=== PATIENT | female | born 1940 | race Caucasian/White ===

== ENCOUNTER 2016-04-02 10:26 | Inpatient (IN) | payer OTHER ==
[2016-04-02 10:39] VITALS: BMI 29.9
--- NOTE | 2016-04-02 10:46 | ED.PDOC ---
General ED Provider: Dr. BELIA JEFFERY JR Chief Complaint: Extremity Pain/Injury Stated Complaint: fell and scraped her left drainage and has reddness near the upper leg[End]several days 97.6 56 20 96% 122/59 left leg has a scab on the upper leg with some bruising to the toes and area is red and warm[End] hyperflexion. ADMISSION: 03/13/16 09:14 DISCHARGE: March 16, 2016. Diverticulitis, early sigmoid colon/ gastroenteritis-viral Time Seen by Physician: 10:44 Mode of Arrival: Wheelchair Information Source: Patient, Family Exam Limitations: No limitations Primary Care Provider: JAGJIT VELASCO Nursing and Triage Documentation Reviewed and Agree: No Review of Systems - Review Of Systems Constitutional: Reports: Malaise, Weakness Eyes: Reports: No symptoms Ears, Nose, Mouth, Throat: Reports: No symptoms Respiratory: Reports: No symptoms Cardiac: Reports: No symptoms GI: Reports: No symptoms : Reports: No symptoms Musculoskeletal: Reports: Other Skin: Reports: Change in color, Lesions, Rash Neurological: Reports: No symptoms Endocrine: Reports: No symptoms Hematologic/Lymphatic: Reports: No symptoms All Other Systems: Other Past Medical History - Past Medical History Previously Healthy: No Endocrine: Reports: Dyslipidemia Cardiovascular: Reports: CAD, Hypertension, Other (cardiac arrest) Respiratory: Reports: COPD, Bronchitis Hematological: Reports: Anemia Gastrointestinal: Reports: None, GERD (old record), Diverticulitis (old record- diverticulosis) Genitourinary: Reports: None Neuro/Psych: Reports: Anxiety, Depression, Other (neuropathy of feet and hands) Musculoskeletal: Reports: Arthritis Cancer: Reports: None Last Menstrual Period: na - Surgical History General Surgical History: Reports: Hysterectomy, Appendectomy (old record), Cholecystectomy, Orthopedic (RIGHT KNEE REPLACEMENT ), Other (CAROTID SURGERY - 2013 Carotid Endarterectomy, Right) - Family History Family History: Reports: Unknown - Social History Smoking Status: Former smoker Hx Substance Use: No Alcohol Screening: None - Immunizations Tetanus Shot up to Date: No Physical Exam - Physical Exam Appearance: Well-appearing Pain Distress: Mild Eyes: HUSSAIN, EOMI, Conjunctiva clear ENT: Ears normal, Nose normal, Oropharynx normal (tender left occiput) Neck: Supple (pain with ROM) Respiratory: Airway patent, Breath sounds clear, Breath sounds equal, Respirations nonlabored Cardiovascular: RRR, Pulses normal, No rub, No murmur GI/: Soft, Nontender, No masses, Bowel sounds normal, No Organomegaly Musculoskeletal: Normal strength, ROM intact (tender left leg mild hip to ant leg mod ant leg to foot ecchymoses to foot edema ant leg), No calf tenderness ( left anterior lower leg with abrasionabout 2x3cm tender swelling slightly less than photo from 04/01), Edema Skin: Warm, Dry (note as above) Neurological: Sensation intact, Motor intact, Reflexes intact, Cranial nerves intact, Alert, Oriented Psychiatric: Affect appropriate Interpretation - Radiology Interpretation Radiology Interpretation By: Radiologist Radiology Results: No acute changes Exam Interpreted: Other (foot,pelvis,tibfib(diffuse edema),femur(hip and kneeDJD )) Xray Comments: U/S NEGATIVE FOR LEG DVT Radiology Interpretation By: Radiologist Radiology Results: No acute changes Exam Interpreted: CT Scan (NO PE chest with emphysema old rib fx, neck severe djd no acute changes head- chronic no acute chnages) - EKG Interpretation Time of EKG #1: 12:01 Rate: Tong (51) Rhythm: Sinus Ectopy: None Porter: NL ST Segment: Normal Re-Evaluation - Re-Evaluation Time of Re-Evaluation: 13:42 Status: Unchanged (disc with dr sanchez disc with daughter esme [place] post knee surgery,chris sx then next dayafternoon deteriorated- needed cpr in hospital icu...rash after xray at [facility] per esme's sister- per xray reaction in 2011) Critical Care Note - Critical Care Note Total Time (mins): 5 Course - Course Hematology/Chemistry: 04/02/16 11:11 04/02/16 11:11 Orders, Labs, Meds: Lab Review 04/02/16 04/02/16 11:11 11:14 WBC 4.81 RBC 3.56 L Hgb 11.3 L Hct 34.5 L MCV 96.9 MCH 31.7 H MCHC 32.8 RDW Coeff of Pricila 13.1 Plt Count 193 Immature Gran % (Auto) 0.2 Neut % (Auto) 74.5 Lymph % (Auto) 16.2 [place] % (Auto) 5.0 Eos % (Auto) 3.5 Baso % (Auto) 0.6 Immature Gran # (Auto) 0.0 Neut # 3.6 Lymph # 0.8 [place] # 0.2 L Eos # 0.2 Baso # 0.0 D-Dimer 3901.01 H Puncture Site Rrad O2 Saturation 94.0 L ABG pH 7.366 ABG pCO2 46.3 H ABG pO2 75.0 L ABG HCO3 26.5 H ABG Total CO2 28 ABG Base Excess 1 [place] Test + FiO2 % 21.0 Sodium 141 Potassium 4.2 Chloride 103 Carbon Dioxide 29 Anion Gap 13.2 BUN 13 Creatinine 0.88 Estimated GFR (MDRD) 62.00 BUN/Creatinine Ratio 14.77 Glucose 170 H Calcium 8.7 Total Bilirubin 0.48 AST 13 L ALT 12 Alkaline Phosphatase 62 B-Natriuretic Peptide 159 H Total Protein 6.1 Albumin 3.1 L Globulin 3.0 Albumin/Globulin Ratio 1.03 Orders Category Date Time Status ABG DRAW REQUEST Stat CARDIO 04/02/16 11:14 Completed EKG-(ED ONLY) Stat CARDIO 04/02/16 11:11 Completed NPO REMINDER: IMAGING ONCE CARE 04/02/16 13:03 Completed ABG Stat LAB 04/02/16 11:14 Completed B-TYPE NATRIURETIC PEPTIDE Stat LAB 04/02/16 11:11 Completed BLOOD CULTURE Stat LAB 04/02/16 11:55 Received CBC W/ AUTO DIFF Stat LAB 04/02/16 11:11 Completed COMPREHENSIVE METABOLIC PANEL Stat LAB 04/02/16 11:11 Completed D-DIMER Stat LAB 04/02/16 11:11 Completed Ceftriaxone Sodium [Rocephin] MEDS 04/02/16 12:26 Discontinued 1 gm .ROUTE .STK-MED ONE Ceftriaxone Sodium [Rocephin] 1 gm MEDS 04/02/16 12:18 Discontinued 0.9 % Sodium Chloride [Sodium Chloride] 50 ml IV ONCE Diphenhydramine Inj [Benadryl] MEDS 04/02/16 14:09 Discontinued 50 mg .ROUTE .STK-MED ONE Diphenhydramine Inj [Benadryl] 25 mg MEDS 04/02/16 12:57 Discontinued 0.9 % Sodium Chloride [Sodium Chloride] 100 ml IV ONCE Diphenhydramine Inj [Benadryl] 25 mg MEDS 04/02/16 15:03 Discontinued 0.9 % Sodium Chloride [Sodium Chloride] 100 ml IV ONCE Methylprednisolone Sod Succ/Pf [Solu-Medrol 125 mg] MEDS 04/02/16 13:03 Discontinued 125 [address] IVP ONCE [address]A CT CERVICAL SPINE W/O CONTRAST Stat RADS 04/02/16 11:[address] CHEST PE PROTOCOL Stat RADS 04/02/16 12:[address] CHEST W/O CONTRAST Stat RADS 04/02/16 11:[address] HEAD W/O CONTRAST Stat RADS 04/02/16 11:03 Completed FEMUR, LEFT 2 VIEWS Stat RADS 04/02/16 11:09 Completed FOOT, LEFT 3 VIEWS Stat RADS 04/02/16 11:09 Completed PELVIS 1 OR 2 VIEWS Stat RADS 04/02/16 11:09 Completed TIBIA/FIBULA, LEFT 2 VIEWS Stat RADS 04/02/16 11:09 Completed ULTRASOUND VENOUS SCAN ANJUM LEGS [U/S VENOUS SCAN ANJUM RADS 04/02/16 14:02 Completed LEGS] Stat Medications Generic Name Dose Route Start Last Admin Trade Name Freq PRN Reason Stop Dose Admin Acetaminophen 650 mg 04/02/16 16:07 Tylenol PO Q4H PRN Mild Pain Acetaminophen/Hydrocodone Bitart 1 tab 04/02/16 16:27 [place] 5-325 PO Q6HR PRN PAIN Albuterol Sulfate 1 puff 04/02/16 16:27 Proair Hfa IH Q4HR PRN Wheezing Aspirin 81 mg 04/03/16 08:00 Aspirin Ec PO DAILYWM [facility] Atorvastatin Calcium 80 mg 04/03/16 09:00 Lipitor PO DAILY [facility] Calcium/Vitamin D 2 each 04/02/16 21:00 Calcium 500 + Vit D 200 Mg Tablet PO BID [facility] Clopidogrel Bisulfate 75 mg 04/03/16 09:00 Plavix PO DAILY [facility] Escitalopram Oxalate 10 mg 04/03/16 09:00 Lexapro PO DAILY [facility] Ferrous Sulfate 324 mg 04/03/16 09:00 Ferrous Sulfate PO DAILY [facility] Fish Oil 1,000 mg 04/02/16 21:00 [place]-3 Fish Oil PO BID [facility] Gabapentin 1,200 mg 04/02/16 21:00 Neurontin PO TID [facility] Ceftriaxone Sodium 1 gm/ 50 mls @ 75 mls/hr 04/03/16 09:00 Sodium Chloride IV DAILY [facility] Sodium Chloride 1,000 mls @ 75 mls/hr 04/02/16 16:30 Sodium Chloride IV .[id number] [facility] Vancomycin HCl 1 gm/ Sodium 250 mls @ 125 mls/hr 04/02/16 16:30 Chloride IV 04/02/16 23:59 DAILY KELY Vancomycin HCl 500 mg/ Sodium 100 mls @ 100 mls/hr 04/03/16 09:00 Chloride IV Q12HR KELY Isosorbide Mononitrate 30 mg 04/02/16 16:27 Imdur PO Q6HR PRN Angina Lisinopril 5 mg 04/03/16 09:00 Zestril PO DAILY [facility] Metoprolol Tartrate 25 mg 04/02/16 21:00 Lopressor PO BID [facility] Multivitamins 1 cap 04/03/16 09:00 Multivitamin PO DAILY [facility] Nitroglycerin 0.4 mg 04/02/16 16:27 Nitrostat SL Q5MIN PRN Angina Non-Formulary Medication 0.5 mg 04/02/16 21:00 Clonazepam [Klonopin] PO BEDTIME KELY Omeprazole 20 mg 04/03/16 06:30 Prilosec PO QDAC KELY Ranolazine 500 mg 04/02/16 21:00 Ranexa PO BID [facility] Discontinued Medications Generic Name Dose Route Start Last Admin Trade Name Freq PRN Reason Stop Dose Admin Ceftriaxone Sodium 1 gm/ 50 mls @ 75 mls/hr 04/02/16 12:18 04/02/16 15:20 Sodium Chloride IV 04/02/16 12:57 75 mls/hr ONCE STA Administration Diphenhydramine HCl 25 mg/ 100.5 mls @ 100 mls/hr 04/02/16 12:57 04/02/16 14: 12 Sodium Chloride IV 04/02/16 13:57 100 mls/hr ONCE STA Administration Diphenhydramine HCl 25 mg/ 100.5 mls @ 100 mls/hr 04/02/16 15:03 04/02/16 15: 35 Sodium Chloride IV 04/02/16 16:03 Not Given ONCE STA Methylprednisolone Sodium Succinate 125 mg 04/02/16 13:03 04/02/16 14:11 Solu-Medrol 125 Mg IVP 04/02/16 13:04 125 mg ONCE STA Administration Vital Signs: Temp Pulse Resp BP Pulse Ox 04/02/16 10:32 97.6 F 56 L 20 122/59 L 96 Departure - Departure Time of Disposition: 17:13 Disposition: ADMITTED INPATIENT Discharge Problem: Cellulitis Condition: Stable Pt referred to PMD for follow-up: Yes Allergies/Adverse Reactions: Allergies Iodinated Contrast Media - Oral and [Iodinated Contrast Media - IV Dye] Adverse Reaction (Verified 04/02/16 10:44) pregabalin [From Lyrica] Adverse Reaction (Verified 04/02/16 10:44) Home Medications: Ambulatory Orders Acetaminophen [Tylenol] 500 mg PO Q4HR PRN 09/02/12 Calcium Carbonate/Vitamin D3 [Calcium 600 + Vit D 400 Tablet] 2 tab PO BID 09/02 Clopidogrel Bisulfate [Plavix] 75 mg PO DAILY 09/02/12 Nitroglycerin [Nitrostat] 0.4 mg SL Q5MIN PRN 09/02/12 [place]-3 Fatty Acids/Fish Oil [Fish Oil 1,000 mg Capsule] 2,000 mg PO DAILY 09/02 Omeprazole [Prilosec] 20 mg PO QDAC 09/02/12 Multivitamin [Multi-Vitamin Daily] 1 each PO DAILY 01/01/13 Albuterol Sulfate [Proair Hfa] 1 puff INH Q4HR PRN 07/15/13 Ferrous Sulfate 325 mg PO DAILY 07/15/13 Clonazepam [Klonopin] 0.5 mg PO BEDTIME 03/26/14 Escitalopram Oxalate [Lexapro] 10 mg PO DAILY 03/26/14 Gabapentin 1,200 mg PO TID 03/26/14 Lisinopril [Zestril] 5 mg PO DAILY 03/26/14 Metoprolol Tartrate [Lopressor] 25 mg PO BID 03/26/14 Hydrocodone/Acetaminophen [[place] 5-325 Tablet] 1 tab PO Q6HR PRN 06/17/14 Isosorbide Mononitrate [Imdur] 30 mg PO Q6HR PRN 06/17/14 Ranolazine [Ranexa] 500 mg PO BID 06/17/14 Atorvastatin Calcium [Lipitor] 80 mg PO DAILY 10/16/14 Aspirin [Aspirin EC] 81 mg PO DAILYWM 05/07/15 [place]-3 Fatty Acids/Fish Oil [Fish Oil 1,000 mg Softgel] 1,000 mg PO BID Ranolazine [Ranexa] 500 mg PO BID 04/02/16
[2016-04-02 11:16] LABS: BASOPHILS % (AUTO) 0.6 % (0.0-3.0); EOSINOPHILS # (AUTO) 0.2 K/ul (0.0-0.7); EOSINOPHILS % (AUTO) 3.5 % (0.0-7.0); HEMATOCRIT 34.5 % (37.0-47.0); HEMOGLOBIN 11.3 g/dl (12.0-16.0); IMMATURE GRANULOCYTE % (AUTO) 0.2 % (0.0-5.0); LYMPHOCYTES # (AUTO) 0.8 K/uL (0.60-3.4); LYMPHOCYTES % (AUTO) 16.2 (10.0-50.0); MEAN CORPUSCULAR HEMOGLOBIN 31.7 pg (27.0-31.0); MEAN CORPUSCULAR HGB CONC 32.8 (31.8-35.4); MEAN CORPUSCULAR VOLUME 96.9 fl (81.0-99.0); MONOCYTES # (AUTO) 0.2 K/uL (0.4-2.0); NEUTROPHILS # (AUTO) 3.6 K/ul (2.0-6.9); NEUTROPHILS % (AUTO) 74.5; PLATELET COUNT 193 10^3/uL (140-440); RED BLOOD COUNT 3.56 10^6/ul (4.20-5.40); WHITE BLOOD COUNT 4.81 K/ul (4.6-10.2)
--- NOTE | 2016-04-02 11:53 | DI ---
EXAM: Single image of the pelvis. Comparison: CT examination performed on 03/13/2016. Reason for study: Fall, leg flexed and scraped with cellulitis left fitzpatrick. FINDINGS: Examination is somewhat limited by a single AP image of the pelvis. No obvious cortical irregularity or malalignment. The femoral heads articulate with the acetabular fossa bilaterally. The pubic symphysis is not widened. There are some sclerotic changes in both sacroiliac joints like ly age-related. IMPRESSION: Within the limitations of a single radiograph, no acute fracture or dislocation is seen within the pelvis.
--- NOTE | 2016-04-02 11:54 | DI ---
EXAM: Radiographs, left tibia and fibula HISTORY: Initial presentation for left leg injury. COMPARISON: Left knee radiographs 09/12/2015. TECHNIQUE: Frontal and lateral views. FINDINGS/IMPRESSION: Plate and screw fixation of the distal fibula appears intact. No acute fracture or dislocation iden tified. Osteoarthritic changes the knee are present. Diffuse subcutaneous edema seen in the lower leg, greater distally.
--- NOTE | 2016-04-02 11:56 | DI ---
EXAM: Two views of the left femur HISTORY: Fall with soft tissue injury concerning for cellulitis.. COMPARISON: Same day pelvis x-ray and lower leg x-ray FINDINGS: There is no lytic or blastic lesion of the left femur. There is no cortical irregularity or displaced fracture. The left hip demonstrates degenerative disease and is better evaluated on day pelvis x-ray. Soft tissues are unremarkable. There is degenerative disease of the left knee . IMPRESSION: No acute abnormality, displaced fracture, lytic or blastic lesion of the left femur. T here is degenerative disease of the left hip and knee.
--- NOTE | 2016-04-02 11:58 | DI ---
EXAM: Left foot three views HISTORY: Fall, pain FINDINGS: Compared to 04/26/2014. Redemonstration of stabilization hardware of the lower fibula. The bones appear demineralized. No acute fracture or dislocation is identified. Diffuse arthropath y is again seen without noticeable change. There is no joint effusion. IMPRESSION: No acute fracture or dislocation. Prior surgery. Diffuse arthropathy.
[2016-04-02 12:02] LABS: ALBUMIN 3.1 g/dL (3.4-5.0); ALBUMIN/GLOBULIN RATIO 1.03; ANION GAP 13.2; BILIRUBIN,TOTAL 0.48 mg/dL (0.00-1.20); BUN/CREATININE RATIO 14.77; CALCIUM 8.7 mg/dL (8.2-10.2); CREATININE 0.88 mg/dL (0.60-1.30); POTASSIUM 4.2 mmol/L (3.5-5.10); TOTAL PROTEIN 6.1 g/dL (5.8-8.1)
--- NOTE | 2016-04-02 12:02 | CT ---
EXAM: Noncontrasted CT examination of the brain. Comparison: 01/16/2016. Reason for study: Fall struck head and left chest wall. FINDINGS: No acute intracranial hemorrhage, mass effect, ventricular dilatation, or territorial inf arction. The prepontine and quadrigeminal cisterns are patent. There is no cerebellar ectopia. Th e calvarium is intact. The paranasal sinuses and mastoid air cells are unopacified. Parenchymal fin dings are consistent with chronic small vessel disease. Calcified atherosclerotic changes are seen w ithin the vertebral arteries. IMPRESSION: 1. No acute intracranial findings. 2. Chronic small vessel disease and senescent change.
--- NOTE | 2016-04-02 12:02 | CT ---
EXAM: CT cervical spine without contrast. HISTORY: Initial presentation for neck pain following a fall. COMPARISON: 01/16/2016. TECHNIQUE: Multiple axial images of the cervical spine were obtained without intravenous contrast. Images were reformatted in the sagittal and coronal planes. FINDINGS: There is approximately 0.2 cm anterolisthesis of C3 on C4 0.2 cm retrolisthesis of four o n C5 and less than 0.2 cm retrolisthesis of C5 on C6. Vertebral body heights are normal. There is severe loss of disc height at C4-5 through C6-7 with associated endplate sclerosis and osteophyte fo rmation causing mild central canal stenosis from C4-5 through C6-7. Disc osteophyte formation along with uncovertebral hypertrophy and facet arthropathy cause multilevel neural foraminal narrowing, m oderate at C6-7 and more mild elsewhere. No fracture identified. Paravertebral soft tissues are wit hout acute abnormality in the. Emphysematous changes seen in the lung apices. Atherosclerotic calc ifications are present. Clips seen adjacent to the right carotid artery. Since the prior study, the re has been no significant interval change. IMPRESSION: No acute abnormality of the cervical spine.
--- NOTE | 2016-04-02 12:06 | CT ---
EXAM: CT chest without contrast. HISTORY: Initial presentation for left-sided chest trauma due to a fall. Left eighth and ninth rib pain. COMPARISON: Chest radiograph 05/06/2015. Chest CT 04/06/2012. TECHNIQUE: Multiple axial images of the chest were obtained without intravenous contrast. Images w ere reformatted in the sagittal and coronal planes. FINDINGS: Noncalcified mediastinal lymph nodes are present which measure less than 1 cm short axis. Densely calcified subcarinal and left hilar lymph nodes noted. Heart size is normal. Atheroscler otic calcifications present. No pericardial effusion identified. Emphysematous changes present bilaterally, greater in the upper lobes. Calcified granulomatous grimes ges are present. Subsegmental atelectasis or scarring seen at the right lung base. No consolidatio n, pleural effusion or pneumothorax identified. No acute rib fracture identified. There are old right lateral sixth and seventh rib fractures. The re images of the upper abdomen demonstrate right renal cysts and colonic diverticulosis. Small hiat al hernia noted. Severe abdominal aortic atherosclerotic calcifications are present but incompletel y imaged. IMPRESSION: No acute post-traumatic abnormality of the chest.
[2016-04-02 12:13] LABS: ABG BASE EXCESS 1 (-2.0-2.0); ABG HCO3 26.5 (22.0-26.0); ABG PCO2 46.3 mmHg (35-45); ABG PH 7.366 (7.35-7.45); ABG TCO2 28 (22.0-28.0)
[2016-04-02] MEDS ORDERED: ROCEPHIN 1 GM in SODIUM CHLORIDE 50 ML IV STA (12:18)
[2016-04-02] MEDS ORDERED: ROCEPHIN ONE (12:26)
[2016-04-02] MEDS ORDERED: BENADRYL 25 MG in SODIUM CHLORIDE 100 ML IV STA ×2 (12:57→15:03)
[2016-04-02] MEDS ORDERED: SOLU-MEDROL 125 MG IVP STA (13:03)
[2016-04-02] MEDS ORDERED: BENADRYL ONE (14:09)
--- NOTE | 2016-04-02 15:33 | CT ---
EXAM: CT Angiogram Chest. HISTORY: Elevated D-dimer. Recent fall left-sided chest trauma. COMPARISON: Noncontrast CT earlier the same day. TECHNIQUE: Multiple axial images of the chest were obtained following intravenous administration of 125 mL of Omnipaque-300, low osmolar. Images were reformatted in the sagittal and coronal plane. 3-D and maximum intensity projection reformatted images were created on an independent workstation. FINDINGS: No pulmonary arterial filling defects are identified. Heart size is normal. No pericard ial effusion identified. Atherosclerotic calcifications are present. Calcified and noncalcified me diastinal and hilar lymph nodes noted. Lungs are grossly clear save for right basilar subsegmental atelectasis and calcified granulomatous changes. Emphysematous changes seen. No pleural effusion o r pneumothorax identified. Old left lateral fifth through seventh rib fractures noted. No acute osseous abnormality detected. Limited images of the upper abdomen demonstrate no acute abnormality. IMPRESSION: No evidence for pulmonary embolus or other acute abnormality of the chest.
--- NOTE | 2016-04-02 15:34 | US ---
EXAM: Left lower extremity venous doppler. HISTORY: Left leg swelling. Positive D-dimer. COMPARISON: None available. TECHNIQUE: Multiple grayscale and color doppler images were obtained. FINDINGS: There is normal flow, compressibility and augmentation of flow within the left common fem oral, greater saphenous, profunda, femoral, popliteal, posterior tibial, anterior tibial and peronea l veins. Subcutaneous edema is present. IMPRESSION: No evidence for left lower extremity deep vein thrombosis at the levels examined.
[2016-04-02] MEDS ORDERED: TYLENOL PO PRN (16:07)
[2016-04-02] MEDS ORDERED: NORCO 5-325 PO PRN (16:27)
[2016-04-02] MEDS ORDERED: NITROSTAT SL PRN (16:27)
[2016-04-02] MEDS ORDERED: PROAIR HFA IH PRN (16:27)
[2016-04-02] MEDS ORDERED: IMDUR PO PRN (16:27)
[2016-04-02] MEDS ORDERED: SODIUM CHLORIDE 1,000 ML IV SCH (16:30)
[2016-04-02] MEDS ORDERED: VANCOMYCIN 1 GM in SODIUM CHLORIDE 250 ML IV SCH (16:30)
[2016-04-02] MEDS: OMEGA-3 FISH OIL PO SCH (20:54)
[2016-04-02] MEDS: RANEXA PO SCH (20:54)
[2016-04-02] MEDS: NEURONTIN PO SCH (20:54)
[2016-04-02] MEDS: LOPRESSOR PO SCH (20:54)
[2016-04-02] MEDS: CALCIUM 500 + VIT D 200 MG TABLET PO SCH (20:55)
[2016-04-02] MEDS: KLONOPIN PO SCH (21:00)
[2016-04-02] MEDS ORDERED: NON-FORMULARY MEDICATION (Omega-3 Fatty Acids/Fish Oil [Fish Oil 1,000 Mg Softgel] 1,000 M PO SCH ×22 (21:00)
[2016-04-02] MEDS ORDERED: NON-FORMULARY MEDICATION (Gabapentin [Gabapentin] 1,200 MG) PO SCH (21:00)
[2016-04-02] MEDS ORDERED: NON-FORMULARY MEDICATION (Clonazepam [Klonopin] 0.5 MG) PO SCH ×22 (21:00)
[2016-04-03] MEDS: PRILOSEC PO SCH (05:48)
[2016-04-03 05:50] LABS: HEMATOCRIT 37.6 % (37.0-47.0); HEMOGLOBIN 11.9 g/dl (12.0-16.0); IMMATURE GRANULOCYTE % (AUTO) 0.3 % (0.0-5.0); LYMPHOCYTES # (AUTO) 0.5 K/uL (0.60-3.4); LYMPHOCYTES % (AUTO) 13.3 (10.0-50.0); MEAN CORPUSCULAR HEMOGLOBIN 30.3 pg (27.0-31.0); MEAN CORPUSCULAR HGB CONC 31.6 (31.8-35.4); MEAN CORPUSCULAR VOLUME 95.7 fl (81.0-99.0); MONOCYTES % (AUTO) 0.3 (0-10); NEUTROPHILS # (AUTO) 3.4 K/ul (2.0-6.9); NEUTROPHILS % (AUTO) 86.1; PLATELET COUNT 186 10^3/uL (140-440); RED BLOOD COUNT 3.93 10^6/ul (4.20-5.40); WHITE BLOOD COUNT 3.99 K/ul (4.6-10.2)
[2016-04-03 06:20] LABS: ALBUMIN 3.1 g/dL (3.4-5.0); ALBUMIN/GLOBULIN RATIO 0.94; ANION GAP 14.3; BILIRUBIN,TOTAL 0.37 mg/dL (0.00-1.20); BUN/CREATININE RATIO 13.75; CALCIUM 9.1 mg/dL (8.2-10.2); CREATININE 0.8 mg/dL (0.60-1.30); POTASSIUM 4.3 mmol/L (3.5-5.10); TOTAL PROTEIN 6.4 g/dL (5.8-8.1)
[2016-04-03] MEDS: ROCEPHIN 1 GM in SODIUM CHLORIDE 50 ML IV SCH (07:59)
[2016-04-03] MEDS: LIPITOR PO SCH (08:00)
[2016-04-03] MEDS: ZESTRIL PO SCH (08:00)
[2016-04-03] MEDS: NEURONTIN PO SCH ×3 (08:00→21:11)
[2016-04-03] MEDS: PLAVIX PO SCH (08:00)
[2016-04-03] MEDS: MULTIVITAMIN PO SCH (08:01)
[2016-04-03] MEDS: OMEGA-3 FISH OIL PO SCH ×2 (08:01→21:11)
[2016-04-03] MEDS: RANEXA PO SCH ×2 (08:01→21:12)
[2016-04-03] MEDS: CALCIUM 500 + VIT D 200 MG TABLET PO SCH ×2 (08:01→21:12)
[2016-04-03] MEDS: LOPRESSOR PO SCH ×2 (08:01→21:12)
[2016-04-03] MEDS: FERROUS SULFATE PO SCH (08:02)
[2016-04-03] MEDS: IMDUR PO SCH (08:02)
[2016-04-03] MEDS: ASPIRIN EC PO SCH (08:02)
[2016-04-03] MEDS: LEXAPRO PO SCH (08:02)
[2016-04-03] MEDS: SODIUM CHLORIDE 1,000 ML IV SCH ×2 (08:03)
[2016-04-03] MEDS ORDERED: NON-FORMULARY MEDICATION (Multivitamin [Multi-Vitamin Daily] 1 EACH) PO SCH ×22 (09:00)
[2016-04-03] MEDS ORDERED: NON-FORMULARY MEDICATION (Ferrous Sulfate [Ferrous Sulfate] 325 MG) PO SCH ×22 (09:00)
[2016-04-03] MEDS ORDERED: NON-FORMULARY MEDICATION (Atorvastatin Calcium [Lipitor] 80 MG) PO SCH ×22 (09:00)
[2016-04-03] MEDS: VANCOMYCIN 500 MG in SODIUM CHLORIDE 100 ML IV SCH ×2 (10:04→21:12)
[2016-04-03] MEDS: KLONOPIN PO SCH (21:12)
[2016-04-04] MEDS: PRILOSEC PO SCH (05:45)
[2016-04-04 07:36] LABS: BASOPHILS % (AUTO) 0.6 % (0.0-3.0); EOSINOPHILS # (AUTO) 0.1 K/ul (0.0-0.7); EOSINOPHILS % (AUTO) 1.7 % (0.0-7.0); HEMATOCRIT 33.8 % (37.0-47.0); HEMOGLOBIN 10.6 g/dl (12.0-16.0); IMMATURE GRANULOCYTE % (AUTO) 0.2 % (0.0-5.0); MEAN CORPUSCULAR HEMOGLOBIN 30.4 pg (27.0-31.0); MEAN CORPUSCULAR HGB CONC 31.4 (31.8-35.4); MEAN CORPUSCULAR VOLUME 96.8 fl (81.0-99.0); MONOCYTES # (AUTO) 0.3 K/uL (0.4-2.0); MONOCYTES % (AUTO) 4.8 (0-10); NEUTROPHILS # (AUTO) 4.9 K/ul (2.0-6.9); NEUTROPHILS % (AUTO) 76.7; PLATELET COUNT 183 10^3/uL (140-440); RED BLOOD COUNT 3.49 10^6/ul (4.20-5.40); WHITE BLOOD COUNT 6.44 K/ul (4.6-10.2)
[2016-04-04] MEDS: ASPIRIN EC PO SCH (07:58)
[2016-04-04 08:03] LABS: ALBUMIN 2.8 g/dL (3.4-5.0); ANION GAP 12.2; BILIRUBIN,TOTAL 0.37 mg/dL (0.00-1.20); BUN/CREATININE RATIO 18.18; CALCIUM 8.7 mg/dL (8.2-10.2); CREATININE 0.77 mg/dL (0.60-1.30); POTASSIUM 4.2 mmol/L (3.5-5.10); TOTAL PROTEIN 5.6 g/dL (5.8-8.1)
[2016-04-04] MEDS: OMEGA-3 FISH OIL PO SCH ×2 (09:18→20:31)
[2016-04-04] MEDS: MULTIVITAMIN PO SCH (09:18)
[2016-04-04] MEDS: RANEXA PO SCH ×2 (09:19→20:30)
[2016-04-04] MEDS: FERROUS SULFATE PO SCH (09:19)
[2016-04-04] MEDS: LOPRESSOR PO SCH ×2 (09:20→20:32)
[2016-04-04] MEDS: LIPITOR PO SCH (09:20)
[2016-04-04] MEDS: PLAVIX PO SCH (09:20)
[2016-04-04] MEDS: ZESTRIL PO SCH (09:22)
[2016-04-04] MEDS: IMDUR PO SCH (09:22)
[2016-04-04] MEDS: LEXAPRO PO SCH (09:22)
[2016-04-04] MEDS: CALCIUM 500 + VIT D 200 MG TABLET PO SCH ×2 (09:23→20:31)
[2016-04-04] MEDS: NEURONTIN PO SCH ×3 (09:24→20:30)
[2016-04-04] MEDS: ROCEPHIN 1 GM in SODIUM CHLORIDE 50 ML IV SCH (09:25)
[2016-04-04] MEDS: VANCOMYCIN 500 MG in SODIUM CHLORIDE 100 ML IV SCH ×2 (10:30→20:29)
[2016-04-04] MEDS: SODIUM CHLORIDE 1,000 ML IV SCH (15:10)
[2016-04-04] MEDS: KLONOPIN PO SCH (20:36)
[2016-04-05] MEDS: PRILOSEC PO SCH (05:30)
[2016-04-05 08:37] LABS: BASOPHILS % (AUTO) 0.5 % (0.0-3.0); EOSINOPHILS # (AUTO) 0.1 K/ul (0.0-0.7); EOSINOPHILS % (AUTO) 2.3 % (0.0-7.0); HEMATOCRIT 35.4 % (37.0-47.0); IMMATURE GRANULOCYTE % (AUTO) 0.3 % (0.0-5.0); LYMPHOCYTES # (AUTO) 0.8 K/uL (0.60-3.4); MEAN CORPUSCULAR HEMOGLOBIN 30.2 pg (27.0-31.0); MEAN CORPUSCULAR HGB CONC 31.1 (31.8-35.4); MEAN CORPUSCULAR VOLUME 97.3 fl (81.0-99.0); MONOCYTES # (AUTO) 0.3 K/uL (0.4-2.0); MONOCYTES % (AUTO) 4.9 (0-10); NEUTROPHILS # (AUTO) 4.8 K/ul (2.0-6.9); PLATELET COUNT 164 10^3/uL (140-440); RED BLOOD COUNT 3.64 10^6/ul (4.20-5.40); WHITE BLOOD COUNT 6.07 K/ul (4.6-10.2)
[2016-04-05] MEDS: ASPIRIN EC PO SCH (08:59)
[2016-04-05] MEDS: CALCIUM 500 + VIT D 200 MG TABLET PO SCH (09:00)
[2016-04-05] MEDS: IMDUR PO SCH (09:01)
[2016-04-05] MEDS: FERROUS SULFATE PO SCH (09:01)
[2016-04-05] MEDS: LOPRESSOR PO SCH (09:02)
[2016-04-05] MEDS: LEXAPRO PO SCH (09:02)
[2016-04-05 09:03] LABS: ALBUMIN 2.9 g/dL (3.4-5.0); ALBUMIN/GLOBULIN RATIO 1.12; ANION GAP 11.6; BILIRUBIN,TOTAL 0.34 mg/dL (0.00-1.20); BUN/CREATININE RATIO 14.66; CALCIUM 8.8 mg/dL (8.2-10.2); CREATININE 0.75 mg/dL (0.60-1.30); POTASSIUM 4.6 mmol/L (3.5-5.10); TOTAL PROTEIN 5.5 g/dL (5.8-8.1)
[2016-04-05] MEDS: MULTIVITAMIN PO SCH (09:03)
[2016-04-05] MEDS: NEURONTIN PO SCH (09:03)
[2016-04-05] MEDS: OMEGA-3 FISH OIL PO SCH (09:04)
[2016-04-05] MEDS: RANEXA PO SCH (09:05)
[2016-04-05] MEDS: PLAVIX PO SCH (09:05)
[2016-04-05] MEDS: ZESTRIL PO SCH (09:06)
--- NOTE | 2016-04-05 09:10 | PCM.PROG ---
Attending Provider: ATTENDING PROVIDER: Dr. MARCIA RODRIGUEZ DATE OF SERVICE: 04/05/16 SUBJECTIVE: This 75 year old WHITE/ F was hospitalized 04/02/16. The patient was admitted with left lower extremity cellulitis and recurrent fall. The patient is feeling much better today. Her color is better. Swelling is better. Left leg - above the ankle cellulitis and hematoma, which is getting better. REVIEW OF SYSTEMS: CONSTITUTIONAL: No fever, no chills. ENDOCRINE: No weight loss or weight gain. HEENT: No sinus drainage, no sore throat. CVS: No angina symptoms. No CHF symptoms. No palpitations. No atypical chest pain for CAD. No shortness of breath. RESPIRATORY: No cough, no hemoptysis. GI: No melena. No abdominal pain. No nausea, no vomiting. : No hematuria. No polyuria. SKIN: No rash. Wound - scabbed area left lower extremity, swelling and redness from hematoma - nontender, not warm to touch. MUSCULOSKELETAL: No pain. ROLLER PRINTER: No blackout, no dizziness. No headache. No double vision. PSYCHIATRIC: Not anxious; no depression. No suicidal thoughts. No homicidal thoughts. PHYSICAL EXAMINATION: GENERAL: Lying in bed in no distress. VITAL SIGNS: Temperature 98.7 F, Pulse 60, Respiratory Rate 18, BP 166/65, Pulse Ox 96% HEENT: Normocephalic, atraumatic. Mucosa is dry, pallor positive. NECK: No JVP, no carotid bruit. No lymphadenopathy. CARDIAC: S1, S2, no S3. No murmur, gallop or regurgitation. LUNGS: Clear to auscultation. ABDOMEN: Soft, non-tender. Bowel sounds active. No rigidity, guarding or CVA tenderness. EXTREMITIES: Left lower extremity above ankle scabbed area wound with swelling nd redness. Swelling and redness from hematoma. Nontender. Not warm to touch. NEUROLOGIC: Awake, alert and oriented x3. LYMPHATIC: No palpable lymph nodes SKIN: Not dry. Intact. MUSCULOSKELETAL: No joint swelling. LAB REVIEW: 04/04/16 06:50 04/04/16 06:50 ASSESSMENT: 1. Left lower extremity cellulitis, better. 2. Recurrent falls. 3. Angina, stable. 4. Hypertension. 5. Dyslipidemia. 6. Depression/anxiety. 7. Right carotid endarterectomy. PLAN: 1. Keflex 500 mg b.i.d. times 5 days. 2. Keep left lower extremity elevated. 3. Plan for discharge home today. 4. Saline Lock IV. Plan and coordination of the patient's care discussed in the presence of Rn Transitional and nurse. CONDITION: Stable SCRIBED BY: CHRISTOPHER EARLY Railroad Conductor scribed while in presence of service performed by Dr. MARCIA RODRIGUEZ on 04/05/16 ([id number])
[2016-04-05] MEDS: LIPITOR PO SCH (09:12)
[2016-04-05] MEDS: ROCEPHIN 1 GM in SODIUM CHLORIDE 50 ML IV SCH (09:12)
[2016-04-05] MEDS: VANCOMYCIN 500 MG in SODIUM CHLORIDE 100 ML IV SCH (10:01)
[2016-04-05 11:45] VITALS: BP 130/75; TEMP 98.3
--- NOTE | 2016-04-05 13:15 | CM.DICTOOL ---
ADMISSION: 04/02/16 15:52 DISCHARGE: 04/05/16 DATE OF SERVICE: 04/05/16 FINAL DIAGNOSIS CELLULITIS, LEFT LOWER EXTREMITY ULCER, LEFT LOWER EXTREMITY DIVERTICULITIS, SIGMOID COLON, 02/2016 GASTROENTERITIS-VIRAL, 02/2016 CAD HYPERTENSION DYSLIPIDEMIA GERD ANEMIA COPD ARTHRITIS DEPRESSION CHOLECYSTECTOMY APPENDECTOMY HYPERECTOMY RIGHT KNEE REPLACEMENT, 2013 CAROTID ENDARTERECTOMY, RIGHT LAST VITALS Temp Pulse Resp BP Pulse Ox 98.3 F 66 20 130/75 98 04/05/16 10:00 04/05/16 10:00 04/05/16 10:00 04/05/16 10:00 04/05/16 10:00 ACTIVE MEDICATIONS Acetaminophen (Tylenol) 650 mg PO Q4H PRN PRN Reason: Mild Pain Acetaminophen/Hydrocodone Bitart ([place] 5-325) 1 tab PO Q6HR PRN PRN Reason: PAIN Last Admin: 04/04/16 05:48 Dose: 1 tab Albuterol Sulfate (Proair Hfa) 1 puff IH Q4HR PRN PRN Reason: Wheezing Aspirin (Aspirin Ec) 81 mg PO DAILYWM [facility] Last Admin: 04/05/16 08:59 Dose: 81 mg Atorvastatin Calcium (Lipitor) 80 mg PO DAILY [facility] Last Admin: 04/05/16 09:12 Dose: 80 mg Calcium/Vitamin D (Calcium 500 + Vit D 200 Mg Tablet) 2 each PO BID [facility] Last Admin: 04/05/16 09:00 Dose: 2 each Clonazepam (Klonopin) 0.5 mg PO BEDTIME [facility] Last Admin: 04/04/16 20:36 Dose: 0.5 mg Clopidogrel Bisulfate (Plavix) 75 mg PO DAILY [facility] Last Admin: 04/05/16 09:05 Dose: 75 mg Escitalopram Oxalate (Lexapro) 10 mg PO DAILY [facility] Last Admin: 04/05/16 09:02 Dose: 10 mg Ferrous Sulfate (Ferrous Sulfate) 324 mg PO DAILY [facility] Last Admin: 04/05/16 09:01 Dose: 324 mg Fish Oil ([place]-3 Fish Oil) 3,000 mg PO BID [facility] Last Admin: 04/05/16 09:04 Dose: 1,000 mg Gabapentin (Neurontin) 1,200 mg PO TID [facility] Last Admin: 04/05/16 09:03 Dose: 1,200 mg Isosorbide Mononitrate (Imdur) 30 mg PO DAILY [facility] (was 30 mg po q6H PRN) Last Admin: 04/05/16 09:01 Dose: 30 mg Lisinopril (Zestril) 5 mg PO DAILY [facility] Last Admin: 04/05/16 09:06 Dose: 5 mg Metoprolol Tartrate (Lopressor) 25 mg PO BID [facility] Last Admin: 04/05/16 09:02 Dose: 25 mg Multivitamins (Multivitamin) 1 cap PO DAILY [facility] Last Admin: 04/05/16 09:03 Dose: 1 cap Nitroglycerin (Nitrostat) 0.4 mg SL Q5MIN PRN PRN Reason: Angina Omeprazole (Prilosec) 20 mg PO QDAC [facility] Last Admin: 04/05/16 05:30 Dose: 20 mg Ranolazine (Ranexa) 500 mg PO BID [facility] Last Admin: 04/05/16 09:05 Dose: 500 mg denotes changes made in home medications during this stay that will be carried over after discharge ALLERGIES Iodinated Contrast Media - Oral and [Iodinated Contrast Media - IV Dye] Adverse Reaction (Verified 04/02/16 10:44) pregabalin [From Lyrica] Adverse Reaction (Verified 04/02/16 10:44) NEW PRESCRIPTIONS: KEFLEX 500 MG, TAKE ONE TABLET BY MOUTH TWICE DAILY FOR 5 (FIVE) DAYS SMOKING: NONSMOKER DISEASE SPECIFIC EDUCATION: CELLULITIS HOME MEDICATIONS NEW PRESCRIPTIONS FOLLOW UP ACTIVITY LAB REVIEW: 04/05/16 08:30 04/05/16 08:30 04/05/16 08:30: WBC 6.07, RBC 3.64 L, Hgb 11.0 L, Hct 35.4 L, MCV 97.3, MCH 30.2 , MCHC 31.1 L, RDW Coeff of Pricila 13.2, Plt Count 164, Immature Gran % (Auto) 0.3 , Neut % (Auto) 79.0, Lymph % (Auto) 13.0, Divide % (Auto) 4.9, Eos % (Auto) 2.3, Baso % (Auto) 0.5, Immature Gran # (Auto) 0.0, Neut # 4.8, Lymph # 0.8, Divide # 0.3 L, Eos # 0.1, Baso # 0.0, Sodium 143, Potassium 4.6, Chloride 105, Carbon Dioxide 31, Anion Gap 11.6, BUN 11, Creatinine 0.75, Estimated GFR (MDRD) 75.00 , BUN/Creatinine Ratio 14.66, Glucose 86, Calcium 8.8, Total Bilirubin 0.34, AST 12 L, ALT 11 L, Alkaline Phosphatase 58, Total Protein 5.5 L, Albumin 2.9 L , Globulin 2.6, Albumin/Globulin Ratio 1.12, Vancomycin Trough 13.58 PLAN: DISCHARGE HOME TODAY. RETURN TO SEE DR. RODRIGUEZ IN 5-7 DAYS. PLEASE PHONE TO SCHEDULE YOUR APPOINTMENT ([phone]) RESUME YOUR HOME MEDICATIONS PER LIST PROVIDED BY THE NURSING STAFF NEW PRESCRIPTIONS: KEFLEX 500 MG, TAKE ONE TABLET BY MOUTH TWICE DAILY FOR 5 (FIVE) DAYS ACTIVITY: GET PLENTY OF REST AT HOME. GRADUALLY INCREASE YOUR ACTIVITY LEVEL ACCORDING TO YOUR TOLERATION. KEEP YOUR FEET/LEGS ELEVATED WHEN SITTING AND IN BED MUCH POSSIBLE DIET: CONSISTENT CARBS HEALTHY HEART SUMMARY: THE PATIENT IS ALERT AND ORIENTED X3. SHE CURRENTLY RESIDES AT HOME WITH HER SPOUSE. HE AND THE PATIENT'S TWO DAUGHTERS ARE VERY SUPPORTIVE OF HER NEEDS. AT HOME SHE HAS AVAILABLE THE FOLLOWING DME IF NEEDED: HOSPITAL BED, BSC, WALKER, ROLLATOR, CANE, NEBULIZER, SHOWER CHAIR. GRAB RAILS IN THE SHOWER. SHE DESIRES TO RETURN HOME AT DISCHARGE. SHE HAS THE WOUND TO HER LOWER FLOYD AREA ON THE LEFT THAT IS HEALING. IT HAS A BROWN SCAB COVERING THE WOUND BED. SURROUNDING TISSUE IS BRUISED WITH DEEP RED COLORING. THE BRUISED AREA IS RAISED WITH SMALL HEMATOMA JUST BELOW THE BRUISED AREA. THE SWELLING TO THIS AFFECTED AREA IS IMPROVED A GREAT DEAL SINCE ADMISSION. OTHERWISE, THE PATIENT'S SKIN IS INTACT AND WITHOUT DECUBITUS ULCERS. MARCIA RODRIGUEZ M.D.
--- NOTE | 2016-04-05 13:44 | PN ---
DATE OF SERVICE: 04/04/16 SUBJECTIVE: The patient was admitted with the left lower extremity cellulitis and the status post fall. X-ray's were negative. Sitting in the bed and not in any distress. She says that she feeling better, she is watching TV and playing a game on the computer. She is not crying and mood is better. REVIEW OF SYSTEMS: CONSTITUTIONAL: No fever, no chills. HEENT: Normal. ENDOCRINE: No weight gain, no weight loss. CVS: No angina symptoms. No CHF symptoms. No palpitations. No atypical chest pain for CAD. No shortness of breath. No PND, no orthopnea. RESPIRATORY: No cough, no hemoptysis. GI: No nausea, no vomiting. No abdominal pain. : No hematuria. No polyuria. MUSCULOSKELETAL:. No joint swelling. PSYCHIATRIC: Not anxious. No depression. No suicidal thoughts. No homicidal thoughts. SKIN: Intact. No rash. PHYSICAL EXAMINATION: V/S: Blood pressure 135/61, respiratory rate 18, heart rate 63 and temperature 97.5. HEENT: Normocephalic, atraumatic. Ears, eyes, nose and throat normal. Mucosa dry. Pallor positive. No icterus. NECK: Supple. No JVD, no carotid bruit. No lymphadenopathy. LUNGS: Decreased and clear to auscultation. No rales or rhonchi. HEART: S1, S2 normal. No S3. No murmur, gallop or regurgitation. ABDOMEN: Soft, nontender. Bowel sounds active. No rigidity. No rebound or guarding. No CVA tenderness. EXTREMITIES: No clubbing, cyanosis or pedal edema. Leg just above the left ankle the wound looks healthy, redness is still present. Some warmness is present in the lower part of the ankle otherwise the wound is looking very healthy. MUSCULOSKELETAL: No joint swelling. NEUROLOGIC: Awake, alert, oriented times three. No focal deficit. LYMPHATIC: No lymph nodes palpable. SKIN: Intact. LABS: WBC 6.44, hgb 10.6, hct 33.8, plt count 183, sodium 140, potassium 4.3, chloride 103, bicarb 27, BUN 11 and creatinine 0.80. ASSESSMENT: 1. Status post fall 2. Left lower extremity cellulitis 3. Angina 4. Hypertension 5. Dyslipidemia 6. Depression 7. Anxiety PLAN: 1. Continue to monitor the CBC and CMP 2. Keep the legs elevated 3. Continue Rocephin and Vancomycin TIME SPENT: More than 30 minutes MTDD
--- NOTE | 2016-04-05 13:52 | PN ---
DATE OF SERVICE: 04/03/16 SUBJECTIVE: The patient was admitted yesterday with status post fall and left lower extremity cellulitis. The patient is sitting in the bed and not in any distress. The patient is feeling better. REVIEW OF SYSTEMS: CONSTITUTIONAL: No fever, no chills. HEENT: Normal. ENDOCRINE: No weight gain, no weight loss. CVS: No angina symptoms. No CHF symptoms. No palpitations. No atypical chest pain for CAD. No shortness of breath. No PND, no orthopnea. RESPIRATORY: No cough, no hemoptysis. GI: No nausea, no vomiting. No abdominal pain. : No hematuria. No polyuria. MUSCULOSKELETAL:. No joint swelling. PSYCHIATRIC: Not anxious. No depression. No suicidal thoughts. No homicidal thoughts. SKIN: Intact. No rash. PHYSICAL EXAMINATION: V/S: Blood pressure 131/64, respiratory rate 20, heart rate 62 and temperature 97.6. HEENT: Normocephalic, atraumatic. Ears, eyes, nose and throat normal. Mucosa dry. Pallor positive. No icterus. NECK: Supple. No JVD, no carotid bruit. No lymphadenopathy. LUNGS: Clear to auscultation. No rales or rhonchi. HEART: S1, S2 normal. No S3. No murmur, gallop or regurgitation. ABDOMEN: Soft, nontender. Bowel sounds active. No rigidity. No rebound or guarding. No CVA tenderness. EXTREMITIES: No clubbing, cyanosis or pedal edema. Left leg above ankle scab formed on open wound with warmness and tenderness to touch. Swelling is present but it better than yesterday. MUSCULOSKELETAL: No joint swelling. NEUROLOGIC: Awake, alert, oriented times three. No focal deficit. LYMPHATIC: No lymph nodes palpable. SKIN: Intact. LABS: WBC 3.99, hgb 11.9, hct 37.9, plt count 186, sodium 140, potassium 4.3, chloride 103, bicarb 27, BUN 11 and creatinine 0.80. ASSESSMENT: 1. Left lower extremity cellulitis 2. Angina, stable 3. Hypertension 4. Coronary artery disease 5. Congestive heart failure 6. Dyslipidemia 7. Osteoarthritis 8. Depression PLAN: 1. Continue to keep the leg elevated 2. Continue Rocephin and Vancomycin 3. Daily I&O's Will follow the patient in daily rounds. TIME SPENT: More than 30 minutes MTDD
--- NOTE | 2016-04-05 14:02 | HP ---
DATE OF SERVICE: 04/02/16 CHIEF COMPLAINT: Fall and left extremity wound. HISTORY OF PRESENT ILLNESS: 75-year-old female has been having frequent falls. She fell last week at home and twisted her left leg; had a bump injury to the left leg, lower part that started swelling with redness, started forming a scab, became more warm and painful to touch. She came for evaluation and was seen by Dr. Mendez in the Emergency Room. When the family approached the PMD, the PMD suggested to bring the patient to the emergency room for possible IV antibiotics. Dr. Mendez saw the patient. White count was normal. hemoglobin was normal. X-rays and CT head were negative. In the evaluation process, D. Dimer was elevated 4.92 for which the patient had CT with IV contrast which was negative for pulmonary embolism. Venous Doppler was done which was negative for clots. At that time, the patient was admitted with IV antibiotics, Rocephin and Vancomycin. REVIEW OF SYSTEMS: CONSTITUTIONAL: Weakness, tiredness. No fever, no chills. HEENT: Normal. ENDOCRINE: No weight gain; no weight loss. CVS: No chest pain. No PND, no orthopnea. No shortness of breath. RESPIRATORY: No cough, no congestion. No hemoptysis. GI: No nausea, no vomiting. No abdominal pain. No melena. : No hematuria. No polyuria. MUSCULOSKELETAL: Aches and pains. PSYCHIATRIC: Depression. Not anxious. No suicidal thoughts. No homicidal thoughts. SKIN: Dry. PAST MEDICAL HISTORY: 1. Coronary artery disease. 2. History of PE in 2013 post knee replacement. 3. Hyperlipidemia. 4. Hypertension. 5. Dependent edema. 6. Seizure disorder. 7. Osteoarthritis. 8. DJD spine. 9. Depression/anxiety disorder. PAST SURGICAL HISTORY: 1. Right knee replacement, 2012. 2. Right ankle osteoarthritis. 3. Hysterectomy. 4. Cholecystectomy. 5. Appendectomy. 6. Carotid endarterectomy. 7. Angioplasty. 8. Bilateral cataract surgery. PERSONAL HISTORY: The patient does drink alcohol, smokes, independent of ADLs. She lives by herself with the . FAMILY HISTORY: Lung cancer. MEDICATIONS: (HOME) 1. Plavix 2. Fish Oil 3. Prilosec 4. Nitrostat 5. Calcium 6. Tylenol 7. Multivitamin 8. ProAir 9. Ferrous Sulfate 10. Lexapro 11. Zestril 12. Lopressor 13. Gabapentin 14. Klonopin 15. Ranexa 16. Imdur 17. [place] 18. Lipitor 19. Aspirin ALLERGIES: IODINATED CONTRAST MEDIA, PREGABALIN LABS: White count 481, hemoglobin 11.3, hematocrit 34.5, platelet count 193, D. dimer 4.92. ABG pH 7.36, pc02 46.3, p02 75. Sodium 141, potassium 4.2, chloride 103, bicarb 29, BUN 13, creatinine 0.88, glucose 170, BNP 159. PHYSICAL EXAMINATION: V/S: Temperature 97.6, pulse 56, respiratory rate 20, BP 122/50, pulse ox 96%. HEENT: Atraumatic, normocephalic. No scleral icterus. No pallor. NECK: Supple. No JVD, no bruit. No lymphadenopathy. No thyromegaly. HEART: S1, S2 normal. No murmur. No cyanosis or clubbing. No ascites. LUNGS: Clear to auscultation. No rales or rhonchi. ABDOMEN: Soft, nontender. Bowel sounds are active. No CVA tenderness. No rigidity or guarding. EXTREMITIES: Tender left leg mild, hip to anterior leg moderate, anterior leg to foot ecchymosis to foot, edema anterior leg. Left anterior lower leg with abrasion about 2 x 3 cm, tender, swelling. Edema. MUSCULOSKELETAL: Normal joints, no swelling. NEUROLOGIC: The patient is awake, alert, oriented times three. SKIN: Warm and dry (note as above) LYMPHATIC: No lymph nodes palpable. ASSESSMENT: 1. LEFT LEG CELLULITIS 2. ELEVATED D. DIMER, NEGATIVE FOR DVT AND PULMONARY EMBOLISM WITH HISTORY OF ANGINA, STABLE 3. HYPERTENSION 4. DYSLIPIDEMIA 5. DEPRESSION 6. ANXIETY PLAN: 1. Admit the patient to the regular floor. 2. CBC, CMP today and daily. 3. Cardiac enzymes and troponin. 4. Regular diet. 5. Continue home medications. 6. Vancomycin 1 gm daily. 7. Rocephin 1 gm daily. 8. Will follow the patient in daily rounds. TIME SPENT: More than 50 minutes today. ANDREW
--- NOTE | 2016-04-08 13:07 | DS ---
DATE OF SERVICE: 04/05/16 FINAL DIAGNOSIS: 1. CELLULITIS LEFT LOWER EXTREMITY ABOVE ANKLE 2. DIVERTICULOSIS 3. CORONARY ARTERY DISEASE 4. ANGINA 5. HYPERTENSION 6. DYSLIPIDEMIA 7. GASTROESOPHAGEAL REFLUX DISEASE 8. ANEMIA 9. CHRONIC OBSTRUCTIVE PULMONARY DISEASE 10. ARTHRITIS 11. DEPRESSION 12. HISTORY OF CHOLECYSTECTOMY, APPENDECTOMY, RIGHT KNEE REPLACEMENT IN 2013, CAROTID ENDARTERECTOMY OF THE RIGHT SIDE VITAL SIGNS: At the time of discharge, blood pressure 130/75, respiratory rate 20, heart rate 60, temperature 98.3, pulse oximetry 98. NEW MEDICATIONS: Keflex 500 mg one tablet twice a day for five more days DISCHARGE INSTRUCTIONS: 1. Keep the leg elevated please. HOME MEDICATIONS: please continue Tylenol, [place], ProAir, Aspirin, Lipitor, Calcium, Klonopin, Plavix, Lexapro, Ferrous sulfate, Fish oil, Neurontin, Imdur , Zestril, Lopressor, multivitamin, Nitro-stat, Prilosec and Ranexa. DISEASE SPECIFIC EDUCATION: About the cellulitis, home medications, medication side effects, antibiotics and the diarrhea were discussed. The patient verbalized understanding. HOSPITAL COURSE: Leia Chávez, who is a 75 year old female, came to the emergency room and brought by the family. The patient fell and injured her left lower extremity almost one week ago. It started healing up, but starting having warmness and tenderness more on the left lower extremity where she had the injury. She came for the evaluation and was seen by Dr. Mendez in the emergency room. The patient did have a left lower extremity above the ankle hematoma with cellulitis, superficial, circumferential, red, warm and tender. Venous Doppler was negative. At that time, the patient was admitted to the hospital for the IV antibiotics of Rocephin and Vancomycin. Her CT head, CT chest, femur x-ray, foot x-ray, pelvic x-ray tibia/fibula x-ray all are negative. The patient was found to have an elevated D-dimer for which the patient had a CT of the chest with IV contrast, which was negative for the pulmonary embolism. With the given IV antibiotics and IV fluids, she started feeling better. The swelling, redness and the warmness of the left lower extremity was decreasing. The circumferential redness has been localized to only the front area where the hematoma was present and there was no drainage or oozing. As the patient was doing good and did not have any complications, she is discharged to home today. Risk of falling and frequent falls was discussed and she verbalized understanding. Time spent on the patient is more than 40 minutes today. ANDREW
== END 2016-04-05 13:18 | disposition home or self-care (01) | DRG 603 ==
LOC: ED 10:26 → UNDOADMIN 15:52 → MEDSURG B 15:52
PROVIDERS: ADMIT Emergency Medicine; ATTEND Emergency Medicine
DX: L03.116 Cellulitis of left lower limb (principal); J44.1 Chronic obstructive pulmonary disease with (acute) exacerbation; M54.2 Cervicalgia; M79.89 Other specified soft tissue disorders; S70.312A Abrasion, left thigh, initial encounter; I10 Essential (primary) hypertension; R79.1 Abnormal coagulation profile; R29.6 Repeated falls; I25.118 Atherosclerotic heart disease of native coronary artery with other forms of angina pectoris; D64.9 Anemia, unspecified; E78.5 Hyperlipidemia, unspecified; K57.90 Diverticulosis of intestine, part unspecified, without perforation or abscess without bleeding; K21.9 Gastro-esophageal reflux disease without esophagitis; M19.90 Unspecified osteoarthritis, unspecified site; F41.8 Other specified anxiety disorders; Z86.711 Personal history of pulmonary embolism; W19.XXXA Unspecified fall, initial encounter; Z79.01 Long term (current) use of anticoagulants; Z79.899 Other long term (current) drug therapy
CPT/HCPCS: 36415; 80053; 80202; 82803; 83880; 85025; 85379; 87040; 87070; 87081; 93005; 93010; 96365; 96366; 96374; 96375; 99284

== ENCOUNTER 2016-06-14 12:44 | Outpatient (CLI) ==
[2012-09-02 10:55] VITALS: TEMP 98.5
== END 2016-06-14 12:45 | disposition home or self-care (01) ==
LOC: CAR 12:44
PROVIDERS: ATTEND Internal Medicine
DX: J44.9 Chronic obstructive pulmonary disease, unspecified (principal); R06.02 Shortness of breath
CPT/HCPCS: 94761

== ENCOUNTER 2017-02-04 12:10 | Outpatient (CLI) ==
[2012-09-02 10:55] VITALS: TEMP 98.5
--- NOTE | 2017-02-04 13:25 | US ---
EXAM: Ultrasound bilateral carotid duplex. HISTORY: Dizziness. COMPARISON: 10/27/2015. TECHNIQUE: Multiple rhodes scale and color Doppler images were obtained. FINDINGS: Please note that estimates of internal carotid artery stenoses are based upon NASCET crite sara. Right carotid: Calcified plaquing noted without 50% or greater stenosis. Peak systolic velocity temo surement in the right internal carotid artery is 1.1 meters per second. Right internal to common car otid artery peak systolic velocity ratio measures 1.8. End diastolic velocity measurement in the rig ht internal carotid artery is 0.3 meters per second. Flow in the right vertebral artery is antegrade . Left carotid: Calcified plaquing noted, greater on the contralateral side, although no 50% or greate r stenosis identified. Peak systolic velocity measurement in the left internal carotid artery is 1.0 meters per second. Left internal to common carotid artery peak systolic velocity ratio measures 1.4 . End diastolic velocity measurement in the left internal carotid artery measures 0.2 meters per sec ond. Flow in the left vertebral artery is antegrade. IMPRESSION: 1. Mild, less than 50%, stenosis in the right and left internal carotid arteries. Degree of plaquin g is greater on the left. 2. Antegrade flow in both vertebral arteries.
== END 2017-02-04 12:11 | disposition home or self-care (01) ==
LOC: RAD 12:10
PROVIDERS: ATTEND Internal Medicine
DX: R42 Dizziness and giddiness (principal)

== ENCOUNTER 2017-02-27 12:57 | Emergency (ER) ==
[2017-02-27 13:00] VITALS: TEMP 98.7; BMI 32.4
[2017-02-27] MEDS ORDERED: MORPHINE 2 MG/ML SYRINGE IM STA ×2 (13:16→14:41)
--- NOTE | 2017-02-27 13:43 | ED.PDOC ---
General ED Provider: Dr. GLO CALDWELL Chief Complaint: Fall Stated Complaint: Pateint states that she lost her balance and fell at home hitting the TV stand on the chest. Also injured her left shoulder, head and left hip. Kristal any loss of conciousness. Has severe pain on the left chest wall worse with breathing. Time Seen by Physician: 13:15 Mode of Arrival: Wheelchair Information Source: Patient Primary Care Provider: JAGJIT VELASCO Nursing and Triage Documentation Reviewed and Agree: Yes Trauma/Injury Complaint Exam - Truncal Trauma Complaint/Exam Location of Pain: Reports: Left, Chest Onset: just prior to arrival Symptoms Are: Still present Onset of Pain: Reports: Immediate Initial Severity: Severe Current Severity: Severe Mechanism: Reports: Blunt trauma Aggravating: Reports: Movement, Deep breathing Alleviating: Reports: None Associated Signs and Symptoms: Reports: Chest pain. Denies: Nausea, Vomiting Related History: Reports: Anticoagulants (anti plate). Denies: Similar episode , Occupational injury Related Surgical History: Reports: None Immobilization Removed Post Exam: No Vertebral Tenderness Present: No Vertebral Deformity Present: No Diminished Breath Sounds: No Reproducible Pain at: Left lateral chest wall. Muffled Heart Sounds Present: No Paradoxical Chest Wall Movement Present: No Abdominal Guarding Present: No Abdominal Rigidity Present: No Referred Shoulder Pain (Kehr's Sign) Present: No Chest and Back Picture: 1 - Tenderness to palpation. 2 - tendeness to palpation 3 - Tenderness to palpation. Differential Diagnoses: Rib Fracture Review of Systems - Review Of Systems Constitutional: Reports: No symptoms Eyes: Reports: No symptoms Ears, Nose, Mouth, Throat: Reports: No symptoms Respiratory: Reports: No symptoms Cardiac: Reports: Chest pain GI: Reports: No symptoms : Reports: No symptoms Skin: Reports: Bruising Neurological: Reports: Anxiety All Other Systems: Reviewed and Negative Past Medical History - Past Medical History Previously Healthy: No Endocrine: Reports: Dyslipidemia Cardiovascular: Reports: CAD, Hypertension, Other (cardiac arrest) Respiratory: Reports: COPD, Bronchitis Hematological: Reports: Anemia Gastrointestinal: Reports: None, GERD (old record), Diverticulitis (old record- diverticulosis) Genitourinary: Reports: None Neuro/Psych: Reports: Anxiety, Depression, Other (neuropathy of feet and hands) Musculoskeletal: Reports: Arthritis Cancer: Reports: None Last Menstrual Period: NONE Other Pertinent Past Medical History: RIGHT KNEE REPLACEMENT HYSTERECTOMY GALLBLADDER CAROTID SURGERY - Surgical History General Surgical History: Reports: Hysterectomy, Appendectomy (old record), Cholecystectomy, Orthopedic (RIGHT KNEE REPLACEMENT ), Other (CAROTID SURGERY - 2013 Carotid Endarterectomy, Right) - Family History Family History: Reports: Unknown - Social History Smoking Status: Former smoker Hx Substance Use: No Alcohol Screening: None Physical Exam - Physical Exam Appearance: Ill-appearing, Obese Ill-appearing: Mild Pain Distress: Severe Eyes: HUSSAIN, EOMI, Conjunctiva clear ENT: Ears normal Neck: Supple Respiratory: Airway patent, Breath sounds clear, Breath sounds equal, Respirations nonlabored Cardiovascular: RRR GI/: Soft Musculoskeletal: Limited ROM (Left shoudler and lef thip ) Skin: Warm, Dry Neurological: Alert, Oriented Psychiatric: Anxious Interpretation - Radiology Interpretation Radiology Interpretation By: Radiologist Radiology Results: Negative Exam Interpreted: CT Scan (head ) Radiology Interpretation By: Radiologist Radiology Results: Negative (except contusion) Exam Interpreted: CT Scan Re-Evaluation - Re-Evaluation Time of Re-Evaluation: 14:50 Status: Improved Pain Level: better Critical Care Note - Critical Care Note Total Time (mins): 0 Course - Course Orders, Labs, Meds: Orders Category Date Time Status Morphine Sulfate [Morphine 2 mg/ml Syringe] MEDS 02/27/17 13:16 Discontinued 2 mg IM ONCE STA Morphine Sulfate [Morphine 2 mg/ml Syringe] MEDS 02/27/17 14:41 Discontinued 2 mg IM ONCE STA CT CERVICAL SPINE W/O CONTRAST Stat RADS 02/27/17 13:[address] CHEST W/O CONTRAST Stat RADS 02/27/17 13:[address] HEAD W/O CONTRAST Stat RADS 02/27/17 13:[address] PELVIS W/O CONTRAST Stat RADS 02/27/17 13:21 Completed SHOULDER, LEFT MIN 2V Stat RADS 02/27/17 13:18 Completed Medications Discontinued Medications Generic Name Dose Route Start Last Admin Trade Name Freq PRN Reason Stop Dose Admin Morphine Sulfate 2 mg 02/27/17 13:16 02/27/17 13:24 Morphine 2 Mg/Ml Syringe IM 02/27/17 13:17 2 mg ONCE STA Administration Morphine Sulfate 2 mg 02/27/17 14:41 02/27/17 14:49 Morphine 2 Mg/Ml Syringe IM 02/27/17 14:42 2 mg ONCE STA Administration Vital Signs: Temp Pulse Resp BP Pulse Ox 02/27/17 14:33 56 L 130/71 02/27/17 12:57 98.7 F 47 L 18 148/66 H 95 Departure - Departure Time of Disposition: 15:01 Disposition: HOME SELF-CARE Discharge Problem: Contusion Qualifiers: Encounter type: initial encounter Contusion area: thoracic wall Contusion of thoracic wall detail: front wall of thorax Laterality: left Qualified Code(s): S20.212A - Contusion of left front wall of thorax, initial encounter Instructions: Contusion in Adults (ED) Condition: Fair Pt referred to PMD for follow-up: Yes Additional Instructions: Take medications as prescribed Follow up with PCP in 3 days Prescriptions: Hydrocodone/Acetaminophen [Cairo 5-325 Tablet] 1 tab PO Q6HR PRN #20 tablet PRN Reason: PAIN Allergies/Adverse Reactions: Allergies Iodinated Contrast- Oral and IV Dye [Iodinated Contrast Media - IV Dye] Adverse Reaction (Verified 02/27/17 13:01) pregabalin [From Lyrica] Adverse Reaction (Verified 02/27/17 13:01) Home Medications: Ambulatory Orders Acetaminophen [Tylenol] 500 mg PO Q4HR PRN 09/02/12 Calcium Carbonate/Vitamin D3 [Calcium 600 + Vit D 400 Tablet] 2 tab PO BID 09/02 Clopidogrel Bisulfate [Plavix] 75 mg PO DAILY 09/02/12 Nitroglycerin [Nitrostat] 0.4 mg SL Q5MIN PRN 09/02/12 Omeprazole [Prilosec] 20 mg PO QDAC 09/02/12 Multivitamin [Multi-Vitamin Daily] 1 each PO DAILY 01/01/13 Albuterol Sulfate [Proair Hfa] 1 puff INH Q4HR PRN 07/15/13 Ferrous Sulfate 325 mg PO DAILY 07/15/13 Clonazepam [Klonopin] 0.5 mg PO BEDTIME 03/26/14 Escitalopram Oxalate [Lexapro] 20 mg PO DAILY 03/26/14 Gabapentin 1,200 mg PO TID 03/26/14 Lisinopril [Zestril] 5 mg PO DAILY 03/26/14 Metoprolol Tartrate [Lopressor] 25 mg PO BID 03/26/14 Hydrocodone/Acetaminophen [Cairo 5-325 Tablet] 1 tab PO Q6HR PRN 06/17/14 Atorvastatin Calcium [Lipitor] 80 mg PO DAILY 10/16/14 Aspirin [Aspirin EC] 81 mg PO DAILYWM 05/07/15 Elba-3 Fatty Acids/Fish Oil [Fish Oil 1,000 mg Softgel] 1,000 mg PO BID Ranolazine [Ranexa] 500 mg PO BID 04/02/16 Isosorbide Mononitrate [Imdur] 30 mg PO DAILY #30 tab.er.24h 04/05/16 Hydrocodone/Acetaminophen [Cairo 5-325 Tablet] 1 tab PO Q6HR PRN #20 tablet 01/04 Disposition Discussed With: Patient, Family
--- NOTE | 2017-02-27 13:54 | CT ---
EXAM: CT of the head without contrast History: Head trauma. Comparison: Head CT 04/02/2016 Technique: Multiplanar CT images through the head were obtained without the administration of IV con trast Findings: The visualized paranasal sinuses and mastoid air cells are clear in general. No acute evelyn varial abnormalities. Intracranially the ventricular and cisternal spaces are normal in size, shape and configuration for a patient of this age. No dominant mass or midline shift. No hydrocephalous. No acute intracranial hemorrhage or abnormal extraaxial fluid collections. Stable mild periventricular and subcortical whi te matter hypodensities which probably age appropriate. Impression: No acute intracranial process.
--- NOTE | 2017-02-27 13:59 | CT ---
EXAM: CT cervical spine without contrast. HISTORY: Trauma COMPARISON: CT head same day and cervical spine x-ray 04/02/2016 TECHNIQUE: Serial axial images of the cervical spine were obtained from the skull base through the l viet apices without contrast. These were viewed in multiple planes. FINDINGS: Vertebral bodies demonstrate no acute compression fracture. There is trace anterolisthesi s of C3 on C4 and retrolisthesis of C4 on C5. There is disc space narrowing from C4-C7 with small os teophytes. There is scattered facet arthropathy. The posterior processes are normal. Odontoid proc ess is unremarkable. C1 ring is intact. There is no lytic or blastic lesion. C1 ring is intact. Th ere is multilevel scattered facet arthropathy. The soft tissues are unremarkable. There is mild emp hysematous disease. IMPRESSION: 1. No acute compression fracture with stable subluxation. 2. Multilevel degenerative disease of the cervical spine. 3. Mild emphysema.
--- NOTE | 2017-02-27 14:10 | CT ---
EXAM: CT pelvis without contrast HISTORY: Left hip pain post fall. COMPARISON: Pelvis x-ray 04/02/2016 FINDINGS: The osseous structures demonstrate no cortical irregularity or displaced fracture of the le ft hip. The right hip is normal. There is minimal degenerative change. The pelvis is unremarkable. There is moderate atherosclerotic disease. The colon demonstrates diverticulosis without diverticu litis. Urinary bladder is mildly distended. IMPRESSION: 1. No acute abnormality or fracture of the hip. 2. Diverticulosis without diverticulitis.
--- NOTE | 2017-02-27 14:23 | CT ---
EXAM: CT of the chest without contrast History: Left chest wall trauma. Comparison: Chest CT 04/02/2016 Technique: Multiplanar CT images through the thorax were obtained without the administration of IV c ontrast Findings: There is subcutaneous stranding within the superior left breast. Heart is enlarged. Coronary calcifications and valvular calcifications of the heart. Great vessels are grossly unremarkable on this noncontrast exam. No pathologically enlarged thoracic lymph nodes. Calcified granulomas again seen within the thorax. No pericardial effusion. Scattered areas of sub segmental atelectasis. No consolidated pneumonia. Emphysema. No pleural fluid and no pneumothorax. No suspicious lung nodules or lung masses. Within the visualized upper abdomen, status post cholecystectomy. Calcified granulomas within the sp hoang. Right renal cysts. Colonic diverticulosis. No acute osseous abnormalities. Degenerative jeaneth nges of the spine. Impression: 1. Subcutaneous contusion within the superior left breast. 2. Cardiomegaly and coronary artery disease. 3. Scattered areas of subsegmental atelectasis. 4. Emphysema. 5. Old granulomatous disease. 6. Colonic diverticulosis. 7. Right renal cysts.
--- NOTE | 2017-02-27 14:27 | DI ---
EXAM: Three views of the left shoulder HISTORY: Left shoulder pain and injury. COMPARISON: Left shoulder x-rays 08/10/2011 FINDINGS: There is no cortical irregularity or displaced fracture of the left shoulder. There is mil d degenerative disease of the glenohumeral joint and acromioclavicular joint. There is no lytic or b lastic lesion. Soft tissues are unremarkable. Left hilar calcified lymph nodes are present. IMPRESSION: Degenerative disease of the left shoulder with no displaced fracture or dislocation.
[2017-02-27 14:34] VITALS: BP 130/71
== END 2017-02-27 15:11 | disposition home or self-care (01) ==
LOC: ED 12:57
DX: S20.212A Contusion of left front wall of thorax, initial encounter (principal); S49.92XA Unspecified injury of left shoulder and upper arm, initial encounter; S09.90XA Unspecified injury of head, initial encounter; S79.912A Unspecified injury of left hip, initial encounter; W18.39XA Other fall on same level, initial encounter; Y92.009 Unspecified place in unspecified non-institutional (private) residence as the place of occurrence of the external cause
CPT/HCPCS: 96372; 99283

== ENCOUNTER 2017-03-04 10:54 | Inpatient (IN) ==
[2017-03-04] MEDS ORDERED: ATROPINE SULFATE PFS IVP PRN (11:12)
[2017-03-04] MEDS ORDERED: NITROSTAT SL PRN (11:12)
[2017-03-04] MEDS ORDERED: VISTARIL INJ IM PRN (11:12)
[2017-03-04] MEDS ORDERED: MORPHINE 4 MG/ML VIAL IVP PRN (11:12)
[2017-03-04 11:50] LABS: BASOPHILS # (AUTO) 0.1 K/uL (0-0.2); BASOPHILS % (AUTO) 0.9 % (0.0-3.0); EOSINOPHILS # (AUTO) 0.2 K/ul (0.0-0.7); EOSINOPHILS % (AUTO) 3.8 % (0.0-7.0); HEMATOCRIT 30.9 % (37.0-47.0); HEMOGLOBIN 10.5 g/dl (12.0-16.0); IMMATURE GRANULOCYTE % (AUTO) 0.4 % (0.0-5.0); LYMPHOCYTES # (AUTO) 0.8 K/uL (0.60-3.4); LYMPHOCYTES % (AUTO) 14.2 (10.0-50.0); MEAN CORPUSCULAR HEMOGLOBIN 31.2 pg (27.0-31.0); MEAN CORPUSCULAR VOLUME 91.7 fl (81.0-99.0); MONOCYTES # (AUTO) 0.4 K/uL (0.4-2.0); MONOCYTES % (AUTO) 7.7 (0-10); NEUTROPHILS # (AUTO) 3.9 K/ul (2.0-6.9); PLATELET COUNT 140 10^3/uL (140-440); RED BLOOD COUNT 3.37 10^6/ul (4.20-5.40)
[2017-03-04 12:10] LABS: ALBUMIN 2.8 g/dL (3.4-5.0); ALBUMIN/GLOBULIN RATIO 0.9; BILIRUBIN,TOTAL 0.72 mg/dL (0.00-1.20); BUN/CREATININE RATIO 17.5; CALCIUM 8.9 mg/dL (8.2-10.2); CREATININE 0.8 mg/dL (0.60-1.30); TOTAL PROTEIN 5.9 g/dL (5.8-8.1)
[2017-03-04] MEDS ORDERED: PROAIR HFA IH PRN (12:20)
[2017-03-04] MEDS: SILVADENE CREAM TP SCH ×2 (12:30→21:15)
[2017-03-04] MEDS: DECADRON 4 MG/ML SDV IM SCH (12:31)
[2017-03-04] MEDS: ROCEPHIN 1 GM in SODIUM CHLORIDE 50 ML IV SCH (12:31)
[2017-03-04] MEDS: TORADOL IVP SCH ×2 (12:32→21:14)
[2017-03-04 12:39] LABS: TROPONIN I 0.021 ng/ml (0.0000-0.4000)
[2017-03-04 12:57] LABS: CREATINE KINASE MB 1.5 ng/ml (0.0-3.6)
--- NOTE | 2017-03-04 14:31 | DI ---
EXAM: Chest two view, frontal and lateral views. HISTORY: Shortness of breath. COMPARISON: 02/27/2017. FINDINGS: The heart size is enlarged. There is no pulmonary vascular congestion. The lungs are padmaja ar save for mild right basilar scarring. There are calcified granulomatous changes. No pleural effu jazmyne or pneumothorax is seen. No acute osseous abnormality identified. Since the prior study, there has been no significant interval change. IMPRESSION: No acute cardiopulmonary process.
--- NOTE | 2017-03-04 14:50 | DI ---
EXAM: Radiographs, bilateral rib HISTORY: Initial presentation for rib pain following a fall. COMPARISON: CT 02/27/2017. TECHNIQUE: Six view. FINDINGS/IMPRESSION: No acute rib fracture identified. There are old left third, fifth and seventh rib fractures. Lungs are clear without pleural effusion or pneumothorax.
[2017-03-04] MEDS ORDERED: NON-FORMULARY MEDICATION (Gabapentin [Gabapentin] 1,200 MG) PO SCH (15:00)
[2017-03-04 15:35] LABS: BILIRUBIN,URINE Negative (NEGATIVE); KETONES,URINE Negative (NEGATIVE); LEUKOCYTE ESTERASE ,URINE 1+ (NEGATIVE); NITRITE,URINE Negative (NEGATIVE); PH,URINE 7.5 (5-9); PROTEIN,URINE Negative (NEGATIVE); URINE, BLOOD Trace-intact (NEGATIVE)
[2017-03-04 15:37] LABS: ADD URINE MICROSCOPIC YES
[2017-03-04] MEDS: NEURONTIN PO SCH ×2 (15:55→21:15)
[2017-03-04] MEDS: LOPRESSOR PO SCH (16:41)
[2017-03-04 19:49] LABS: CREATINE KINASE 184 U/L; MYOGLOBIN 170 ng/ml
[2017-03-04] MEDS ORDERED: NON-FORMULARY MEDICATION (Omega-3 Fatty Acids/Fish Oil [Fish Oil 1,000 Mg Softgel] 1,000 M PO SCH ×22 (21:00)
[2017-03-04] MEDS ORDERED: NON-FORMULARY MEDICATION (Clonazepam [Klonopin] 0.5 MG) PO SCH ×22 (21:00)
[2017-03-04] MEDS: CALCIUM 500 + VIT D 200 MG TABLET PO SCH (21:14)
[2017-03-04] MEDS: IMDUR PO SCH (21:14)
[2017-03-04] MEDS: OMEGA-3 FISH OIL PO SCH (21:15)
[2017-03-04] MEDS: KLONOPIN PO SCH (21:15)
[2017-03-05 05:32] LABS: BASOPHILS % (AUTO) 0.2 % (0.0-3.0); HEMATOCRIT 31.8 % (37.0-47.0); HEMOGLOBIN 10.5 g/dl (12.0-16.0); IMMATURE GRANULOCYTE % (AUTO) 0.4 % (0.0-5.0); LYMPHOCYTES # (AUTO) 0.6 K/uL (0.60-3.4); LYMPHOCYTES % (AUTO) 12.8 (10.0-50.0); MEAN CORPUSCULAR HEMOGLOBIN 30.3 pg (27.0-31.0); MEAN CORPUSCULAR VOLUME 91.9 fl (81.0-99.0); MONOCYTES # (AUTO) 0.2 K/uL (0.4-2.0); MONOCYTES % (AUTO) 3.7 (0-10); NEUTROPHILS % (AUTO) 82.9; PLATELET COUNT 151 10^3/uL (140-440); RED BLOOD COUNT 3.46 10^6/ul (4.20-5.40); WHITE BLOOD COUNT 4.83 K/ul (4.6-10.2)
[2017-03-05] MEDS: TORADOL IVP SCH ×3 (05:46→21:22)
[2017-03-05] MEDS: PRILOSEC PO SCH (05:46)
[2017-03-05 06:13] LABS: ALBUMIN 2.7 g/dL (3.4-5.0); ALBUMIN/GLOBULIN RATIO 0.77; ANION GAP 13.9; BILIRUBIN,TOTAL 0.39 mg/dL (0.00-1.20); BUN/CREATININE RATIO 24.21; CALCIUM 8.9 mg/dL (8.2-10.2); CREATININE 0.95 mg/dL (0.60-1.30); POTASSIUM 4.9 mmol/L (3.5-5.10); TOTAL PROTEIN 6.2 g/dL (5.8-8.1)
[2017-03-05] MEDS ORDERED: NON-FORMULARY MEDICATION (Atorvastatin Calcium [Lipitor] 80 MG) PO SCH ×22 (09:00)
[2017-03-05] MEDS ORDERED: NON-FORMULARY MEDICATION (Ferrous Sulfate [Ferrous Sulfate] 325 MG) PO SCH ×22 (09:00)
[2017-03-05] MEDS ORDERED: IMDUR PO SCH (09:00)
[2017-03-05] MEDS: LEXAPRO PO SCH (09:14)
[2017-03-05] MEDS: LIPITOR PO SCH (09:14)
[2017-03-05] MEDS: OMEGA-3 FISH OIL PO SCH ×2 (09:15→21:20)
[2017-03-05] MEDS: NEURONTIN PO SCH ×3 (09:15→21:20)
[2017-03-05] MEDS: LOPRESSOR PO SCH ×2 (09:15→17:31)
[2017-03-05] MEDS: ASPIRIN EC PO SCH (09:15)
[2017-03-05] MEDS: CALCIUM 500 + VIT D 200 MG TABLET PO SCH ×2 (09:15→21:20)
[2017-03-05] MEDS: MULTIVITAMIN TABLET PO SCH (09:15)
[2017-03-05] MEDS: ZESTRIL PO SCH (09:15)
[2017-03-05] MEDS: PLAVIX PO SCH (09:15)
[2017-03-05] MEDS: FERROUS SULFATE PO SCH (09:15)
[2017-03-05] MEDS: ROCEPHIN 1 GM in SODIUM CHLORIDE 50 ML IV SCH (09:16)
[2017-03-05] MEDS: IMDUR PO SCH ×2 (09:16→22:28)
[2017-03-05] MEDS: DECADRON 4 MG/ML SDV IM SCH (09:16)
[2017-03-05] MEDS: SILVADENE CREAM TP SCH ×2 (09:21→21:23)
[2017-03-05] MEDS: NORCO 5-325 PO PRN ×2 (11:59→17:31)
[2017-03-05] MEDS ORDERED: MORPHINE 4 MG/ML SYRINGE ONE (13:29)
[2017-03-05] MEDS ORDERED: MORPHINE 4 MG/ML VIAL ONE (13:33)
[2017-03-05 14:41] LABS: CREATINE KINASE 119 U/L; MYOGLOBIN 174 ng/ml
[2017-03-05 14:44] LABS: CREATINE KINASE MB 2.2 ng/ml (0.0-3.6)
[2017-03-05] MEDS: KLONOPIN PO SCH (21:22)
[2017-03-06 05:31] LABS: BASOPHILS % (AUTO) 0.3 % (0.0-3.0); EOSINOPHILS # (AUTO) 0.1 K/ul (0.0-0.7); EOSINOPHILS % (AUTO) 0.8 % (0.0-7.0); HEMATOCRIT 32.5 % (37.0-47.0); HEMOGLOBIN 10.8 g/dl (12.0-16.0); IMMATURE GRANULOCYTE % (AUTO) 0.5 % (0.0-5.0); LYMPHOCYTES # (AUTO) 0.8 K/uL (0.60-3.4); LYMPHOCYTES % (AUTO) 12.2 (10.0-50.0); MEAN CORPUSCULAR HEMOGLOBIN 30.9 pg (27.0-31.0); MEAN CORPUSCULAR HGB CONC 33.2 (31.8-35.4); MEAN CORPUSCULAR VOLUME 92.9 fl (81.0-99.0); MONOCYTES # (AUTO) 0.4 K/uL (0.4-2.0); NEUTROPHILS # (AUTO) 5.2 K/ul (2.0-6.9); NEUTROPHILS % (AUTO) 80.2; PLATELET COUNT 141 10^3/uL (140-440); WHITE BLOOD COUNT 6.49 K/ul (4.6-10.2)
[2017-03-06] MEDS: TORADOL IVP SCH ×3 (05:48→21:26)
[2017-03-06] MEDS: PRILOSEC PO SCH (05:48)
[2017-03-06 06:36] LABS: ALBUMIN 2.7 g/dL (3.4-5.0); ALBUMIN/GLOBULIN RATIO 0.82; ANION GAP 12.4; BILIRUBIN,TOTAL 0.26 mg/dL (0.00-1.20); BUN/CREATININE RATIO 26.04; CALCIUM 9.2 mg/dL (8.2-10.2); CREATININE 0.96 mg/dL (0.60-1.30); POTASSIUM 4.4 mmol/L (3.5-5.10)
[2017-03-06] MEDS: NEURONTIN PO SCH ×3 (08:49→21:29)
[2017-03-06] MEDS: LIPITOR PO SCH (08:50)
[2017-03-06] MEDS: OMEGA-3 FISH OIL PO SCH ×2 (08:50→21:29)
[2017-03-06] MEDS: IMDUR PO SCH ×2 (08:50→21:29)
[2017-03-06] MEDS: ZESTRIL PO SCH (08:50)
[2017-03-06] MEDS: FERROUS SULFATE PO SCH (08:50)
[2017-03-06] MEDS: LOPRESSOR PO SCH ×2 (08:51→17:08)
[2017-03-06] MEDS: LEXAPRO PO SCH (08:51)
[2017-03-06] MEDS: MULTIVITAMIN TABLET PO SCH (08:51)
[2017-03-06] MEDS: CALCIUM 500 + VIT D 200 MG TABLET PO SCH ×2 (08:52→21:30)
[2017-03-06] MEDS: DECADRON 4 MG/ML SDV IM SCH (08:52)
[2017-03-06] MEDS: ASPIRIN EC PO SCH (08:52)
[2017-03-06] MEDS: PLAVIX PO SCH (08:52)
[2017-03-06] MEDS: SILVADENE CREAM TP SCH ×2 (08:53→21:16)
[2017-03-06] MEDS: ROCEPHIN 1 GM in SODIUM CHLORIDE 50 ML IV SCH (10:29)
[2017-03-06] MEDS: NORCO 5-325 PO PRN (14:43)
[2017-03-06] MEDS: KLONOPIN PO SCH (21:29)
[2017-03-07] MEDS: TORADOL IVP SCH ×3 (05:38→20:34)
[2017-03-07] MEDS: PRILOSEC PO SCH (05:38)
[2017-03-07] MEDS: ASPIRIN EC PO SCH (08:24)
[2017-03-07] MEDS: ZESTRIL PO SCH (08:24)
[2017-03-07] MEDS: OMEGA-3 FISH OIL PO SCH ×2 (08:24→20:26)
[2017-03-07] MEDS: MULTIVITAMIN TABLET PO SCH (08:24)
[2017-03-07] MEDS: FERROUS SULFATE PO SCH (08:24)
[2017-03-07] MEDS: LOPRESSOR PO SCH ×2 (08:24→16:45)
[2017-03-07] MEDS: NEURONTIN PO SCH ×3 (08:24→20:26)
[2017-03-07] MEDS: LEXAPRO PO SCH (08:24)
[2017-03-07] MEDS: CALCIUM 500 + VIT D 200 MG TABLET PO SCH ×2 (08:24→20:27)
[2017-03-07] MEDS: PLAVIX PO SCH (08:25)
[2017-03-07] MEDS: IMDUR PO SCH ×2 (08:25→20:25)
[2017-03-07] MEDS: LIPITOR PO SCH (08:25)
[2017-03-07] MEDS: DECADRON 4 MG/ML SDV IM SCH (08:25)
[2017-03-07] MEDS: ROCEPHIN 1 GM in SODIUM CHLORIDE 50 ML IV SCH (08:25)
[2017-03-07] MEDS: SILVADENE CREAM TP SCH ×2 (08:33→20:28)
[2017-03-07] MEDS: CLEOCIN 300 MG in SODIUM CHLORIDE 50 ML IV SCH ×3 (10:11→20:27)
[2017-03-07] MEDS ORDERED: ROCEPHIN ONE (10:14)
--- NOTE | 2017-03-07 10:36 | PCM.PROG ---
Attending Provider: ATTENDING PROVIDER: Dr. JAGJIT VELASCO This patient is seen with Patricia Serrano, Nurse Practitioner. DATE OF SERVICE: 03/07/17 SUBJECTIVE: This 76 year old WHITE/ F was hospitalized 03/04/17. The patient is lying in bed, alert. Right lower extremity wound is worsened from admission. She still having some confusion at night related to [place] vs early dementia. REVIEW OF SYSTEMS: CONSTITUTIONAL: No night sweats. No fatigue, malaise, lethargy. No fever or chills. HEENT: Eyes: No visual changes. No eye pain. No eye discharge. ENT: No runny nose. No epistaxis. No sinus pain. No odynophagia. No congestion. RESPIRATORY: No cough, no congestion. No hemoptysis. No shortness of breath. CARDIOVASCULAR: No angina symptoms. No CHF symptoms. No atypical chest pain for CAD. No palpitations. No orthopnea.. GASTROINTESTINAL: No abdominal pain. No nausea or vomiting. No diarrhea or constipation. No hematemesis. No hematochezia. GENITOURINARY: No urgency. No frequency. No dysuria. No hematuria. No obstructive symptoms. No discharge. No pain. No significant abnormal bleeding. MUSCULOSKELETAL: No musculoskeletal pain; no joint swelling. NEUROLOGICAL: Awake, alert, oriented to time, place and person. No headache. No neck pain. No syncope. No seizures. No dizziness. PSYCHIATRIC: Not anxious. No depression. No suicidal thoughts. No homicidal thoughts. SKIN: No rash. No lesions. Right lower extremity leg wound present on admission. ENDOCRINE: No unexplained weight loss. No weight gain. HEMATOLOGIC/LYMPHATIC: No anemia. No purpura. No petechiae. No prolonged or excessive bleeding. No palpable lymph nodes. PHYSICAL EXAMINATION: GENERAL: The patient is awake, alert and oriented, lying in bed in no distress. VITAL SIGNS: Temperature 97.1 F, Pulse 68, Respiratory Rate 16, BP 135/67, Pulse Ox 97% HEENT: Head normocephalic, atraumatic. Eyes: Extraocular muscles are intact. Pupils are equal, round and reactive to light and accommodation. Ears: No lesions. Nose appeared normal. Throat: No exudate or erythema. NECK: Supple. No JVD, no carotid bruit. No lymphadenopathy or thyromegaly. LUNGS: Clear to auscultation. Percussion note normal. Chest symmetrical. HEART: S1, S2, no S3. No murmurs. No cyanosis or clubbing. No ascites. Pulses: Dorsalis pedis and posterior tibial pulses +1 to +2 both sides. ABDOMEN: Soft. Non-tender. Bowel sounds active. No CVA tenderness. No mass felt. EXTREMITIES: No edema. Full range of motion of all extremities, equal. Calf is nontender, soft. NEUROLOGIC: No focal deficit. Cranial nerves II through XII are grossly intact. No headache, no double vision or headache. SKIN: Warm, dry. Second degree burn right lower extremity scabbing which is falling off, mild surrounding erythema. No visible drainage. LYMPHATIC: No palpable lymph nodes/no lymphedema. MUSCULOSKELETAL: Normal joints with no swelling. Muscle tone is normal. LAB REVIEW: 03/06/17 04:55 03/06/17 04:55 ASSESSMENT: 1. SECOND DEGREE BURN RIGHT LOWER EXTREMITY WITH CELLULITIS 2. PERSISTENT BRADYCARDIA 3. RECURRENT FALLS PLAN: 1. Wound culture of right ankle 2. Clindamycin 300 mg IV q.8hr 3. Tylenol 650 mg p.r.n. Plan and coordination of the patient's care discussed in the presence of Rn Procedure and nurse. CONDITION: STABLE SCRIBED BY: Mario PARISH scribed while in presence of service performed by Dr. Velasco/Patricia Serrano APRN on 03/07/17 ([id number])
[2017-03-07] MEDS: TYLENOL PO PRN (13:51)
--- NOTE | 2017-03-07 14:26 | RS.PTINEVL ---
Subjective - Patient information Date of Evaluation: 03/07/17 Date of Arrival on Unit: 03/04/17 Admitted From:: Home Diagnosis: 2nd degree burn on R ankle, cellulitis, rib cage injury s/p fall Usual Living Arrangement: With Spouse Home Environment: House, Stairs (few) Medical History Comments:: neuropathy Surgical History: Knee Replacement, Cholecystectomy, Hysterectomy Surgical History Comments:: R ankle sx, CEA, angioplasty Subjective Information/ Patient Comments:: pt states she wants to get OOB - Level of function Prior to this admission, the patient could do the following:: Independent ADL's , Independent Ambulation Current Level of Function: Partially Dependent Current Equipment Used at Home: b/p monitor, shower chair, rolling walker, BSC, hospital bed Pain Assessement - Location Right Ankle Description: Burning Duration: 4 Pain Alleviating Factors: Medication Interventions - Objective Patient Orientation: Person, Place, Time, Situation Current Interventions: IV's, Oxygen Range of Motion - ROM Right Upper Extremity AROM: WFL's Left Upper Extremity AROM: WFL's Right Lower Extremity AROM: WFL's Left Lower Extremity AROM: WFL's Muscle Strength - Muscle Strength Right Upper Extremity Strength: Mild Weakness (shld flex 3+/5, elbow flex/ext 4- /5) Left Upper Extremity Strength: Mild Weakness (shld flex 3+/5, elbow flex/ext 4-/ 5) Right Lower Extremity Strength: Mild Weakness (hip flex 3/5, knee flex/ext 4-/5 , ankle Df/PF 4-/5) Left Lower Extremity Strength: Mild Weakness (hip flex 3+/5, knee flex/ext 4-/5 , ankle DF/PF 4-/5) Sensation - Sensation Right Upper Extremity Sensation: Impaired Left Upper Extremity Sensation: Impaired Right Lower Extremity Sensation: Impaired Left Lower Extremity Sensation: Impaired Comments: n/t B hands and feet due to neuropathy Palpation Palpation Findings: None/Normal Balance - Sitting Balance and Reactions Static Sitting Balance: Good Dynamic Sitting Balance: Good - Standing Balance and Reactions Static Standing Balance: Fair Dynamic Standing Balance: Poor Standing Equilibrium Reactions: Delayed Left, Delayed Right Standing Protective Reactions: Delayed Left, Delayed Right - Comments Balance Assessment Comments: pt with flexed posture, decreased proprioception due to decreased sensation. Functional Mobility - Bed Mobility Rolling R/L: Supervision Scooting: Supervision Supine to Sit: CGA - Transfers Sit to Stand: CGA Stand to Sit: CGA - Safety Awareness Safety Awareness: Fair Ambulation - Ambulation Assistive Device Used: Rolling Walker Orthotic/Prosthetic Device: No Distance: 100ft Assistance needed with Ambulation: CGA Gait Deviations: Forward posture, Short stride, Deviates from path Ambulation Comments: pt amb with decreased step length, flexed posture requires assist with guiding rwx and verbal cues for posture. Factors Affecting Ambulation: Decreased Balance, Decreased Safety, Cognitive Status, Limited Endurance Treatment time - Time with patient Total treatment time: 32 Patient Education - Education Patient Education: Activity Modification, Education of Plan of Care Teaching Recipient: Patient Teaching Methods: Discussion (Discussion with patient regarding POC as well as safety) Assessment - Assessment Problem List:: Decreased level of function, Requires training/education, Decreased safety/Risk of falls, Weakness, Pain limits previous level of function Rehab Potential: Good Further Therapy Indicated?: Yes Short Term Goals GOAL #1: pt transfer sup to/from sit independently, sit to/from stand SBA Goal to be met by: 03/09/17 GOAL #2: pt amb with rwx 150ft with CGA to SBA with no LOB Goal to be met by: 03/09/17 GOAL #3: pt demonstrate independence with rolling and scooting up in bed Goal to be met by: 03/09/17 Envelope Press Operator Goals GOAL #1: pt transfer sit to/from stand independently Goal to be met by: 03/12/17 GOAL #2: pt amb with rwx functional household distances with no LOB Goal to be met by: 03/12/17 GOAL #3: pt with increased strength BLE 4 to 4+/5 and independent with HEP Goal to be met by: 03/12/17 Plan Plan of Care: Therapeutic EX, Neuromuscular Re-Educ, Therapeutic Activity, Self- Care/Home Management Other:: gait training Frequency of Treatment: 1-2 X day, as tolerated Duration of Treatment: 5 days Anticipated Discharge Destination: Home Has the Physician been added for Co-signature?: Yes
[2017-03-07] MEDS: KLONOPIN PO SCH (20:25)
[2017-03-08] MEDS: TORADOL IVP SCH ×3 (05:44→20:44)
[2017-03-08] MEDS: PRILOSEC PO SCH (05:44)
[2017-03-08] MEDS: CLEOCIN 300 MG in SODIUM CHLORIDE 50 ML IV SCH ×3 (05:44→20:44)
[2017-03-08] MEDS: ROCEPHIN 1 GM in SODIUM CHLORIDE 50 ML IV SCH (08:11)
[2017-03-08] MEDS: OMEGA-3 FISH OIL PO SCH ×2 (08:11→20:44)
[2017-03-08] MEDS: MULTIVITAMIN TABLET PO SCH (08:11)
[2017-03-08] MEDS: LIPITOR PO SCH (08:12)
[2017-03-08] MEDS: FERROUS SULFATE PO SCH (08:12)
[2017-03-08] MEDS: LOPRESSOR PO SCH ×2 (08:12→16:39)
[2017-03-08] MEDS: LEXAPRO PO SCH (08:12)
[2017-03-08] MEDS: PLAVIX PO SCH (08:12)
[2017-03-08] MEDS: NEURONTIN PO SCH ×3 (08:12→20:44)
[2017-03-08] MEDS: ZESTRIL PO SCH (08:12)
[2017-03-08] MEDS: CALCIUM 500 + VIT D 200 MG TABLET PO SCH ×2 (08:12→20:44)
[2017-03-08] MEDS: ASPIRIN EC PO SCH (08:12)
[2017-03-08] MEDS: IMDUR PO SCH ×2 (08:13→20:45)
[2017-03-08] MEDS: DECADRON 4 MG/ML SDV IM SCH (08:13)
--- NOTE | 2017-03-08 09:16 | PCM.PROG ---
Attending Provider: ATTENDING PROVIDER: Dr. JAGJIT VELASCO This patient is seen with Patricia Serrano, Nurse Practitioner. DATE OF SERVICE: 03/08/17 SUBJECTIVE: This 76 year old WHITE/ F was hospitalized 03/04/17. The patient is lying in bed, alert. Redness slightly improved right lower extremity. The patient started Clindamycin IV yesterday. Will add Bactroban topically today. REVIEW OF SYSTEMS: CONSTITUTIONAL: No night sweats. No fatigue, malaise, lethargy. No fever or chills. HEENT: Eyes: No visual changes. No eye pain. No eye discharge. ENT: No runny nose. No epistaxis. No sinus pain. No odynophagia. No congestion. RESPIRATORY: No cough, no congestion. No hemoptysis. No shortness of breath. CARDIOVASCULAR: No angina symptoms. No CHF symptoms. No atypical chest pain for CAD. No palpitations. No orthopnea.. GASTROINTESTINAL: No abdominal pain. No nausea or vomiting. No diarrhea or constipation. No hematemesis. No hematochezia. GENITOURINARY: No urgency. No frequency. No dysuria. No hematuria. No obstructive symptoms. No discharge. No pain. No significant abnormal bleeding. MUSCULOSKELETAL: No musculoskeletal pain; no joint swelling. NEUROLOGICAL: Awake, alert, oriented to time, place and person. No headache. No neck pain. No syncope. No seizures. No dizziness. PSYCHIATRIC: Not anxious. No depression. No suicidal thoughts. No homicidal thoughts. SKIN: No rash. No lesions. Burn right lower extremity. ENDOCRINE: No unexplained weight loss. No weight gain. HEMATOLOGIC/LYMPHATIC: No anemia. No purpura. No petechiae. No prolonged or excessive bleeding. No palpable lymph nodes. PHYSICAL EXAMINATION: GENERAL: The patient is awake, alert and oriented, lying in bed in no distress. VITAL SIGNS: Temperature 97.3 F, Pulse 62, Respiratory Rate 16, BP 149/68, Pulse Ox 100% HEENT: Head normocephalic, atraumatic. Eyes: Extraocular muscles are intact. Pupils are equal, round and reactive to light and accommodation. Ears: No lesions. Nose appeared normal. Throat: No exudate or erythema. NECK: Supple. No JVD, no carotid bruit. No lymphadenopathy or thyromegaly. LUNGS: Clear to auscultation. Percussion note normal. Chest symmetrical. HEART: S1, S2, no S3. No murmurs. No cyanosis or clubbing. No ascites. Pulses: Dorsalis pedis and posterior tibial pulses +1 to +2 both sides. ABDOMEN: Soft. Non-tender. Bowel sounds active. No CVA tenderness. No mass felt. EXTREMITIES: No edema. Full range of motion of all extremities, equal. NEUROLOGIC: No focal deficit. Cranial nerves II through XII are grossly intact. No headache, no double vision or headache. SKIN: Warm, dry. Turgor-normal. Second degree burn with mild surrounding erythema improving. LYMPHATIC: No palpable lymph nodes/no lymphedema. MUSCULOSKELETAL: Normal joints with no swelling. Muscle tone is normal. LAB REVIEW: 03/06/17 04:55 03/06/17 04:55 ASSESSMENT: 1. SECOND DEGREE BURN RIGHT LOWER EXTREMITY WITH CELLULITIS 2. PERSISTENT BRADYCARDIA 3. RECURRENT FALLS PLAN: 1. Continue IV meds 2. Bactroban to wound 3. CBC, CMP tomorrow Plan and coordination of the patient's care discussed in the presence of Watch Supervisor and nurse. CONDITION: Stable SCRIBED BY: CHRISTOPHER EARLY Steam Flattener scribed while in presence of service performed by Dr. Velasco/Patricia Serrano APRN on 03/08/17 ([id number])
[2017-03-08] MEDS: BACTROBAN TP SCH ×2 (10:00→21:07)
[2017-03-08] MEDS: SILVADENE CREAM TP SCH ×2 (10:00→21:07)
--- NOTE | 2017-03-08 11:46 | RS.OTINEVL ---
Subjective - Patient information Date of Evaluation: 03/08/17 Date of Arrival on Unit: 03/04/17 Admitted From:: Home Diagnosis: Muscle weakness Usual Living Arrangement: With Spouse Living Arrangement Comments: Pt lives at home with her . Pt lives in a house with a ramp. Pt has a walk in shower and has family that helps them. Home Environment: House, Stairs (few) Medical History Comments:: neuropathy, cardiac surgery, seizures, Respiratory disease, COPD, Cough, hysterectomy, OA, R TKA, Depression, O2 at 2 liters, Surgical History: Knee Replacement, Cholecystectomy, Hysterectomy Surgical History Comments:: R ankle sx, CEA, angioplasty - Level of function Prior to this admission, the patient could do the following:: Independent ADL's , Independent Ambulation Current Equipment Used at Home: b/p monitor, shower chair, rolling walker, BSC, hospital bed Pain Assessment - Pain Pain Score: 0 Side: right Pain Location Body Site: Ankle Pain Aggravating Factors: ADL's Pain Alleviating Factors: Medication Interventions - Objective Patient Orientation: Person, Place, Time, Situation Current Interventions: IV's, Oxygen, Telemetry Observation: Pt wearing a heart monitor. Pt has oxygen at 2 liters. Pt is weak and has impaired balance during transfers. Interventions - ROM Right Upper Extremity AROM: WFL's Left Upper Extremity AROM: WFL's - Strength Right Upper Extremity Strength: Mild Weakness Left Upper Extremity Strength: Mild Weakness - Sensation Right Upper Extremity Sensation: Intact/Normal Left Upper Extremity Sensation: Intact/Normal Comments:: Pt had an elevated first rib on the Left side. Indirect manipulation. Balance - Sitting Balance Static Sitting Balance: Good Dynamic Sitting Balance: Good - Standing Balance Static Standing Balance: Fair Dynamic Standing Balance: Fair ADL Skills - Self Feeding Self Feeding: Independent (Pt uses a shower chair during showering.) - Grooming Grooming: Independent - Bathing Bathing UE: Independent Bathing LE: Min Assist - Dressing Dressing UE: Independent Dressing LE: Min Assist - Toilet Management Toileting Management: Min Assist Functional Mobility - Bed Mobility Rolling R/L: Independent Scooting: Independent Supine to Sit: Supervision Sit to Supine: Supervision - Transfers Sit to Stand: CGA Stand to Sit: CGA Stand Pivot Transfers: CGA - Ambulation Weight Bearing Status: FWB Assistive Device Used: Rolling Walker Assistance needed with Ambulation: Min Assist - Safety Awareness Safety Awareness: Good Additional Treatment Performed - Time with patient Total treatment time: 31 Activities Patient Interests:: Reading Books/Magazines, Watching Television Patient Education Patient Education: Education of diagnosis Teaching Recipient: Patient, Family Teaching Methods: Teach Back Method Used, Demonstration Assessment Problem List:: Decreased level of function, Requires training/education, Decreased safety/Risk of falls, Weakness Rehab Potential: Good Further Therapy Indicated?: Yes Short Term Goals - Goals GOAL 1: Pt to tolerate standing activity for 10 minutes. Goal to be met by: 03/15/17 GOAL 2: Pt to increase BUE strength to 4/5. Goal to be met by: 03/15/17 GOAL 3: Pt to complete sink level ADLS at CGA. Goal to be met by: 03/15/17 Detention Goals GOAL 1: Pt to tolerate standing activity for 15 minutes. Goal to be met by: 03/22/17 GOAL 2: Pt to increase BUE strength to 4+/5. Goal to be met by: 03/22/17 GOAL 3: Pt to complete sink level ADLS at Mod-Independent. Goal to be met by: 03/22/17 Plan Plan of Care: Therapeutic EX, Neuromuscular Re-Educ, Therapeutic Activity, Self- Care/Home Management Frequency of Treatment: 1-2 X day, as tolerated Duration of Treatment: 2 Weeks Anticipated Discharge Destination: Home Has the Physician been added for Co-signature?: Yes
--- NOTE | 2017-03-08 13:08 | HP ---
DATE OF SERVICE: 03/04/17 REASON FOR HOSPITALIZATION/HISTORY OF PRESENT ILLNESS: Went to [facility] ER 02/27 after falling. Has been confused off and on since. Spilled coffee on ankle equals burn. Burn on right ankle-red, legs swollen. Short of breath. CT of head/abdomen and shoulder no fractures. PAST MEDICAL HISTORY: Hypertension Dyslipidemia Cardiac Carotid stenosis Cardiac arrest Nov 2011 day after knee surgery Colonoscopy Dr. Self follows PAST SURGICAL HISTORY: Knee replacement, November 2011, Dr. Greer Right leg, Dr. Tejeda 2010 Carotid- Dr. Almeida Heart cath 2009 Dr. Chávez Hysterectomy Eyes Gallbladder Appendix REVIEW OF SYSTEMS: CONSTITUTIONAL: No fever, Fatigue. HEENT: No sinus drainage, no sore throat. RESPIRATORY: No cough, no congestion. CARDIOVASCULAR: No atypical chest pain for coronary artery disease. No angina , CHF symptoms, palpitations. Shortness of breath. GASTROINTESTINAL: No melena or abdominal pain. No GERD. GENITOURINARY: No hematuria, no prostatism, no polyuria. GRADER GREEN MEAT: No blackout, no dizziness, no headache, no double vision. GAIT: Walker. MUSCULOSKELETAL: Osteoarthritis pain, weak, no joint swelling. ENDOCRINE: No weight loss, no weight gain. SKIN: Not dry, Rash- Burn right ankle. PSYCHIATRIC: Not anxious, no depression, no suicidal thoughts, no homicidal thoughts. SOCIAL HISTORY: Marital Status: . Alcohol Usage:No. Tobacco Usage:No. FAMILY HISTORY: Father: Mother: Brother:1 Sister: 1 MEDICATIONS: Albuterol inhaler Gabapentin 600mg two three times a day Ranexa 500mg one daily Klonopin 1mg 1/2 HS Tylenol PRN Halsey 5-325mg Q 6 hours. Calcium with Vitamin D and Multivitamins Omeprazole 20mg one daily Metoprolol 25mg twice a day Imdur 30mg one twice a day Zyfrel 10mg 1/2 daily FE 325mg one daily Fish oil 1000mg three times a day ASA 81mg PO daily Plavix 75mg one daily NTG PRN Lexapro 10mg one daily Atorvastatin 80mg ALLERGIES: Iodine X-ray dye Relafen Lyrica Trilisate PHYSICAL EXAMINATION: V/S: Pulse 62, blood pressure 114/60, oxygen saturation 90%, weight 194.2 and height 5'5. GENERAL APPEARANCE: Oriented times three. HEENT: Normal. NECK: No JVP, Bruits. RESPIRATORY: Decreased breath sounds. Expiratory wheeze. CARDIOVASCULAR: S1, S2, no S3, I/ murmurs. Distant. No cyanosis, clubbing. No ascites. GI/ABDOMEN: No tenderness. Bowel sounds are active. Contusion left ribs. EXTREMITIES: +1 edema bilateral, pulses +1, equal. Burn right ankle white scabbing surround erythema. GRADER GREEN MEAT: Deep tendon reflexes, sensory, motor and gait all normal. RECTAL: Dr. Self/PELVIC: hysterectomy. Mammogram 08/25/12 [facility]. LABS: U/A was normal. Hgb 10.5, hct 30.9, WBC 5,300 normal differential, creatinine 0.8, BUN 14, potassium 5, CK-MB and all that negative. Chest x-ray showed old left 3rd, 5th and 7th rib fractures on the left side otherwise lungs clear and no effusion. ASSESSMENT: 1. Shortness of breath 2. Burn Right lower extremity (2nd degree) with cellulitis 3. Confusion 4. Dementia 5. Rib cage injury with fall 02/27/17. 6. Stable angina 7. Coronary artery disease 8. Depression 9. ROMAINE 10.Hypertension 11.Hyperglycemia 12.Restless leg syndrome 13.COPD 14.Dizziness 15.History of right CEA 16.History of rectal bleed PLAN: 1. Admit 2. Diet regular 3. Routine Telemetry orders 4. Daily CBC and CMP 5. Chest x-ray and ribs 6. Urinalysis for culture and sensitivity 7. Rocephin 1 gram IV daily 8. Silvadene to burn right lower extremity 9. Elevate legs 10.Continue home medications 11.O2 PRN 12.Toradol 30mg Iv now and 8 hourly 13.1cc Decadron IM today and daily AM TIME SPENT: More than 70 minutes. MTDD
[2017-03-08] MEDS: NORCO 5-325 PO PRN (15:17)
[2017-03-08] MEDS: KLONOPIN PO SCH (20:45)
[2017-03-09] MEDS: TORADOL IVP SCH ×2 (04:12→14:00)
[2017-03-09] MEDS: CLEOCIN 300 MG in SODIUM CHLORIDE 50 ML IV SCH (04:13)
[2017-03-09 05:08] LABS: BASOPHILS % (AUTO) 0.3 % (0.0-3.0); EOSINOPHILS # (AUTO) 0.1 K/ul (0.0-0.7); EOSINOPHILS % (AUTO) 1.8 % (0.0-7.0); HEMATOCRIT 28.6 % (37.0-47.0); HEMOGLOBIN 9.2 g/dl (12.0-16.0); IMMATURE GRANULOCYTE % (AUTO) 0.5 % (0.0-5.0); LYMPHOCYTES % (AUTO) 16.6 (10.0-50.0); MEAN CORPUSCULAR HEMOGLOBIN 30.9 pg (27.0-31.0); MEAN CORPUSCULAR HGB CONC 32.2 (31.8-35.4); MONOCYTES # (AUTO) 0.4 K/uL (0.4-2.0); MONOCYTES % (AUTO) 6.9 (0-10); NEUTROPHILS # (AUTO) 4.4 K/ul (2.0-6.9); NEUTROPHILS % (AUTO) 73.9; PLATELET COUNT 144 10^3/uL (140-440); RED BLOOD COUNT 2.98 10^6/ul (4.20-5.40); WHITE BLOOD COUNT 5.98 K/ul (4.6-10.2)
[2017-03-09 05:27] VITALS: BP 110/64; TEMP 97.8
[2017-03-09 05:28] LABS: ALANINE AMINOTRANSFERASE 10 U/L (12-78); ALBUMIN 2.4 g/dL (3.4-5.0); ALBUMIN/GLOBULIN RATIO 0.86; ALKALINE PHOSPHATASE 54 U/L (53-141); ANION GAP 10.8; ASPARTATE AMINO TRANSFERASE 13 U/L (15-37); BLOOD UREA NITROGEN 24 mg/dL (7-18); BUN/CREATININE RATIO 29.26; CALCIUM 8.4 mg/dL (8.2-10.2); CARBON DIOXIDE 30 mmol/L (23-31); CHLORIDE 105 mmol/L (98-107); CREATININE 0.82 mg/dL (0.60-1.30); GLUCOSE 85 mg/dL (82-115); POTASSIUM 4.8 mmol/L (3.5-5.10); SODIUM 141 mmol/L (136-145); TOTAL PROTEIN 5.2 g/dL (5.8-8.1)
[2017-03-09 05:30] LABS: BILIRUBIN,TOTAL < 0.3 mg/dL (0.00-1.20)
[2017-03-09] MEDS: PRILOSEC PO SCH (05:30)
[2017-03-09] MEDS: ROCEPHIN 1 GM in SODIUM CHLORIDE 50 ML IV SCH (09:52)
[2017-03-09] MEDS: NEURONTIN PO SCH (09:52)
[2017-03-09] MEDS: LOPRESSOR PO SCH (09:53)
[2017-03-09] MEDS: LIPITOR PO SCH (09:53)
[2017-03-09] MEDS: OMEGA-3 FISH OIL PO SCH (09:53)
[2017-03-09] MEDS: ZESTRIL PO SCH (09:53)
[2017-03-09] MEDS: ASPIRIN EC PO SCH (09:54)
[2017-03-09] MEDS: IMDUR PO SCH (09:54)
[2017-03-09] MEDS: PLAVIX PO SCH (09:55)
[2017-03-09] MEDS: CALCIUM 500 + VIT D 200 MG TABLET PO SCH (09:55)
[2017-03-09] MEDS: MULTIVITAMIN TABLET PO SCH (09:55)
[2017-03-09] MEDS: LEXAPRO PO SCH (09:55)
[2017-03-09] MEDS: FERROUS SULFATE PO SCH (09:55)
[2017-03-09] MEDS: SILVADENE CREAM TP SCH (09:56)
[2017-03-09] MEDS: BACTROBAN TP SCH (09:56)
[2017-03-09] MEDS: DECADRON 4 MG/ML SDV IM SCH (09:57)
[2017-03-09] MEDS: TYLENOL PO PRN (10:08)
--- NOTE | 2017-03-09 10:47 | PN ---
DATE OF SERVICE: 03/07/17 SUBJECTIVE: 76 year old white female seen and examined with the Nurse Practitioner. The patient's cellulitis of the right ankle is improving. Her chest pain is rib cage pain as cardiovascular status is stable. She has arrhythmias which would be documented with Holter monitor otherwise condition is stable. TIME SPENT: More than 30 minutes. Plan and coordination of the patient's care discussed in the presence of nurse. ANDREW
--- NOTE | 2017-03-09 11:02 | PN ---
DATE OF SERVICE: 03/05/17 SUBJECTIVE: 76-year-old white female hospitalized with shortness of breath, rib cage injury with fractures of the ribs, three of them and cellulitis of the right lower extremity. All the medical conditions including shortness of breath, pain in the rib cage area and cellulitis of the right lower extremity are all better. She is feeling better. She has practically no complaints. REVIEW OF SYSTEMS: CONSTITUTIONAL: No night sweats. No fatigue, malaise, lethargy. No fever or chills. HEENT: Eyes: No visual changes. No eye pain. No eye discharge. ENT: No runny nose. No epistaxis. No sinus pain. No sore throat. No odynophagia. No congestion. RESPIRATORY: No cough, no congestion. No hemoptysis. No shortness of breath. CARDIOVASCULAR: No angina symptoms. No CHF symptoms. No atypical chest pain for CAD. No palpitations. No orthopnea. GASTROINTESTINAL: No abdominal pain. No nausea or vomiting. No diarrhea or constipation. No hematemesis. No hematochezia. GENITOURINARY: No urgency. No frequency. No dysuria. No hematuria. No obstructive symptoms. No discharge. No pain. No significant abnormal bleeding. MUSCULOSKELETAL: No musculoskeletal pain; no joint swelling. NEUROLOGICAL: No headache. No neck pain. No syncope. No seizures. No dizziness. PSYCHIATRIC: Not anxious. No depression. No suicidal thoughts. No homicidal thoughts. SKIN: No rash. ENDOCRINE: No unexplained weight loss. No weight gain. HEMATOLOGIC/LYMPHATIC: No anemia. No purpura. No petechiae. No prolonged or excessive bleeding. No palpable lymph nodes. PHYSICAL EXAMINATION: VITAL SIGNS: Temperature 97.8, pulse 50, respiratory rate 16, BP 148/65, pulse ox 97%. HEENT: Head normocephalic, atraumatic. Eyes: Extraocular muscles are intact. Pupils are equal, round and reactive to light and accommodation. Ears: No lesions. Nose appeared normal. Throat: No exudate or erythema. NECK: Supple. No JVD, no carotid bruit. No lymphadenopathy or thyromegaly. LUNGS: Decreased breath sounds but clear to auscultation. Percussion note normal. Chest symmetrical. HEART: S1, S2, no S3. No murmurs. No cyanosis or clubbing. No ascites. Pulses: Dorsalis pedis and posterior tibial pulses +1 to +2 both sides. ABDOMEN: Soft. Nontender. Bowel sounds active. No CVA tenderness. No mass felt. EXTREMITIES: No edema. Full range of motion of all extremities, equal. NEUROLOGIC: No focal deficit. Cranial nerves II through XII are grossly intact. No headache, no double vision or headache. SKIN: Warm and dry. Intact. Turgor - normal. LYMPHATIC: No palpable lymph nodes/no lymphedema. MUSCULOSKELETAL: Normal joints with no swelling. Muscle tone is normal. LABS: Hemoglobin 10.5, hematocrit 31, WBC 4,800, normal differential. Creatinine 0.9, BUN 23, potassium 4.9. ASSESSMENT: 1. Shortness of breath seems to have subsided. 2. Rib cage injury seems to be from rib fractures. 3. Cardiovascular status with coronary artery disease stable with no evidence of acute [place]. 4. Right lower extremity cellulitis with reis from coffee seems to be resolving. PLAN: 1. Continue local antibiotics, IV antibiotics. 2. Elevate the legs. 3. Toradol IV for pain. CONDITION: Stable. TIME SPENT: More than 30 minutes. Plan and coordination of the patient's care discussed in the presence of nurse. ANDREW
--- NOTE | 2017-03-09 11:06 | PN ---
DATE OF SERVICE: 03/06/17 SUBJECTIVE: 76-year-old white female hospitalized with multiple complaints with rib cage pain, chest pain, cellulitis of the right leg. Condition has improved. The right leg cellulitis seems to be resolving. Will give Dr. Mims consultation for it. REVIEW OF SYSTEMS: CONSTITUTIONAL: No night sweats. No fatigue, malaise, lethargy. No fever or chills. HEENT: Eyes: No visual changes. No eye pain. No eye discharge. ENT: No runny nose. No epistaxis. No sinus pain. No sore throat. No odynophagia. No congestion. RESPIRATORY: No cough, no congestion. No hemoptysis. No shortness of breath. CARDIOVASCULAR: No angina symptoms. No CHF symptoms. No atypical chest pain for CAD. No palpitations. No orthopnea. GASTROINTESTINAL: No abdominal pain. No nausea or vomiting. No diarrhea or constipation. No hematemesis. No hematochezia. GENITOURINARY: No urgency. No frequency. No dysuria. No hematuria. No obstructive symptoms. No discharge. No pain. No significant abnormal bleeding. MUSCULOSKELETAL: No musculoskeletal pain; no joint swelling. NEUROLOGICAL: No headache. No neck pain. No syncope. No seizures. No dizziness. PSYCHIATRIC: Not anxious. No depression. No suicidal thoughts. No homicidal thoughts. SKIN: No rash. ENDOCRINE: No unexplained weight loss. No weight gain. HEMATOLOGIC/LYMPHATIC: No anemia. No purpura. No petechiae. No prolonged or excessive bleeding. No palpable lymph nodes. PHYSICAL EXAMINATION: HEENT: Head normocephalic, atraumatic. Eyes: Extraocular muscles are intact. Pupils are equal, round and reactive to light and accommodation. Ears: No lesions. Nose appeared normal. Throat: No exudate or erythema. NECK: Supple. No JVD, no carotid bruit. No lymphadenopathy or thyromegaly. LUNGS: Clear to auscultation. Percussion note normal. Chest symmetrical. HEART: S1, S2, no S3. No murmurs. No cyanosis or clubbing. No ascites. Pulses: Dorsalis pedis and posterior tibial pulses +1 to +2 both sides. ABDOMEN: Soft. Nontender. Bowel sounds active. No CVA tenderness. No mass felt. EXTREMITIES: No edema. Full range of motion of all extremities, equal. NEUROLOGIC: No focal deficit. Cranial nerves II through XII are grossly intact. No headache, no double vision or headache. SKIN: Warm and dry. Intact. Turgor - normal. LYMPHATIC: No palpable lymph nodes/no lymphedema. MUSCULOSKELETAL: Normal joints with no swelling. Muscle tone is normal. ASSESSMENT: 1. Chest pain seems to be from rib fractures in the past. Cardiovascular status is stable. PLAN: 1. The patient will be continued on IV antibiotics for cellulitis. The patient will undergo a UA if it is not done. 2. Dr. Mims consult for cellulitis. TIME SPENT: More than 30 minutes. Plan and coordination of the patient's care discussed in the presence of nurse. ANDREW
--- NOTE | 2017-03-09 13:24 | HOLTER ---
PATIENT INFORMATION AND COMMENTS Attending Physician: JAGJIT VELASCO Indications: BRADYCARDIA, FREQUENT FALLS __ Patient Medications: IMDUR, LIPITOR, KLONOPIN, PLAVIX, LEXAPRO, IRON, NEURONTIN , VISTARIL, TORADOL, ZESTRIL, LOPRESSOR, NITROSTAT, PRILOSEC, SILVADENE CREAM __ Pre-procedure Summary: Protocol: Standard Heart Rate Started: 03/08/17928 Minimum: 36 BPM Weight: 195 LBS Ended: 03/09/17928 Maximum: 128 BPM Height: 65" Duration: 24 HOURS Average: 48 BPM _ INTERPRETATIONS/OBSERVATIONS: 1. BASIC RHYTHM: SINUS, RATE 36 BPM TO 120 BPM, AVERAGE 48 BPM 2. PREMATURE ATRIAL CONTRACTIONS --3% OF BEATS SCANNED 3. BLOCKED PREMATURE ATRIAL CONTRACTION CREATING A PAUSE CLOSE TO 2 SECOND 4. RARE PVC'S 5. NO ST-T WAVE CHANGES FROM BASELINE 6. NO CORRELATION WITH ACTIVITY LOG MTDD
--- NOTE | 2017-03-09 14:01 | PCM.PROG ---
Attending Provider: ATTENDING PROVIDER: Dr. JAGJIT VELASCO DATE OF SERVICE: 03/09/17 SUBJECTIVE: This 76 year old WHITE/ F was hospitalized 03/04/17. The patient was hospitalized with cellulitis right ankle. Condition is improving. The patient is afebrile. She has asymptomatic bradycardia. Hemoglobin 9.2, will follow. REVIEW OF SYSTEMS: CONSTITUTIONAL: No night sweats. No fatigue, malaise, lethargy. No fever or chills. HEENT: Eyes: No visual changes. No eye pain. No eye discharge. ENT: No runny nose. No epistaxis. No sinus pain. No odynophagia. No congestion. RESPIRATORY: No cough, no congestion. No hemoptysis. No shortness of breath. CARDIOVASCULAR: No angina symptoms. No CHF symptoms. No atypical chest pain for CAD. No palpitations. No orthopnea.. GASTROINTESTINAL: No abdominal pain. No nausea or vomiting. No diarrhea or constipation. No hematemesis. No hematochezia. GENITOURINARY: No urgency. No frequency. No dysuria. No hematuria. No obstructive symptoms. No discharge. No pain. No significant abnormal bleeding. MUSCULOSKELETAL: No musculoskeletal pain; no joint swelling. NEUROLOGICAL: Awake, alert, oriented to time, place and person. No headache. No neck pain. No syncope. No seizures. No dizziness. PSYCHIATRIC: Not anxious. No depression. No suicidal thoughts. No homicidal thoughts. SKIN: No rash. ENDOCRINE: No unexplained weight loss. No weight gain. HEMATOLOGIC/LYMPHATIC: No anemia. No purpura. No petechiae. No prolonged or excessive bleeding. No palpable lymph nodes. PHYSICAL EXAMINATION: GENERAL: The patient is awake, alert and oriented, lying in bed in no distress. VITAL SIGNS: Temperature 97.8 F, Pulse 46, Respiratory Rate 16, BP 110/64, Pulse Ox 97% HEENT: Head normocephalic, atraumatic. Eyes: Extraocular muscles are intact. Pupils are equal, round and reactive to light and accommodation. Ears: No lesions. Nose appeared normal. Throat: No exudate or erythema. NECK: Supple. No JVD, no carotid bruit. No lymphadenopathy or thyromegaly. LUNGS: Clear to auscultation. Percussion note normal. Chest symmetrical. HEART: S1, S2, no S3. No murmurs. No cyanosis or clubbing. No ascites. Pulses: Dorsalis pedis and posterior tibial pulses +1 to +2 both sides. ABDOMEN: Soft. Non-tender. Bowel sounds active. No CVA tenderness. No mass felt. EXTREMITIES: No edema. Full range of motion of all extremities, equal. NEUROLOGIC: No focal deficit. Cranial nerves II through XII are grossly intact. No headache, no double vision or headache. SKIN: Warm, dry. Intact. Turgor-normal. LYMPHATIC: No palpable lymph nodes/no lymphedema. MUSCULOSKELETAL: Normal joints with no swelling. Muscle tone is normal. LAB REVIEW: 03/09/17 04:40 03/09/17 04:40 03/09/17 04:40: Sodium 141, Potassium 4.8, Chloride 105, Carbon Dioxide 30, Anion Gap 10.8, BUN 24 H, Creatinine 0.82, Estimated GFR (MDRD) 67.00, BUN/ Creatinine Ratio 29.26, Glucose 85, Calcium 8.4, Total Bilirubin < 0.3, AST 13 L , ALT 10 L, Alkaline Phosphatase 54, Total Protein 5.2 L, Albumin 2.4 L, Globulin 2.8, Albumin/Globulin Ratio 0.86 03/09/17 04:40: WBC 5.98, RBC 2.98 L, Hgb 9.2 L, Hct 28.6 L, MCV 96.0, MCH 30.9 , MCHC 32.2, RDW Coeff of Pricila 13.1, Plt Count 144, Immature Gran % (Auto) 0.5, Neut % (Auto) 73.9, Lymph % (Auto) 16.6, [place] % (Auto) 6.9, Eos % (Auto) 1.8, Baso % (Auto) 0.3, Immature Gran # (Auto) 0.0, Neut # 4.4, Lymph # 1.0, [place] # 0.4, Eos # 0.1, Baso # 0.0 ASSESSMENT: 1. SECOND DEGREE BURN RIGHT LOWER EXTREMITY WITH CELLULITIS, IMPROVING 2. PERSISTENT BRADYCARDIA 3. RECURRENT FALLS PLAN: 1. D/C home 2. Clindamycin 300 mg daily t.i.d. 3. Keflex 500 mg times 7 days Plan and coordination of the patient's care discussed in the presence of Community Affairs Manager and nurse. CONDITION: Stable SCRIBED BY: CHRISTOPHER EARLY Social Media Campaign Manager scribed while in presence of service performed by Dr. JAGJIT VELASCO on 03/09/17 ([id number])
--- NOTE | 2017-03-09 14:23 | RS.OTQKDC ---
OT Discharge Date of Discharge: 03/09/17 Number of Visits: 3 Reason for Discharge: Pt discharged to home with her . Pt will have home health to help with her wounds and therapy.
--- NOTE | 2017-03-15 14:49 | DS ---
DATE OF SERVICE: 03/09/17 FINAL DIAGNOSIS: 1. Shortness of air 2. Rib cage injury-No fractures (from falls at home, 02/27/17) 3. Burn, 2nd degree to right lower extremity/cellulitis (hot coffee spill at home) 4. Bradyarrhythmia 5. Coronary artery disease 6. Stable angina 7. Hypertension 8. Dyslipidemia 9. CVA with right sided weakness 10.Anemia 11.COPD 12.GERD 13.Lower GI bleed by history 14.Diverticulitis, sigmoid colon, 03/09/16 15.Diverticulosis, colon (x-ray 02/27/17) 16.DDD, c-spine and left shoulder (CT 02/27/17) 17.Restless leg syndrome 18.Arthritis 19.Depression/anxiety 20.Dementia/confusion 21.Cholecystectomy 22.Appendectomy 23.Hysterectomy 24.Right knee replacement, 2012.Carotid endarterectomy, right LAST VITALS: Temperature 97.8, pulse 46, respiratory rate 16, blood pressure 110/64 and pulse ox 97%. DISCHARGE INSTRUCTIONS: Discharge home today. Return to see Dr. Hernandez in his office on 03/17/[address] [facility] will contact to schedule nursing, physical therapy and occupational therapy services. Resume home medication as per list provided by the nursing staff. Leave area of burn open to air. MEDICATIONS AT DISCHARGE: Tylenol 650mg PO Q 4 hours PRN [place]io 5-325 one tablet PO Q 6 hours PRN ProAir HFA one puff IG Q 4 hours PRN Aspirin EC 81mg Po daily Lipitor 80mg Po daily Calcium 500+Vitamin D 200mg tablet one each PO twice a day KELY Klonopin 0.5mg PO bedtime Plavix 75mg Po daily Lexapro 20mg PO daily Ferrous Sulfate 324mg PO daily [place]-3 Fish oil 1,000mg PO twice a day Neurontin 1,200mg PO three times a day Imdur 15mg PO twice a day Zestril 5mg PO daily Lopressor 25mg PO twice a day Multivitamin 1 tablet PO daily Nitrostat 0.4mg SL Q 5 minutes times 3 doses PRN Prilosec 20mg PO QDAC ALLERGIES: Iodinated Contrast media-IV dye Pregabalin NEW PRESCRIPTIONS: Clindamycin 300mg, take one tablet by mouth three times a day for 7 days Keflex 500mg, take one capsule by mouth twice a day times 7 days Bactroban one application, apply to areas of burn twice daily, Pat on DO NOT RUB Silvadene cream one application, apply to areas of burn twice daily. PAT on DO NOT RUB. DIET INSTRUCTIONS: Healthy heart ACTIVITY: Get plenty of rest at home. Gradually increase your activity level according to your toleration SMOKING: Former Smoker DISEASE SPECIFIC EDUCATION: Second degree reis Fall at home Bradycardia Home medications New medications Followup Activity HOSPITAL COURSE: 76 year old white female was seen in the office with complaint of being short of breath also had chest pain more like a chest wall pain and has history of coronary artery disease. The patient also had coffee burn on right leg on ankle area which seemed to be infected at the time when she was chest with cellulitis. The patient was hospitalized. The patient did not have any acute marker event. Cardiac markers and EKG remained unchanged. She has bradycardia, 36, especially during the sleep. She doesn't have any pauses of more than 2 seconds. Holter showed Bradycardia up to 36 per minute. The patient has PAC which are blocked causing a pause which is usually less than 2 seconds. The patient's shortness of breath is multifactorial from inactivity and also with coronary artery disease which is more or less endstage and become short of breath on minimal exertion. The patient's cellulitis was resolving with stage 2 ulcers. The patient was seen by Dr. Mims on consult. The patient was discharge on Clindamycin and Keflex to be followed as an outpatient. CONDITION: STABLE. TIME SPENT: More than 60 minutes. [facility]
--- NOTE | 2017-03-15 14:52 | PN ---
03/04/17: Level 5 16: Intermediate 03/06/17: Intermediate 03/07/17: Intermediate 03/08/17: Brief 03/09/17: D as in discharge MTDD
--- NOTE | 2017-03-16 13:57 | PN ---
DATE OF SERVICE: 03/08/17 SUBJECTIVE: 76-year-old white female hospitalized with right leg cellulitis which is resolving. The other complaint she had was chest pain which comes from musculoskeletal structure and old rib fractures, doesn't seem to be cardiac. The cardiac workup, labs and EKG were negative. The patient has evidence of dementia. She is oriented to time, place and person today. REVIEW OF SYSTEMS: CONSTITUTIONAL: No night sweats. No fatigue, malaise, lethargy. No fever or chills. HEENT: Eyes: No visual changes. No eye pain. No eye discharge. ENT: No runny nose. No epistaxis. No sinus pain. No sore throat. No odynophagia. No congestion. RESPIRATORY: No cough, no congestion. No hemoptysis. No shortness of breath. CARDIOVASCULAR: No angina symptoms. No CHF symptoms. No atypical chest pain for CAD. No palpitations. No orthopnea. GASTROINTESTINAL: No abdominal pain. No nausea or vomiting. No diarrhea or constipation. No hematemesis. No hematochezia. GENITOURINARY: No urgency. No frequency. No dysuria. No hematuria. No obstructive symptoms. No discharge. No pain. No significant abnormal bleeding. MUSCULOSKELETAL: No musculoskeletal pain; no joint swelling. NEUROLOGICAL: No headache. No neck pain. No syncope. No seizures. No dizziness. PSYCHIATRIC: Not anxious. No depression. No suicidal thoughts. No homicidal thoughts. SKIN: No rash. ENDOCRINE: No unexplained weight loss. No weight gain. HEMATOLOGIC/LYMPHATIC: No anemia. No purpura. No petechiae. No prolonged or excessive bleeding. No palpable lymph nodes. PHYSICAL EXAMINATION: GENERAL: The patient is oriented to time, place and person today. HEENT: Head normocephalic, atraumatic. Eyes: Extraocular muscles are intact. Pupils are equal, round and reactive to light and accommodation. Ears: No lesions. Nose appeared normal. Throat: No exudate or erythema. NECK: Supple. No JVD, no carotid bruit. No lymphadenopathy or thyromegaly. LUNGS: Decreased breath sounds. Clear to auscultation. Percussion note normal. Chest symmetrical. HEART: S1, S2, no S3. No murmurs. No cyanosis or clubbing. No ascites. Pulses: Dorsalis pedis and posterior tibial pulses +1 to +2 both sides. ABDOMEN: Soft. Nontender. Bowel sounds active. No CVA tenderness. No mass felt. EXTREMITIES: No edema. Full range of motion of all extremities, equal. NEUROLOGIC: No focal deficit. Cranial nerves II through XII are grossly intact. No headache, no double vision or headache. SKIN: Not dry. Intact. Turgor - normal. LYMPHATIC: No palpable lymph nodes/no lymphedema. MUSCULOSKELETAL: Normal joints with no swelling. Muscle tone is normal. ASSESSMENT: The patient's medical conditions are stable. Cellulitis resolving. Dr. Mims is on consultation. The patient is seen and examined with the nurse practitioner. TIME SPENT: More than 30 minutes. Plan and coordination of the patient's care discussed in the presence of nurse. ANDREW
== END 2017-03-09 13:15 | disposition home or self-care (01) | DRG 204 ==
LOC: MEDSURG B 10:54
PROVIDERS: ADMIT Internal Medicine; ATTEND Internal Medicine
DX: R06.02 Shortness of breath (principal); L03.115 Cellulitis of right lower limb; I69.351 Hemiplegia and hemiparesis following cerebral infarction affecting right dominant side; S29.9XXA Unspecified injury of thorax, initial encounter; T25.211A Burn of second degree of right ankle, initial encounter; I49.1 Atrial premature depolarization; I49.8 Other specified cardiac arrhythmias; I10 Essential (primary) hypertension; I25.118 Atherosclerotic heart disease of native coronary artery with other forms of angina pectoris; D64.9 Anemia, unspecified; J44.9 Chronic obstructive pulmonary disease, unspecified; K21.9 Gastro-esophageal reflux disease without esophagitis; K57.30 Diverticulosis of large intestine without perforation or abscess without bleeding; M50.30 Other cervical disc degeneration, unspecified cervical region; G25.81 Restless legs syndrome; M19.90 Unspecified osteoarthritis, unspecified site; F41.8 Other specified anxiety disorders; F03.90 Unspecified dementia, unspecified severity, without behavioral disturbance, psychotic disturbance, mood disturbance, and anxiety; R41.0 Disorientation, unspecified; E78.5 Hyperlipidemia, unspecified; R29.6 Repeated falls; X10.0XXA Contact with hot drinks, initial encounter; W19.XXXA Unspecified fall, initial encounter; Z87.81 Personal history of (healed) traumatic fracture; Z87.19 Personal history of other diseases of the digestive system; Z79.02 Long term (current) use of antithrombotics/antiplatelets; Z79.899 Other long term (current) drug therapy
CPT/HCPCS: 36415; 80053; 81001; 82550; 82553; 83874; 84484; 85025; 87070; 93005; 93010; 93227; 94761; 97802

== ENCOUNTER 2017-03-16 13:03 | Inpatient (IN) ==
[2017-03-16] MEDS ORDERED: VISTARIL INJ IM PRN (13:50)
[2017-03-16] MEDS ORDERED: TORADOL IVP STA (13:50)
[2017-03-16] MEDS ORDERED: ATROPINE SULFATE PFS IVP PRN (13:50)
[2017-03-16] MEDS ORDERED: TYLENOL PO PRN ×2 (13:50→14:24)
[2017-03-16] MEDS ORDERED: DECADRON 4 MG/ML SDV IM STA (13:50)
[2017-03-16] MEDS ORDERED: MORPHINE 4 MG/ML VIAL IVP PRN (13:50)
[2017-03-16] MEDS ORDERED: NITROSTAT SL PRN ×2 (13:50→14:24)
[2017-03-16 13:55] VITALS: BMI 31.3
[2017-03-16] MEDS: DEXTROSE 5%-1/2NS IV SOLUTION 1,000 ML IV SCH (14:08)
[2017-03-16] MEDS ORDERED: PROAIR HFA IH PRN (14:24)
[2017-03-16] MEDS: CLEOCIN 300 MG in SODIUM CHLORIDE 50 ML IV SCH ×2 (14:48→21:25)
[2017-03-16] MEDS ORDERED: GABAPENTIN 1200 MG PO SCH (15:00)
[2017-03-16] MEDS ORDERED: NON-FORMULARY MEDICATION (Clindamycin Hcl [Clindamycin Hcl] 300 MG) PO SCH (15:00)
[2017-03-16] MEDS ORDERED: NON-FORMULARY MEDICATION (Gabapentin [Gabapentin] 1,200 MG) PO SCH (15:00)
[2017-03-16] MEDS ORDERED: BACTROBAN TP SCH (15:30)
--- NOTE | 2017-03-16 15:33 | DI ---
EXAM: CHEST FRONTAL AND LATERAL VIEWS HISTORY: Shortness of breath. COMPARISON: 03/04/2017 FINDINGS: Borderline enlarged heart size is stable. There are scattered calcifications suggesting old granuloma tous disease. No acute infiltrates are seen. No vascular congestion. There is no consolidation, vi sible pleural fluid or pneumothorax. Bones reveal no acute fracture. IMPRESSION: No acute cardiopulmonary process.
[2017-03-16] MEDS: VANCOMYCIN 500 MG in SODIUM CHLORIDE 100 ML IV SCH ×2 (15:46→22:19)
[2017-03-16] MEDS: NEURONTIN PO SCH ×2 (15:49→21:28)
[2017-03-16] MEDS ORDERED: NON-FORMULARY MEDICATION (Omega-3 Fatty Acids/Fish Oil [Fish Oil 1,000 Mg Softgel] 1,000 M PO SCH (21:00)
[2017-03-16] MEDS ORDERED: NON-FORMULARY MEDICATION (Clonazepam [Klonopin] 0.5 MG) PO SCH (21:00)
[2017-03-16] MEDS ORDERED: BACTROBAN OINTMENT 1 GRAM APPLICATOR TP SCH (21:00)
[2017-03-16] MEDS ORDERED: KEFLEX PO SCH (21:00)
[2017-03-16] MEDS: OMEGA-3 FISH OIL PO SCH (21:27)
[2017-03-16] MEDS: LOPRESSOR PO SCH (21:28)
[2017-03-16] MEDS: CALCIUM 500 + VIT D 200 MG TABLET PO SCH (21:28)
[2017-03-16] MEDS: IMDUR PO SCH (21:28)
[2017-03-16] MEDS: KLONOPIN PO SCH (21:29)
[2017-03-16] MEDS: SILVADENE CREAM TP SCH (21:29)
[2017-03-16] MEDS: BACTROBAN TP SCH (21:30)
[2017-03-17] MEDS: CLEOCIN 300 MG in SODIUM CHLORIDE 50 ML IV SCH ×3 (04:12→21:27)
[2017-03-17] MEDS: PRILOSEC PO SCH (05:52)
[2017-03-17] MEDS ORDERED: ASPIRIN EC PO SCH (08:00)
--- NOTE | 2017-03-17 08:58 | PCM.PROG ---
Attending Provider: ATTENDING PROVIDER: Dr. JAGJIT HERNANDEZ This patient is seen with Patricia Serrano, Nurse Practitioner. DATE OF SERVICE: 03/17/17 SUBJECTIVE: This 76 year old WHITE/ F was hospitalized 03/16/17. The patient is alert, lying in bed. Dr. Mims saw the patient last night, will continue IV antibiotics. REVIEW OF SYSTEMS: CONSTITUTIONAL: No night sweats. No fatigue, malaise, lethargy. No fever or chills. HEENT: Eyes: No visual changes. No eye pain. No eye discharge. ENT: No runny nose. No epistaxis. No sinus pain. No odynophagia. No congestion. RESPIRATORY: No cough, no congestion. No hemoptysis. No shortness of breath. CARDIOVASCULAR: No angina symptoms. No CHF symptoms. No atypical chest pain for CAD. No palpitations. No orthopnea.. GASTROINTESTINAL: No abdominal pain. No nausea or vomiting. No diarrhea or constipation. No hematemesis. No hematochezia. GENITOURINARY: No urgency. No frequency. No dysuria. No hematuria. No obstructive symptoms. No discharge. No pain. No significant abnormal bleeding. MUSCULOSKELETAL: No musculoskeletal pain; no joint swelling. NEUROLOGICAL: Awake, alert, oriented to time, place and person. No headache. No neck pain. No syncope. No seizures. No dizziness. PSYCHIATRIC: Not anxious. No depression. No suicidal thoughts. No homicidal thoughts. SKIN: Right leg erythema and burn. ENDOCRINE: No unexplained weight loss. No weight gain. HEMATOLOGIC/LYMPHATIC: No anemia. No purpura. No petechiae. No prolonged or excessive bleeding. No palpable lymph nodes. PHYSICAL EXAMINATION: GENERAL: The patient is awake, alert and oriented, lying in bed in no distress. VITAL SIGNS: Temperature 96.9 F, Pulse 49, Respiratory Rate 20, BP 137/67, Pulse Ox 94% HEENT: Head normocephalic, atraumatic. Eyes: Extraocular muscles are intact. Pupils are equal, round and reactive to light and accommodation. Ears: No lesions. Nose appeared normal. Throat: No exudate or erythema. NECK: Supple. No JVD, no carotid bruit. No lymphadenopathy or thyromegaly. LUNGS: Clear to auscultation. Percussion note normal. Chest symmetrical. HEART: S1, S2, no S3. No murmurs. No cyanosis or clubbing. No ascites. Pulses: Dorsalis pedis and posterior tibial pulses +1 to +2 both sides. ABDOMEN: Soft. Non-tender. Bowel sounds active. No CVA tenderness. No mass felt. EXTREMITIES: No edema. Full range of motion of all extremities, equal. NEUROLOGIC: No focal deficit. Cranial nerves II through XII are grossly intact. No headache, no double vision or headache. SKIN: Warm, dry. Second degree burn circumference of right lower extremity, blackish eschar with mild surrounding erythema and tenderness. LYMPHATIC: No palpable lymph nodes/no lymphedema. MUSCULOSKELETAL: Normal joints with no swelling. Muscle tone is normal. LAB REVIEW: 03/17/17 05:00 03/17/17 05:00 03/17/17 05:00: Sodium 139, Potassium 4.9, Chloride 105, Carbon Dioxide 30, Anion Gap 8.9, BUN 14, Creatinine 0.78, Estimated GFR (MDRD) 71.00, BUN/ Creatinine Ratio 17.94, Glucose 153 H, Calcium 8.1 L, Total Bilirubin 0.3, AST 12 L, ALT 11 L, Alkaline Phosphatase 61, Total Protein 5.6 L, Albumin 2.4 L, Globulin 3.2, Albumin/Globulin Ratio 0.75 03/17/17 05:00: WBC 5.53, RBC 3.18 L, Hgb 9.7 L, Hct 30.0 L, MCV 94.3, MCH 30.5 , MCHC 32.3, RDW Coeff of Pricila 13.1, Plt Count 193, Immature Gran % (Auto) 0.4, Neut % (Auto) 88.7, Lymph % (Auto) 9.2 L, [place] % (Auto) 1.3, Eos % (Auto) 0.0, Baso % (Auto) 0.4, Immature Gran # (Auto) 0.0, Neut # 4.9, Lymph # 0.5 L, [place] # 0.1 L, Eos # 0.0, Baso # 0.0 03/17/17 02:30: Urine Color Yellow, Urine Clarity Clear, Urine pH 5.0, Ur Specific [place] >=1.030, Urine Protein Trace, Urine Glucose (UA) Negative, Urine Ketones Trace, Urine Blood Negative, Urine Nitrite Negative, Urine Bilirubin Negative, Urine Urobilinogen 0.2, Ur Leukocyte Esterase Negative, Urine Microscopic RBC 2-5, Urine Microscopic WBC 0-2, Ur Squamous Epith Cells 5- 10, Urine Bacteria Trace, Hyaline Casts 0-2, Urine Mucus 1+ 03/16/17 14:15: Sodium 143, Potassium 4.0, Chloride 105, Carbon Dioxide 32 H, Anion Gap 10.0, BUN 11, Creatinine 0.84, Estimated GFR (MDRD) 66.00, BUN/ Creatinine Ratio 13.09, Glucose 116 H, Calcium 8.8, Total Bilirubin 0.3, AST 15 , ALT 12, Alkaline Phosphatase 68, Total Protein 6.1, Albumin 2.6 L, Globulin 3.5, Albumin/Globulin Ratio 0.74 03/16/17 14:15: WBC 8.92, RBC 3.47 L, Hgb 10.8 L, Hct 32.8 L, MCV 94.5, MCH 31.1 H, MCHC 32.9, RDW Coeff of Pricila 13.4, Plt Count 220, Immature Gran % (Auto) 0.3, Neut % (Auto) 77.6, Lymph % (Auto) 11.4, [place] % (Auto) 5.0, Eos % (Auto) 4.9, Baso % (Auto) 0.8, Immature Gran # (Auto) 0.0, Neut # 6.9, Lymph # 1.0, [place] # 0.5, Eos # 0.4, Baso # 0.1 ASSESSMENT: 1. Second-degree burn right lower extremityh with cellulitis PLAN: 1. Continue antibiotics 2. Continue Bactroban and Silvadene 3. Continue IV Clindamycin and Vancomycin 4. Clean and dry 5. Keep right lower extremity elevated. Plan and coordination of the patient's care discussed in the presence of Foil Stamp Operator and nurse. CONDITION: Stable SCRIBED BY: CHRISTOPHER EARLY Project Architect scribed while in presence of service performed by Dr. Hernandez/Patricia Serrano APRN on 03/17/17 ([id number])
[2017-03-17] MEDS ORDERED: FOSAMAX PO SCH (09:00)
[2017-03-17] MEDS ORDERED: RANEXA PO SCH (09:00)
[2017-03-17] MEDS ORDERED: NON-FORMULARY MEDICATION (Ferrous Sulfate [Ferrous Sulfate] 325 MG) PO SCH (09:00)
[2017-03-17] MEDS ORDERED: NON-FORMULARY MEDICATION (Atorvastatin Calcium [Lipitor] 80 MG) PO SCH (09:00)
[2017-03-17] MEDS ORDERED: NON-FORMULARY MEDICATION (Rosuvastatin Calcium [Crestor] 1 TAB) PO SCH (09:00)
[2017-03-17] MEDS ORDERED: CRESTOR PO SCH (09:00)
[2017-03-17] MEDS: IMDUR PO SCH ×2 (10:54→21:27)
[2017-03-17] MEDS: OMEGA-3 FISH OIL PO SCH ×2 (10:54→21:27)
[2017-03-17] MEDS: VANCOMYCIN 500 MG in SODIUM CHLORIDE 100 ML IV SCH ×2 (10:54→22:24)
[2017-03-17] MEDS: LIPITOR PO SCH (10:55)
[2017-03-17] MEDS: MULTIVITAMIN TABLET PO SCH (10:55)
[2017-03-17] MEDS: CYMBALTA PO SCH (10:55)
[2017-03-17] MEDS: ASPIRIN EC PO SCH (10:56)
[2017-03-17] MEDS: ZESTRIL PO SCH (10:56)
[2017-03-17] MEDS: LEXAPRO PO SCH (10:56)
[2017-03-17] MEDS: FERROUS SULFATE PO SCH (10:56)
[2017-03-17] MEDS: CALCIUM 500 + VIT D 200 MG TABLET PO SCH ×2 (10:56→21:28)
[2017-03-17] MEDS: PLAVIX PO SCH (10:56)
[2017-03-17] MEDS: BACTROBAN TP SCH ×2 (10:57→21:26)
[2017-03-17] MEDS: SILVADENE CREAM TP SCH ×2 (10:57→21:27)
[2017-03-17] MEDS: LOPRESSOR PO SCH ×2 (10:57→21:28)
[2017-03-17] MEDS: NEURONTIN PO SCH ×3 (11:47→21:27)
[2017-03-17] MEDS: NORCO 5-325 PO PRN (11:48)
[2017-03-17] MEDS: DEXTROSE 5%-1/2NS IV SOLUTION 1,000 ML IV SCH (11:48)
--- NOTE | 2017-03-17 16:15 | RS.PTINEVL ---
Subjective - Patient information Date of Evaluation: 03/17/17 Date of Arrival on Unit: 03/16/17 Admitted From:: Home Diagnosis: 2nd degree burn to R ankle, cellulitis Usual Living Arrangement: With Spouse Home Environment: House, Stairs (few), Rail Medical History: Arthritis Medical History Comments:: neuropathy, LATEX ALLERGY?: No Surgical History: Knee Replacement, Cholecystectomy, Hysterectomy Surgical History Comments:: angioplasty, CEA Subjective Information/ Patient Comments:: pt states she wants to do therapy to help her get stronger and be able to walk better at home. - Level of function Prior to this admission, the patient could do the following:: Partially Dependent Ambulation Current Level of Function: Partially Dependent Current Equipment Used at Home: walker, w/c, rollator, shower chair, raised toliet, hospital bed Pain Assessement - Location Right Ankle Description: Aching Intensity: 3 Pain Alleviating Factors: Medication Interventions - Objective Patient Orientation: Person, Place, Time, Situation Current Interventions: IV's, Oxygen, Telemetry Range of Motion - ROM Right Upper Extremity AROM: Slight limitation (shld flex limited due to arthritis) Left Upper Extremity AROM: Slight limitation (shld flex limited due to arthritis ) Right Lower Extremity AROM: Slight limitation (R ankle limited due to wound) Left Lower Extremity AROM: WFL's Muscle Strength - Muscle Strength Right Upper Extremity Strength: Mild Weakness (shld flex 3-/5, elbow flex/ext 4- /5) Left Upper Extremity Strength: Mild Weakness (shld flex 3-/5, elbow flex/ext 4-/ 5) Right Lower Extremity Strength: Mild Weakness (hip flex 4-/5, knee flex/ext 4/5 , ankle Df/PF 4/5) Left Lower Extremity Strength: Mild Weakness (hip flex 4-/5, knee flex/ext 4/5, ankle Df/PF 4/5) Sensation - Sensation Right Upper Extremity Sensation: Intact/Normal Left Upper Extremity Sensation: Intact/Normal Right Lower Extremity Sensation: Intact/Normal Left Lower Extremity Sensation: Intact/Normal Balance - Sitting Balance and Reactions Static Sitting Balance: Good Dynamic Sitting Balance: Fair Sitting Equilibrium Reactions: Delayed Left, Delayed Right Sitting Protective Reactions: Delayed Left, Delayed Right - Standing Balance and Reactions Static Standing Balance: Fair Dynamic Standing Balance: Poor Standing Equilibrium Reactions: Delayed Left, Delayed Right Standing Protective Reactions: Delayed Left, Delayed Right - Comments Balance Assessment Comments: Tinetti score: [id number] Functional Mobility - Bed Mobility Rolling R/L: Independent Supine to Sit: Supervision Sit to Supine: CGA - Transfers Sit to Stand: CGA Stand to Sit: CGA - Safety Awareness Safety Awareness: Good Ambulation - Ambulation Assistive Device Used: Rolling Walker Orthotic/Prosthetic Device: No Distance: 120ft Assistance needed with Ambulation: CGA Gait Deviations: Forward posture, Short stride Factors Affecting Ambulation: Decreased Balance, Pain, Weakness, Decreased Safety, Cognitive Status, Limited Endurance Treatment time - Time with patient Total treatment time: 32 Patient Education - Education Patient Education: Activity Modification, Education of Plan of Care Teaching Recipient: Patient Teaching Methods: Discussion, Demonstration (pt performed AP, LAQ, HS, QS, hip abd/add x 10 reps with verbal cues for technique and rest periods.) Assessment - Assessment Problem List:: Decreased level of function, Decreased safety/Risk of falls, Weakness Rehab Potential: Good Further Therapy Indicated?: Yes Short Term Goals GOAL #1: pt transfer sup to/from sit independently, sit to/from stand SBA Goal to be met by: 03/19/17 GOAL #2: pt amb with rwx 150ft with CGA to SBA with no LOB Goal to be met by: 03/19/17 Compliance Examiner Goals GOAL #1: Increase dyn stand balance as noted by tinetti score of Goal to be met by: 03/23/17 GOAL #2: pt amb with rwx functional household distances with no LOB with supervision Goal to be met by: 03/23/17 GOAL #3: pt with increased strength BLE 4 to 4+/5 and independent with HEP Goal to be met by: 03/23/17 Plan Plan of Care: Therapeutic EX, Therapeutic Activity, Self-Care/Home Management Other:: gait training Frequency of Treatment: 1-2 X day, as tolerated (6) Duration of Treatment: 6 days Anticipated Discharge Destination: Home Has the Physician been added for Co-signature?: Yes
[2017-03-17] MEDS: KLONOPIN PO SCH (21:27)
[2017-03-17] MEDS: TORADOL IVP PRN (21:37)
[2017-03-18] MEDS: CLEOCIN 300 MG in SODIUM CHLORIDE 50 ML IV SCH ×3 (04:41→20:02)
[2017-03-18] MEDS: PRILOSEC PO SCH (05:44)
[2017-03-18] MEDS: VANCOMYCIN 500 MG in SODIUM CHLORIDE 100 ML IV SCH ×2 (09:03→21:03)
[2017-03-18] MEDS: LIPITOR PO SCH (09:05)
[2017-03-18] MEDS: OMEGA-3 FISH OIL PO SCH ×2 (09:05→20:46)
[2017-03-18] MEDS: NEURONTIN PO SCH ×3 (09:06→20:46)
[2017-03-18] MEDS: CYMBALTA PO SCH (09:07)
[2017-03-18] MEDS: ASPIRIN EC PO SCH (09:07)
[2017-03-18] MEDS: LEXAPRO PO SCH (09:07)
[2017-03-18] MEDS: LOPRESSOR PO SCH ×2 (09:07→20:46)
[2017-03-18] MEDS: ZESTRIL PO SCH (09:07)
[2017-03-18] MEDS: MULTIVITAMIN TABLET PO SCH (09:08)
[2017-03-18] MEDS: PLAVIX PO SCH (09:08)
[2017-03-18] MEDS: FERROUS SULFATE PO SCH (09:08)
[2017-03-18] MEDS: IMDUR PO SCH ×2 (09:09→20:45)
[2017-03-18] MEDS: BACTROBAN TP SCH ×2 (09:10→20:44)
[2017-03-18] MEDS: SILVADENE CREAM TP SCH ×2 (09:10→20:44)
[2017-03-18] MEDS: CALCIUM 500 + VIT D 200 MG TABLET PO SCH ×2 (09:11→20:46)
--- NOTE | 2017-03-18 10:14 | HP ---
DATE OF SERVICE: 03/16/17 REASON FOR HOSPITALIZATION/HISTORY OF PRESENT ILLNESS: Burn right lower extremity infected with cellulitis. Today last day of PO Clindamycin/Keflex. Redness, eschar worse. Coffee burn two weeks ago. PAST MEDICAL HISTORY: Hypertension Dyslipidemia Cardiac Carotid stenosis Cardiac arrest November 2011 day after knee surgery Colonoscopy Dr. Self follows. PAST SURGICAL HISTORY: Knee replacement, November 2011, Dr. Greer Right leg, Dr. Lemus, 2010 Carotid-Dr. Almeida Heart cath 2009 Dr. Chávez Hysterectomy Eyes Gallbladder Appendix REVIEW OF SYSTEMS: CONSTITUTIONAL: No fever, Fatigue. HEENT: No sinus drainage, no sore throat. RESPIRATORY: No cough, no congestion. CARDIOVASCULAR: No atypical chest pain for coronary artery disease. No angina , CHF symptoms, palpitations or shortness of breath. GASTROINTESTINAL: No melena or abdominal pain. No GERD. GENITOURINARY: No hematuria, no prostatism, no polyuria. CELL MAKER: No blackout, no dizziness, no headache, no double vision. MUSCULOSKELETAL: Osteoarthritis pain, no joint swelling. ENDOCRINE: No weight loss, no weight gain. SKIN: Not dry, no rash. PSYCHIATRIC: Not anxious, no depression, no suicidal thoughts, no homicidal thoughts. SOCIAL HISTORY: Marital Status: Lives with . Alcohol Usage: No. Tobacco Usage: No. FAMILY HISTORY: Father: Mother: Brother: 1 MEDICATIONS: Alendronate 70mg Albuterol Inhaler Gabapentin 600mg two three times a dy Ranexa 500mg one daily Klonopin 1mg 1/2 HS Tylenol PRN [place] 5-325mg Q 6 hours Calcium with Vitamin D plus multivitamin Omeprazole 20mg one daily Metoprolol 25mg twice a day Crestor 20mg daily Imdur 30mg twice a day Cymbalta 30mg daily Zestril 10mg 1/2 daily FE 325mg daily Fish oil 1000mg three times a day Aspirin 81mg daily Plavix 75mg daily Nitroglycerin PRN Lexapro 10mg daily Imdur 15mg twice a day Atorvastatin 80mg Keflex Clindamycin 300mg three times a day for 7 days ALLERGIES: Iodinated contrast oral and IV dye Pregabalin PHYSICAL EXAMINATION: V/S: Pulse 60, blood pressure 104/74, pulse ox 96%, Weight 190, BMI 31.6 and height 5'5. GENERAL APPEARANCE: Oriented times three. HEENT: Normal. NECK: No JVP, no bruits. RESPIRATORY: Lungs have decreased breath sounds. CARDIOVASCULAR: S1, S2, no S3, no murmurs. No cyanosis, clubbing. No ascites. GI/ABDOMEN: No tenderness. Bowel sounds are active. EXTREMITIES: edema, pulses +1, equal. 2nd degree burn right lower extremity purulent exudate/eschar nearly circumference of right lower extremity. Surrounding erythema. CELL MAKER: Deep tendon reflexes, sensory, motor and gait all normal. RECTAL: Dr. Self/PELVIC: Hysterectomy, mammogram 11/03 . LABS: Chest x-ray shows no acute cardio pulmonary process. Sodium 143, potassium 4.0, BUN 11, creatinine 0.84, glucose 116, AST 15, ALT 12, WBC 8.9, hgb 10.8, hct 32.8, plt count 220. ASSESSMENT: 1. 2nd degree burn right lower extremity with cellulitis (1 1/2 inch x 4inches= [place]) 2. Stable Angina 3. Coronary artery disease 4. Depression 5. ROMAINE 6. Hypertension 7. Hyperglycemia 8. Restless leg syndrome 9. COPD 10.Dizziness 11.History of right CEA 12.History of rectal bleed. PLAN: 1. Admit 2. Vancomycin 500mg IV Q 12 hours 3. Clindamycin 300mg IV Q 8 hours 4. D5 1/2 normal saline A 50cc an hour 5. Routine telemetry orders=no cardiac markers 6. Chest x-ray 7. 1cc Decadron IM today 8. CBC and CMP daily 9. Consult Dr. Mims 10.Continue home medications 11.Toradol 30mg OV Q 8 hours PRN and one dose now. TIME SPENT: More than 70 minutes. MTDD
[2017-03-18] MEDS: NORCO 5-325 PO PRN ×2 (10:21→20:45)
[2017-03-18] MEDS: DEXTROSE 5%-1/2NS IV SOLUTION 1,000 ML IV SCH (12:33)
[2017-03-18] MEDS: KLONOPIN PO SCH (20:45)
[2017-03-18] MEDS: TORADOL IVP PRN (21:57)
[2017-03-19] MEDS: CLEOCIN 300 MG in SODIUM CHLORIDE 50 ML IV SCH ×3 (04:05→23:00)
[2017-03-19] MEDS: PRILOSEC PO SCH (05:33)
[2017-03-19] MEDS: BACTROBAN TP SCH ×2 (09:02→20:50)
[2017-03-19] MEDS: VANCOMYCIN 500 MG in SODIUM CHLORIDE 100 ML IV SCH ×2 (09:02→20:50)
[2017-03-19] MEDS: SILVADENE CREAM TP SCH ×2 (09:02→20:50)
[2017-03-19] MEDS: LIPITOR PO SCH (09:03)
[2017-03-19] MEDS: IMDUR PO SCH ×2 (09:03→20:53)
[2017-03-19] MEDS: LEXAPRO PO SCH (09:03)
[2017-03-19] MEDS: CALCIUM 500 + VIT D 200 MG TABLET PO SCH ×2 (09:04→20:51)
[2017-03-19] MEDS: NEURONTIN PO SCH ×3 (09:04→20:55)
[2017-03-19] MEDS: OMEGA-3 FISH OIL PO SCH ×2 (09:04→20:56)
[2017-03-19] MEDS: ZESTRIL PO SCH (09:04)
[2017-03-19] MEDS: LOPRESSOR PO SCH ×2 (09:04→20:54)
[2017-03-19] MEDS: MULTIVITAMIN TABLET PO SCH (09:04)
[2017-03-19] MEDS: FERROUS SULFATE PO SCH (09:04)
[2017-03-19] MEDS: CYMBALTA PO SCH (09:04)
[2017-03-19] MEDS: PLAVIX PO SCH (09:04)
[2017-03-19] MEDS: NORCO 5-325 PO PRN (09:05)
[2017-03-19] MEDS: ASPIRIN EC PO SCH (09:05)
[2017-03-19] MEDS: DEXTROSE 5%-1/2NS IV SOLUTION 1,000 ML IV SCH (09:24)
[2017-03-19] MEDS: TORADOL IVP PRN (12:10)
[2017-03-19] MEDS: KLONOPIN PO SCH (20:51)
[2017-03-20] MEDS: CLEOCIN 300 MG in SODIUM CHLORIDE 50 ML IV SCH ×3 (04:31→22:51)
[2017-03-20] MEDS: PRILOSEC PO SCH (06:00)
[2017-03-20] MEDS: VANCOMYCIN 500 MG in SODIUM CHLORIDE 100 ML IV SCH ×2 (10:49→21:19)
[2017-03-20] MEDS: NEURONTIN PO SCH ×3 (10:51→21:24)
[2017-03-20] MEDS: MULTIVITAMIN TABLET PO SCH (10:51)
[2017-03-20] MEDS: PLAVIX PO SCH (10:51)
[2017-03-20] MEDS: NORCO 5-325 PO PRN (10:51)
[2017-03-20] MEDS: OMEGA-3 FISH OIL PO SCH ×2 (10:51→21:25)
[2017-03-20] MEDS: LEXAPRO PO SCH (10:51)
[2017-03-20] MEDS: FERROUS SULFATE PO SCH (10:51)
[2017-03-20] MEDS: ZESTRIL PO SCH (10:51)
[2017-03-20] MEDS: IMDUR PO SCH ×2 (10:52→21:22)
[2017-03-20] MEDS: LIPITOR PO SCH (10:52)
[2017-03-20] MEDS: ASPIRIN EC PO SCH (10:52)
[2017-03-20] MEDS: LOPRESSOR PO SCH ×2 (10:52→21:24)
[2017-03-20] MEDS: CYMBALTA PO SCH (10:52)
[2017-03-20] MEDS: CALCIUM 500 + VIT D 200 MG TABLET PO SCH ×2 (10:52→21:21)
[2017-03-20] MEDS: BACTROBAN TP SCH ×2 (12:02→21:20)
[2017-03-20] MEDS: SILVADENE CREAM TP SCH ×2 (12:03→21:20)
[2017-03-20] MEDS: KLONOPIN PO SCH (21:23)
[2017-03-21] MEDS: CLEOCIN 300 MG in SODIUM CHLORIDE 50 ML IV SCH ×3 (06:21→22:01)
[2017-03-21] MEDS: PRILOSEC PO SCH (06:21)
[2017-03-21] MEDS: NORCO 5-325 PO PRN (08:43)
[2017-03-21] MEDS: OMEGA-3 FISH OIL PO SCH ×2 (09:00→22:05)
[2017-03-21] MEDS: ZESTRIL PO SCH (09:00)
[2017-03-21] MEDS: CYMBALTA PO SCH (09:00)
[2017-03-21] MEDS: LIPITOR PO SCH (09:00)
[2017-03-21] MEDS: PLAVIX PO SCH (09:00)
[2017-03-21] MEDS: FERROUS SULFATE PO SCH (09:00)
[2017-03-21] MEDS: LOPRESSOR PO SCH ×2 (09:00→22:05)
[2017-03-21] MEDS: IMDUR PO SCH ×2 (09:00→22:04)
[2017-03-21] MEDS: ASPIRIN EC PO SCH (09:00)
[2017-03-21] MEDS: NEURONTIN PO SCH ×3 (09:00→22:02)
[2017-03-21] MEDS: BACTROBAN TP SCH ×2 (09:00→22:02)
[2017-03-21] MEDS: CALCIUM 500 + VIT D 200 MG TABLET PO SCH ×2 (09:00→22:05)
[2017-03-21] MEDS: SILVADENE CREAM TP SCH ×2 (09:00→22:02)
[2017-03-21] MEDS: LEXAPRO PO SCH (09:00)
[2017-03-21] MEDS: VANCOMYCIN 500 MG in SODIUM CHLORIDE 100 ML IV SCH ×2 (09:00→23:34)
[2017-03-21] MEDS: MULTIVITAMIN TABLET PO SCH (09:00)
[2017-03-21] MEDS: TORADOL IVP PRN (12:40)
[2017-03-21] MEDS: KLONOPIN PO SCH (22:05)
[2017-03-22] MEDS: PRILOSEC PO SCH (05:59)
[2017-03-22] MEDS: CLEOCIN 300 MG in SODIUM CHLORIDE 50 ML IV SCH ×2 (06:00→13:38)
[2017-03-22] MEDS: VANCOMYCIN 500 MG in SODIUM CHLORIDE 100 ML IV SCH (09:08)
[2017-03-22] MEDS: BACTROBAN TP SCH (09:08)
[2017-03-22] MEDS: MULTIVITAMIN TABLET PO SCH (09:08)
[2017-03-22] MEDS: SILVADENE CREAM TP SCH (09:08)
[2017-03-22] MEDS: LEXAPRO PO SCH (09:08)
[2017-03-22] MEDS: FERROUS SULFATE PO SCH (09:09)
[2017-03-22] MEDS: NEURONTIN PO SCH (09:09)
[2017-03-22] MEDS: LOPRESSOR PO SCH (09:09)
[2017-03-22] MEDS: ASPIRIN EC PO SCH (09:09)
[2017-03-22] MEDS: CALCIUM 500 + VIT D 200 MG TABLET PO SCH (09:09)
[2017-03-22] MEDS: ZESTRIL PO SCH (09:09)
[2017-03-22] MEDS: IMDUR PO SCH (09:09)
[2017-03-22] MEDS: OMEGA-3 FISH OIL PO SCH (09:10)
[2017-03-22] MEDS: LIPITOR PO SCH (09:10)
[2017-03-22] MEDS: CYMBALTA PO SCH (09:10)
[2017-03-22] MEDS: PLAVIX PO SCH (09:10)
--- NOTE | 2017-03-22 09:55 | PCM.PROG ---
Attending Provider: ATTENDING PROVIDER: Dr. JAGJIT VELASCO This patient is seen with Patricia Serrano, Nurse Practitioner. DATE OF SERVICE: 03/22/17 SUBJECTIVE: This 76 year old WHITE/ F was hospitalized 03/16/17. The patient is alert, lying in bed comfortably. She has been up and about. Will discuss swing bed placement with patient and family. REVIEW OF SYSTEMS: CONSTITUTIONAL: No night sweats. No fatigue, malaise, lethargy. No fever or chills. HEENT: Eyes: No visual changes. No eye pain. No eye discharge. ENT: No runny nose. No epistaxis. No sinus pain. No odynophagia. No congestion. RESPIRATORY: No cough, no congestion. No hemoptysis. No shortness of breath. CARDIOVASCULAR: No angina symptoms. No CHF symptoms. No atypical chest pain for CAD. No palpitations. No orthopnea.. GASTROINTESTINAL: No abdominal pain. No nausea or vomiting. No diarrhea or constipation. No hematemesis. No hematochezia. GENITOURINARY: No urgency. No frequency. No dysuria. No hematuria. No obstructive symptoms. No discharge. No pain. No significant abnormal bleeding. MUSCULOSKELETAL: No musculoskeletal pain; no joint swelling. NEUROLOGICAL: Awake, alert, oriented to time, place and person. No headache. No neck pain. No syncope. No seizures. No dizziness. PSYCHIATRIC: Not anxious. No depression. No suicidal thoughts. No homicidal thoughts. SKIN: Right lower extremity wound is healing. ENDOCRINE: No unexplained weight loss. No weight gain. HEMATOLOGIC/LYMPHATIC: No anemia. No purpura. No petechiae. No prolonged or excessive bleeding. No palpable lymph nodes. PHYSICAL EXAMINATION: GENERAL: The patient is awake, alert and oriented, lying/sitting in bed in no distress. VITAL SIGNS: Temperature 97.4 F, Pulse 55, Respiratory Rate 16, BP 81/46, Pulse Ox 98% HEENT: Head normocephalic, atraumatic. Eyes: Extraocular muscles are intact. Pupils are equal, round and reactive to light and accommodation. Ears: No lesions. Nose appeared normal. Throat: No exudate or erythema. NECK: Supple. No JVD, no carotid bruit. No lymphadenopathy or thyromegaly. LUNGS: Clear to auscultation. Percussion note normal. Chest symmetrical. HEART: S1, S2, no S3. No murmurs. No cyanosis or clubbing. No ascites. Pulses: Dorsalis pedis and posterior tibial pulses +1 to +2 both sides. ABDOMEN: Soft. Non-tender. Bowel sounds active. No CVA tenderness. No mass felt. EXTREMITIES: No edema. Full range of motion of all extremities, equal. NEUROLOGIC: No focal deficit. Cranial nerves II through XII are grossly intact. No headache, no double vision or headache. SKIN: Warm and dry. Second-degree burn right lower extremity with improving erythema; scabbing is starting to fall off on its own. No drainage. Turgor- normal. LYMPHATIC: No palpable lymph nodes/no lymphedema. MUSCULOSKELETAL: Normal joints with no swelling. Muscle tone is normal. LAB REVIEW: 03/22/17 04:30 03/22/17 04:30 03/22/17 04:30: Sodium 139, Potassium 4.7, Chloride 103, Carbon Dioxide 33 H, Anion Gap 7.7, BUN 10, Creatinine 0.75, Estimated GFR (MDRD) 75.00, BUN/ Creatinine Ratio 13.33, Glucose 97, Calcium 8.4, Total Bilirubin 0.3, AST 13 L, ALT < 6 L, Alkaline Phosphatase 61, Total Protein 5.1 L, Albumin 2.3 L, Globulin 2.8, Albumin/Globulin Ratio 0.82 03/22/17 04:30: WBC 6.54, RBC 2.91 L, Hgb 9.1 L, Hct 27.7 L, MCV 95.2, MCH 31.3 H, MCHC 32.9, RDW Coeff of Pricila 13.2, Plt Count 141, Immature Gran % (Auto) 0.3, Neut % (Auto) 75.5, Lymph % (Auto) 13.0, [place] % (Auto) 6.3, Eos % (Auto) 4.3, Baso % (Auto) 0.6, Immature Gran # (Auto) 0.0, Neut # 4.9, Lymph # 0.9, [place] # 0.4, Eos # 0.3, Baso # 0.0 ASSESSMENT: 1. Second-degree burn with right lower extremity cellulitis PLAN: 1. Encourage the patient to walk. 2. Continue IV Clindamycin. 3. Will discuss swing bed placement with family Plan and coordination of the patient's care discussed in the presence of Signal Circuit Designer and nurse. CONDITION: Stable SCRIBED BY: CHRISTOPHER EARLY Entry Level Marketing Representative scribed while in presence of service performed by Dr. Velasco/Patricia Serrano APRN on 03/22/17 ([id number])
--- NOTE | 2017-03-22 10:29 | PN ---
DATE OF SERVICE: 03/21/17 SUBJECTIVE: The patient was hospitalized with right leg cellulitis which probably has more less resolved. The scabs are falling off. The patient has no evidence of active infection. Silvadene cream and Bactroban is being applied. Her cardiovascular status is stable and her cellulitis seems to be resolving. CONDITION: Stable TIME SPENT: More than 30 minutes. Plan and coordination of the patient's care discussed in the presence of nurse. ANDREW
[2017-03-22 10:32] VITALS: BP 133/62; TEMP 98.1
[2017-03-22] MEDS: DEXTROSE 5%-1/2NS IV SOLUTION 1,000 ML IV SCH (11:09)
--- NOTE | 2017-03-22 11:43 | PN ---
DATE OF SERVICE: 03/20/17 SUBJECTIVE: The patient is lying in bed. Pain in the right lower extremity improved. She states she is feeling well. She has been eating. Dr. Mims was in to see yesterday but did not debride. REVIEW OF SYSTEMS: CONSTITUTIONAL: No night sweats. No fatigue, malaise, lethargy. No fever or chills. HEENT: Eyes: No visual changes. No eye pain. No eye discharge. ENT: No runny nose. No epistaxis. No sinus pain. No sore throat. No odynophagia. No congestion. RESPIRATORY: No cough, no congestion. No hemoptysis. No shortness of breath. CARDIOVASCULAR: No angina symptoms. No CHF symptoms. No atypical chest pain for CAD. No palpitations. No orthopnea. GASTROINTESTINAL: No abdominal pain. No nausea or vomiting. No diarrhea or constipation. No hematemesis. No hematochezia. GENITOURINARY: No urgency. No frequency. No dysuria. No hematuria. No obstructive symptoms. No discharge. No pain. No significant abnormal bleeding. MUSCULOSKELETAL: No musculoskeletal pain; no joint swelling. NEUROLOGICAL: No headache. No neck pain. No syncope. No seizures. No dizziness. PSYCHIATRIC: Not anxious. No depression. No suicidal thoughts. No homicidal thoughts. SKIN: No rash. Wound right lower extremity. ENDOCRINE: No unexplained weight loss. No weight gain. HEMATOLOGIC/LYMPHATIC: No anemia. No purpura. No petechiae. No prolonged or excessive bleeding. No palpable lymph nodes. PHYSICAL EXAMINATION: VITAL SIGNS: Temperature 98.5, pulse 56, respirations 16, BP 131/59, pulse ox 94 %. HEENT: Head normocephalic, atraumatic. Eyes: Extraocular muscles are intact. Pupils are equal, round and reactive to light and accommodation. Ears: No lesions. Nose appeared normal. Throat: No exudate or erythema. NECK: Supple. No JVD, no carotid bruit. No lymphadenopathy or thyromegaly. LUNGS: Clear to auscultation. Percussion note normal. Chest symmetrical. HEART: S1, S2, no S3. No murmurs. No cyanosis or clubbing. No ascites. Pulses: Dorsalis pedis and posterior tibial pulses +1 to +2 both sides. ABDOMEN: Soft. Nontender. Bowel sounds active. No CVA tenderness. No mass felt. EXTREMITIES: No edema. Full range of motion of all extremities, equal. NEUROLOGIC: No focal deficit. Cranial nerves II through XII are grossly intact. No headache, no double vision or headache. SKIN: Right lower extremity second-degree burn improving, erythema and some tissue healing underneath the scabbing. LYMPHATIC: No palpable lymph nodes/no lymphedema. MUSCULOSKELETAL: Normal joints with no swelling. Muscle tone is normal. LABS: Hemoglobin 9.7, hematocrit 29.9, platelets 165, white count 8.27. Sodium 139, potassium 4.9, BUN 12, creatinine 0.73, glucose 77. ASSESSMENT: 1. SECOND-DEGREE BURN ON RIGHT LOWER EXTREMITY WITH SURROUNDING CELLULITIS 2. ANEMIA PLAN: 1. Continue IV antibiotics as this is needed in order for improvement. 2. Dr. Mims to decide if he will debride or not. 3. I have encouraged her to get up and about and walk around more as tolerated today. 4. She is slowly improving. 5. We will continue to follow her closely. TIME SPENT: More than 30 minutes. Plan and coordination of the patient's care discussed in the presence of nurse. ANDREW
--- NOTE | 2017-03-22 13:47 | PN ---
DATE OF SERVICE: 03/20/17 SUBJECTIVE: The patient's cellulitis seems to be resolving. Scabs that came out shows good healing and no discharge at all. The cellulitis part around the scab area has practically resolved with no tenderness. Cardiovascular status is stable. PLAN: 1. Continue same antibiotics Clindamycin and Vancomycin 2. The patient is also being followed by surgeon. The patient was seen and examined with the Nurse Practitioner. TIME SPENT: More than 30 minutes. Plan and coordination of the patient's care discussed in the presence of nurse. ANDREW
--- NOTE | 2017-03-22 13:48 | PN ---
DATE OF SERVICE: 03/19/17 SUBJECTIVE: The patient examined while lying in her bed. She has her right leg elevated. Dr. Mims saw her yesterday and mentioned possible debridement of her wound on the right lower extremity. She has been afebrile. Redness is slowly improving. REVIEW OF SYSTEMS: CONSTITUTIONAL: No night sweats. No fatigue, malaise, lethargy. No fever or chills. HEENT: Eyes: No visual changes. No eye pain. No eye discharge. ENT: No runny nose. No epistaxis. No sinus pain. No sore throat. No odynophagia. No congestion. RESPIRATORY: No cough, no congestion. No hemoptysis. No shortness of breath. CARDIOVASCULAR: No angina symptoms. No CHF symptoms. No atypical chest pain for CAD. No palpitations. No orthopnea. GASTROINTESTINAL: No abdominal pain. No nausea or vomiting. No diarrhea or constipation. No hematemesis. No hematochezia. GENITOURINARY: No urgency. No frequency. No dysuria. No hematuria. No obstructive symptoms. No discharge. No pain. No significant abnormal bleeding. MUSCULOSKELETAL: No musculoskeletal pain; no joint swelling. NEUROLOGICAL: No headache. No neck pain. No syncope. No seizures. No dizziness. PSYCHIATRIC: Not anxious. No depression. No suicidal thoughts. No homicidal thoughts. SKIN: Wound right lower extremity. ENDOCRINE: No unexplained weight loss. No weight gain. HEMATOLOGIC/LYMPHATIC: No anemia. No purpura. No petechiae. No prolonged or excessive bleeding. No palpable lymph nodes. PHYSICAL EXAMINATION: VITAL SIGNS: Temperature 97.2, pulse 46, BP 111/63, respiratory rate 16, 02 sat 98/2L/NC. HEENT: Head normocephalic, atraumatic. Eyes: Extraocular muscles are intact. Pupils are equal, round and reactive to light and accommodation. Ears: No lesions. Nose appeared normal. Throat: No exudate or erythema. NECK: Supple. No JVD, no carotid bruit. No lymphadenopathy or thyromegaly. LUNGS: Diminished breath sounds bilaterally. Clear to auscultation. Percussion note normal. Chest symmetrical. HEART: S1, S2, no S3. No murmurs. No cyanosis or clubbing. No ascites. Pulses: Dorsalis pedis and posterior tibial pulses +1 to +2 both sides. ABDOMEN: Soft. Nontender. Bowel sounds active. No CVA tenderness. No mass felt. EXTREMITIES: Second-degree burn, circumference of the right lower extremity above the ankle with black eschar and mild improving erythema surrounding the wound, tenderness has resolved. Full range of motion of all extremities, equal. NEUROLOGIC: No focal deficit. Cranial nerves II through XII are grossly intact. No headache, no double vision or headache. SKIN: Not dry. Intact. Turgor - normal. LYMPHATIC: No palpable lymph nodes/no lymphedema. MUSCULOSKELETAL: Normal joints with no swelling. Muscle tone is normal. LABS: Hemoglobin 9.5, hematocrit 29.5, white count 6.09. Sodium 137, potassium 4.7, BUN 14, creatinine 0.82. ASSESSMENT: 1. SECOND DEGREE BURN RIGHT LOWER EXTREMITY WITH CELLULITIS 2. HYPERTENSION CONTROLLED 3. CORONARY ARTERY DISEASE 4. DYSLIPIDEMIA 5. NEUROPATHY PLAN: 1. Will d/c IV fluids 2. Dr. Mims to debride today 3. Will give her pain medicine prior to 4. Keep leg elevated 5. Will continue IV Clindamycin and Vancomycin TIME SPENT: More than 30 minutes. Plan and coordination of the patient's care discussed in the presence of nurse. ANDREW
--- NOTE | 2017-03-22 14:44 | PN ---
DATE OF SERVICE: 03/19/17 SUBJECTIVE: 76 year old white female hospitalized with right leg cellulitis which has been resolving. The patient has scab formation with practically no cellulitis in surrounding area. The scabbed area has no discharge and it is falling off. Dr. Mims is on consultation. The patient was seen and examined with the Nurse Practitioner. LABS: WBC 7,600 with normal differential. PLAN: 1. Continue Vancomycin and Clindamycin The patient is afebrile. Condition is improving. TIME SPENT: More than 30 minutes. Plan and coordination of the patient's care discussed in the presence of nurse. ANDREW
--- NOTE | 2017-03-22 14:46 | PN ---
DATE OF SERVICE: 03/18/17 SUBJECTIVE: 76 year old white female hospitalized with cellulitis of the right leg which has improved. The redness around the scabbed area is much less. She is nontender and afebrile. PHYSICAL EXAMINATION: HEENT: Head normocephalic, atraumatic. Eyes: Extraocular muscles are intact. Pupils are equal, round and reactive to light and accommodation. Ears: No lesions. Nose appeared normal. Throat: No exudate or erythema. NECK: Supple. No JVD, no carotid bruit. No lymphadenopathy or thyromegaly. LUNGS: Clear to auscultation. Percussion note normal. Chest symmetrical. HEART: S1, S2, no S3. No murmurs. No cyanosis or clubbing. No ascites. Pulses: Dorsalis pedis and posterior tibial pulses +1 to +2 both sides. ABDOMEN: Soft. Nontender. Bowel sounds active. No CVA tenderness. No mass felt. EXTREMITIES: No edema. Full range of motion of all extremities, equal. NEUROLOGIC: No focal deficit. Cranial nerves II through XII are grossly intact. No headache, no double vision or headache. SKIN: Not dry. Intact. Turgor - normal. LYMPHATIC: No palpable lymph nodes/no lymphedema. MUSCULOSKELETAL: Normal joints with no swelling. Muscle tone is normal. The patient was seen and examined with Nurse Practitioner. PLAN: 1. Continue Clindamycin and Vancomycin CONDITION: Stable TIME SPENT: More than 30 minutes. Plan and coordination of the patient's care discussed in the presence of nurse. ANDREW
--- NOTE | 2017-03-23 09:45 | CONS ---
DATE OF CONSULTATION: 03/17/17 HISTORY OF PRESENT ILLNESS: The patient is alert and cheerful and doing well. The burn in the right leg is somewhat better. The redness is less. There is no drainage and the dried scabbed area. No attempt to remove the scabs at this time. I reviewed the medication. Again this patient is getting Vancomycin 500mg Q 12 hours. The patient's EGFR is normal or above 60. She is also getting Clindamycin 300mg Q 8 hours intervenously. A warm moist compress maybe used later on to soften the scabs and hopefully remove them. I will continue to follow the patient for now. JOHND
--- NOTE | 2017-03-23 09:52 | CONS ---
DATE OF CONSULTATION: 03/18/17 HISTORY OF PRESENT ILLNESS: The patient is alert and doing well. The redness in the right leg lower is less. There is no significant tenderness to palpation. The dark area coming off slowly. There appears to be no abscess underneath. VITAL SIGNS: Temperature 98, pulse 52, blood pressure 126/68, respiratory rate 20, oxygen saturation 95% on 2 liters of nasal oxygen. We believe that the areas will probably scab off. No attempt to debrided at this time. She is on two medications Clindamycin as well as Vancomycin. I had discussed the medication with the pharmacists. I was wondering about the 500mg of Vancomycin Q 12 hours. This patient's EGFR is normal. The pharmacists mentioned that she will be waiting for the trough and see if the trough is within normal that there will be no changes in the medication. MTDD
--- NOTE | 2017-03-23 09:56 | CONS ---
DATE OF CONSULTATION: 03/19/17 HISTORY OF PRESENT ILLNESS: The patient's CBC today showed about the same findings as the day before but has moderate anemia, hgb 9.5 and hct 29.5. Her total protein after hydration is below normal as well as the albumin. The lowest albumin reading was 2.4. Vancomycin trough was 14.98 the range of normal is 10-20. The Vancomycin then would probably stay at the same dose. The area in the right lower leg is essentially the same as yesterday. There is a very small area where the dark burned skin came off. It appears that this area would probably heal. MTDD
--- NOTE | 2017-03-23 10:00 | CONS ---
DATE OF CONSULTATION: 03/20/17 HISTORY OF PRESENT ILLNESS: The patient is alert and oriented times three not dyspneic or tachypneic. No heart or lung examination is done. 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 The area of the leg is inspected and there is no progression of the problem in fact it is better. This patient was advised to elevate the legs all the time above the heart unless she is eating or she is in the bathroom for toilet needs. The area is essentially the same as yesterday. Her WBC is normal at 8,270, hgb and hct about the same. Her blood sugar is 77. No changes in the medications. The patient does not seem to be jittery. She has Lexapro and Cymbalta. MTDD
--- NOTE | 2017-03-23 10:08 | CONS ---
DATE OF CONSULTATION: 03/21/17 HISTORY OF PRESENT ILLNESS: 76 year old female with reis 2nd degree probably moderately deep admitted because of cellulitis. The redness is less and there is no significant tenderness now to palpation. There is more scab that came off. It appears that there is deeper 2nd degree. Again advised the patient to elevate the legs as much as possible. VITALS SIGNS: Temperature 96.2, pulse 43, blood pressure 136/58, respiratory rate 16, oxygen saturation 100 at 23 liters. LABS: Essentially the same hgb and hct the last few days are about the same. Her albumin is low 2.4, total protein 5.2 again low. Her EGFR is climbing it is now 82. Maybe debrided the area tomorrow and see what happens. MTDD
--- NOTE | 2017-03-23 14:16 | DS ---
DATE OF SERVICE: 03/22/17 - DISCHARGED TO SWING BED FINAL DIAGNOSIS: 1. SECOND-DEGREE BURN ON RIGHT LOWER EXTREMITY WITH SURROUNDING CELLULITIS 2. ANEMIA 3. GAIT DISTURBANCE DISCHARGE INSTRUCTIONS: The patient is admitted to swing bed for continued IV antibiotics, PT/OT. MEDICATIONS AT DISCHARGE: Plavix 75 mg p.o. daily Prilosec 20 mg p.o. q.d a.c. Nitrostat 0.4 mg SL q.5 min p.r.n. Calcium Carbonate/Vitamin D3 one tab p.o. b.i.d. Tylenol 500 mg p.o.q .4hr p.r.n. Multivitamin one a day ProAir one puff INH q.4hr p.r.n. Ferrous Sulfate 325 mg p.o. daily Lexapro 20 mg p.o. daily Zestril 5 mg p.o. daily Lopressor 25 mg p.o. b.i.d. Gabapentin 1,200 mg p.o. t.i.d. Klonopin 0.5 mg p.o. bedtime Lipitor 80 mg p.o. daily Aspirin 81 mg p.o. daily with meal [place] 3 fatty acids/fish oil 1000 mg p.o. b.i.d. [place] 5-325 mg one p.o. q.6h p.r.n. Imdur 15 mg p.o. b.i.d. Clindamycin 300 mg p.o.t .i.d. Bactroban ointment 1 gm TP b.i.d. Keflex 500 mg p.o. b.i.d. Silvadene 20 gm TP b.i.d. Ranexa one tab p.o. daily Neurontin 1,200 mg p.o. t.i.d. Alendronate Sodium 70 mg p.o. daily Cymbalta 30 mg p.o. daily Crestor 20 mg one tab p.o. daily NEW PRESCRIPTIONS: None DIET INSTRUCTIONS: Heart Healthy ACTIVITY: Encouraged to ambulate. SMOKING: N/A DISEASE SPECIFIC EDUCATION: Swing bed admission Continued IV antibiotics Wound Care PT/OT Elevation of leg at rest HOSPITAL COURSE: This is a 76-year-old white female who presented to our office. She had previously been hospitalized after a fall and she had spilled hot coffee on the right lower extremity. She was admitted and placed on IV antibiotics for a few days and sent home on p.o. Clindamycin. When she presented to our office she had increased redness and swelling as well as increased eschar around the burn on the right lower extremity. She had been running a low grade fever. It was now too painful for her to ambulate with assistance of her walker. She was admitted, placed on IV Clindamycin 300 mg q.8hr along with Vancomycin [address] Mims was consulted as a surgical consult. He decided that the area would be allowed to debride itself. We had been applying Silvadene alone with Bactroban. The area has been cultured and has been no growth. Over the course of her stay, the redness, erythema, swelling has been slowly improving. The eschar sloughing off on its own with new tissue underneath. She does still however have some redness and tenderness although the tenderness has significantly improved. It is felt that she still needs IV antibiotics. Due to the gait disturbance and weakness, PT and OT evaluation was done and she is going to continue working with PT. We will put her in the swing bed as it is necessary that she receive a few more days of IV antibiotics. Her labs were stable. Will start doing labs every other day. LABS: Hemoglobin 9.1, hematocrit 27.7, creatinine 0.75, BUN 10, sodium 139, potassium 4.7, white count 7.54, platelets 141. V/S: Today, on day of discharge, temperature 97.4, heart rate 55, respirations 16, blood pressure 81/46 and pulse ox 98%. The patient is discharged to swing bed in stable condition. TIME SPENT: More than 60 minutes. ANDREW
--- NOTE | 2017-03-23 14:29 | PN ---
DATE OF SERVICE: 03/17/17 SUBJECTIVE: The patient was admitted right ankle cellulitis. Cellulitis looks a lot better. PHYSICAL EXAMINATION: HEENT: Head normocephalic, atraumatic. Eyes: Extraocular muscles are intact. Pupils are equal, round and reactive to light and accommodation. Ears: No lesions. Nose appeared normal. Throat: No exudate or erythema. NECK: Supple. No JVD, no carotid bruit. No lymphadenopathy or thyromegaly. LUNGS: Clear to auscultation. Percussion note normal. Chest symmetrical. HEART: S1, S2, no S3. No murmurs. No cyanosis or clubbing. No ascites. Pulses: Dorsalis pedis and posterior tibial pulses +1 to +2 both sides. ABDOMEN: Soft. Nontender. Bowel sounds active. No CVA tenderness. No mass felt. EXTREMITIES: No edema. Full range of motion of all extremities, equal. The redness is more or less confined to the surrounding part of the scab which occupies nearly 3-4 inches by 1.5inch oblong. Dr. Mims seen her on consultation. The patient has no drainage. No fever and no chills. NEUROLOGIC: No focal deficit. Cranial nerves II through XII are grossly intact. No headache, no double vision or headache. SKIN: Not dry. Intact. Turgor - normal. LYMPHATIC: No palpable lymph nodes/no lymphedema. MUSCULOSKELETAL: Normal joints with no swelling. Muscle tone is normal. LABS: Hgb 9.7, hct 30, WBC 5,500 normal differential, creatinine 0.7, BUN 14, potassium 4.9. CONDITION: Stable. Improving. PLAN: 1. Continue Clindamycin and Vancomycin The patient was seen and examined with Nurse Practitioner. TIME SPENT: More than 30 minutes. Plan and coordination of the patient's care discussed in the presence of nurse. ANDREW
--- NOTE | 2017-03-24 15:08 | CONS ---
DATE OF CONSULTATION: 03/16/2017 REASON FOR CONSULTATION: 76 year old female patient of Dr. Chaudhary was seen in my service as a request for me to examine the patient. Burn to leg with swelling and redness. HISTORY OF PRESENT ILLNESS: The patient claimed that she burned her leg with hot coffee more than a week ago. The patient was admitted today because of the swelling and redness. The patient is alert and oriented times four, not dyspneic, nor tachypneic. VITAL SIGNS: On examination about 6 p.m. this evening showed a temperature of 97.4, pulse 47, blood pressure 123/56, respiratory rate 18, oxygen saturation 100 at 2 liters. MEDICATIONS: Prior to this admission consisted of: Plavix, Omeprazole, Nitroglycerin sublingual prn, Calcium plus Vitamin D, Tylenol 500 mg every four hours prn, Multivitamin one daily, ProAir inhaler one inhalation every 4 hours prn, Ferrous Sulfate 325 mg daily, Lexapro 10 mg daily, Lisinopril 5 mg daily, Metoprolol 25 mg twice a day, Gabapentin 600 mg three times a day, Clonazepam 0.5 mg at bedtime, Lipitor 80 mg daily, Aspirin 81 mg daily, [place] III Fish Oil one gram twice a day, Hydrocodone/Tylenol 5/325 mg one every 6 hours prn-a short term prescription. Imdur 30 mg tablet 1/2 tablet twice a day, Clindamycin 300 mg capsule three times a day #21, a short term prescription, Bactroban ointment, Keflex 500 mg twice a day, Silvadene to be applied twice a day, Ranexa ER one daily, Fosamax 70 mg daily, Crestor 20 mg daily. This patient is already on Lipitor and also on Crestor. She is also taking Cymbalta 30 mg daily. The patient is alert, oriented times four, not dyspneic, nor tachypneic. The examination was focused on the right leg. The patient has a crusted area occupying the anterolateral portion of the lower leg above the ankle. There is some redness superior to inferior. There is more redness on the superior area to the crusted places. ASSESSMENT: 1. SECOND DEGREE BURN LEFT RIGHT POSTERIOR LEG ABOVE THE ANKLE, CRUSTED. NO OBVIOUS DRAINAGE NOTED. PLAN: 1. Continue to elevate the leg and elevate it higher than just supine. 2. Continue the present medications. 3. If the patient does not have any significant pain then maybe the Toradol can be discontinued and just use the Tylenol, plus the Morphine for severe pain. Thanks you for allowing me to participate in her care. ANDREW
== END 2017-03-22 13:57 | disposition swing bed (61) | DRG 603 ==
LOC: MEDSURG A 13:03
PROVIDERS: ADMIT Internal Medicine; ATTEND Internal Medicine
DX: L03.115 Cellulitis of right lower limb (principal); T24.201D Burn of second degree of unspecified site of right lower limb, except ankle and foot, subsequent encounter; D64.9 Anemia, unspecified; R26.2 Difficulty in walking, not elsewhere classified; M62.81 Muscle weakness (generalized); R50.9 Fever, unspecified; I10 Essential (primary) hypertension; I25.10 Atherosclerotic heart disease of native coronary artery without angina pectoris; E78.5 Hyperlipidemia, unspecified; G62.9 Polyneuropathy, unspecified; X10.0XXD Contact with hot drinks, subsequent encounter; Z79.02 Long term (current) use of antithrombotics/antiplatelets; Z79.899 Other long term (current) drug therapy
CPT/HCPCS: 36415; 80053; 80202; 81001; 85025; 87081; 93005; 93010

== ENCOUNTER 2017-03-22 14:01 | Inpatient (IN) ==
[2017-03-22] MEDS ORDERED: TYLENOL PO PRN (14:23)
[2017-03-22] MEDS ORDERED: ATROPINE SULFATE PFS IVP PRN (14:24)
[2017-03-22] MEDS ORDERED: VISTARIL INJ IM PRN (14:26)
[2017-03-22] MEDS ORDERED: NITROSTAT SL PRN (14:29)
[2017-03-22] MEDS ORDERED: PROAIR HFA IH PRN (14:43)
[2017-03-22] MEDS ORDERED: NON-FORMULARY MEDICATION (Gabapentin [Gabapentin] 1,200 MG) PO SCH (15:00)
[2017-03-22 15:03] VITALS: BMI 31.2
[2017-03-22] MEDS: NEURONTIN PO SCH ×2 (16:00→21:44)
[2017-03-22] MEDS ORDERED: NON-FORMULARY MEDICATION (Omega-3 Fatty Acids/Fish Oil [Fish Oil 1,000 Mg Softgel] 1,000 M PO SCH (21:00)
[2017-03-22] MEDS ORDERED: BACTROBAN OINTMENT 1 GRAM APPLICATOR TP SCH (21:00)
[2017-03-22] MEDS ORDERED: NON-FORMULARY MEDICATION (Clonazepam [Klonopin] 0.5 MG) PO SCH (21:00)
[2017-03-22] MEDS: CLEOCIN 300 MG in SODIUM CHLORIDE 50 ML IV SCH (21:41)
[2017-03-22] MEDS: BACTROBAN TP SCH (21:43)
[2017-03-22] MEDS: SILVADENE CREAM TP SCH (21:44)
[2017-03-22] MEDS: CALCIUM 500 + VIT D 200 MG TABLET PO SCH (21:44)
[2017-03-22] MEDS: KLONOPIN PO SCH (21:44)
[2017-03-22] MEDS: OMEGA-3 FISH OIL PO SCH (21:44)
[2017-03-22] MEDS: LOPRESSOR PO SCH (21:44)
[2017-03-22] MEDS: IMDUR PO SCH (21:45)
[2017-03-22] MEDS: VANCOMYCIN 500 MG in SODIUM CHLORIDE 100 ML IV SCH (22:32)
[2017-03-22] MEDS: NORCO 5-325 PO PRN (22:35)
[2017-03-23] MEDS: CLEOCIN 300 MG in SODIUM CHLORIDE 50 ML IV SCH ×3 (04:16→20:14)
[2017-03-23] MEDS: PRILOSEC PO SCH (05:48)
[2017-03-23] MEDS ORDERED: NON-FORMULARY MEDICATION (Ferrous Sulfate [Ferrous Sulfate] 325 MG) PO SCH (09:00)
[2017-03-23] MEDS ORDERED: NON-FORMULARY MEDICATION (Atorvastatin Calcium [Lipitor] 80 MG) PO SCH (09:00)
[2017-03-23] MEDS: NEURONTIN PO SCH ×3 (09:23→20:18)
[2017-03-23] MEDS: LEXAPRO PO SCH (09:23)
[2017-03-23] MEDS: MULTIVITAMIN TABLET PO SCH (09:24)
[2017-03-23] MEDS: ASPIRIN EC PO SCH (09:24)
[2017-03-23] MEDS: CYMBALTA PO SCH (09:24)
[2017-03-23] MEDS: ZESTRIL PO SCH (09:25)
[2017-03-23] MEDS: LOPRESSOR PO SCH ×2 (09:25→20:19)
[2017-03-23] MEDS: FERROUS SULFATE PO SCH (09:25)
[2017-03-23] MEDS: PLAVIX PO SCH (09:26)
[2017-03-23] MEDS: CALCIUM 500 + VIT D 200 MG TABLET PO SCH ×2 (09:26→20:16)
[2017-03-23] MEDS: LIPITOR PO SCH (09:27)
[2017-03-23] MEDS: IMDUR PO SCH ×2 (09:28→20:16)
--- NOTE | 2017-03-23 10:19 | PCM.PROG ---
Attending Provider: ATTENDING PROVIDER: Dr. JAGJIT VELASCO This patient is seen with Patricia Serrano, Nurse Practitioner. DATE OF SERVICE: 03/23/17 SUBJECTIVE: This 76 year old WHITE/ F was hospitalized 03/22/17. The patient is lying in bed, alert. She was up and about walking yesterday. REVIEW OF SYSTEMS: CONSTITUTIONAL: No night sweats. No fatigue, malaise, lethargy. No fever or chills. HEENT: Eyes: No visual changes. No eye pain. No eye discharge. ENT: No runny nose. No epistaxis. No sinus pain. No odynophagia. No congestion. RESPIRATORY: No cough, no congestion. No hemoptysis. No shortness of breath. CARDIOVASCULAR: No angina symptoms. No CHF symptoms. No atypical chest pain for CAD. No palpitations. No orthopnea.. GASTROINTESTINAL: No abdominal pain. No nausea or vomiting. No diarrhea or constipation. No hematemesis. No hematochezia. GENITOURINARY: No urgency. No frequency. No dysuria. No hematuria. No obstructive symptoms. No discharge. No pain. No significant abnormal bleeding. MUSCULOSKELETAL: No musculoskeletal pain; no joint swelling. NEUROLOGICAL: Awake, alert, oriented to time, place and person. No headache. No neck pain. No syncope. No seizures. No dizziness. PSYCHIATRIC: Not anxious. No depression. No suicidal thoughts. No homicidal thoughts. SKIN: No rash. Right lower extremity wound. ENDOCRINE: No unexplained weight loss. No weight gain. HEMATOLOGIC/LYMPHATIC: No anemia. No purpura. No petechiae. No prolonged or excessive bleeding. No palpable lymph nodes. PHYSICAL EXAMINATION: GENERAL: The patient is awake, alert and oriented, lying/sitting in bed in no distress. VITAL SIGNS: Temperature 97.5 F, Pulse 48, Respiratory Rate 20, BP 128/66, Pulse Ox 99% HEENT: Head normocephalic, atraumatic. Eyes: Extraocular muscles are intact. Pupils are equal, round and reactive to light and accommodation. Ears: No lesions. Nose appeared normal. Throat: No exudate or erythema. NECK: Supple. No JVD, no carotid bruit. No lymphadenopathy or thyromegaly. LUNGS: Clear to auscultation. Percussion note normal. Chest symmetrical. HEART: S1, S2, no S3. No murmurs. No cyanosis or clubbing. No ascites. Pulses: Dorsalis pedis and posterior tibial pulses +1 to +2 both sides. ABDOMEN: Soft. Non-tender. Bowel sounds active. No CVA tenderness. No mass felt. EXTREMITIES: No edema. Full range of motion of all extremities, equal. NEUROLOGIC: No focal deficit. Cranial nerves II through XII are grossly intact. No headache, no double vision or headache. SKIN: Warm and dry. Right lower extremity second degree burn with mild surrounding erythema. No drainage. Slightly improved. LYMPHATIC: No palpable lymph nodes/no lymphedema. MUSCULOSKELETAL: Normal joints with no swelling. Muscle tone is normal. LAB REVIEW: 03/23/17 04:36 03/23/17 04:36 03/23/17 04:36: Sodium 141, Potassium 4.2, Chloride 104, Carbon Dioxide 33 H, Anion Gap 8.2, BUN 8, Creatinine 0.74, Estimated GFR (MDRD) 76.00, BUN/ Creatinine Ratio 10.81, Glucose 95, Calcium 8.4, Total Bilirubin 0.3, AST 11 L, ALT 7 L, Alkaline Phosphatase 56, Total Protein 5.2 L, Albumin 2.4 L, Globulin 2.8, Albumin/Globulin Ratio 0.86 03/23/17 04:36: WBC 4.81, RBC 3.06 L, Hgb 9.6 L, Hct 29.2 L, MCV 95.4, MCH 31.4 H, MCHC 32.9, RDW Coeff of Pricila 13.2, Plt Count 131 L, Immature Gran % (Auto) 0.2 , Neut % (Auto) 65.5, Lymph % (Auto) 21.8, [place] % (Auto) 6.7, Eos % (Auto) 5.0, Baso % (Auto) 0.8, Immature Gran # (Auto) 0.0, Neut # 3.2, Lymph # 1.1, [place] # 0.3 L, Eos # 0.2, Baso # 0.0 ASSESSMENT: 1. Second-degree burn with right lower extremity cellulitis 2. Gait disturbance PLAN: 1. Continue iv Clindamycin 2. Keep leg elevated when at rest Plan and coordination of the patient's care discussed in the presence of Sports Medicine Trainer and nurse. CONDITION: Stable SCRIBED BY: CHRISTOPHER EARLY Soccer Referee scribed while in presence of service performed by Dr. Velasco/Patricia Serrano APRN on 03/23/17 ([id number])
[2017-03-23] MEDS: VANCOMYCIN 500 MG in SODIUM CHLORIDE 100 ML IV SCH ×2 (10:33→21:18)
[2017-03-23] MEDS: OMEGA-3 FISH OIL PO SCH ×2 (10:33→20:17)
[2017-03-23] MEDS: BACTROBAN TP SCH ×2 (10:34→20:15)
[2017-03-23] MEDS: SILVADENE CREAM TP SCH ×2 (10:35→20:20)
--- NOTE | 2017-03-23 10:42 | RS.OTINEVL ---
Subjective - Patient information Date of Evaluation: 03/23/17 Date of Arrival on Unit: 03/22/17 Admitted From:: In-House Transfer Usual Living Arrangement: With Spouse Living Arrangement Comments: Pt lives at home with her . and adult daughter. Pt lives in a house with a ramp. Pt has a walk in shower and has family that helps them. Home Environment: House Medical History: Hypertension, Arthritis Medical History Comments:: Pt has a burn to her Right ankle area and is receiving antibiotics. Surgical History Comments:: appendectomy, endarterectomy, cholecystectomy, TKA, Subjective Information/ Patient Comments:: "I would love a shower." - Level of function Prior to this admission, the patient could do the following:: Partially Dependent Ambulation Abilities prior to this admission: Pt was living at home and dressing herself. Pt was using a Rolling Walker to get around. Pt uses a shower chair at home for showering. Pt was able to dress herself at home. Current Equipment Used at Home: shower chair, RW, Rollator Walker. Pain Assessment - Pain Pain Score: 0 Interventions - Objective Patient Orientation: Person, Place, Time, Situation Current Interventions: IV's Observation: Pt has redness of the RLE. Pt appears weak and has impaired balance during ADLS. Interventions - ROM Right Upper Extremity AROM: Slight limitation Left Upper Extremity AROM: Slight limitation - Strength Right Upper Extremity Strength: Mild Weakness Left Upper Extremity Strength: Mild Weakness - Sensation Right Upper Extremity Sensation: Intact/Normal Left Upper Extremity Sensation: Intact/Normal Balance - Sitting Balance Static Sitting Balance: Good Dynamic Sitting Balance: Good - Standing Balance Static Standing Balance: Fair Dynamic Standing Balance: Poor - Comments Balance Assessment Comments: Requires RW to ambulate safely. ADL Skills - Self Feeding Self Feeding: Independent - Grooming Grooming: CGA - Bathing Bathing UE: Supervision Bathing LE: Min Assist - Dressing Dressing UE: Supervision Dressing LE: CGA - Toilet Management Toileting Management: [facility] Functional Mobility - Bed Mobility Rolling R/L: Independent Scooting: Independent Supine to Sit: Independent Sit to Supine: Independent - Transfers Sit to Stand: [facility] Stand to Sit: [facility] Stand Pivot Transfers: CGA - Ambulation Weight Bearing Status: FWB Assistive Device Used: Rolling Walker Assistance needed with Ambulation: CGA - Safety Awareness Safety Awareness: Good Additional Treatment Performed - Additional units charged ADL: 15 - Time with patient Total treatment time: 50 Activities Patient Interests:: Reading Books/Magazines, Watching Television, Visiting/ Socializing Assessment Problem List:: Decreased level of function, Requires training/education, Decreased safety/Risk of falls, Weakness Rehab Potential: Good Further Therapy Indicated?: Yes Short Term Goals - Goals GOAL 1: Pt to tolerate standing activity for 10 minutes. Goal to be met by: 03/30/17 Progress towards goal: Partially Met GOAL 2: Pt to increase BUE strength to 4/5. Goal to be met by: 03/30/17 Progress towards goal: Partially Met GOAL 3: Pt to complete sink level ADLS at SUPERVISION. Goal to be met by: 03/30/17 [facility] Goals GOAL 1: Pt to tolerate standing activity for 15 minutes. Goal to be met by: 04/06/17 Progress towards goal: Partially Met GOAL 2: Pt to increase BUE strength to 4+/5. Goal to be met by: 04/06/17 Progress towards goal: Not Met GOAL 3: Pt to complete sink level ADLS at Mod-Independent. Goal to be met by: 04/06/17 Progress towards goal: Progressing Plan Plan of Care: Therapeutic EX, Neuromuscular Re-Educ, Therapeutic Activity, Self- Care/Home Management Frequency of Treatment: 1-2 X day, as tolerated Duration of Treatment: 2 Weeks Anticipated Discharge Destination: Home Has the Physician been added for Co-signature?: Yes
--- NOTE | 2017-03-23 12:31 | HP ---
DATE OF SERVICE: 03/22/17 - SWING BED HISTORY OF PRESENT ILLNESS: 76-year-old female who has been hospitalized for the second time for cellulitis of the right lower extremity following second-degree burn. She failed on p.o. antibiotics after being discharged this last time. She was admitted and had slow improvement with IV Clindamycin and Vancomycin. It is improving but slow. PAST MEDICAL HISTORY: Hypertension Dyslipidemia Cardiac Carotid stenosis Cardiac arrest November 2011 day after knee surgery Colonoscopy Dr. Self follows. PAST SURGICAL HISTORY: Knee replacement, November 2011, Dr. Greer Right leg, Dr. Lemus, 2010 Carotid-Dr. Almeida Heart cath 2009 Dr. Chávez Hysterectomy Eyes Gallbladder Appendix REVIEW OF SYSTEMS: CONSTITUTIONAL: No night sweats. No fatigue, malaise, lethargy. No fever or chills. HEENT: Eyes: No visual changes. No eye pain. No eye discharge. ENT: No runny nose. No epistaxis. No sinus pain. No sore throat. No odynophagia. No ear pain. No congestion. RESPIRATORY: No cough, no congestion. No hemoptysis. No shortness of breath. CARDIOVASCULAR: No angina symptoms. No CHF symptoms. No atypical chest pain for CAD. No palpitations. No orthopnea. GASTROINTESTINAL: No abdominal pain. No nausea or vomiting. No diarrhea or constipation. No hematemesis. No hematochezia. GENITOURINARY: No urgency. No frequency. No dysuria. No hematuria. No obstructive symptoms. No discharge. No pain. No significant abnormal bleeding. MUSCULOSKELETAL: Difficulty walking due to the wound and pain. NEUROLOGICAL: No headache. No neck pain. No syncope. No seizures. No dizziness. PSYCHIATRIC: Not anxious. No depression. No suicidal thoughts. No homicidal thoughts. SKIN: Wound, right lower extremity. ENDOCRINE: No unexplained weight loss. No weight gain. HEMATOLOGIC/LYMPHATIC: No anemia. No purpura. No petechiae. No prolonged or excessive bleeding. No palpable lymph nodes. PERSONAL/FAMILY/SOCIAL HISTORY: MEDICATIONS: Plavix 75 mg daily Nitroglycerin p.r.n. Prilosec 20 mg daily ProAir inhaler p.r.n. Ferrous Sulfate 325 mg daily Klonopin 0.5 mg at bedtime Lexapro 20 mg daily Gabapentin 1200 mg t.i.d. Zestril 5 mg daily Lopressor 25 mg b.i.d. Lipitor 80 mg daily [place] 5/325 mg q.6hr p.r.n. Imdur 15 mg b.i.d. Bactroban ointment to the wound Silvadene ointment to the wound Cymbalta 60 mg p.o. daily Crestor 10 mg daily ALLERGIES: IODINE CONTRAST AND LYRICA PHYSICAL EXAMINATION: VITAL SIGNS: HEENT: Head normocephalic, atraumatic. Eyes: Extraocular muscles are intact. Pupils are equal, round and reactive to light and accommodation. Ears: No lesions. Nose appeared normal. Throat: No exudate or erythema. NECK: Supple. No JVD, no carotid bruit. No lymphadenopathy or thyromegaly. LUNGS: Diminished breath sounds bilaterally. Clear to auscultation. Percussion note normal. Chest symmetrical. HEART: S1, S2, no S3. No murmurs. No cyanosis or clubbing. No ascites. Pulses: Dorsalis pedis and posterior tibial pulses +1 to +2 both sides. ABDOMEN: Soft. Nontender. Bowel sounds active. No CVA tenderness. No mass felt. EXTREMITIES: No edema. Full range of motion of all extremities, equal. NEUROLOGIC: No focal deficit. Cranial nerves II through XII are grossly intact. No headache, no double vision or headache. SKIN: Second-degree burn right lower extremity with improving surrounding erythema and swelling. Black eschar which is falling off on its own. LYMPHATIC: No palpable lymph nodes/no lymphedema. MUSCULOSKELETAL: Normal joints with no swelling. Muscle tone is normal. ASSESSMENT: 1. SECOND DEGREE BURN RIGHT LOWER EXTREMITY WITH SURROUNDING CELLULITIS REQUIRING IV ANTIBIOTICS 2. GAIT DISTURBANCE 3. LEG WEAKNESS 4. ANEMIA PLAN: 1. Continue IV Clindamycin 300 mg q.8hr as well as IV Vancomycin 500 mg q.12hr 2. Continue PT/OT 3. Continue to elevate leg 4. Dr. Mims will stay on consult 5. Continue Silvadene and Bactroban ointments 6. Will do CBC and CMP every other day TIME SPENT: More than 70 minutes. MTDD
--- NOTE | 2017-03-23 14:27 | RS.PTINEVL ---
Subjective - Patient information Date of Evaluation: 03/23/17 Date of Arrival on Unit: 03/16/17 Admitted From:: In-House Transfer Diagnosis: second degree burn RLE, cellulitis Usual Living Arrangement: With Spouse Living Arrangement Comments: Pt lives at home with her . and adult daughter. Pt lives in a house with a ramp. Pt has a walk in shower and has family that helps them. Home Environment: House, Ramp Medical History: Arthritis Medical History Comments:: neuropathy LATEX ALLERGY?: No Surgical History: Knee Replacement, Cholecystectomy Surgical History Comments:: angioplasty, CEA Subjective Information/ Patient Comments:: pt states she is getting stronger and her wound is better. - Level of function Prior to this admission, the patient could do the following:: Partially Dependent Ambulation Current Level of Function: Partially Dependent Current Equipment Used at Home: ramp, walk in shower, rwx, W/C Pain Assessement - Location R ankle Description: Burning Pain Behavior: Facial Grimacing Pain Aggravating Factors: Exercise/Activity Pain Alleviating Factors: Medication Interventions - Objective Patient Orientation: Person, Place, Time, Situation Current Interventions: IV's, Oxygen Range of Motion - ROM Right Upper Extremity AROM: WFL's Left Upper Extremity AROM: WFL's Right Lower Extremity AROM: WFL's Left Lower Extremity AROM: WFL's Muscle Strength - Muscle Strength Right Upper Extremity Strength: Mild Weakness (shld flex 4-/5, elbow flex/ext 4/ 5) Left Upper Extremity Strength: Mild Weakness (shld flex 4-/5, elbow flex/ext 4/5 ) Right Lower Extremity Strength: Mild Weakness (hip flex 4-/5, knee flex/ext 4/5 , ankle DF/PF 4/5) Left Lower Extremity Strength: Mild Weakness (hip flex 4-/5, knee flex/ext 4/5, ankle DF/PF 4/5) Sensation - Sensation Right Upper Extremity Sensation: Intact/Normal Left Upper Extremity Sensation: Intact/Normal Right Lower Extremity Sensation: Impaired Left Lower Extremity Sensation: Impaired Comments: n/t B feet Balance - Sitting Balance and Reactions Static Sitting Balance: Good Dynamic Sitting Balance: Good - Standing Balance and Reactions Static Standing Balance: Fair Dynamic Standing Balance: Fair Standing Equilibrium Reactions: Delayed Left, Delayed Right Standing Protective Reactions: Delayed Left, Delayed Right - Comments Balance Assessment Comments: tinetti score: 18/28 Functional Mobility - Bed Mobility Rolling R/L: Independent Supine to Sit: Supervision Sit to Supine: Supervision - Transfers Sit to Stand: Supervision Stand to Sit: Supervision - Safety Awareness Safety Awareness: Good Ambulation - Ambulation Assistive Device Used: Rolling Walker Orthotic/Prosthetic Device: No Distance: 100ft Assistance needed with Ambulation: CGA Gait Deviations: Forward posture, Short stride Ambulation Comments: pt amb with decreased step length, flexed posture, occasional veers from path. Factors Affecting Ambulation: Decreased Balance, Breathing/O2 Saturation, Weakness, Decreased Safety, Limited Endurance, Limited Sensation Treatment time - Time with patient Total treatment time: 32 Patient Education - Education Patient Education: Activity Modification, Education of Plan of Care Teaching Recipient: Patient Teaching Methods: Discussion Comments: Discussed with pt POC and safety with gait. Assessment - Assessment Problem List:: Decreased level of function, Requires training/education, Decreased safety/Risk of falls, Weakness Rehab Potential: Good Further Therapy Indicated?: Yes Short Term Goals GOAL #1: pt transfer sup to/from sit independently, sit to/from stand SBA Goal to be met by: 03/28/17 GOAL #2: pt amb with rwx 150ft with CGA to SBA with no LOB Goal to be met by: 03/28/17 Progress towards Goal:: Met GOAL #3: pt demonstrate independence with bed mobility Goal to be met by: 03/28/17 Electrician'S Assistant Goals GOAL #1: Increase dyn stand balance as noted by tinetti score of 20/28 Goal to be met by: 04/02/17 GOAL #2: pt amb with rwx functional household distances with no LOB with supervision Goal to be met by: 04/02/17 GOAL #3: pt with increased strength BLE 4 to 4+/5 and independent with HEP Goal to be met by: 04/02/17 Plan Plan of Care: Therapeutic EX, Therapeutic Activity, Self-Care/Home Management Other:: gait training Frequency of Treatment: 1-2 X day, as tolerated Duration of Treatment: 10 days Anticipated Discharge Destination: Home Has the Physician been added for Co-signature?: Yes
[2017-03-23] MEDS: NORCO 5-325 PO PRN ×2 (16:27→23:05)
[2017-03-23] MEDS: KLONOPIN PO SCH (20:17)
[2017-03-23] MEDS: TORADOL IVP PRN (21:18)
[2017-03-24] MEDS: MORPHINE 4 MG/ML VIAL IVP PRN (02:53)
[2017-03-24] MEDS: CLEOCIN 300 MG in SODIUM CHLORIDE 50 ML IV SCH ×3 (04:01→21:15)
[2017-03-24] MEDS: PRILOSEC PO SCH (05:35)
[2017-03-24] MEDS: IMDUR PO SCH ×2 (09:49→21:17)
[2017-03-24] MEDS: VANCOMYCIN 500 MG in SODIUM CHLORIDE 100 ML IV SCH ×2 (09:49→22:48)
[2017-03-24] MEDS: NEURONTIN PO SCH ×3 (09:50→21:19)
[2017-03-24] MEDS: CALCIUM 500 + VIT D 200 MG TABLET PO SCH ×2 (09:50→21:15)
[2017-03-24] MEDS: ASPIRIN EC PO SCH (09:50)
[2017-03-24] MEDS: LEXAPRO PO SCH (09:50)
[2017-03-24] MEDS: OMEGA-3 FISH OIL PO SCH ×2 (09:50→21:17)
[2017-03-24] MEDS: ZESTRIL PO SCH (09:50)
[2017-03-24] MEDS: FERROUS SULFATE PO SCH (09:50)
[2017-03-24] MEDS: CYMBALTA PO SCH (09:50)
[2017-03-24] MEDS: MULTIVITAMIN TABLET PO SCH (09:50)
[2017-03-24] MEDS: LOPRESSOR PO SCH ×2 (09:51→21:18)
[2017-03-24] MEDS: LIPITOR PO SCH (09:51)
[2017-03-24] MEDS: PLAVIX PO SCH (09:51)
[2017-03-24] MEDS: BACTROBAN TP SCH ×2 (09:52→21:16)
[2017-03-24] MEDS: SILVADENE CREAM TP SCH ×2 (09:52→21:16)
[2017-03-24] MEDS: NORCO 5-325 PO PRN (21:28)
[2017-03-24] MEDS: KLONOPIN PO SCH (21:28)
[2017-03-25] MEDS: MORPHINE 4 MG/ML VIAL IVP PRN ×2 (01:54→20:17)
[2017-03-25] MEDS: CLEOCIN 300 MG in SODIUM CHLORIDE 50 ML IV SCH ×3 (06:09→20:12)
[2017-03-25] MEDS: PRILOSEC PO SCH (06:09)
[2017-03-25] MEDS: OMEGA-3 FISH OIL PO SCH ×2 (09:19→20:20)
[2017-03-25] MEDS: NEURONTIN PO SCH ×3 (09:20→20:21)
[2017-03-25] MEDS: PLAVIX PO SCH (09:20)
[2017-03-25] MEDS: ASPIRIN EC PO SCH (09:20)
[2017-03-25] MEDS: LEXAPRO PO SCH (09:20)
[2017-03-25] MEDS: CYMBALTA PO SCH (09:20)
[2017-03-25] MEDS: FERROUS SULFATE PO SCH (09:20)
[2017-03-25] MEDS: MULTIVITAMIN TABLET PO SCH (09:20)
[2017-03-25] MEDS: LIPITOR PO SCH (09:20)
[2017-03-25] MEDS: IMDUR PO SCH ×2 (09:21→20:21)
[2017-03-25] MEDS: LOPRESSOR PO SCH ×2 (09:21→20:20)
[2017-03-25] MEDS: CALCIUM 500 + VIT D 200 MG TABLET PO SCH ×2 (09:21→20:21)
[2017-03-25] MEDS: ZESTRIL PO SCH (09:21)
[2017-03-25] MEDS: SILVADENE CREAM TP SCH ×2 (09:21→20:16)
[2017-03-25] MEDS: BACTROBAN TP SCH ×2 (09:22→20:15)
[2017-03-25] MEDS: VANCOMYCIN 500 MG in SODIUM CHLORIDE 100 ML IV SCH (09:30)
[2017-03-25] MEDS: NORCO 5-325 PO PRN (16:09)
[2017-03-25] MEDS: KLONOPIN PO SCH (20:20)
[2017-03-25] MEDS: KEFLEX PO SCH (20:21)
[2017-03-26] MEDS: CLEOCIN 300 MG in SODIUM CHLORIDE 50 ML IV SCH ×3 (06:40→21:58)
[2017-03-26] MEDS: PRILOSEC PO SCH (06:40)
[2017-03-26] MEDS: KEFLEX PO SCH ×2 (08:54→21:59)
[2017-03-26] MEDS: ZESTRIL PO SCH (08:55)
[2017-03-26] MEDS: LEXAPRO PO SCH (08:55)
[2017-03-26] MEDS: NEURONTIN PO SCH ×2 (08:55→22:00)
[2017-03-26] MEDS: CYMBALTA PO SCH (08:56)
[2017-03-26] MEDS: CALCIUM 500 + VIT D 200 MG TABLET PO SCH ×2 (08:56→22:01)
[2017-03-26] MEDS: FERROUS SULFATE PO SCH (08:56)
[2017-03-26] MEDS: LOPRESSOR PO SCH ×2 (08:56→22:01)
[2017-03-26] MEDS: ASPIRIN EC PO SCH (08:57)
[2017-03-26] MEDS: PLAVIX PO SCH (08:57)
[2017-03-26] MEDS: LIPITOR PO SCH (08:57)
[2017-03-26] MEDS: BACTROBAN TP SCH ×2 (08:59→21:58)
[2017-03-26] MEDS: IMDUR PO SCH ×2 (08:59→22:01)
[2017-03-26] MEDS: OMEGA-3 FISH OIL PO SCH ×2 (09:00→22:00)
[2017-03-26] MEDS: MULTIVITAMIN TABLET PO SCH (09:00)
[2017-03-26] MEDS: SILVADENE CREAM TP SCH ×2 (09:01→22:04)
[2017-03-26] MEDS: KLONOPIN PO SCH (22:13)
[2017-03-26] MEDS: NORCO 5-325 PO PRN (22:54)
[2017-03-27] MEDS: CLEOCIN 300 MG in SODIUM CHLORIDE 50 ML IV SCH ×3 (04:37→20:44)
[2017-03-27] MEDS: PRILOSEC PO SCH (05:47)
[2017-03-27] MEDS: NEURONTIN PO SCH ×4 (07:08→20:45)
[2017-03-27] MEDS: MULTIVITAMIN TABLET PO SCH (09:10)
[2017-03-27] MEDS: LEXAPRO PO SCH (09:10)
[2017-03-27] MEDS: CYMBALTA PO SCH (09:11)
[2017-03-27] MEDS: LIPITOR PO SCH (09:11)
[2017-03-27] MEDS: OMEGA-3 FISH OIL PO SCH ×2 (09:11→20:47)
[2017-03-27] MEDS: CALCIUM 500 + VIT D 200 MG TABLET PO SCH ×2 (09:11→20:48)
[2017-03-27] MEDS: ASPIRIN EC PO SCH (09:11)
[2017-03-27] MEDS: PLAVIX PO SCH (09:11)
[2017-03-27] MEDS: LOPRESSOR PO SCH ×2 (09:11→20:48)
[2017-03-27] MEDS: KEFLEX PO SCH ×2 (09:12→20:48)
[2017-03-27] MEDS: ZESTRIL PO SCH (09:12)
[2017-03-27] MEDS: FERROUS SULFATE PO SCH (09:12)
[2017-03-27] MEDS: IMDUR PO SCH ×2 (09:12→20:46)
[2017-03-27] MEDS: SILVADENE CREAM TP SCH ×2 (09:15→20:45)
[2017-03-27] MEDS: BACTROBAN TP SCH ×2 (09:16→20:45)
[2017-03-27] MEDS: TORADOL IVP PRN (14:14)
[2017-03-27] MEDS: KLONOPIN PO SCH (20:47)
[2017-03-27] MEDS: NORCO 5-325 PO PRN (20:47)
[2017-03-28 05:45] VITALS: BP 106/67; TEMP 97.5
[2017-03-28] MEDS: PRILOSEC PO SCH (06:04)
[2017-03-28] MEDS: CLEOCIN 300 MG in SODIUM CHLORIDE 50 ML IV SCH ×2 (06:05→13:09)
[2017-03-28] MEDS: CALCIUM 500 + VIT D 200 MG TABLET PO SCH (08:20)
[2017-03-28] MEDS: KEFLEX PO SCH (08:20)
[2017-03-28] MEDS: NEURONTIN PO SCH (08:21)
[2017-03-28] MEDS: LEXAPRO PO SCH (08:21)
[2017-03-28] MEDS: OMEGA-3 FISH OIL PO SCH (08:21)
[2017-03-28] MEDS: ASPIRIN EC PO SCH (08:21)
[2017-03-28] MEDS: PLAVIX PO SCH (08:21)
[2017-03-28] MEDS: FERROUS SULFATE PO SCH (08:21)
[2017-03-28] MEDS: LOPRESSOR PO SCH (08:21)
[2017-03-28] MEDS: CYMBALTA PO SCH (08:22)
[2017-03-28] MEDS: LIPITOR PO SCH (08:22)
[2017-03-28] MEDS: ZESTRIL PO SCH (08:22)
[2017-03-28] MEDS: IMDUR PO SCH (08:22)
[2017-03-28] MEDS: MULTIVITAMIN TABLET PO SCH (08:22)
[2017-03-28] MEDS: BACTROBAN TP SCH (08:23)
[2017-03-28] MEDS: SILVADENE CREAM TP SCH (08:23)
--- NOTE | 2017-03-28 09:32 | PCM.PROG ---
Attending Provider: ATTENDING PROVIDER: Dr. JAGJIT VELASCO This patient is seen with Patricia Serrano, Nurse Practitioner. DATE OF SERVICE: 03/28/17 SUBJECTIVE: This 76 year old WHITE/ F was hospitalized 03/22/17. Lying in bed, alert. She is ready to go home. REVIEW OF SYSTEMS: CONSTITUTIONAL: No night sweats. No fatigue, malaise, lethargy. No fever or chills. HEENT: Eyes: No visual changes. No eye pain. No eye discharge. ENT: No runny nose. No epistaxis. No sinus pain. No odynophagia. No congestion. RESPIRATORY: No cough, no congestion. No hemoptysis. No shortness of breath. CARDIOVASCULAR: No angina symptoms. No CHF symptoms. No atypical chest pain for CAD. No palpitations. No orthopnea.. GASTROINTESTINAL: No abdominal pain. No nausea or vomiting. No diarrhea or constipation. No hematemesis. No hematochezia. GENITOURINARY: No urgency. No frequency. No dysuria. No hematuria. No obstructive symptoms. No discharge. No pain. No significant abnormal bleeding. MUSCULOSKELETAL: No musculoskeletal pain; no joint swelling. NEUROLOGICAL: Awake, alert, oriented to time, place and person. No headache. No neck pain. No syncope. No seizures. No dizziness. PSYCHIATRIC: Not anxious. No depression. No suicidal thoughts. No homicidal thoughts. SKIN: No rash. Right lower extremity wound. ENDOCRINE: No unexplained weight loss. No weight gain. HEMATOLOGIC/LYMPHATIC: No anemia. No purpura. No petechiae. No prolonged or excessive bleeding. No palpable lymph nodes. PHYSICAL EXAMINATION: GENERAL: The patient is awake, alert and oriented, lying in bed in no distress. VITAL SIGNS: Temperature 97.5 F, Pulse 51, Respiratory Rate 16, BP 106/67, Pulse Ox 95% HEENT: Head normocephalic, atraumatic. Eyes: Extraocular muscles are intact. Pupils are equal, round and reactive to light and accommodation. Ears: No lesions. Nose appeared normal. Throat: No exudate or erythema. NECK: Supple. No JVD, no carotid bruit. No lymphadenopathy or thyromegaly. LUNGS: Clear to auscultation. Percussion note normal. Chest symmetrical. HEART: S1, S2, no S3. No murmurs. No cyanosis or clubbing. No ascites. Pulses: Dorsalis pedis and posterior tibial pulses +1 to +2 both sides. ABDOMEN: Soft. Non-tender. Bowel sounds active. No CVA tenderness. No mass felt. EXTREMITIES: No edema. Full range of motion of all extremities, equal. NEUROLOGIC: No focal deficit. Cranial nerves II through XII are grossly intact. No headache, no double vision or headache. SKIN: Warm and dry. Right lower extremity second degree burn with mild surrounding erythema. No drainage. Improving. LYMPHATIC: No palpable lymph nodes/no lymphedema. MUSCULOSKELETAL: Normal joints with no swelling. Muscle tone is normal. LAB REVIEW: 03/27/17 04:05 03/27/17 04:05 ASSESSMENT: 1. Second-degree burn with right lower extremity cellulitis healing well new granulomatous tissue present no signs of infection minimal erythema 2. Gait disturbance PLAN: 1. D/C home 2. Home Health for wound care, PT and OT 3. Bactroban to wound 4. Clindamycin 300 t.i.d. times 7 days 5. Silvadene to wound 6. Hydrocodone 5 mg q.6 p.r.n. #30 7. See in office on Tuesday 8. Keep leg elevated at all times Plan and coordination of the patient's care discussed in the presence of Well Flow Operator and nurse. CONDITION: Stable SCRIBED BY: Mario PARISH scribed while in presence of service performed by Dr. Velasco/Patricia Serrano APRN on 03/28/17 ([id number])
[2017-03-28] MEDS: TORADOL IVP PRN (13:19)
--- NOTE | 2017-03-28 13:38 | CM.DICTOOL ---
ADMISSION: 03/22/17 14:01 DISCHARGE: 03/28/17 FINAL DIAGNOSIS SECOND DEGREE BURN TO RLE CELLULITIS TO RLE CONTINUATION OF IV ANTIBIOTICS ANEMIA HYPERTENSION CAD DYSLIPIDEMIA GERD OSTEOARTHRITIS DEPRESSION CHOLECYSTECTOMY APPENDECTOMY HYSTERECTOMY CAROTID ENDARTERECTOMY ANGIOPLASTY CATARACT EXTRACTION RIGHT SHOULDER SURGERY RIGHT KNEE REPLACEMENT, 2012 LAST VITALS Temp Pulse Resp BP Pulse Ox 97.5 F L 51 L 16 106/67 95 03/28/17 05:44 03/28/17 05:44 03/28/17 05:44 03/28/17 05:44 03/28/17 05:44 ACTIVE HOME MEDICATIONS Acetaminophen (Tylenol) 650 mg PO Q4H PRN PRN Reason: headache Acetaminophen/Hydrocodone Bitart ([place] 5-325) 1 tab PO Q6HR PRN PRN Reason: pain Last Admin: 03/27/17 20:47 Dose: 1 tab Albuterol Sulfate (Proair Hfa) 1 puff IH Q4HR PRN PRN Reason: shortness of air Aspirin (Aspirin Ec) 81 mg PO DAILYWM [facility] Last Admin: 03/28/17 08:21 Dose: 81 mg Atorvastatin Calcium (Lipitor) 80 mg PO DAILY [facility] Last Admin: 03/28/17 08:22 Dose: 80 mg Calcium/Vitamin D (Calcium 500 + Vit D 200 Mg Tablet) 1 each PO BID [facility] Last Admin: 03/28/17 08:20 Dose: 1 each Clonazepam (Klonopin) 0.5 mg PO BEDTIME [facility] Last Admin: 03/27/17 20:47 Dose: 0.5 mg Clopidogrel Bisulfate (Plavix) 75 mg PO DAILY [facility] Last Admin: 03/28/17 08:21 Dose: 75 mg Duloxetine HCl (Cymbalta) 30 mg PO DAILY [facility] Last Admin: 03/28/17 08:22 Dose: 30 mg Escitalopram Oxalate (Lexapro) 20 mg PO DAILY [facility] Last Admin: 03/28/17 08:21 Dose: 20 mg Ferrous Sulfate (Ferrous Sulfate) 324 mg PO DAILY [facility] Last Admin: 03/28/17 08:21 Dose: 324 mg Fish Oil ([place]-3 Fish Oil) 1,000 mg PO BID [facility] Last Admin: 03/28/17 08:21 Dose: 1,000 mg Gabapentin (Neurontin) 1,200 mg PO TID [facility] Last Admin: 03/28/17 08:21 Dose: 1,200 mg Isosorbide Mononitrate (Imdur) 15 mg PO BID [facility] Last Admin: 03/28/17 08:22 Dose: 15 mg Ketorolac Tromethamine (Toradol) 30 mg IVP Q8H PRN PRN Reason: pain Last Admin: 03/27/17 14:14 Dose: 30 mg Lisinopril (Zestril) 5 mg PO DAILY [facility] Last Admin: 03/28/17 08:22 Dose: 5 mg Metoprolol Tartrate (Lopressor) 25 mg PO BID [facility] Last Admin: 03/28/17 08:21 Dose: 25 mg Multivitamins (Multivitamin Tablet) 1 tab PO DAILY [facility] Last Admin: 03/28/17 08:22 Dose: 1 tab Mupirocin (Bactroban) 1 applic TP BID [facility] Last Admin: 03/28/17 08:23 Dose: 1 applic Nitroglycerin (Nitrostat) 0.4 mg SL Q5MIN X 3 DOSES PRN PRN Reason: Chest Pain Omeprazole (Prilosec) 20 mg PO QDAC [facility] Last Admin: 03/28/17 06:04 Dose: 20 mg Silver Sulfadiazine (Silvadene Cream) 1 applic TP BID [facility] Last Admin: 03/28/17 08:23 Dose: 1 applic Sodium Chloride (Saline Flush) 1 syr IVF Q8HR [facility] Last Admin: 03/28/17 06:05 Dose: 1 syr ALLERGIES Iodinated Contrast- Oral and IV Dye [Iodinated Contrast Media - IV Dye] Adverse Reaction (Verified 02/27/17 13:01) pregabalin [From Lyrica] Adverse Reaction (Verified 02/27/17 13:01) NEW PRESCRIPTIONS: NEW MEDICATIONS: 1. CLINDAMYCIN 300MG TAKE 1 CAPSULE 3 TIMES A DAY FOR 7 DAYS. TAKE WITH FOOD. SMOKING: N/A DISEASE SPECIFIC EDUCATION: WOUND CARE IMPORTANCE OF KEEPING LEG ELEVATED MEDICATIONS HOME HEALTH FOLLOW UP APPOINTMENT LAB REVIEW: 03/27/17 04:05 03/27/17 04:05 PLAN: DISCHARGE TO HOME. CONTINUE HOME MEDICATIONS PER NURSING SHEET NEW MEDICATIONS: 1. BACTROBAN APPLY TO WOUND 2 TIMES A DAY. 2. SILVADENE APPLY TO WOUND 2 TIMES A DAY 3. CLINDAMYCIN 300MG TAKE 1 CAPSULE 3 TIMES A DAY FOR 7 DAYS. TAKE WITH FOOD. 4. [place] 5-325MG TAKE 1 TABLET EVERY 6 HOURS NEEDED FOR PAIN. DIET TOLERATED. ACTIVITY: GRADUALLY RESUME ACTIVITY PER PT/OT EVALUATION AND TREATMENT. AVOID EXTREME COLD AND CROWDS. [facility] TO SEE YOU FOR PT/OT AND WOUND CARE FOLLOW UP WITH DR. VELASCO ON TuesdayMarch AT 1100AM. SITTING UP IN BED. ALERT AND ORIENTED X 4. Barb BEVERLY APRN INTO SEE PATIENT. PATIENT STATES FEELS BETTER. PATIENT STATES LEG LOOKS BETTER EVEN FROM YESTERDAY. PLAN OF CARE DISCUSSED PER Barb BEVERLY APRN INCLUDING DISCHARGE, MEDICATIONS, HOME HEALTH AND WOUND CARE. PATIENT VERBALIZED UNDERSTANDING AND AGREEMENT. APPETITE IS GOOD. VITAL SIGNS ARE STABLE. HAS BEEN AFEBRILE. POX 95 % ON ROOM AIR. HEART TONES ARE REGULAR. LUNGS ARE CLEAR WITH DIMINISHED BREATH SOUNDS. NO COUGH NOTED. HAS DYSPNEA WITH ACTIVITY. ABDOMEN IS SOFT, NON-TENDER WITH BOWEL SOUNDS POSITIVE IN ALL 4 QUADS. LAST BM 03/27/17. PEDAL PULSE POSITIVE WITHOUT EDEMA. BURN TO RIGHT LOWER EXTREMITY IS OPEN TO AIR. CLEAN AND DRY WITH REDNESS NOTED. SURROUNDING TISSUE IS PINK. IS A STANDBY ASSIST WITH ROLLING WALKER WITH STEADY SLOW GAIT. DR. JAGJIT VELASCO MD Barb BEVERLY APRN
--- NOTE | 2017-03-28 15:33 | PN ---
DATE OF SERVICE: 03/25/17 SUBJECTIVE: The patient was put on the swing with right leg cellulitis which has practically resolved. This morning it looked somewhat red, more than before because the legs were hanging. She is strongly advised to keep her legs up. The patient is ambulatory. Her scab on the left side of the leg has practically fallen off. She has no infection and no drainage. The patient is improving. PLAN: 1. Continue antibiotics 2. Continue Physical Therapy. The patient was seen and examined with Nurse Practitioner. TIME SPENT: More than 30 minutes. Plan and coordination of the patient's care discussed in the presence of nurse. ANDREW
--- NOTE | 2017-03-28 16:19 | PN ---
DATE OF SERVICE: 03/26/17 SUBJECTIVE: 76-year-old white female hospitalized with right lower leg cellulitis which seems to be resolving. PHYSICAL EXAMINATION: HEENT: Head normocephalic, atraumatic. Eyes: Extraocular muscles are intact. Pupils are equal, round and reactive to light and accommodation. Ears: No lesions. Nose appeared normal. Throat: No exudate or erythema. NECK: Supple. No JVD, no carotid bruit. No lymphadenopathy or thyromegaly. LUNGS: Clear to auscultation. Percussion note normal. Chest symmetrical. HEART: S1, S2, no S3. No murmurs. No cyanosis or clubbing. No ascites. Pulses: Dorsalis pedis and posterior tibial pulses +1 to +2 both sides. ABDOMEN: Soft. Nontender. Bowel sounds active. No CVA tenderness. No mass felt. EXTREMITIES: Leg edema is much better than yesterday. Full range of motion of all extremities, equal. NEUROLOGIC: No focal deficit. Cranial nerves II through XII are grossly intact. No headache, no double vision or headache. SKIN: Warm and dry. She has less redness around the ulcer. The ulcer is practically healed up with some healthy crust left. LYMPHATIC: No palpable lymph nodes/no lymphedema. MUSCULOSKELETAL: Normal joints with no swelling. Muscle tone is normal. ASSESSMENT: 1. CELLULITIS RESOLVING 2. LEG EDEMA RESOLVING 3. THE PATIENT'S CARDIOVASCULAR STATUS IS STABLE PLAN: 1. Again, explained how to take care of the ulcer. 2. Advised to keep the legs up higher than the hip during the daytime as much as she could during the night. The daughter is present in the room. CONDITION: Stable TIME SPENT: More than 30 minutes. Plan and coordination of the patient's care discussed in the presence of nurse. ANDREW
--- NOTE | 2017-03-31 12:14 | PN ---
DATE OF SERVICE: 03/28/17 SUBJECTIVE: The patient is in the swing bed. The patient was hospitalized with second degree burn, infected, right leg. The patient was hospitalized and then put on the swing bed. Her condition has improved remarkably. The ulcers are healed up with no scabs practically and no drainage. She still has mild redness to the area surrounding the ulcer, which has already healed up. Swelling mildly present because the patient is keeping the legs hanging. Since the condition is stable, she will be discharged home. She was seen and examined with the nurse practitioner. ANDREW
--- NOTE | 2017-04-01 09:20 | DS ---
DATE OF SERVICE: 03/28/17 (FROM [facility]) FINAL DIAGNOSIS: 1. SECOND DEGREE BURN TO RIGHT LOWER EXTREMITY 2. CELLULITIS IS RIGHT LOWER EXTREMITY 3. CONTINUATION OF IV ANTIBIOTICS 4. ANEMIA 5. HYPERTENSION 6. CORONARY ARTERY DISEASE 7. DYSLIPIDEMIA 8. GERD 9. OSTEOARTHRITIS 10. DEPRESSION 11. CHOLECYSTECTOMY 12. APPENDECTOMY 13. HYSTERECTOMY 14. CAROTID ENDARTERECTOMY 15. ANGIOPLASTY 16. CATARACT EXTRACTION 17. RIGHT SHOULDER SURGERY 18. RIGHT KNEE REPLACEMENT 2012 VITAL SIGNS AT DISCHARGE: Temperature 97.5, pulse 51, respiratory rate 16, blood pressure 106/97 and pulse ox 95%. PLAN: 1. Discharge to home. 2. Continue home medications per nursing sheet. 3. Avoid extreme cold and crowds. 4. [facility] to see for PT/OT and wound care. 5. Follow up with Dr. Hernandez April 01 at 11:00 a.m. MEDICATIONS AT DISCHARGE: Tylenol 650 mg every 4 hours prn [place] 5/325 mg every 6 hours prn ProAir one puff every 4 hours prn Aspirin 81 mg daily Lipitor 80 mg daily Calcium with Vitamin D twice daily Klonopin 0.5 mg at bedtime Plavix 75 mg daily Cymbalta 30 mg daily Lexapro 20 mg daily Ferrous Sulfate 324 mg daily [place] 3 Fish Oil 1,000 mg twice daily Neurontin 1200 mg twice daily Imdur 15 mg twice daily Zestril 5 mg daily Lopressor 25 mg daily Multivitamin one daily Bactroban one application twice daily Nitrostat 0.4 mg SL prn Prilosec 20 mg daily Silvadene cream one application twice daily ALLERGIES: Iodinated contrast and Lyrica. NEW PRESCRIPTIONS: Clindamycin 300 mg three times daily for 7 days Bactroban one application twice daily Silvadene cream one application twice daily [place] 5/325 mg every 6 hours prn for pain DIET INSTRUCTIONS: As tolerated. ACTIVITY: Gradually resume activity as per PT/OT evaluation and treatment. DISEASE SPECIFIC EDUCATION: Wound care, importance of leg elevation, medications, Home Health and follow up appointment. HOSPITAL COURSE: This is a 76-year-old female, who was a direct admit from our office. She had recently been hospitalized about two weeks ago after a fall from which she had spilled hot coffee on the right lower extremity and experienced a burn. She was treated for cellulitis of the burn while in the hospital managing her after the fall and went home on p.o. antibiotics. While at home, this area worsened. She presented to our office with redness, swelling, extensive scabbing of the right lower extremity. She was admitted, placed on IV Vancomycin and IV Clindamycin 300 mg IV a.8hr along with Vancomycin 500 mg IV q.12hr. She was instructed to keep her leg elevated. We consulted Dr. Mims who felt debridement wasn't necessary. She has remained on IV antibiotics. IV Vancomycin was discontinued last Tuesday. She has been on IV Clindamycin during her entire hospital stay. The wound has since debrided itself with sloughing of the scab. There is new granulomatous tissue. There is very slight erythema around the area of the burn which is the circumference of the right lower extremity. This is due to healing. She has been up and about, working with physical therapy for strength since her fall. Her strengthening has improved. She is going to go home with Home Health, physical and occupational therapy. We have been applying Silvadene and Bactroban twice daily to the wound and she will continue to do so at home. Wound care will also see her at home, through Home Health. She is instructed to keep her leg elevated at all times except when she is up going to the restroom or working around the house. She is to keep her leg elevated the majority of the time as increased swelling will cause increased redness. She will be sent home with [place] for the pain #30 with no refills. Over the course of her hospital stay, the redness and swelling of the leg has gradually improved. Right now there is very minimal redness. Her vital signs and labs have all been stable. Most recently hemoglobin 10, hematocrit 31.2. White count 5.27, platelets 153, sodium 142, potassium 4.2, BUN 9, creatinine 0.72. She has been afebrile during this hospital stay. Temperature 97.5 at discharge, heart rate 51, BP 106/67 and pulse ox 65%. She will be discharged today in stable condition with Clindamycin 300 mg t.i.d. p.o. for the next 7 days along with Bactroban and Silvadene. She will be followed with Home Health and we will see her later this week. TIME SPENT: More than 60 minutes. ANDREW
== END 2017-03-28 14:06 | disposition home health service (06) | DRG 603 ==
LOC: MEDSURG A 14:01
PROVIDERS: ADMIT Internal Medicine; ATTEND Internal Medicine
DX: L03.115 Cellulitis of right lower limb (principal); T24.201D Burn of second degree of unspecified site of right lower limb, except ankle and foot, subsequent encounter; R26.2 Difficulty in walking, not elsewhere classified; D64.9 Anemia, unspecified; I10 Essential (primary) hypertension; I25.10 Atherosclerotic heart disease of native coronary artery without angina pectoris; E78.5 Hyperlipidemia, unspecified; K21.9 Gastro-esophageal reflux disease without esophagitis; M19.90 Unspecified osteoarthritis, unspecified site; F32.9 Major depressive disorder, single episode, unspecified; X10.0XXD Contact with hot drinks, subsequent encounter; Z79.02 Long term (current) use of antithrombotics/antiplatelets; Z79.899 Other long term (current) drug therapy
CPT/HCPCS: 36415; 80053; 80202; 85025; 97802

== ENCOUNTER 2017-10-02 10:43 | Emergency (ER) | payer OTHER ==
[2017-10-02 10:55] VITALS: BP 126/62; TEMP 97.8; BMI 29.9
--- NOTE | 2017-10-02 11:07 | ED.PDOC ---
General ED Provider: Dr. LAURA LAYTON Chief Complaint: Head Injury Stated Complaint: Struck back of head when falling in Bedroom, striking edge of dresser. Believes she had LOC. Daughter who lives with her, heard a crashing noise but it was 10 minutes before she heard her crying for help. Found her lying on the floor and note swelling of scalp where she struck scalp Time Seen by Physician: 10:45 Mode of Arrival: Wheelchair Information Source: Patient Exam Limitations: No limitations Primary Care Provider: JAGJIT VELASCO Nursing and Triage Documentation Reviewed and Agree: Yes Does patient meet sepsis criteria?: No System Inflammatory Response Syndrome: Not Applicable Sepsis Protocol: For patient's 13 years and over: Temp is 96.8 and below OR 101 and greater Pulse >90 BPM Resp >20/minute Acutely Altered Mental Status Are patient's symptoms suggestive of a new infection, such as: -Pneumonia -Skin, Soft Tissue -Endocarditis -UTI -Bone, Joint Infection -Implantable Device -Acute Abdominal Infection -Wound Infection -Meningitis -Blood Stream Catheter Infection -Unknown Neurological Complaint Exam - Headache Complaint/Exam Onset: Sudden Symptoms Are: Still present Timing: Constant Episodes Lasting: Minutes Worst Headache Ever: No Initial Severity: Moderate Current Severity: Mild Location: Right, Parietal, Occipital Character: Reports: Sharp, Throbbing, Typical headache Aggravating: Reports: None Alleviating: Reports: None Associated Signs and Symptoms: Reports: Dizziness. Denies: Vomiting, Fever Related History: Denies: Similar episode Related Surgical History: Reports: None SAH Risk Factors: Reports: None Meningitis Risk Factors: Reports: None SDH Risk Factors: Reports: None Temporal Arteritis Risk Factors: Reports: None Normal Head CT Within Last 12 Months: No Fundoscopic Exam: Present: Normal Findings Papilledema Present: No Temporal Artery Tenderness: Present: None Sinus Tenderness: Present: None TMJ Tenderness: Present: None Glascow Coma Scale (see protocol): 15 Meningeal Signs Positive: No Pain on Passive Flexion-Positive Kernig's: No ROM Limited In: No Limitiations Focal Weakness: Present: None Focal Sensory Loss: Present: None Gait: Unsteady Nystagmus Present: No Gag Reflex Present: Yes [id number]: Normal Findings Differential Diagnoses: Subdural Hematoma, Other (CLosed head injury) Review of Systems - Review Of Systems Constitutional: Reports: No symptoms Eyes: Reports: No symptoms Ears, Nose, Mouth, Throat: Reports: No symptoms Respiratory: Reports: No symptoms Cardiac: Reports: No symptoms GI: Reports: No symptoms : Reports: No symptoms Musculoskeletal: Reports: No symptoms, Joint pain, Neck pain, Other (scalp pain) Skin: Reports: No symptoms Neurological: Reports: No symptoms, Other (weakness/falls frequently) Endocrine: Reports: No symptoms Hematologic/Lymphatic: Reports: No symptoms All Other Systems: Reviewed and Negative Past Medical History - Past Medical History Previously Healthy: No Endocrine: Reports: Dyslipidemia Cardiovascular: Reports: CAD, Hypertension, Other (cardiac arrest) Respiratory: Reports: COPD, Bronchitis Hematological: Reports: Anemia Gastrointestinal: Reports: None, GERD (old record), Diverticulitis (old record- diverticulosis) Genitourinary: Reports: None Neuro/Psych: Reports: Anxiety, Depression, Other (neuropathy of feet and hands) Musculoskeletal: Reports: Arthritis Cancer: Reports: None Last Menstrual Period: unknown Other Pertinent Past Medical History: RIGHT KNEE REPLACEMENT HYSTERECTOMY GALLBLADDER CAROTID SURGERY - Surgical History General Surgical History: Reports: Hysterectomy, Appendectomy (old record), Cholecystectomy, Orthopedic (RIGHT KNEE REPLACEMENT ), Other (CAROTID SURGERY - 2013 Carotid Endarterectomy, Right) - Family History Family History: Reports: Unknown - Social History Smoking Status: Former smoker Hx Substance Use: No Alcohol Screening: None - Immunizations Tetanus Shot up to Date: No (within 5 years) Physical Exam - Physical Exam Appearance: Well-appearing, No pain distress, Well-nourished, Obese Ill-appearing: None Pain Distress: Mild Eyes: HUSSAIN, EOMI, Conjunctiva clear ENT: Ears normal, Nose normal, Oropharynx normal Neck: Supple (Large area of scalp edema rt parietal with superfical puncture wound-dried blood) Respiratory: Airway patent, Breath sounds clear, Breath sounds equal, Respirations nonlabored Cardiovascular: RRR, Pulses normal, No rub, No murmur GI/: Soft, Nontender, No masses, Bowel sounds normal, No Organomegaly Musculoskeletal: Normal strength, ROM intact, No edema, No calf tenderness Skin: Warm, Dry, Normal color Neurological: Sensation intact, Motor intact, Reflexes intact, Cranial nerves intact, Alert, Oriented Psychiatric: Affect appropriate, Mood appropriate Critical Care Note - Critical Care Note Total Time (mins): 60 Course - Course Hematology/Chemistry: 10/02/17 11:45 10/02/17 11:45 Orders, Labs, Meds: Lab Review 10/02/17 10/02/17 10/02/17 11:45 11:45 12:32 WBC 5.90 RBC 4.15 L Hgb 12.3 Hct 38.2 MCV 92.0 MCH 29.6 MCHC 32.2 RDW Coeff of Pricila 13.1 Plt Count 136 L Immature Gran % (Auto) 0.2 Neut % (Auto) 75.9 Lymph % (Auto) 14.2 [place] % (Auto) 6.1 Eos % (Auto) 3.1 Baso % (Auto) 0.5 Immature Gran # (Auto) 0.0 Neut # (Auto) 4.5 Lymph # (Auto) 0.8 [place] # (Auto) 0.4 Eos # (Auto) 0.2 Baso # (Auto) 0.0 Sodium 139 Potassium 4.8 Chloride 104 Carbon Dioxide 30 Anion Gap 9.8 BUN 10 Creatinine 0.77 Estimated GFR (MDRD) 72.00 BUN/Creatinine Ratio 12.98 Glucose 95 Calcium 8.8 Total Bilirubin 0.7 AST 16 ALT 10 L Alkaline Phosphatase 61 Total Protein 6.0 Albumin 3.0 L Globulin 3.0 Albumin/Globulin Ratio 1.00 Urine Color Yellow Urine Clarity Slightly Urine pH 8.5 Ur Specific [place] 1.020 Urine Protein 1+ Urine Glucose (UA) Negative Urine Ketones Negative Urine Blood Negative Urine Nitrite Negative Urine Bilirubin Negative Urine Urobilinogen 1.0 Ur Leukocyte Esterase Trace Urine Microscopic WBC 2-5 Ur Squamous Epith Cells 20-30 Urine Bacteria Trace Orders Category Date Time Status EKG-(ED ONLY) Stat CARDIO 10/02/17 11:13 Completed CBC W/ AUTO DIFF Stat LAB 10/02/17 11:45 Completed CMP [COMPREHENSIVE METABOLIC PANEL] Stat LAB 10/02/17 11:45 Completed UA [URINALYSIS C & S IF INDICATED] Stat LAB 10/02/17 12:[address] CERVICAL SPINE W/O CONTRAST Stat RADS 10/02/17 11:[address] HEAD W/O CONTRAST Stat RADS 10/02/17 11:13 Completed Vital Signs: Temp Pulse Resp BP Pulse Ox 10/02/17 10:45 97.8 F 63 20 126/62 93 L Departure - Departure Time of Disposition: 13:30 Disposition: HOME SELF-CARE Discharge Problem: Closed head injury, Hematoma of scalp, Falling episodes Instructions: Concussion (ED), Core Strengthening Exercises (ED), Fall Prevention for Older Adults (ED) Condition: Good Pt referred to PMD for follow-up: Yes (pcp) IPMP verified?: No Additional Instructions: Utilize stable stool device for getting into bed Use cane or walker Seek PCP follow up care Allergies/Adverse Reactions: Allergies Iodinated Contrast- Oral and IV Dye [Iodinated Contrast Media - IV Dye] Adverse Reaction (Verified 10/02/17 10:54) pregabalin [From Lyrica] Adverse Reaction (Verified 10/02/17 10:54) Home Medications: Ambulatory Orders Acetaminophen [Tylenol] 500 mg PO Q4HR PRN 09/02/12 Calcium Carbonate/Vitamin D3 [Calcium 600 + Vit D 400 Tablet] 1 tab PO BID 09/02 Clopidogrel Bisulfate [Plavix] 75 mg PO DAILY 09/02/12 Nitroglycerin [Nitrostat] 0.4 mg SL Q5MIN PRN 09/02/12 Omeprazole [Prilosec] 20 mg PO QDAC 09/02/12 Multivitamin [Multi-Vitamin Daily] 1 each PO DAILY 01/01/13 Albuterol Sulfate [Proair Hfa] 1 puff INH Q4HR PRN 07/15/13 Ferrous Sulfate 325 mg PO DAILY 07/15/13 Clonazepam [Klonopin] 0.5 mg PO BEDTIME 03/26/14 Escitalopram Oxalate [Lexapro] 10 mg PO DAILY 03/26/14 Gabapentin 1,800 mg PO BID 03/26/14 Lisinopril [Zestril] 5 mg PO DAILY 03/26/14 Metoprolol Tartrate [Lopressor] 25 mg PO BID 03/26/14 Atorvastatin Calcium [Lipitor] 80 mg PO DAILY 10/16/14 Aspirin [Aspirin EC] 81 mg PO DAILYWM 05/07/15 [place]-3 Fatty Acids/Fish Oil [Fish Oil 1,000 mg Softgel] 2,000 mg PO BID Isosorbide Mononitrate [Imdur] 30 mg PO DAILY 03/04/17 Hydrocodone/Acetaminophen [[place] 5-325 Tablet] 1 tab PO Q6HR PRN #20 tablet 11/05 Disposition Discussed With: Patient, Family
--- NOTE | 2017-10-02 11:41 | CT ---
EXAM: CT head without contrast HISTORY: Fall and hit head COMPARISON: CT head 02/27/2017 TECHNIQUE: Serial axial images of the brain were obtained from the skull base to the vertex without IV contrast. FINDINGS: The ventricles, cisterns and sulci are unchanged with mild volume loss. The rhodes-white ma tter junction is maintained. No midline shift or mass is identified. There is no abnormal intra or extra-axial fluid collection. The paranasal sinuses and mastoid air cells are clear. The osseous ca lvarium is intact. There is a right posterior scalp hematoma. IMPRESSION: Right posterior scalp hematoma with no underlying acute intracranial abnormality or hemorrhage.
--- NOTE | 2017-10-02 11:46 | CT ---
EXAM: CT cervical spine without contrast. HISTORY: Fall with trauma to head COMPARISON: CT cervical spine 02/27/2017 and multiple priors TECHNIQUE: Serial axial images of the cervical spine were obtained from the skull base through the l viet apices without contrast. These were viewed in multiple planes. FINDINGS: Vertebral bodies demonstrate a normal C1 ring. The odontoid process is unremarkable and u nchanged. There is multilevel degenerative disease of the cervical spine with no acute compression f racture or subluxation. Facet arthropathy is present. There is trace anterolisthesis of C3 on C4 wh ich is unchanged. There is narrowing from C4-C7 with mild disc space narrowing. The soft tissues ar e unremarkable. Lung apices demonstrate stable emphysema. IMPRESSION: 1. No acute compression fracture or subluxation of the cervical spine. 2. Multilevel degenerative disease throughout the cervical spine is unchanged in comparison to prior examination with unchanged anterolisthesis of C3 on C4.
== END 2017-10-02 13:42 | disposition home or self-care (01) ==
LOC: ED 10:43
DX: S00.03XA Contusion of scalp, initial encounter (principal); R29.6 Repeated falls; R42 Dizziness and giddiness; R51 Headache; R53.1 Weakness; W18.30XA Fall on same level, unspecified, initial encounter; Y93.9 Activity, unspecified; Y92.003 Bedroom of unspecified non-institutional (private) residence as the place of occurrence of the external cause; I25.2 Old myocardial infarction; Z79.899 Other long term (current) drug therapy; Z96.651 Presence of right artificial knee joint
CPT/HCPCS: 36415; 80053; 81001; 85025; 93005; 93010; 99283

== ENCOUNTER 2018-01-11 12:39 | Outpatient (CLI) | payer OTHER ==
[2012-09-02 10:55] VITALS: TEMP 98.5
--- NOTE | 2018-01-11 13:45 | DI ---
EXAM: Three views of the right shoulder. History: Right shoulder pain. Findings: No acute fracture or dislocation. Heart is enlarged. Mild narrowing of the right glenohu meral joint and right AC joint. Sclerosis and cystic change involving superior lateral aspect of the humeral head. Impression: 1. No acute osseous abnormality. 2. Mild arthritis. 3. Probable rotator cuff disease. 4. Cardiomegaly
--- NOTE | 2018-01-11 14:16 | DI ---
Exam: Three views of the right elbow. Comparison: None available. Reason for exam: Right elbow pain. FINDINGS: No acute fracture or dislocation. The joint spaces appear well maintained. No unexplaine d calcific soft tissue density or radiopaque retained foreign body. Impression: No acute fracture or dislocation in the right elbow
== END 2018-01-11 12:40 | disposition home or self-care (01) ==
LOC: RAD 12:39
PROVIDERS: ATTEND Internal Medicine
DX: M25.511 Pain in right shoulder (principal); M25.521 Pain in right elbow; W19.XXXA Unspecified fall, initial encounter

== ENCOUNTER 2018-08-24 17:12 | Inpatient (IN) ==
--- NOTE | 2018-08-24 17:32 | ED.PDOC ---
General ED Provider: Dr. LAURA LAYTON Chief Complaint: Chest Pain Stated Complaint: Sudden onset of LT sided chest pain -sharp stabbing radiating from mid Lt posterior costal vertebral region. Can reproduce pain to palpation of Lt T5 region as well as lt mid to lower costal sternal joint region. In addition patient suffers from GERD and was belching alleviating the chest pressure. Also took 2 NTG( 1 AM and 1 PM) that seemed to reduce symptoms as well. Denies Nausea, Vomiting or diaphoresis. Time Seen by Physician: 17:20 Mode of Arrival: Wheelchair Information Source: Patient Primary Care Provider: JAGJIT VELASCO Nursing and Triage Documentation Reviewed and Agree: Yes Does patient meet sepsis criteria?: No Sepsis Protocol: For patient's 13 years and over: Temp is 96.8 and below OR 101 and greater Pulse >90 BPM Resp >20/minute Acutely Altered Mental Status Are patient's symptoms suggestive of a new infection, such as: -Pneumonia -Skin, Soft Tissue -Endocarditis -UTI -Bone, Joint Infection -Implantable Device -Acute Abdominal Infection -Wound Infection -Meningitis -Blood Stream Catheter Infection -Unknown Cardiovascular Complaint Exam - Chest Pain Complaint/Exam Onset: Sudden Duration: INtermittently for several hours Symptoms Are: Resolved Timing: Intermittent Initial Severity: Moderate Current Severity: None Location: Reports: Discrete, Midsternal, Left anterior (and posterior) Pain Radiates: Reports: Back, Left arm, Epigastrium. Denies: Left shoulder, Jaw , Neck Character: Reports: Pressure, Sharp, Stabbing Aggravating: Reports: Deep breaths Alleviating: Reports: Nitro, Upright position Associated Signs and Symptoms: Reports: Back pain. Denies: Diaphoresis, Nausea , Vomiting, Fever, Palpitations, Cough, Hemoptysis, Abdominal pain, Dizziness, Short of air, Calf pain, Calf swelling Related History: Reports: Similar episode Related Surgical History: Reports: None History of Healthcare-Acquired Pneumonia: Reports: No AMI/ACS Risk Factors: Reports: None, Nitroglycerine use (known hx CAD) Pulmonary Embolism Risk Factors: Reports: None Prior Care for this Complaint: Yes Recent Stress Test: No Recent Echo/LV Function: No JVD Present: No Subcutaneous Emphysema Present: No Diminshed Breath Sounds: No Reproducible Chest Wall Pain: Yes Bilateral Pulses Present: Yes If Risk Factors for AMI/ACS Consider: EKG, Cardiac Enzymes Review of Systems - Review Of Systems Constitutional: Reports: No symptoms Eyes: Reports: No symptoms Ears, Nose, Mouth, Throat: Reports: No symptoms Respiratory: Reports: No symptoms Cardiac: Reports: Chest pain GI: Reports: Other (dyspepsia and belching) : Reports: No symptoms Musculoskeletal: Reports: No symptoms, Back pain, Muscle pain Skin: Reports: No symptoms Neurological: Reports: No symptoms Endocrine: Reports: No symptoms Hematologic/Lymphatic: Reports: No symptoms All Other Systems: Reviewed and Negative Past Medical History - Past Medical History Previously Healthy: No Endocrine: Reports: Dyslipidemia Cardiovascular: Reports: CAD, Hypertension, Other (cardiac arrest) Respiratory: Reports: COPD, Bronchitis Hematological: Reports: Anemia Gastrointestinal: Reports: None, GERD (old record), Diverticulitis (old record- diverticulosis) Genitourinary: Reports: None Neuro/Psych: Reports: Anxiety, Depression, Other (neuropathy of feet and hands) Musculoskeletal: Reports: Arthritis Cancer: Reports: None Last Menstrual Period: unknown Other Pertinent Past Medical History: RIGHT KNEE REPLACEMENT HYSTERECTOMY GALLBLADDER CAROTID SURGERY - Surgical History General Surgical History: Reports: Hysterectomy, Appendectomy (old record), Cholecystectomy, Orthopedic (RIGHT KNEE REPLACEMENT ), Other (CAROTID SURGERY - 2013 Carotid Endarterectomy, Right) - Family History Family History: Reports: Unknown - Social History Smoking Status: Former smoker Hx Substance Use: No Alcohol Screening: None Physical Exam - Physical Exam Appearance: Ill-appearing, Obese Ill-appearing: Mild Pain Distress: None Eyes: HUSSAIN, EOMI, Conjunctiva clear ENT: Ears normal, Nose normal, Oropharynx normal Neck: Supple Respiratory: Airway patent, Breath sounds clear, Breath sounds equal, Respirations nonlabored Cardiovascular: RRR, Pulses normal, No rub, No murmur GI/: Soft, Tender (mid epig) Musculoskeletal: Normal strength (Tenderness to palpation Lt Post Thoracic region T5-6 Costal vertebral /PVM region with distinct trigger point ) Skin: Warm, Dry, Normal color Neurological: Sensation intact, Motor intact, Cranial nerves intact, Alert, Oriented Psychiatric: Affect appropriate, Mood appropriate Physician Notification - Case Discussed Physician Notified: Dr Velasco Time of Notification: 19:15 (Full Admit with Telemetry/Lasix IV/ IV Tordol and Decadron) Critical Care Note - Critical Care Note Total Time (mins): 60 Course - Course Hematology/Chemistry: 06/06/19 18:15 08/24/18 18:15 Orders, Labs, Meds: Lab Review 08/24/18 08/24/18 08/24/18 18:15 18:15 18:15 WBC 4.72 RBC 3.78 L Hgb 11.6 L Hct 35.6 L MCV 94.2 MCH 30.7 MCHC 32.6 RDW Coeff of Pricila 13.1 Plt Count 151 Immature Gran % (Auto) 0.2 Neut % (Auto) 68.3 Lymph % (Auto) 19.5 [place] % (Auto) 7.0 Eos % (Auto) 4.2 Baso % (Auto) 0.8 Immature Gran # (Auto) 0.0 Neut # (Auto) 3.2 Lymph # (Auto) 0.9 [place] # (Auto) 0.3 L Eos # (Auto) 0.2 Baso # (Auto) 0.0 PT 9.9 INR 0.99 APTT 24.4 Sodium 140.2 Potassium 4.45 Chloride 103.0 Carbon Dioxide 32.0 H Anion Gap 9.65 BUN 16.1 Creatinine 0.76 Estimated GFR (MDRD) 73.00 BUN/Creatinine Ratio 21.18 Glucose 99.8 Calcium 8.72 Total Bilirubin 0.28 AST 26.4 ALT 13.1 Alkaline Phosphatase 61.3 Troponin I < 0.012 NT-Pro-B Natriuret Pep Total Protein 5.91 L Albumin 3.39 L Globulin 2.52 Albumin/Globulin Ratio 1.34 Amylase 35.1 Lipase 66.4 08/24/18 18:15 WBC RBC Hgb Hct MCV MCH MCHC RDW Coeff of Pricila Plt Count Immature Gran % (Auto) Neut % (Auto) Lymph % (Auto) [place] % (Auto) Eos % (Auto) Baso % (Auto) Immature Gran # (Auto) Neut # (Auto) Lymph # (Auto) [place] # (Auto) Eos # (Auto) Baso # (Auto) PT INR APTT Sodium Potassium Chloride Carbon Dioxide Anion Gap BUN Creatinine Estimated GFR (MDRD) BUN/Creatinine Ratio Glucose Calcium Total Bilirubin AST ALT Alkaline Phosphatase Troponin I NT-Pro-B Natriuret Pep 3400.000 H Total Protein Albumin Globulin Albumin/Globulin Ratio Amylase Lipase Orders Category Date Time Status EKG-(ED ONLY) Stat CARDIO 08/24/18 18:02 Completed AMYLASE Stat LAB 08/24/18 18:15 Completed CBC W/ AUTO DIFF Stat LAB 08/24/18 18:15 Completed CMP [COMPREHENSIVE METABOLIC PANEL] Stat LAB 08/24/18 18:15 Completed LIPASE Stat LAB 08/24/18 18:15 Completed NT-PROBNP Stat LAB 08/24/18 18:15 Completed PARTIAL THROMBOPLASTIN TIME Stat LAB 08/24/18 18:15 Completed PT WITH INR Stat LAB 08/24/18 18:15 Completed TROPONIN I Stat LAB 08/24/18 18:15 Completed UA [URINALYSIS C & S IF INDICATED] Stat LAB 08/24/18 18:04 Uncollected CHEST, 2 VIEWS PA & LAT Stat RADS 08/24/18 18:07 Completed Vital Signs: Temp Pulse Resp BP Pulse Ox 08/24/18 17:13 99.4 F 62 20 130/79 93 L YEMI Risk Score YEMI Risk Score: Risk Score Odds of by 30D 0 0.1 (0.1-0.2) 1 0.3 (0.2-0.3) 2 0.4 (0.3-0.5) 3 0.7 (0.6-0.9) 4 1.2 (1.0-1.5) 5 2.2 (1.9-2.6) 6 3.0 (2.5-3.6) 7 4.8 (3.8-6.1) Departure - Departure Time of Disposition: 19:15 Disposition: ADMITTED INPATIENT Discharge Problem: Angina pectoris, CHF (congestive heart failure) Allergies/Adverse Reactions: Allergies Iodinated Contrast- Oral and IV Dye [Iodinated Contrast Media - IV Dye] Adverse Reaction (Verified 03/09/18 12:24) pregabalin [From Lyrica] Adverse Reaction (Verified 03/09/18 12:24) Home Medications: Ambulatory Orders Acetaminophen [Tylenol] 500 mg PO Q4HR PRN 09/02/12 Calcium Carbonate/Vitamin D3 [Calcium 600 + Vit D 400 Tablet] 1 tab PO BID 09/02 Clopidogrel Bisulfate [Plavix] 75 mg PO DAILY 09/02/12 Nitroglycerin [Nitrostat] 0.4 mg SL Q5MIN PRN 09/02/12 Omeprazole [Prilosec] 20 mg PO QDAC 09/02/12 Multivitamin [Multi-Vitamin Daily] 1 each PO DAILY 01/01/13 Albuterol Sulfate [Proair Hfa] 1 puff INH Q4HR PRN 07/15/13 Clonazepam [Klonopin] 0.5 mg PO BEDTIME 03/26/14 Escitalopram Oxalate [Lexapro] 15 mg PO DAILY 03/26/14 Gabapentin 1,800 mg PO TID 03/26/14 Lisinopril [Zestril] 5 mg PO DAILY 03/26/14 Metoprolol Tartrate [Lopressor] 25 mg PO BID 03/26/14 Atorvastatin Calcium [Lipitor] 80 mg PO DAILY 10/16/14 Aspirin [Aspirin EC] 81 mg PO DAILYWM 05/07/15 [place]-3 Fatty Acids/Fish Oil [Fish Oil 1,000 mg Softgel] 2,000 mg PO BID Isosorbide Mononitrate [Imdur] 30 mg PO BID 03/04/17 Oxycodone-Acetaminophen 5-325 [Percocet 5-325] 1 tab PO Q12H 08/24/18
--- NOTE | 2018-08-24 18:40 | DI ---
Exam: Two-view chest x-ray. Date: 08/24/2018. Comparison: 01/29/2018. HISTORY: Chest pain. FINDINGS: No acute osseous abnormality are seen. The lungs are clear with calcified granulomas. Th e cardiac silhouette is enlarged. Pulmonary vasculature is normal. Impression: No acute intrathoracic findings. Cardiomegaly with old granulomatous disease.
[2018-08-24] MEDS ORDERED: DECADRON 4 MG/ML SDV IVP STA (19:22)
[2018-08-24] MEDS ORDERED: LASIX IVP STA (19:22)
[2018-08-24] MEDS ORDERED: TORADOL IVP STA (19:23)
[2018-08-24] MEDS ORDERED: NITROSTAT SL PRN (19:26)
[2018-08-24] MEDS ORDERED: PROAIR HFA IH PRN (19:26)
[2018-08-24] MEDS ORDERED: GABAPENTIN 1800 MG PO SCH (21:00)
[2018-08-24] MEDS ORDERED: FISH OIL PO SCH (21:00)
[2018-08-24] MEDS ORDERED: OMEGA PO SCH (21:00)
[2018-08-24] MEDS ORDERED: NON-FORMULARY MEDICATION (Clonazepam [Klonopin] 0.5 MG) PO SCH (21:00)
[2018-08-24] MEDS ORDERED: [UNRECOGNIZED DRUG - OTHER] PO SCH (21:00)
[2018-08-24] MEDS ORDERED: FATTY ACIDS PO SCH (21:00)
[2018-08-24] MEDS ORDERED: OMEGA-3 FISH OIL ONE (21:11)
[2018-08-24] MEDS ORDERED: LOVENOX ONE (21:11)
[2018-08-24] MEDS ORDERED: ASPIRIN EC ONE (21:11)
[2018-08-24] MEDS ORDERED: NEURONTIN ONE (21:11)
[2018-08-24] MEDS ORDERED: IMDUR ONE (21:12)
[2018-08-24] MEDS ORDERED: TOPROL XL ONE (21:12)
[2018-08-24] MEDS ORDERED: PERCOCET 5-325 ONE (21:12)
[2018-08-24] MEDS ORDERED: KLONOPIN ONE (21:12)
[2018-08-24] MEDS: LOVENOX SUBCUT SCH (21:23)
[2018-08-24] MEDS: PERCOCET 5-325 PO SCH (21:24)
[2018-08-24] MEDS: ASPIRIN EC PO SCH (21:24)
[2018-08-24] MEDS: IMDUR PO SCH (21:25)
[2018-08-24] MEDS: LOPRESSOR PO SCH (21:26)
[2018-08-24 22:06] VITALS: BMI 31.1
[2018-08-25] MEDS ORDERED: TYLENOL ONE (02:27)
[2018-08-25] MEDS: TYLENOL PO PRN (02:31)
[2018-08-25] MEDS ORDERED: PRILOSEC ONE (05:37)
[2018-08-25] MEDS: PRILOSEC PO SCH (05:40)
[2018-08-25] MEDS ORDERED: DECADRON 4 MG/ML SDV IM STA (08:06)
--- NOTE | 2018-08-25 08:53 | PCM.PROG ---
Attending Provider: ATTENDING PROVIDER: Dr. JAGJIT VELASCO This patient is seen with Patricia Serrano, Nurse Practitioner. DATE OF SERVICE: 08/25/18 SUBJECTIVE: This 78 year old WHITE/ F was hospitalized 08/24/18. The patient is resting comfortably. She had an episode of atypical chest pain last night described as sharp. Cardiac markers are negative. She has had worsening back pain. REVIEW OF SYSTEMS: CONSTITUTIONAL: No night sweats. No fatigue, malaise, lethargy. No fever or chills. HEENT: Eyes: No visual changes. No eye pain. No eye discharge. ENT: No runny nose. No epistaxis. No sinus pain. No odynophagia. No congestion. RESPIRATORY: No cough, no congestion. No hemoptysis. No shortness of breath. CARDIOVASCULAR: No angina symptoms. No CHF symptoms. Chest pain. No palpitations. No orthopnea.. GASTROINTESTINAL: No abdominal pain. No nausea or vomiting. No diarrhea or constipation. No hematemesis. No hematochezia. GENITOURINARY: No urgency. No frequency. No dysuria. No hematuria. No obstructive symptoms. No discharge. No pain. No significant abnormal bleeding. MUSCULOSKELETAL: No musculoskeletal pain; no joint swelling. Back pain. NEUROLOGICAL: Awake, alert, oriented to time, place and person. No headache. No neck pain. No syncope. No seizures. No dizziness. PSYCHIATRIC: Anxious. No depression. No suicidal thoughts. No homicidal thoughts. SKIN: No rash. No lesions. No wounds. ENDOCRINE: No unexplained weight loss. No weight gain. HEMATOLOGIC/LYMPHATIC: No anemia. No purpura. No petechiae. No prolonged or excessive bleeding. No palpable lymph nodes. PHYSICAL EXAMINATION: GENERAL: The patient is awake, alert and oriented, lying in bed in no distress. VITAL SIGNS: Temperature 97.7 F, Pulse 70, Respiratory Rate 16, BP 104/66, Pulse Ox 97% HEENT: Head normocephalic, atraumatic. Eyes: Extraocular muscles are intact. Pupils are equal, round and reactive to light and accommodation. Ears: No lesions. Nose appeared normal. Throat: No exudate or erythema. NECK: Supple. No JVD, no carotid bruit. No lymphadenopathy or thyromegaly. LUNGS: Diminished breath sounds. Clear to auscultation. Percussion note normal. Chest symmetrical. HEART: S1, S2, no S3. No murmurs. No cyanosis or clubbing. No ascites. Pulses: Dorsalis pedis and posterior tibial pulses +1 to +2 both sides. ABDOMEN: Soft. Non-tender. Bowel sounds active. No CVA tenderness. No mass felt. EXTREMITIES: No edema. Full range of motion of all extremities, equal. NEUROLOGIC: No focal deficit. Cranial nerves II through XII are grossly intact. No headache, no double vision or headache. SKIN: Not dry. Intact. Turgor-normal. LYMPHATIC: No palpable lymph nodes/no lymphedema. MUSCULOSKELETAL: Normal joints with no swelling. Muscle tone is normal. LAB REVIEW: 08/25/18 04:40 08/25/18 04:40 08/25/18 05:00: Urine Color Yellow, Urine Clarity Slightly, Urine pH 5.0, Ur Specific Ro[place] 1.015, Urine Protein Negative, Urine Glucose (UA) Negative, Urine Ketones Negative, Urine Blood Negative, Urine Nitrite Negative, Urine Bilirubin Negative, Urine Urobilinogen 0.2, Ur Leukocyte Esterase 1+, Urine Microscopic RBC 2-5, Urine Microscopic WBC 10-20, Ur Squamous Epith Cells 10-20 , Urine Bacteria Trace, Hyaline Casts 2-5 08/25/18 04:40: Sodium 137.6, Potassium 5.01, Chloride 101.6, Carbon Dioxide 29.7, Anion Gap 11.31, BUN 17.5 H, Creatinine 0.78, Estimated GFR (MDRD) 71.00, BUN/Creatinine Ratio 22.43, Glucose 145.0 H, Calcium 8.66, Total Bilirubin 0.27 , AST 23.7, ALT 14.4, Alkaline Phosphatase 63.7, Total Protein 5.87 L, Albumin 3.23 L, Globulin 2.64, Albumin/Globulin Ratio 1.22 08/25/18 04:40: WBC 6.07, RBC 3.94 L, Hgb 11.9 L, Hct 37.0, MCV 93.9, MCH 30.2, MCHC 32.2, RDW Coeff of Pricila 13.0, Plt Count 166, Immature Gran % (Auto) 0.2, Neut % (Auto) 86.8, Lymph % (Auto) 11.0, [place] % (Auto) 1.2, Eos % (Auto) 0.5, Baso % (Auto) 0.3, Immature Gran # (Auto) 0.0, Neut # (Auto) 5.3, Lymph # (Auto ) 0.7, [place] # (Auto) 0.1 L, Eos # (Auto) 0.0, Baso # (Auto) 0.0 08/25/18 01:38: Total Creatine Kinase 24.2 L, Troponin I < 0.012 08/24/18 18:15: NT-Pro-B Natriuret Pep 3400.000 H 08/24/18 18:15: PT 9.9, INR 0.99, APTT 24.4 08/24/18 18:15: Sodium 140.2, Potassium 4.45, Chloride 103.0, Carbon Dioxide 32.0 H, Anion Gap 9.65, BUN 16.1, Creatinine 0.76, Estimated GFR (MDRD) 73.00, BUN/Creatinine Ratio 21.18, Glucose 99.8, Calcium 8.72, Total Bilirubin 0.28, AST 26.4, ALT 13.1, Alkaline Phosphatase 61.3, Troponin I < 0.012, Total Protein 5.91 L, Albumin 3.39 L, Globulin 2.52, Albumin/Globulin Ratio 1.34, Amylase 35.1, Lipase 66.4 08/24/18 18:15: WBC 4.72, RBC 3.78 L, Hgb 11.6 L, Hct 35.6 L, MCV 94.2, MCH 30.7 , MCHC 32.6, RDW Coeff of Pricila 13.1, Plt Count 151, Immature Gran % (Auto) 0.2, Neut % (Auto) 68.3, Lymph % (Auto) 19.5, [place] % (Auto) 7.0, Eos % (Auto) 4.2, Baso % (Auto) 0.8, Immature Gran # (Auto) 0.0, Neut # (Auto) 3.2, Lymph # (Auto ) 0.9, [place] # (Auto) 0.3 L, Eos # (Auto) 0.2, Baso # (Auto) 0.0 ASSESSMENT: Please see below. 1. Chest pain likely muscle spasms 2. Coronary artery disease 3. Hypertension 4. Degenerative joint disease. PLAN: 1. X-ray of T-spine and L-spine 2. 1cc Decadron this morning Plan and coordination of the patient's care discussed in the presence of [employer] Needs Salesperson and nurse. SCRIBED BY: ANDREA AC Trace Clerk scribed while in presence of service performed by Dr. Velasco/Patricia Serrano APRN on 08/25/18 ([id number])
[2018-08-25] MEDS ORDERED: NON-FORMULARY MEDICATION (Atorvastatin Calcium [Lipitor] 80 MG) PO SCH (09:00)
[2018-08-25] MEDS ORDERED: NON-FORMULARY MEDICATION (Gabapentin [Gabapentin] 1,200 MG) PO SCH (09:00)
[2018-08-25] MEDS: PERCOCET 5-325 PO SCH (09:22)
--- NOTE | 2018-08-25 09:57 | DI ---
EXAM: Three views of the thoracic spine. History: Thoracic back pain. Findings: Calcified granulomas seen within the thorax. Heart is enlarged. Osteopenia. Atheroscler otic vascular calcifications. No acute fracture or subluxation of the thoracic spine. Mild to moder ate multilevel disc space narrowing with a few small osteophytes. Impression: 1. No acute osseous abnormality of the thoracic spine. 2. 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 3. Cardiomegaly. 4. Old granulomatous disease
--- NOTE | 2018-08-25 09:58 | DI ---
EXAM: Lumbar spine three views HISTORY: Back pain FINDINGS / IMPRESSION: As described on multiple prior studies, there are diffuse, moderately sever e degenerative change of the spine with moderate scoliosis and generalized demineralization is presen t. There is no acute fracture or significant loss of vertebral body height.
[2018-08-25] MEDS: LIPITOR PO SCH (10:13)
[2018-08-25] MEDS: LEXAPRO PO SCH (10:13)
[2018-08-25] MEDS: LOPRESSOR PO SCH ×2 (10:14→21:10)
[2018-08-25] MEDS: ZESTRIL PO SCH (10:15)
[2018-08-25] MEDS: ASPIRIN EC PO SCH (10:15)
[2018-08-25] MEDS: NEURONTIN PO SCH ×2 (10:15→21:10)
[2018-08-25] MEDS: PLAVIX PO SCH (10:15)
[2018-08-25] MEDS: OMEGA-3 FISH OIL PO SCH ×2 (10:15→21:11)
[2018-08-25] MEDS: IMDUR PO SCH ×2 (10:16→21:10)
[2018-08-25] MEDS: LOVENOX SUBCUT SCH (10:17)
[2018-08-25] MEDS: PERCOCET 5-325 PO PRN (10:58)
--- NOTE | 2018-08-25 14:33 | ECHO2D ---
Date of Exam: 08/25/18 Ordering Physician: DR. JAGJIT VELASCO Room #: 112 Reason for Echo: CHEST PAIN, CHF, ANGINA M-Mode Normal Adult Results LV Dimensions Normal Adult Results AoV Opening excursions >1.6 1.3 LVEDD-base- 3.5-5.8 5.7 Ao root dimensions 2.0-3.7 3.2 LVESD-base- 3.1-4.6 L. Atrium dimensions 1.9-3.8 5.3 Post. Wall thickness 0.8-1.1 1.2 IV septum (thickness) 0.7-1.2 1.2 Post. Wall excursion 0.72-1.3 NORMAL Septal motion 0.5 Systolic motion R. Ventricular cavity 1.5-2.0 NORMAL LVEF 60% 42% Paradoxical septal wall motion NORMAL 2-D :. 2-D M Mode Echocardiogram was performed using apical four chamber and left parasternal long and short axis views. Mitral and tricuspid valves appear to be normal. Contractility of the left ventricle seems to be normal. Aortic root appears to be normal. There is no pericardial effusion. There is no thrombus noted in the left ventricular or left aortic cavity. No mitral valve prolapse noted. ENLARGED LEFT ATRIAL CAVITY, BORDERLINE LEFT VENTRICLE CAVITY and CALCIFIC AORTIC VALVES M-MODE: MV: NORMAL AV: CALCIFIC AORTIC VALVES--MAYBE MILD AORTIC STENOSIS TV: NORMAL PV: NORMAL CHAMBER SIZE: ENLARGED LEFT ATRIAL CAVITY WALL MOTION: HYPOKINETIC SEPTAL WALL PERICARDIUM: NORMAL INTERPRETATION: 1. LEFT VENTRICULAR HYPERTROPHY BORDERLINE 2. ENLARGED LEFT ATRIAL CAVITY--BORDERLINE LEFT VENTRICLE CAVITY 3. CALCIFIC AORTIC VALVE--MILD AORTIC STENOSIS 4. HYPOKINETIC SEPTUM LEFT VENTRICULAR EJECTION FRACTION 42% MTDD
[2018-08-25] MEDS: KLONOPIN PO SCH (21:10)
[2018-08-26] MEDS: PRILOSEC PO SCH (05:48)
[2018-08-26] MEDS: PERCOCET 5-325 PO PRN ×2 (07:07→18:31)
[2018-08-26] MEDS: ZESTRIL PO SCH (08:29)
[2018-08-26] MEDS: LEXAPRO PO SCH (08:29)
[2018-08-26] MEDS: LIPITOR PO SCH (08:32)
[2018-08-26] MEDS: IMDUR PO SCH ×2 (08:32→21:02)
[2018-08-26] MEDS: PLAVIX PO SCH (08:32)
[2018-08-26] MEDS: OMEGA-3 FISH OIL PO SCH ×2 (08:32→21:02)
[2018-08-26] MEDS: ASPIRIN EC PO SCH (08:32)
[2018-08-26] MEDS: LOPRESSOR PO SCH ×2 (08:33→21:02)
[2018-08-26] MEDS: NEURONTIN PO SCH ×2 (08:33→21:02)
[2018-08-26] MEDS: LOVENOX SUBCUT SCH (08:33)
[2018-08-26] MEDS: TYLENOL PO PRN (12:34)
[2018-08-26] MEDS: KLONOPIN PO SCH (21:02)
[2018-08-27] MEDS: PRILOSEC PO SCH (05:50)
[2018-08-27] MEDS: OMEGA-3 FISH OIL PO SCH ×2 (08:10→21:28)
[2018-08-27] MEDS: NEURONTIN PO SCH ×2 (08:10→21:28)
[2018-08-27] MEDS: LOPRESSOR PO SCH ×2 (08:11→21:28)
[2018-08-27] MEDS: ZESTRIL PO SCH (08:11)
[2018-08-27] MEDS: LIPITOR PO SCH (08:12)
[2018-08-27] MEDS: LEXAPRO PO SCH (08:12)
[2018-08-27] MEDS: IMDUR PO SCH ×2 (08:12→21:27)
[2018-08-27] MEDS: ASPIRIN EC PO SCH (08:13)
[2018-08-27] MEDS ORDERED: ELIQUIS PO SCH (09:00)
[2018-08-27] MEDS: PERCOCET 5-325 PO PRN (09:24)
[2018-08-27] MEDS: TYLENOL PO PRN (16:06)
[2018-08-27] MEDS: TORADOL IVP PRN (16:22)
[2018-08-27] MEDS: KLONOPIN PO SCH (21:28)
[2018-08-27] MEDS: ELIQUIS PO SCH (21:29)
[2018-08-28] MEDS: PRILOSEC PO SCH (06:13)
[2018-08-28] MEDS: ASPIRIN EC PO SCH (07:48)
[2018-08-28] MEDS: OMEGA-3 FISH OIL PO SCH ×2 (08:19→20:11)
[2018-08-28] MEDS: LIPITOR PO SCH (08:19)
[2018-08-28] MEDS: NEURONTIN PO SCH ×2 (08:19→20:11)
[2018-08-28] MEDS: ZESTRIL PO SCH (08:20)
[2018-08-28] MEDS: LEXAPRO PO SCH (08:20)
[2018-08-28] MEDS: IMDUR PO SCH ×2 (08:20→20:12)
[2018-08-28] MEDS: ELIQUIS PO SCH ×2 (08:21→20:12)
[2018-08-28] MEDS: LOPRESSOR PO SCH ×2 (08:21→20:11)
[2018-08-28] MEDS: TORADOL IVP PRN (08:29)
--- NOTE | 2018-08-28 08:41 | PCM.PROG ---
Attending Provider: ATTENDING PROVIDER: Dr. JAGJIT VELASCO DATE OF SERVICE: 08/28/18 SUBJECTIVE: This 78 year old WHITE/ F was hospitalized 08/24/18 with shortness of breath and question angina type of symptoms with muscular back pain and possible CHF. Shortness of breath has improved and she is feeling better. REVIEW OF SYSTEMS: CONSTITUTIONAL: No night sweats. No fatigue, malaise, lethargy. No fever or chills. HEENT: Eyes: No visual changes. No eye pain. No eye discharge. ENT: No runny nose. No epistaxis. No sinus pain. No odynophagia. No congestion. RESPIRATORY: No cough, no congestion. No hemoptysis. No shortness of breath. CARDIOVASCULAR: No angina symptoms. No CHF symptoms. No atypical chest pain for CAD. No palpitations. No orthopnea.. GASTROINTESTINAL: No abdominal pain. No nausea or vomiting. No diarrhea or constipation. No hematemesis. No hematochezia. GENITOURINARY: No urgency. No frequency. No dysuria. No hematuria. No obstructive symptoms. No discharge. No pain. No significant abnormal bleeding. MUSCULOSKELETAL: No musculoskeletal pain; no joint swelling. NEUROLOGICAL: Awake, alert, oriented to time, place and person. No headache. No neck pain. No syncope. No seizures. No dizziness. PSYCHIATRIC: Not anxious. No depression. No suicidal thoughts. No homicidal thoughts. SKIN: No rash. No lesions. No wounds. ENDOCRINE: No unexplained weight loss. No weight gain. HEMATOLOGIC/LYMPHATIC: No anemia. No purpura. No petechiae. No prolonged or excessive bleeding. No palpable lymph nodes. PHYSICAL EXAMINATION: GENERAL: The patient is awake, alert and oriented, lying in bed in no distress. VITAL SIGNS: Temperature 98.5 F, Pulse 57, Respiratory Rate 16, BP 97/58, Pulse Ox 96% HEENT: Head normocephalic, atraumatic. Eyes: Extraocular muscles are intact. Pupils are equal, round and reactive to light and accommodation. Ears: No lesions. Nose appeared normal. Throat: No exudate or erythema. NECK: Supple. No JVD, no carotid bruit. No lymphadenopathy or thyromegaly. LUNGS: Clear to auscultation. Percussion note normal. Chest symmetrical. HEART: S1, S2, no S3. No murmurs. No cyanosis or clubbing. No ascites. Pulses: Dorsalis pedis and posterior tibial pulses +1 to +2 both sides. ABDOMEN: Soft. Non-tender. Bowel sounds active. No CVA tenderness. No mass felt. EXTREMITIES: No edema. Full range of motion of all extremities, equal. NEUROLOGIC: No focal deficit. Cranial nerves II through XII are grossly intact. No headache, no double vision or headache. SKIN: Warm and dry. Intact. Turgor-normal. LYMPHATIC: No palpable lymph nodes/no lymphedema. MUSCULOSKELETAL: Normal joints with no swelling. Muscle tone is normal. LAB REVIEW: 08/28/18 04:50 08/28/18 04:50 08/28/18 04:50: Sodium 134.7, Potassium 4.68, Chloride 98.3, Carbon Dioxide 32.7 H, Anion Gap 8.38, BUN 19.1 H, Creatinine 0.87, Estimated GFR (MDRD) 63.00 , BUN/Creatinine Ratio 21.95, Glucose 85.8, Calcium 8.32 L, Total Bilirubin 0.25 , AST 32.1, ALT 18.3, Alkaline Phosphatase 61.7, Total Protein 5.48 L, Albumin 3.10 L, Globulin 2.38, Albumin/Globulin Ratio 1.30 08/28/18 04:50: WBC 6.14, RBC 3.77 L, Hgb 11.4 L, Hct 35.8 L, MCV 95.0, MCH 30.2 , MCHC 31.8, RDW Coeff of Pricila 13.2, Plt Count 155, Immature Gran % (Auto) 0.3, Neut % (Auto) 70.5, Lymph % (Auto) 16.9, [place] % (Auto) 7.7, Eos % (Auto) 3.9, Baso % (Auto) 0.7, Immature Gran # (Auto) 0.0, Neut # (Auto) 4.3, Lymph # (Auto ) 1.0, [place] # (Auto) 0.5, Eos # (Auto) 0.2, Baso # (Auto) 0.0 ASSESSMENT: Please see below. 1. Angina and CHF all under control 2. Coronary artery disease 3. Atrial fibrillation on Eliquis PLAN: 1. Discontinue Plavix 2. Education carried out about Eliquis done about intra-cranial bleed, GI bleed 3. No NSAIDS with Eliquis 4. Stop Aspirin Plan and coordination of the patient's care discussed in the presence of [place] Worker and nurse. CONDITION: Stable SCRIBED BY: Mario GARLAND scribed while in presence of service performed by Dr. JAGJIT VELASCO on 08/28/18 ([id number])
[2018-08-28] MEDS: PERCOCET 5-325 PO PRN (17:42)
[2018-08-28] MEDS: KLONOPIN PO SCH (20:11)
[2018-08-29] MEDS: PRILOSEC PO SCH (05:56)
[2018-08-29] MEDS: OMEGA-3 FISH OIL PO SCH (08:38)
[2018-08-29] MEDS: IMDUR PO SCH (08:39)
[2018-08-29] MEDS: LOPRESSOR PO SCH (08:39)
[2018-08-29] MEDS: PERCOCET 5-325 PO PRN (08:39)
--- NOTE | 2018-08-29 08:39 | PCM.PROG ---
Attending Provider: ATTENDING PROVIDER: Dr. JAGJIT VELASCO This patient is seen with Patricia Serrano, Nurse Practitioner. DATE OF SERVICE: 08/29/18 SUBJECTIVE: This 78 year old WHITE/ F was hospitalized 08/24/18. The patient is resting comfortably. HGB is stable after starting the Eliquis. She is feeling less short of breath. No signs or symptoms of CHF. She is feeling better and has been up and about. REVIEW OF SYSTEMS: CONSTITUTIONAL: No night sweats. No fatigue, malaise, lethargy. No fever or chills. HEENT: Eyes: No visual changes. No eye pain. No eye discharge. ENT: No runny nose. No epistaxis. No sinus pain. No odynophagia. No congestion. RESPIRATORY: No cough, no congestion. No hemoptysis. Shortness of breath. CARDIOVASCULAR: No angina symptoms. No CHF symptoms. No atypical chest pain for CAD. No palpitations. No orthopnea.. GASTROINTESTINAL: No abdominal pain. No nausea or vomiting. No diarrhea or constipation. No hematemesis. No hematochezia. GENITOURINARY: No urgency. No frequency. No dysuria. No hematuria. No obstructive symptoms. No discharge. No pain. No significant abnormal bleeding. MUSCULOSKELETAL: No musculoskeletal pain; no joint swelling. NEUROLOGICAL: Awake, alert, oriented to time, place and person. No headache. No neck pain. No syncope. No seizures. No dizziness. PSYCHIATRIC: Not anxious. No depression. No suicidal thoughts. No homicidal thoughts. SKIN: No rash. No lesions. No wounds. ENDOCRINE: No unexplained weight loss. No weight gain. HEMATOLOGIC/LYMPHATIC: No anemia. No purpura. No petechiae. No prolonged or excessive bleeding. No palpable lymph nodes. PHYSICAL EXAMINATION: GENERAL: The patient is awake, alert and oriented, sitting in bed in no distress. VITAL SIGNS: Temperature 97.8 F, Pulse 60, Respiratory Rate 16, BP 98/59, Pulse Ox 99% HEENT: Head normocephalic, atraumatic. Eyes: Extraocular muscles are intact. Pupils are equal, round and reactive to light and accommodation. Ears: No lesions. Nose appeared normal. Throat: No exudate or erythema. NECK: Supple. No JVD, no carotid bruit. No lymphadenopathy or thyromegaly. LUNGS: Diminished breath sounds. Clear to auscultation. Percussion note normal. Chest symmetrical. HEART: S1, S2, no S3. Irregular heart rate. No murmurs. No cyanosis or clubbing. No ascites. Pulses: Dorsalis pedis and posterior tibial pulses +1 to +2 both sides. ABDOMEN: Soft. Non-tender. Bowel sounds active. No CVA tenderness. No mass felt. EXTREMITIES: No edema. Full range of motion of all extremities, equal. NEUROLOGIC: No focal deficit. Cranial nerves II through XII are grossly intact. No headache, no double vision or headache. SKIN: Not dry. Intact. Turgor-normal. LYMPHATIC: No palpable lymph nodes/no lymphedema. MUSCULOSKELETAL: Normal joints with no swelling. Muscle tone is normal. LAB REVIEW: 08/29/18 05:00 08/29/18 05:00 08/29/18 05:00: Sodium 134.8, Potassium 4.88, Chloride 98.5, Carbon Dioxide 32.2 H, Anion Gap 8.98, BUN 17.2 H, Creatinine 0.77, Estimated GFR (MDRD) 72.00 , BUN/Creatinine Ratio 22.33, Glucose 91.4, Calcium 8.42, Total Bilirubin 0.34, AST 22.7, ALT 16.5, Alkaline Phosphatase 57.1, Total Protein 5.26 L, Albumin 2.94 L, Globulin 2.32, Albumin/Globulin Ratio 1.26 08/29/18 05:00: WBC 5.23, RBC 3.57 L, Hgb 10.6 L, Hct 33.5 L, MCV 93.8, MCH 29.7 , MCHC 31.6 L, RDW Coeff of Pricila 13.0, Plt Count 132 L, Immature Gran % (Auto) 0.2, Neut % (Auto) 67.5, Lymph % (Auto) 19.1, [place] % (Auto) 7.8, Eos % (Auto) 4.6, Baso % (Auto) 0.8, Immature Gran # (Auto) 0.0, Neut # (Auto) 3.5, Lymph # ( Auto) 1.0, [place] # (Auto) 0.4, Eos # (Auto) 0.2, Baso # (Auto) 0.0 08/28/18 04:50: NT-Pro-B Natriuret Pep 3690.000 H ASSESSMENT: Please see below. 1. New onset atrial fibrillation. 2. CHF, resolved 3. Coronary artery disease. PLAN: 1. Risk of bleeding with Eliquis discussed. 2. Three step oxygen test 3. Discharge home Plan and coordination of the patient's care discussed in the presence of Mobility Architect Manager and nurse. SCRIBED BY: Mario GARLAND scribed while in presence of service performed by Dr. Velasco/Patricia Serrano APRN on 08/29/18 ([id number])
[2018-08-29] MEDS: NEURONTIN PO SCH (08:40)
[2018-08-29] MEDS: ZESTRIL PO SCH (08:40)
[2018-08-29] MEDS: LIPITOR PO SCH (08:41)
[2018-08-29] MEDS: LEXAPRO PO SCH (08:42)
[2018-08-29] MEDS: ELIQUIS PO SCH (08:43)
--- NOTE | 2018-08-29 09:23 | PN ---
DATE OF SERVICE: 08/25/18 SUBJECTIVE: The patient was seen and examined with Nurse Practitioner. The patient's angina is under control. No evidence of CHF. IV Lasix was given. CHF discussed the patient is in atrial fibrillation. Eliquis discussed. The patient is going to consider that. The family was also explained about atrial fibrillation and it's complications. We will continue to monitor. PHYSICAL EXAMINATION: HEENT: Head normocephalic, atraumatic. Eyes: Extraocular muscles are intact. Pupils are equal, round and reactive to light and accommodation. Ears: No lesions. Nose appeared normal. Throat: No exudate or erythema. NECK: Supple. No JVP, no carotid bruit. No lymphadenopathy or thyromegaly. LUNGS: Clear to auscultation. Percussion note normal. Chest symmetrical. HEART: S1, S2, no S3. No murmurs. No cyanosis or clubbing. No ascites. Pulses: Dorsalis pedis and posterior tibial pulses +1 to +2 bilaterally. ABDOMEN: Soft. Nontender. Bowel sounds active. No CVA tenderness. No mass felt. EXTREMITIES: No edema. Full range of motion of all extremities, equal. NEUROLOGIC: No focal deficit. Cranial nerves II through XII are grossly intact. No headache, no double vision or headache. SKIN: Not dry. Intact. Turgor - normal. LYMPHATIC: No palpable lymph nodes/no lymphedema. MUSCULOSKELETAL: Normal joints with no swelling. Muscle tone is normal. LABS: The patient had an echocardiogram done which showed hypokinetic septal wall motion with ejection fraction 45-40%. LV cavity is borderline enlarged. LA cavity is markedly enlarged CONDITION: Stable. TIME SPENT: More than 30 minutes. Plan and coordination of the patient's care discussed in the presence of nurse. ANDREW
--- NOTE | 2018-08-29 09:37 | PN ---
DATE OF SERVICE: 08/26/18 SUBJECTIVE: 78 year old female hospitalized with angina noncardiac chest pain which has subsided. Possibility of CHF. The patient has no symptoms of CHF or coronary insufficiency. She is feeling better. The patient is found to be in atrial fibrillation for past couple of days. The patient was explained and all the family members about atrial fibrillation complications. The patient has been on Lovenox and Plavix which we are going discontinue and start her on Eliquis. Eliquis discussed in detail with intra-cranial bleed and GI bleed discussed with the Eliquis. Also advised not to take any Nonsteroidal antiinflammatory with it. The patient's atrial fibrillation has normal ventricular response. Her CHADS 2 VASC score is more than 4. REVIEW OF SYSTEMS: CONSTITUTIONAL: No night sweats. No fatigue, malaise, lethargy. No fever or chills. HEENT: Eyes: No visual changes. No eye pain. No eye discharge. ENT: No runny nose. No epistaxis. No sinus pain. No sore throat. No odynophagia. No congestion. RESPIRATORY: No cough, no congestion. No hemoptysis. No shortness of breath. CARDIOVASCULAR: No angina symptoms. No CHF symptoms. No atypical chest pain for CAD. No palpitations. No PND. No orthopnea. GASTROINTESTINAL: No abdominal pain. No nausea or vomiting. No diarrhea or constipation. No hematemesis. No hematochezia. GENITOURINARY: No urgency. No frequency. No dysuria. No hematuria. No obstructive symptoms. No discharge. No pain. No significant abnormal bleeding. MUSCULOSKELETAL: No musculoskeletal pain; no joint swelling. NEUROLOGICAL: No headache. No neck pain. No syncope. No seizures. No dizziness. PSYCHIATRIC: Not anxious. No depression. No suicidal thoughts. No homicidal thoughts. SKIN: No rash. No lesions. No wounds. ENDOCRINE: No unexplained weight loss. No weight gain. HEMATOLOGIC/LYMPHATIC: No anemia. No purpura. No petechiae. No prolonged or excessive bleeding. No palpable lymph nodes. PHYSICAL EXAMINATION: VITAL SIGNS: Temperature 97.8, pulse 61, respiratory rate 19, blood pressure 125/74 and pulse ox 91%. HEENT: Head normocephalic, atraumatic. Eyes: Extraocular muscles are intact. Pupils are equal, round and reactive to light and accommodation. Ears: No lesions. Nose appeared normal. Throat: No exudate or erythema. NECK: Supple. No JVD, no carotid bruit. No lymphadenopathy or thyromegaly. LUNGS: Decreased breath sounds but clear to auscultation. Percussion note normal. Chest symmetrical. HEART: S1, S2, no S3. No murmurs. No cyanosis or clubbing. No ascites. Pulses: Dorsalis pedis and posterior tibial pulses +1 to +2 bilaterally. ABDOMEN: Soft. Nontender. Bowel sounds active. No CVA tenderness. No mass felt. EXTREMITIES: No edema. Full range of motion of all extremities, equal. NEUROLOGIC: No focal deficit. Cranial nerves II through XII are grossly intact. No headache, no double vision or headache. SKIN: Not dry. Intact. Turgor - normal. LYMPHATIC: No palpable lymph nodes/no lymphedema. MUSCULOSKELETAL: Normal joints with no swelling. Muscle tone is normal. LABS: Hgb 10.9, hct 34, WBC 5,500 normal differential, creatinine 0.6, BUN 17. ASSESSMENT: 1. Atrial fibrillation with normal ventricular response PLAN: 1. Discontinue Lovenox and Plavix tomorrow 2. Will start Eliquis 5mg twice a day 3. Continue the rest of the medications as before CONDITION: Stable. TIME SPENT: More than 30 minutes. Plan and coordination of the patient's care discussed in the presence of nurse. ANDREW
[2018-08-29 10:08] VITALS: BP 97/65; TEMP 98.3
--- NOTE | 2018-08-29 11:19 | CM.DICTOOL ---
ADMISSION: 08/24/18 19:39 DISCHARGE: AUGUST 29, 2018 DATE OF SERVICE: 08/29/18 FINAL DIAGNOSIS CHF ANGINA ATRIAL FIBRILLATION, NEW ONSET ANEMIA HYPERTENSION CAD COPD DYSLIPIDEMIA GERD OSTEOARTHRITIS DEPRESSION CHOLECYSTECTOMY APPENDECTOMY HYSTERECTOMY CAROTID ENDARTERECTOMY ANGIOPLASTY CATARACT EXTRACTION RIGHT SHOULDER SURGERY RIGHT KNEE REPLACEMENT, 2013 ECHOCARDIOGRAM AUGUST 25, 2018: BORDERLINE LVH ENLARGED LEFT ATRIAL CAVITY HYPOKINETIC SEPTUM LVEF 42% LAST VITALS Temp Pulse Resp BP Pulse Ox 98.3 F 59 L 18 97/65 94 L 08/29/18 10:00 08/29/18 10:00 08/29/18 10:00 08/29/18 10:00 08/29/18 10:00 TAKE THESE MEDICATIONS AT HOME Acetaminophen (Tylenol) 500 mg PO Q4HR PRN PRN Reason: Pain Last Admin: 08/27/18 16:06 Dose: 500 mg Albuterol Sulfate (Proair Hfa) 1 puff IH Q4HR PRN PRN Reason: Bronchospasm Apixaban (Eliquis) 5 mg PO BID [facility] Last Admin: 08/29/18 08:43 Dose: 5 mg Atorvastatin Calcium (Lipitor) 80 mg PO DAILY [facility] Last Admin: 08/29/18 08:41 Dose: 80 mg Clonazepam (Klonopin) 0.5 mg PO BEDTIME [facility] Last Admin: 08/28/18 20:11 Dose: 0.5 mg Escitalopram Oxalate (Lexapro) 15 mg PO DAILY [facility] Last Admin: 08/29/18 08:42 Dose: 15 mg Fish Oil ([place]-3 Fish Oil) 2,000 mg PO BID [facility] Last Admin: 08/29/18 08:38 Dose: 2,000 mg Gabapentin (Neurontin) 1,200 mg PO BID [facility] Last Admin: 08/29/18 08:40 Dose: 1,200 mg Isosorbide Mononitrate (Imdur) 30 mg PO BID [facility] Last Admin: 08/29/18 08:39 Dose: 30 mg Lisinopril (Zestril) 5 mg PO DAILY [facility] Last Admin: 08/29/18 08:40 Dose: 5 mg Metoprolol Tartrate (Lopressor) 25 mg PO BID [facility] Last Admin: 08/29/18 08:39 Dose: 25 mg Nitroglycerin (Nitrostat) 0.4 mg SL Q5MIN PRN PRN Reason: CHest pain Omeprazole (Prilosec) 20 mg PO QDAC [facility] Last Admin: 08/29/18 05:56 Dose: 20 mg Oxycodone/Acetaminophen (Percocet 5-325) 1 tab PO Q12H PRN PRN Reason: Pain Calcium Carbonate/Vitamin D3 1 tablet PO BID [facility] Last Admin: ALLERGIES Iodinated Contrast- Oral and IV Dye [Iodinated Contrast Media - IV Dye] Adverse Reaction (Verified 03/09/18 12:24) pregabalin [From Lyrica] Adverse Reaction (Verified 03/09/18 12:24) DISCONTINUED MEDICATIONS Aspirin EC Plavix NEW PRESCRIPTIONS: ELIQUIS 5 MG PO BID SMOKING: NOT APPLICABLE DISEASE SPECIFIC EDUCATION: ATRIAL FIBRILLATION ELIQUIS AND RISK OF BLEEDING MEDICATIONS TO AVOID (ASA, IBUPROFEN, ADVIL, ALEVE, MOTRIN) LAB REVIEW: 08/29/18 05:00 08/29/18 05:00 08/29/18 05:00: Sodium 134.8, Potassium 4.88, Chloride 98.5, Carbon Dioxide 32.2 H, Anion Gap 8.98, BUN 17.2 H, Creatinine 0.77, Estimated GFR (MDRD) 72.00 , BUN/Creatinine Ratio 22.33, Glucose 91.4, Calcium 8.42, Total Bilirubin 0.34, AST 22.7, ALT 16.5, Alkaline Phosphatase 57.1, Total Protein 5.26 L, Albumin 2.94 L, Globulin 2.32, Albumin/Globulin Ratio 1.26 08/29/18 05:00: WBC 5.23, RBC 3.57 L, Hgb 10.6 L, Hct 33.5 L, MCV 93.8, MCH 29.7 , MCHC 31.6 L, RDW Coeff of Pricila 13.0, Plt Count 132 L, Immature Gran % (Auto) 0.2, Neut % (Auto) 67.5, Lymph % (Auto) 19.1, [place] % (Auto) 7.8, Eos % (Auto) 4.6, Baso % (Auto) 0.8, Immature Gran # (Auto) 0.0, Neut # (Auto) 3.5, Lymph # ( Auto) 1.0, [place] # (Auto) 0.4, Eos # (Auto) 0.2, Baso # (Auto) 0.0 PLAN: DISCHARGE HOME DIET: RESUME TOLERATED ACTIVITY: RESUME TOLERATED, USE WALKER FOR ADDED SAFETY AN APPOINTMENT IS SCHEDULED WITH DR. VELASCO/OTTO BEVERLY APRN ON August AT 10:30 AM CODE STATUS: FULL CODE MRS. GUADALUPE IS ALERT AND ORIENTED X 3. SHE AND THE DAUGHTERS ARE AWARE AND AGREEABLE TO PLANS FOR DISCHARGE HOME TODAY. SHE IS INDEPENDENT WITH ACTIVITIES OF DAILY LIVING. SHE IS AMBULATORY WITH USE OF ROLLING WALKER AND STAND BY ASSISTANCE WHILE HOSPITALIZED. MRS. GUADALUPE FEEDS HERSELF AND HAS A GOOD APPETITE CONSUMING 25-100% OF HER MEALS. SHE IS CONTINENT OF BLADDER AND BOWEL. REPORTED SHORTNESS OF BREATH WITH ACTIVITY, BUT OXYGEN SATURATION AT REST WAS 94% AND 92% WITH AMBULATION. SHE DID NOT QUALIFY FOR HOME OXYGEN. SHE IS AMBULATORY WITH USE OF ROLLING WALKER. MRS. GUADALUPE LIVES AT HOME WITH HER AND ADULT DAUGHTER. SHE HAS AT HER DISPOSAL A [id number], ROLLING WALKER, WHEELCHAIR AND LIFE ALERT BUTTON. SKIN TURGOR IS GOOD, NO DECUBITUS ULCERS NOTED. MD OTTO VAN APRN
--- NOTE | 2018-08-29 11:32 | PN ---
DATE OF SERVICE: 08/24/18 SUBJECTIVE: The patient was admitted through the emergency room with complaint of having shortness of breath also had some exertional chest discomfort. The patient's pain to some extent muscular coming from the back radiating to the front and anterior part of the chest. Duration of symptoms 3-4 days. The patient also given questionable history of orthopnea. Pro BNP that was done was more than 3, 000. The Pro BNP that was done a year ago was close to 200. The patient is going to be admitted to [facility] with serial EKG's, cardiac markers, IV Lasix 20mg is going to be given. Continue the rest of the medications. Toradol and Decadron is to be given for musculoskeletal type of chest pain component. The patient is DNR. TIME SPENT: More than 30 minutes. Plan and coordination of the patient's care discussed in the presence of nurse. ANDREW
--- NOTE | 2018-08-29 14:07 | PN ---
DATE OF SERVICE: 08/27/18 SUBJECTIVE: 78 year old white male hospitalized with possibility of CHF and angina. The patient's Pro BNP tomorrow. Angina is under control. The patient is being started on Eliquis. Atrial fibrillation and the complications of treatment also discussed like intracranial bleed and GI bleed. The patient is advised not to take any nonsteroidal antiinflammatory. REVIEW OF SYSTEMS: CONSTITUTIONAL: No night sweats. No fatigue, malaise, lethargy. No fever or chills. HEENT: Eyes: No visual changes. No eye pain. No eye discharge. ENT: No runny nose. No epistaxis. No sinus pain. No sore throat. No odynophagia. No congestion. RESPIRATORY: No cough, no congestion. No hemoptysis. No shortness of breath. CARDIOVASCULAR: No angina symptoms. No CHF symptoms. No atypical chest pain for CAD. No palpitations. No PND. No orthopnea. GASTROINTESTINAL: No abdominal pain. No nausea or vomiting. No diarrhea or constipation. No hematemesis. No hematochezia. GENITOURINARY: No urgency. No frequency. No dysuria. No hematuria. No obstructive symptoms. No discharge. No pain. No significant abnormal bleeding. MUSCULOSKELETAL: No musculoskeletal pain; no joint swelling. NEUROLOGICAL: No headache. No neck pain. No syncope. No seizures. No dizziness. PSYCHIATRIC: Not anxious. No depression. No suicidal thoughts. No homicidal thoughts. SKIN: No rash. No lesions. No wounds. ENDOCRINE: No unexplained weight loss. No weight gain. HEMATOLOGIC/LYMPHATIC: No anemia. No purpura. No petechiae. No prolonged or excessive bleeding. No palpable lymph nodes. PHYSICAL EXAMINATION: VITAL SIGNS: Temperature 97.6, pulse 65, respiratory rate 15, blood pressure 137/74 and pulse ox 95%. HEENT: Head normocephalic, atraumatic. Eyes: Extraocular muscles are intact. Pupils are equal, round and reactive to light and accommodation. Ears: No lesions. Nose appeared normal. Throat: No exudate or erythema. NECK: Supple. No JVD, no carotid bruit. No lymphadenopathy or thyromegaly. LUNGS: Decreased breath sounds. Clear to auscultation. Percussion note normal. Chest symmetrical. HEART: S1, S2, no S3. No murmurs. No cyanosis or clubbing. No ascites. Pulses: Dorsalis pedis and posterior tibial pulses +1 to +2 bilaterally. ABDOMEN: Soft. Nontender. Bowel sounds active. No CVA tenderness. No mass felt. EXTREMITIES: No edema. Full range of motion of all extremities, equal. NEUROLOGIC: No focal deficit. Cranial nerves II through XII are grossly intact. No headache, no double vision or headache. SKIN: Not dry. Intact. Turgor - normal. LYMPHATIC: No palpable lymph nodes/no lymphedema. MUSCULOSKELETAL: Normal joints with no swelling. Muscle tone is normal. LABS: Hgb 12.6, hct 40, WBC 7,400 normal differential, creatinine 0.8. BUN 17, potassium 4.6. ASSESSMENT: 1. Angina, exertional predictable under control 2. CHF under control 3. Atrial fibrillation, new diagnosis PLAN: 1. The patient is started on Eliquis 2. Toradol is going to be given 30mg IV Q 8 for the pain, the patient has arthritic type. TIME SPENT: More than 30 minutes. Plan and coordination of the patient's care discussed in the presence of nurse. ANDREW
--- NOTE | 2018-08-30 13:23 | DS ---
DATE OF SERVICE: 08/29/18 FINAL DIAGNOSIS: 1. CHF 2. ANGINA 3. ATRIAL FIBRILLATION, NEW ONSET 4. ANEMIA 5. HYPERTENSION 6. CAD 7. COPD 8. DYSLIPIDEMIA 9. GERD 10.OSTEOARTHRITIS 11.DEPRESSION 12.CHOLECYSTECTOMY 13.APPENDECTOMY 14.HYSTERECTOMY 15.CAROTID ENDARTERECTOMY 16.ANGIOPLASTY 17.CATARACT EXTRACTION 18.RIGHT SHOULDER SURGERY 19.RIGHT KNEE REPLACEMENT, 2012.ECHOCARDIOGRAM AUGUST 25, 2018: BORDERLINE LVH , ENLARGED LEFT ATRIAL CAVITY, HYPOKINETIC SEPTUM and LVEF 42% LAST VITALS: Temp Pulse Resp BP Pulse Ox 98.3 F 59 L 18 97/65 94 L 08/29/18 10:00 08/29/18 10:00 08/29/18 10:00 08/29/18 10:00 08/29/18 10:00 DISCHARGE INSTRUCTIONS: DISCHARGE HOME. AN APPOINTMENT IS SCHEDULED WITH DR. VELASCO/OTTO BEVERLY APRN ON August AT 10:30 AM CODE STATUS: FULL CODE TAKE THESE MEDICATIONS AT HOME: Acetaminophen (Tylenol) 500 mg PO Q4HR PRN Albuterol Sulfate (Proair Hfa) 1 puff IH Q4HR PRN Apixaban (Eliquis) 5 mg PO BID [facility] Atorvastatin Calcium (Lipitor) 80 mg PO DAILY [facility] Clonazepam (Klonopin) 0.5 mg PO BEDTIME [facility] Escitalopram Oxalate (Lexapro) 15 mg PO DAILY [facility] Fish Oil ([place]-3 Fish Oil) 2,000 mg PO BID [facility] Gabapentin (Neurontin) 1,200 mg PO BID [facility] Isosorbide Mononitrate (Imdur) 30 mg PO BID [facility] Lisinopril (Zestril) 5 mg PO DAILY [facility] Metoprolol Tartrate (Lopressor) 25 mg PO BID [facility] Nitroglycerin (Nitrostat) 0.4 mg SL Q5MIN PRN Omeprazole (Prilosec) 20 mg PO QDAC [facility] Oxycodone/Acetaminophen (Percocet 5-325) 1 tab PO Q12H PRN Calcium Carbonate/Vitamin D3 1 tablet PO BID [facility] ALLERGIES: Iodinated Contrast- Oral and IV Dye [Iodinated Contrast Media - IV Dye] Adverse Reaction (Verified 03/09/18 12:24) pregabalin [From Lyrica] Adverse Reaction (Verified 03/09/18 12:24) DISCONTINUED MEDICATIONS: Aspirin EC Plavix NEW PRESCRIPTIONS: ELIQUIS 5 MG PO BID SMOKING: NOT APPLICABLE DISEASE SPECIFIC EDUCATION: ATRIAL FIBRILLATION ELIQUIS AND RISK OF BLEEDING MEDICATIONS TO AVOID (ASA, IBUPROFEN, ADVIL, ALEVE, MOTRIN) DIET: RESUME TOLERATED ACTIVITY: RESUME TOLERATED, USE WALKER FOR ADDED SAFETY HOSPITAL COURSE: The patient was brought to the emergency room with acute onset of chest pain. She described it as sharp, stabbing radiating from her chest into left shoulder. She was not short of breath. She did not break out into a sweat. Cardiac enzymes were all negative. Pain likely due to muscle spasms, arthritis due to degenerative disc disease of the neck and arthritis of the shoulder. She was admitted and placed on routine telemetry. After the first 24 hours telemetry did reveal that she had a new onset on atrial fibrillation. Her rate has been controlled. Chest x-ray revealed that she had no vascular congestion or pleural effusions. She did have trace leg edema on admission. She was already on Metoprolol. Again her rate has been controlled. We placed her on Eliquis 5mg PO twice a day for prevention of a clot. Her hgb has been stable. Today it is 10.6, hct 33.5. She has had no chest pain since admission. She lives at home with her daughter. She has been reporting shortness of breath but again this is likely due to the new onset on atrial fibrillation. She did no qualify for home oxygen. Chest x-ray was normal. She lives at home with her daughter and . She will go home with them in stable condition. Temperature 98.3, heart rate 59, pulse ox 94%. Risks of bleeding associated with atrial fibrillation also related to falls have been discussed. She is advised not to use any NSAIDS and discontinue her Aspirin. We will followup with her next week in the office. The plan of care and discharge plan have been discussed with Dr. Velasco. TIME SPENT: More than 60 minutes. ANDREW
--- NOTE | 2018-09-01 11:10 | PN ---
DATE OF SERVICE: 08/29/18 SUBJECTIVE: The patient was seen and examined with the Nurse Practitioner. The patient is feeling a lot better. BNP practically unchanged. REVIEW OF SYSTEMS: CONSTITUTIONAL: No night sweats. No fatigue, malaise, lethargy. No fever or chills. HEENT: Eyes: No visual changes. No eye pain. No eye discharge. ENT: No runny nose. No epistaxis. No sinus pain. No sore throat. No odynophagia. No congestion. RESPIRATORY: No cough, no congestion. No hemoptysis. No shortness of breath. CARDIOVASCULAR: No angina symptoms. No CHF symptoms. No atypical chest pain for CAD. No palpitations. No PND. No orthopnea. GASTROINTESTINAL: No abdominal pain. No nausea or vomiting. No diarrhea or constipation. No hematemesis. No hematochezia. GENITOURINARY: No urgency. No frequency. No dysuria. No hematuria. No obstructive symptoms. No discharge. No pain. No significant abnormal bleeding. MUSCULOSKELETAL: No musculoskeletal pain; no joint swelling. NEUROLOGICAL: No headache. No neck pain. No syncope. No seizures. No dizziness. PSYCHIATRIC: Not anxious. No depression. No suicidal thoughts. No homicidal thoughts. SKIN: No rash. No lesions. No wounds. ENDOCRINE: No unexplained weight loss. No weight gain. HEMATOLOGIC/LYMPHATIC: No anemia. No purpura. No petechiae. No prolonged or excessive bleeding. No palpable lymph nodes. PHYSICAL EXAMINATION: HEENT: Head normocephalic, atraumatic. Eyes: Extraocular muscles are intact. Pupils are equal, round and reactive to light and accommodation. Ears: No lesions. Nose appeared normal. Throat: No exudate or erythema. NECK: Supple. No JVD, no carotid bruit. No lymphadenopathy or thyromegaly. LUNGS: Clear to auscultation. Percussion note normal. Chest symmetrical. HEART: S1, S2, no S3. No murmurs. No cyanosis or clubbing. No ascites. Pulses: Dorsalis pedis and posterior tibial pulses +1 to +2 bilaterally. ABDOMEN: Soft. Nontender. Bowel sounds active. No CVA tenderness. No mass felt. EXTREMITIES: No edema. Full range of motion of all extremities, equal. NEUROLOGIC: No focal deficit. Cranial nerves II through XII are grossly intact. No headache, no double vision or headache. SKIN: Not dry. Intact. Turgor - normal. LYMPHATIC: No palpable lymph nodes/no lymphedema. MUSCULOSKELETAL: Normal joints with no swelling. Muscle tone is normal. PLAN: 1. The patient is going to be discharge home on Eliquis. The patient's problem was atrial fibrillation. No evidence of CHF. CONDITION: Stable PROGNOSIS: Guarded TIME SPENT: More than 30 minutes. Plan and coordination of the patient's care discussed in the presence of nurse. ANDREW
--- NOTE | 2018-09-01 11:11 | PN ---
08/24/18: Level 5 08/25/18: Intermediate 08/26/18: Intermediate 08/27/18: Intermediate 08/28/18: Intermediate 08/29/18: D as in discharge MTDD
--- NOTE | 2018-09-04 11:19 | HP ---
DATE OF SERVICE: 08/24/18 REASON FOR HOSPITALIZATION/HISTORY OF PRESENT ILLNESS: This is an 78 year old white female who was experienced a sudden onset of left sided chest pain at home described as a sharp stabbing radiating from left axilla to the sternum. She has also had an increase in belching. She took two nitroglycerin at home and it did seem to help somewhat. 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 PAST SURGICAL HISTORY: Cholecystectomy Appendectomy Hysterectomy Carotid endarterectomy Angioplasty Cataract extraction Right shoulder surgery Right knee replacement in 2013 REVIEW OF SYSTEMS: CONSTITUTIONAL: No night sweats. No fatigue, malaise, lethargy. No fever or chills. HEENT: Eyes: No visual changes. No eye pain. No eye discharge. ENT: No runny nose. No epistaxis. No sinus pain. No sore throat. No odynophagia. No ear pain. No congestion. RESPIRATORY: No cough, no congestion. No hemoptysis. No shortness of breath. CARDIOVASCULAR: No angina symptoms. No CHF symptoms. Atypical chest pain for CAD. No palpitations. No PND. No orthopnea. GASTROINTESTINAL: No abdominal pain. No nausea or vomiting. No diarrhea or constipation. No hematemesis. No hematochezia. GENITOURINARY: No urgency. No frequency. No dysuria. No hematuria. No obstructive symptoms. No discharge. No pain. No significant abnormal bleeding. MUSCULOSKELETAL: No musculoskeletal pain. No joint swelling. No arthritis. Back pain. NEUROLOGICAL: No headache. No neck pain. No syncope. No seizures. No dizziness. PSYCHIATRIC: Anxious. No depression. No suicidal thoughts. No homicidal thoughts. SKIN: No rash. No lesions. No wounds. ENDOCRINE: No unexplained weight loss. No weight gain. HEMATOLOGIC/LYMPHATIC: No anemia. No purpura. No petechiae. No prolonged or excessive bleeding. No palpable lymph nodes. PERSONAL/FAMILY/SOCIAL HISTORY: She lives at home with her and her daughter. No alcohol or illicit drug use. Nonsmoker. MEDICATIONS: Plavix 75mg PO daily Prilosec 20mg PO Q DAC Nitrostat 0.4mg SL Q 5 minutes PRN Calcium 600+Vitam D 400 one tablet PO twice a day Tylenol 500mg PO Q 4 hours PRN Multi-vitamin one each PO daily ProAir one puff INH Q 4 hours PRN Lexapro 15mg PO daily Lopressor 25mg PO twice a day Gabapentin 1,200mg PO twice a day Klonopin 0.5mg PO bedtime Lipitor 80mg PO daily Aspirin 81g PO daily Fish Oil 2,000mg PO twice a day Imdur 30mg PO twice a day Percocet 5-325mg one tablet PO Q 12 hours. ALLERGIES: Iodinated contrast oral and IV dye Pregabalin PHYSICAL EXAMINATION: GENERAL: The patient is alert and oriented time three in no acute distress. VITAL SIGNS: Temperature 99.4, pulse 67, respiratory rate 20, blood pressure 130/79 and pulse ox 93% on room air. HEENT: Head normocephalic, atraumatic. Eyes: Extraocular muscles are intact. Pupils are equal, round and reactive to light and accommodation. Ears: No lesions. Nose appeared normal. Throat: No exudate or erythema. NECK: Supple. No JVD, no carotid bruit. No lymphadenopathy or thyromegaly. LUNGS: Diminished breath sounds bilaterally. Clear to auscultation. Percussion note normal. Chest symmetrical. HEART: S1, S2, no S3. No murmurs. No cyanosis or clubbing. No ascites. Pulses: Dorsalis pedis and posterior tibial pulses +1 to +2 bilaterally. ABDOMEN: Soft. Nontender. Bowel sounds active. No CVA tenderness. No mass felt. EXTREMITIES: No edema. Full range of motion of all extremities, equal. NEUROLOGIC: No focal deficit. Cranial nerves II through XII are grossly intact. No headache, no double vision or headache. SKIN: Not dry. Intact. Turgor - normal. LYMPHATIC: No palpable lymph nodes/no lymphedema. MUSCULOSKELETAL: Normal joints with no swelling. Muscle tone is normal. Reproducible pain on the T spine. LABS: Sodium 140, potassium 4.45, BUN 16, creatinine 0.76, total bilirubin 0.28, AST 26, ALT 13, Troponin less than 0.012, Total protein 5.9, Albumin 3.39, globulin 2.52, amylase 35, Lipase 66, Pro BNP 3,400, WBC 4.72, HGB 11.6, hct 35.6, plt count 151. Chest x-ray shows no acute intrathoracic findings, cardiomegaly with old granulomatous disease. ASSESSMENT: 1. Chest pain likely atypical 2. COPD 3. DJD of spine 4. Anemia 5. Hypertension 6. Dyslipidemia 7. Coronary artery disease PLAN: 1. We will admit 2. Routine telemetry orders 3. CBC and CMP daily 4. U/A with culture and sensitivity 5. Cardiac markers 6. Continue home medications 7. Regular diet 8. Start Lovenox 30mg SUBCUT 9. 2D echo 10.1cc Decadron IM 11. Toradol 30mg IV Q 8 hours PRN 12. Normal saline at 75cc an hour IV 13. Oxygen at 1-2 liters as needed. Will follow closely. TIME SPENT: More than 70 minutes. MTDD
== END 2018-08-29 12:25 | disposition home or self-care (01) | DRG 310 ==
LOC: ED 17:12 → MEDSURG B 19:39
PROVIDERS: ADMIT Internal Medicine; ATTEND Internal Medicine
DX: I48.91 Unspecified atrial fibrillation (principal); I50.9 Heart failure, unspecified; I20.9 Angina pectoris, unspecified; I10 Essential (primary) hypertension; I25.10 Atherosclerotic heart disease of native coronary artery without angina pectoris; D64.9 Anemia, unspecified; K21.9 Gastro-esophageal reflux disease without esophagitis; J44.9 Chronic obstructive pulmonary disease, unspecified; E78.5 Hyperlipidemia, unspecified; F32.9 Major depressive disorder, single episode, unspecified; M54.9 Dorsalgia, unspecified; M79.622 Pain in left upper arm; M19.90 Unspecified osteoarthritis, unspecified site; M47.9 Spondylosis, unspecified
CPT/HCPCS: 36415; 80053; 81001; 82150; 82550; 82962; 83690; 83880; 84484; 85025; 85610; 85730; 87086; 93005; 93010; 94761; 96374; 96375; 99284

== ENCOUNTER 2018-12-14 06:50 | Inpatient (IN) ==
--- NOTE | 2018-12-14 07:55 | ED.PDOC ---
General ED Provider: Dr. LAURA LAYTON Chief Complaint: Weakness Stated Complaint: C/O pain in low back and RLQ/Rt Pelvic region. When she got up this morning her legs were very shaky and she had to lower herself to the floor to keep from falling. Was attempted to get to [facility] earlier, became very weak, could not make it, was incontinent and set down on floor. Unable to get up /. Pain currently 09/27. Also daughter Madalyn stated patient has been experiencing G-U Bleeding-unsure source. + 8 # wt loss over past month. Patient states she is on xaralto and was suppose to see Carlin today for evaluation. States she was informed not take her xaralto yesterday. Time Seen by Physician: 07:20 Mode of Arrival: Ambulance Information Source: Patient Exam Limitations: No limitations Primary Care Provider: JAGJIT VELASCO Referred to ED by: Other (Her daughter) Nursing and Triage Documentation Reviewed and Agree: Yes Does patient meet sepsis criteria?: No If yes, has appropriate treatment been initiated?: No System Inflammatory Response Syndrome: Not Applicable Sepsis Protocol: For patient's 13 years and over: Temp is 96.8 and below OR 101 and greater Pulse >90 BPM Resp >20/minute Acutely Altered Mental Status Are patient's symptoms suggestive of a new infection, such as: -Pneumonia -Skin, Soft Tissue -Endocarditis -UTI -Bone, Joint Infection -Implantable Device -Acute Abdominal Infection -Wound Infection -Meningitis -Blood Stream Catheter Infection -Unknown Complaint Exam - UTI Female Complaint/Exam Patient Complains of: Reports: Blood in urine (Suspected) Onset/Duration: 3-4 days Symptoms Are: Still present Timing: Intermittent (When voiding and cleansing self afterwards) Associated Signs and Symptoms: Denies: Fever, Chills, Flank pain, Dyspareunia, Vaginal discharge Related History: Denies: Similar episode - Complaint/Exam Patient Complains of: Reports: Vaginal discharge (Bleeding) Onset/Duration: 2-3 days Symptoms Are: Still present Timing: Constant Episodes of Voiding Over Last 12 Hours: 3 Initial Severity: Mild Current Severity: Mild Location of Pain: Reports: Right Character: Reports: Sharp, Cramping Aggravating: Reports: None Alleviating: Reports: None Associated Signs and Symptoms: Reports: Back pain, Increased urine frequency, Decreased activity, Abdominal Pain, Vaginal bleeding Surgical Obstruction Risk Factors: Reports: None Abdominal Findings: Present: None Vulva Exam: Present: Normal Findings (atrophic changes) Vaginal Exam: Present: Blood (noted on exam glove; ) Differential Diagnoses: UTI, Other (Vaginal atrophy and scant bleeding) Review of Systems - Review Of Systems Constitutional: Reports: No symptoms, Weakness Eyes: Reports: No symptoms Ears, Nose, Mouth, Throat: Reports: No symptoms Respiratory: Reports: No symptoms Cardiac: Reports: No symptoms GI: Reports: No symptoms : Reports: Frequency, Flank pain, Incontinence, Urgency Musculoskeletal: Reports: Back pain, Joint pain, Muscle pain, Muscle stiffness, Neck pain Skin: Reports: No symptoms. Denies: Bruising, Change in color Neurological: Reports: No symptoms Endocrine: Reports: No symptoms Hematologic/Lymphatic: Reports: No symptoms All Other Systems: Reviewed and Negative Past Medical History - Past Medical History Previously Healthy: No Endocrine: Reports: Dyslipidemia Cardiovascular: Reports: CAD, Hypertension, Other (cardiac arrest) Respiratory: Reports: COPD, Bronchitis Hematological: Reports: Anemia Gastrointestinal: Reports: None, GERD (old record), Diverticulitis (old record- diverticulosis) Genitourinary: Reports: None Neuro/Psych: Reports: Anxiety, Depression, Other (neuropathy of feet and hands) Musculoskeletal: Reports: Arthritis Cancer: Reports: None Last Menstrual Period: n/a Other Pertinent Past Medical History: RIGHT KNEE REPLACEMENT HYSTERECTOMY GALLBLADDER CAROTID SURGERY - Surgical History General Surgical History: Reports: Hysterectomy, Appendectomy (old record), Cholecystectomy, Orthopedic (RIGHT KNEE REPLACEMENT ), Other (CAROTID SURGERY - 2013 Carotid Endarterectomy, Right) - Family History Family History: Reports: Unknown - Social History Smoking Status: Former smoker Hx Substance Use: No Alcohol Screening: None Physical Exam - Physical Exam Appearance: Well-appearing, No pain distress, Well-nourished Ill-appearing: Mild Pain Distress: Mild Eyes: HUSSAIN, EOMI, Conjunctiva clear, Conjunctiva pale ENT: Ears normal, Nose normal, Oropharynx normal Respiratory: Airway patent, Breath sounds clear, Breath sounds equal, Respirations nonlabored Cardiovascular: RRR, Pulses normal, No rub, No murmur GI/: Soft, Nontender, No masses, Bowel sounds normal, No Organomegaly Musculoskeletal: Normal strength, ROM intact, No edema, No calf tenderness Skin: Warm, Dry, Normal color Neurological: Sensation intact, Motor intact, Reflexes intact, Cranial nerves intact, Alert, Oriented Psychiatric: Affect appropriate, Mood appropriate Interpretation - Radiology Interpretation Radiology Interpretation By: Radiologist Exam Interpreted: CT Scan (Aabdom/Pelvis-No acute pathological findings) - EKG Interpretation Time of EKG #1: 08:07 Rate: Normal Rhythm: Other (atrial fib) Ectopy: None Outing: NL ST Segment: Other (Non Specific ST-T wave changes) Interpretation: Atrial fib Re-Evaluation - Re-Evaluation Time of Re-Evaluation: 10:20 Status: Improved Vital Signs Stable: Yes Appearance: NAD Lungs: Clear Skin: Warm and Dry Neuro: Alert and Oriented X3 CV: RRR Physician Notification - Case Discussed Physician Notified: Dr Velasco-Discussed case; Request admit Time of Notification: 09:50 Critical Care Note - Critical Care Note Total Time (mins): 30 Course - Course Hematology/Chemistry: 12/14/18 08:15 12/14/18 08:15 Orders, Labs, Meds: Lab Review 12/14/18 12/14/18 12/14/18 08:15 08:15 08:15 WBC 7.73 RBC 4.53 Hgb 13.2 Hct 41.4 MCV 91.4 MCH 29.1 MCHC 31.9 RDW Coeff of Pricila 13.5 Plt Count 136 L Immature Gran % (Auto) 0.4 Neut % (Auto) 90.8 Lymph % (Auto) 4.3 L [place] % (Auto) 3.9 Eos % (Auto) 0.3 Baso % (Auto) 0.3 Immature Gran # (Auto) 0.0 Neut # (Auto) 7.0 H Lymph # (Auto) 0.3 L [place] # (Auto) 0.3 L Eos # (Auto) 0.0 Baso # (Auto) 0.0 PT 11.0 INR 1.13 APTT 28.6 Sodium 137.7 Potassium 4.25 Chloride 103.0 Carbon Dioxide 31.3 H Anion Gap 7.65 BUN 13.3 Creatinine 0.84 Estimated GFR (MDRD) 65.00 BUN/Creatinine Ratio 15.83 Glucose 112.0 H Uric Acid 4.53 Calcium 8.95 Total Bilirubin 0.61 AST 27.0 ALT 14.3 Alkaline Phosphatase 88.5 NT-Pro-B Natriuret Pep Total Protein 6.74 Albumin 3.76 Globulin 2.98 Albumin/Globulin Ratio 1.26 Urine Color Urine Clarity Urine pH Ur Specific [place] Urine Protein Urine Glucose (UA) Urine Ketones Urine Blood Urine Nitrite Urine Bilirubin Urine Urobilinogen Ur Leukocyte Esterase Urine Microscopic RBC Urine Microscopic WBC Ur Squamous Epith Cells Urine Bacteria 12/14/18 12/14/18 08:15 09:20 WBC RBC Hgb Hct MCV MCH MCHC RDW Coeff of [place]ricila Plt Count Immature Gran % (Auto) Neut % (Auto) Lymph % (Auto) [place] % (Auto) Eos % (Auto) Baso % (Auto) Immature Gran # (Auto) Neut # (Auto) Lymph # (Auto) [place] # (Auto) Eos # (Auto) Baso # (Auto) PT INR APTT Sodium Potassium Chloride Carbon Dioxide Anion Gap BUN Creatinine Estimated GFR (MDRD) BUN/Creatinine Ratio Glucose Uric Acid Calcium Total Bilirubin AST ALT Alkaline Phosphatase NT-Pro-B Natriuret Pep 4980.000 H Total Protein Albumin Globulin Albumin/Globulin Ratio Urine Color Yellow Urine Clarity Cloudy Urine pH 7.0 Ur Specific [place] 1.015 Urine Protein Trace Urine Glucose (UA) Negative Urine Ketones Negative Urine Blood 3+ Urine Nitrite Positive Urine Bilirubin Negative Urine Urobilinogen 2.0 Ur Leukocyte Esterase 2+ Urine Microscopic RBC 10-20 Urine Microscopic WBC 5-10 Ur Squamous Epith Cells 5-10 Urine Bacteria 4+ Orders Category Date Time Status EKG-(ED ONLY) Stat CARDIO 12/14/18 08:00 Completed IV [ED IV/MEDIPORT/POWERPORT] .ONCE EMERGENCY 12/14/18 08:00 Active CBC W/ AUTO DIFF Stat LAB 12/14/18 08:15 Completed CMP [COMPREHENSIVE METABOLIC PANEL] Stat LAB 12/14/18 08:15 Completed NT-PROBNP Stat LAB 12/14/18 08:15 Completed PARTIAL THROMBOPLASTIN TIME Stat LAB 12/14/18 08:15 Completed PT WITH INR Stat LAB 12/14/18 08:15 Completed UA [URINALYSIS C & S IF INDICATED] Stat LAB 12/14/18 09:20 Completed URIC ACID Stat LAB 12/14/18 08:15 Completed URINE CULTURE Stat LAB 12/14/18 09:20 Received 0.9 % Sodium Chloride [Saline Flush] MEDS 12/14/18 08:00 Active 1 syr IVF PRN PRN Oxycodone-Acetaminophen 5-325 [Percocet 5-325] MEDS 12/14/18 07:59 Discontinued 1 tab PO ONCE STA CT ABDOMEN/PELVIS WO CONTRAST Stat RADS 12/14/18 08:00 Completed Medications Generic Name Dose Route Start Last Admin Trade Name Freq PRN Reason Stop Dose Admin Sodium Chloride 1 syr 12/14/18 08:00 Saline Flush IVF PRN PRN To flush IV Discontinued Medications Generic Name Dose Route Start Last Admin Trade Name Freq PRN Reason Stop Dose Admin Oxycodone/Acetaminophen 1 tab 12/14/18 07:59 12/14/18 08:09 Percocet 5-325 PO 12/14/18 08:00 1 tab ONCE STA Administration Vital Signs: Temp Pulse Resp BP Pulse Ox 12/14/18 06:50 99.1 F 82 20 133/54 L 94 L Departure - Departure Time of Disposition: 09:05 Disposition: ADMITTED INPATIENT Discharge Problem: Acute UTI (urinary tract infection), Atrial fibrillation, Vaginal bleeding, abnormal Instructions: Urinary Tract Infection in Women (ED) Condition: Stable Pt referred to PMD for follow-up: Yes (Dr Velasco post hosp) IPMP verified?: No Allergies/Adverse Reactions: Allergies Iodinated Contrast Media [Iodinated Contrast Media - IV Dye] Adverse Reaction ( Verified 12/14/18 06:56) pregabalin [From Lyrica] Adverse Reaction (Verified 12/14/18 06:56) Iodinated Contrast Media - IV Dye Adverse Reaction (Uncoded 07/15/13 17:54) pregabalin Adverse Reaction (Uncoded 07/15/13 17:54) Home Medications: Ambulatory Orders Acetaminophen [Tylenol] 500 mg PO Q4HR PRN 09/02/12 Calcium Carbonate/Vitamin D3 [Calcium 600 + Vit D 400 Tablet] 1 tab PO BID 09/02 Nitroglycerin [Nitrostat] 0.4 mg SL Q5MIN PRN 09/02/12 Omeprazole [Prilosec] 20 mg PO QDAC 09/02/12 Albuterol Sulfate [Proair Hfa] 1 puff INH Q4HR PRN 07/15/13 Clonazepam [Klonopin] 0.5 mg PO BEDTIME 03/26/14 Escitalopram Oxalate [Lexapro] 20 mg PO DAILY 03/26/14 Gabapentin 1,800 mg PO BID 03/26/14 Lisinopril [Zestril] 5 mg PO DAILY 03/26/14 Metoprolol Tartrate [Lopressor] 25 mg PO BID 03/26/14 Atorvastatin Calcium [Lipitor] 80 mg PO DAILY 10/16/14 Isosorbide Mononitrate [Imdur] 30 mg PO BID 03/04/17 Oxycodone-Acetaminophen 5-325 [Percocet 5-325] 1 tab PO Q12H 08/24/18 Acetaminophen [Tylenol] 650 mg PO PRN PRN 12/14/18 Rivaroxaban [Xarelto] 15 mg PO DAILY 12/14/18 Disposition Discussed With: Patient, Family, Other (Dr Velasco)
[2018-12-14] MEDS ORDERED: PERCOCET 5-325 PO STA (07:59)
--- NOTE | 2018-12-14 09:05 | CT ---
EXAM: CT abdomen pelvis without contrast HISTORY: Pain, right lower quadrant COMPARISON: None TECHNIQUE: CT abdomen pelvis performed without intravenous contrast. Coronal and sagittal reformatt ed images obtained. FINDINGS: Mild right basilar subsegmental atelectasis and/or scarring. Granulomas calcification lef t lung base. No free air. No acute abnormalities of the bones. Degenerative change in the spine. Heart mildly enlarged. Coronary calcifications. Small pericardial effusion. Evaluation organ paren chyma limited without contrast. Liver unremarkable. Patient status post cholecystectomy. Pancreas unremarkable. Granulomatous calcification in the spleen. Spleen otherwise unremarkable. Adrenals u nremarkable. Right renal cysts measure up to 3 cm. No hydronephrosis or nephrolithiasis. Nonspecif ic bilateral perinephric stranding, similar to prior examination.. No calculi visualized in the norm al course of the ureters. Bladder unremarkable. Aorta normal in caliber. Extensive atherosclerosis of the aorta and is branches. Small hiatal hernia. No dilated loops small bowel. Appendix not vis ualized. Extensive colonic diverticulosis IMPRESSION: 1. No bowel or urinary obstruction. 2. Extensive colonic diverticulosis. 3. No change in the nonspecific bilateral perinephric stranding. 4. Extensive atherosclerosis. 5. Cardiomegaly. Small pericardial effusion. 6. Coronary calcifications. 7. Small hiatal hernia.
[2018-12-14] MEDS ORDERED: ROCEPHIN 1 GM VIAL ONE (10:24)
[2018-12-14] MEDS ORDERED: ROCEPHIN 1 GM VIAL 1 GM in SODIUM CHLORIDE 50 ML IV SCH (10:30)
[2018-12-14] MEDS ORDERED: NITROSTAT SL PRN (10:36)
[2018-12-14] MEDS ORDERED: PROAIR HFA IH PRN (10:36)
[2018-12-14 11:28] VITALS: BMI 27.3
[2018-12-14] MEDS: PERCOCET 5-325 PO SCH ×2 (12:05→22:50)
[2018-12-14] MEDS: SODIUM CHLORIDE 1,000 ML IV SCH (13:03)
--- NOTE | 2018-12-14 13:41 | DI ---
EXAM: Frontal chest HISTORY: Shortness of breath FINDINGS: Compared to 08/24/2018. Heart size is enlarged, stable. There is at least mild atheroscl erotic disease. There are scattered calcifications suggesting old granulomatous disease. No acute i nfiltrates are seen. No vascular congestion. There is no consolidation, visible pleural fluid or pn eumothorax. Bones reveal no acute fracture. IMPRESSION: No acute cardiopulmonary process.
[2018-12-14] MEDS: TYLENOL PO PRN (15:07)
--- NOTE | 2018-12-14 15:40 | RS.PTINEVL ---
Subjective - Patient information Date of Evaluation: 12/14/18 Date of Arrival on Unit: 12/14/18 Admitted From:: Home Diagnosis: RLQ pain, acute UTI, afib, vaginal bleeding Usual Living Arrangement: With Spouse Living Arrangement Comments: lives with and dtr. Home Environment: House, Level/No stairs Medical History Comments:: depression, GERD, CAD, neuropathy of hands/feet, anxiety,afib LATEX ALLERGY?: No Surgical History: Knee Replacement (right), Hysterectomy Surgical History Comments:: appey, CEA, Medications: see chart Subjective Information/ Patient Comments:: pt states that she is feeling better than this am. States she was feeling very weak this am. - Level of function Prior to this admission, the patient could do the following:: Partially Dependent Ambulation Current Level of Function: Partially Dependent Current Equipment Used at Home: rolling walker Interventions - Objective Patient Orientation: Person, Place, Time, Situation Current Interventions: IV's, Telemetry Range of Motion - ROM Right Upper Extremity AROM: WFL's Left Upper Extremity AROM: WFL's Right Lower Extremity AROM: WFL's Left Lower Extremity AROM: WFL's Muscle Strength - Muscle Strength Right Upper Extremity Strength: Mild Weakness (grossly 4/5) Left Upper Extremity Strength: Mild Weakness (grossly 4/5) Right Lower Extremity Strength: Mild Weakness (hip flex 4-/5, knee flex/ext 4/5 , ankle DF/PF 4/5) Left Lower Extremity Strength: Mild Weakness (hip flex 4-/5, knee flex/ext 4/5, ankle DF/PF 4/5) Sensation - Sensation Right Upper Extremity Sensation: Intact/Normal Left Upper Extremity Sensation: Intact/Normal Right Lower Extremity Sensation: Intact/Normal Left Lower Extremity Sensation: Intact/Normal Palpation Palpation Findings: None/Normal Balance - Sitting Balance and Reactions Static Sitting Balance: Good Dynamic Sitting Balance: Good - Standing Balance and Reactions Static Standing Balance: Fair Dynamic Standing Balance: Poor Standing Equilibrium Reactions: Delayed Left, Delayed Right Standing Protective Reactions: Delayed Left, Delayed Right Functional Mobility - Bed Mobility Rolling R/L: Supervision Scooting: Supervision Supine to Sit: Supervision Sit to Supine: Supervision - Transfers Sit to Stand: CGA Stand to Sit: CGA - Safety Awareness Safety Awareness: Fair STEFANI INDEX SCORE: n/a Ambulation - Ambulation Assistive Device Used: Rolling Walker Orthotic/Prosthetic Device: No Distance: 140ft Assistance needed with Ambulation: CGA Gait Deviations: Forward posture, Short stride, Deviates from path Ambulation Comments: pt amb with increased lat sway. Factors Affecting Ambulation: Decreased Balance, Weakness, Decreased Safety, Limited Endurance Treatment time - Time with patient Length of Evaluation: 24 Total treatment time: 27 Patient Education - Education Patient Education: Activity Modification, Education of Plan of Care Teaching Recipient: Patient Teaching Methods: Discussion Comments: discussion and demonstration of safety with transfers and gait Assessment - Assessment Problem List:: Decreased level of function, Requires training/education, Decreased safety/Risk of falls, Weakness Rehab Potential: Good Further Therapy Indicated?: Yes Candidate for Swing Bed for Therapy Services?: Feel pt may not be a candidate for swing bed due to high level of function. Evaluation Complexity: HISTORY: Medium, EXAM OF BODY SYSTEMS: Medium, CLINICAL PRESENTATION: Medium, CLINICAL DECISION MAKING: Medium Short Term Goals GOAL #1: pt transfer sup to/from sit independently, sit to/from stand SBA Goal to be met by: 12/17/18 GOAL #2: pt amb with rwx 150ft with CGA to SBA with no LOB Goal to be met by: 12/17/18 GOAL #3: pt demonstrate independence with bed mobility Goal to be met by: 12/17/18 Custodial Goals GOAL #1: pt transfer sit to/from stand from bed, chair SB to independent Goal to be met by: 12/19/18 GOAL #2: pt amb with rwx functional household distances with no LOB with supervision Goal to be met by: 12/19/18 GOAL #3: pt with increased strength BLE 4 to 4+/5 and independent with HEP Goal to be met by: 12/19/18 Plan Plan of Care: Therapeutic EX, Therapeutic Activity Other:: gait training Frequency of Treatment: 1-2 X day, as tolerated Duration of Treatment: 5 days Anticipated Discharge Destination: Home Treatment Diagnosis (ICD 10 Codes): difficulty walking R 26.2. Balance impaired R 26. 81 Has the Physician been added for Co-signature?: Yes
[2018-12-14] MEDS: KLONOPIN PO SCH (20:51)
[2018-12-14] MEDS: IMDUR PO SCH (20:52)
[2018-12-14] MEDS: CALCIUM 500 + VIT D 200 MG TABLET PO SCH (20:52)
[2018-12-14] MEDS: NEURONTIN PO SCH (20:52)
[2018-12-14] MEDS ORDERED: GABAPENTIN 1800 MG PO SCH (21:00)
[2018-12-14] MEDS ORDERED: LOPRESSOR PO SCH (21:00)
[2018-12-14] MEDS ORDERED: NON-FORMULARY MEDICATION (Clonazepam [Klonopin] 0.5 MG) PO SCH (21:00)
[2018-12-15] MEDS: SODIUM CHLORIDE 1,000 ML IV SCH ×2 (02:06→17:06)
[2018-12-15] MEDS: TYLENOL PO PRN ×2 (03:02→17:06)
[2018-12-15] MEDS: PRILOSEC PO SCH (05:45)
[2018-12-15] MEDS: CALCIUM 500 + VIT D 200 MG TABLET PO SCH ×2 (08:59→20:49)
[2018-12-15] MEDS: IMDUR PO SCH ×2 (08:59→20:49)
[2018-12-15] MEDS: NEURONTIN PO SCH ×2 (08:59→20:49)
[2018-12-15] MEDS: LEXAPRO PO SCH (08:59)
[2018-12-15] MEDS: LIPITOR PO SCH (08:59)
[2018-12-15] MEDS ORDERED: NON-FORMULARY MEDICATION (Atorvastatin Calcium [Lipitor] 80 MG) PO SCH (09:00)
[2018-12-15] MEDS: ROCEPHIN 1 GM/50 ML D5W 1 GM/50 ML BAG IV SCH (09:03)
[2018-12-15] MEDS: ZESTRIL PO SCH (09:04)
[2018-12-15] MEDS: PERCOCET 5-325 PO SCH ×2 (10:47→22:03)
[2018-12-15] MEDS: XARELTO PO SCH (10:47)
[2018-12-15] MEDS: KLONOPIN PO SCH (20:49)
[2018-12-16] MEDS: PRILOSEC PO SCH (05:58)
[2018-12-16] MEDS: SODIUM CHLORIDE 1,000 ML IV SCH (06:12)
[2018-12-16] MEDS: NEURONTIN PO SCH ×2 (08:30→20:43)
[2018-12-16] MEDS: LEXAPRO PO SCH (08:30)
[2018-12-16] MEDS: ROCEPHIN 1 GM/50 ML D5W 1 GM/50 ML BAG IV SCH (08:30)
[2018-12-16] MEDS: LIPITOR PO SCH (08:31)
[2018-12-16] MEDS: LOPRESSOR PO SCH ×2 (08:31→20:44)
[2018-12-16] MEDS: IMDUR PO SCH ×2 (08:31→20:43)
[2018-12-16] MEDS: CALCIUM 500 + VIT D 200 MG TABLET PO SCH ×2 (08:31→20:44)
[2018-12-16] MEDS: ZESTRIL PO SCH (08:32)
[2018-12-16] MEDS: XARELTO PO SCH (08:34)
[2018-12-16] MEDS: PERCOCET 5-325 PO SCH (10:34)
[2018-12-16] MEDS: TYLENOL PO PRN (20:43)
[2018-12-16] MEDS: KLONOPIN PO SCH (20:43)
[2018-12-17] MEDS: PRILOSEC PO SCH (05:31)
[2018-12-17] MEDS: SODIUM CHLORIDE 1,000 ML IV SCH ×2 (05:45→12:46)
[2018-12-17] MEDS: TYLENOL PO PRN (08:05)
[2018-12-17] MEDS: ROCEPHIN 1 GM/50 ML D5W 1 GM/50 ML BAG IV SCH (08:05)
[2018-12-17] MEDS: NEURONTIN PO SCH ×2 (08:05→20:55)
[2018-12-17] MEDS: LEXAPRO PO SCH (08:06)
[2018-12-17] MEDS: LIPITOR PO SCH (08:06)
[2018-12-17] MEDS: IMDUR PO SCH ×2 (08:06→20:53)
[2018-12-17] MEDS: PERCOCET 5-325 PO PRN ×2 (08:06→20:54)
[2018-12-17] MEDS: LOPRESSOR PO SCH ×2 (08:06→20:54)
[2018-12-17] MEDS: CALCIUM 500 + VIT D 200 MG TABLET PO SCH ×2 (08:07→20:54)
[2018-12-17] MEDS: ZESTRIL PO SCH (08:07)
[2018-12-17] MEDS: XARELTO PO SCH (08:07)
[2018-12-17] MEDS ORDERED: DIFLUCAN PO STA (12:27)
[2018-12-17] MEDS ORDERED: LIDOCAINE HCL 1% SDV IM STA (12:32)
[2018-12-17] MEDS: KLONOPIN PO SCH (20:54)
[2018-12-17] MEDS: LOTRISONE 45 GM TP SCH (20:55)
[2018-12-18 05:09] VITALS: TEMP 98.5
[2018-12-18] MEDS: PRILOSEC PO SCH (05:45)
--- NOTE | 2018-12-18 07:44 | HP ---
DATE OF SERVICE: 12/14/18 HISTORY OF PRESENT ILLNESS: 78-year-old white female who presented to the emergency room with lower back pain as well as right lower quadrant pain. Legs were shaky and weak. She also stated that she had been having some possible vaginal bleeding. PAST MEDICAL HISTORY: CHF Stable angina Atrial fibrillation Anemia Hypertension Coronary artery disease COPD Dyslipidemia GERD Polyarthritis Depression She had an echo in August of 2018 PAST SURGICAL HISTORY: Cholecystectomy Appendectomy Hysterectomy Carotid endarterectomy Bilateral cataracts Right shoulder surgery Total right knee replacement REVIEW OF SYSTEMS: CONSTITUTIONAL: No night sweats. No fatigue, malaise, lethargy. No fever or chills. HEENT: Eyes: No visual changes. No eye pain. No eye discharge. ENT: No runny nose. No epistaxis. No sinus pain. No sore throat. No odynophagia. No ear pain. No congestion. RESPIRATORY: No cough, no congestion. No hemoptysis. No shortness of breath. CARDIOVASCULAR: No angina symptoms. No CHF symptoms. No atypical chest pain for CAD. No palpitations. No PND. No orthopnea. GASTROINTESTINAL: Right lower quadrant pain. No nausea or vomiting. No diarrhea or constipation. No hematemesis. No hematochezia. GENITOURINARY: Possible vaginal bleeding. No urgency. No frequency. No dysuria. No hematuria. No obstructive symptoms. No discharge. No pain. No significant abnormal bleeding. MUSCULOSKELETAL: Weakness. NEUROLOGICAL: No headache. No neck pain. No syncope. No seizures. No dizziness. PSYCHIATRIC: Not anxious. No depression. No suicidal thoughts. No homicidal thoughts. SKIN: No rash. No lesions. No wounds. ENDOCRINE: No unexplained weight loss. No weight gain. HEMATOLOGIC/LYMPHATIC: No anemia. No purpura. No petechiae. No prolonged or excessive bleeding. No palpable lymph nodes. PERSONAL/FAMILY/SOCIAL HISTORY: She currently lives at home with her . She is independent of all activities of daily living. She does have decreased mobility, uses a walker at times. MEDICATIONS: Prilosec 20 mg p.o. q.d a.c. Nitrostat 0.4 mg SL q.5min p.r.n. Calcium Carbonate/Vitamin D3 one tab p.o. b.i.d. Tylenol 500 mg p.o. q.4hr p.r.n. Proair HFA one puff INH q.4h p.r.n. Lexapro 20 mg p.o. daily ALLERGIES: IODINATED CONTRAST MEDIA (IV DYE), PREGABALIN (FROM LYRICA) PHYSICAL EXAMINATION: HEENT: Head normocephalic, atraumatic. Eyes: Extraocular muscles are intact. Pupils are equal, round and reactive to light and accommodation. Ears: No lesions. Nose appeared normal. Throat: No exudate or erythema. NECK: Supple. No JVD, no carotid bruit. No lymphadenopathy or thyromegaly. LUNGS: Diminished breath sounds bilaterally. Clear to auscultation. Percussion note normal. Chest symmetrical. HEART: S1, S2, no S3. No murmurs. No cyanosis or clubbing. No ascites. Pulses: Dorsalis pedis and posterior tibial pulses +1 to +2 bilaterally. ABDOMEN: Soft. Mild tenderness right lower quadrant. Bowel sounds active. No CVA tenderness. No mass felt. ER physician did a vaginal exam which showed atrophic vaginitis with some varicose veins likely the source of vaginal bleeding. EXTREMITIES: No edema. Full range of motion of all extremities, equal. NEUROLOGIC: No focal deficit. Cranial nerves II through XII are grossly intact. No headache, no double vision or headache. SKIN: Not dry. Intact. Turgor - normal. LYMPHATIC: No palpable lymph nodes/no lymphedema. MUSCULOSKELETAL: Normal joints with no swelling. Muscle tone is normal. LABS: CT of the abdomen and pelvis shows no acute process. Extensive diverticulosis. No diverticulitis. Chest x-ray is normal. White count 7.7, hemoglobin 13.2, hematocrit 41.4, platelets 136. Sodium 137, potassium 4.25, BUN 13, creatinine 0.84, AST 27, ALT 14. Urine shows 3+ blood, positive nitrites, 2+ leuks, 4+ bacteria. ASSESSMENT: 1. UTI culture pending. 2. Generalized weakness. 3. Right lower quadrant pain. PLAN: 1. We will admit. 2. Routine telemetry orders. 3. CBC, CMP daily. 4. Continue home medications. 5. Start Rocephin 1 gm IV daily. 6. Regular diet. TIME SPENT: More than 70 minutes. [facility]
[2018-12-18] MEDS: XARELTO PO SCH (08:35)
[2018-12-18] MEDS: LIPITOR PO SCH (08:41)
[2018-12-18] MEDS: LEXAPRO PO SCH (08:43)
[2018-12-18] MEDS: NEURONTIN PO SCH (08:43)
[2018-12-18] MEDS: CALCIUM 500 + VIT D 200 MG TABLET PO SCH (08:44)
[2018-12-18] MEDS: IMDUR PO SCH (08:45)
[2018-12-18] MEDS: LOPRESSOR PO SCH (08:45)
[2018-12-18] MEDS: ZESTRIL PO SCH (08:46)
[2018-12-18] MEDS: PERCOCET 5-325 PO PRN (08:47)
[2018-12-18] MEDS ORDERED: ROCEPHIN 1 GM VIAL IM SCH (09:00)
[2018-12-18] MEDS ORDERED: LIDOCAINE HCL 1% SDV IM SCH (09:00)
--- NOTE | 2018-12-18 09:23 | PCM.PROG ---
Attending Provider: ATTENDING PROVIDER: Dr. JAGJIT VELASCO This patient is seen with Patricai Serrano, Nurse Practitioner. DATE OF SERVICE: 12/18/18 SUBJECTIVE: This 78 year old WHITE/ F was hospitalized 12/14/18. The patient is resting comfortably. She has been up and about walking. She has been afebrile and is ready to go home. REVIEW OF SYSTEMS: CONSTITUTIONAL: No night sweats. No fatigue, malaise, lethargy. No fever or chills. Weakness. HEENT: Eyes: No visual changes. No eye pain. No eye discharge. ENT: No runny nose. No epistaxis. No sinus pain. No odynophagia. No congestion. RESPIRATORY: No cough, no congestion. No hemoptysis. No shortness of breath. CARDIOVASCULAR: No angina symptoms. No CHF symptoms. No atypical chest pain for CAD. No palpitations. No orthopnea.. GASTROINTESTINAL: No abdominal pain. No nausea or vomiting. No diarrhea or constipation. No hematemesis. No hematochezia. GENITOURINARY: No urgency. No frequency. No dysuria. No hematuria. No obstructive symptoms. No discharge. No pain. No significant abnormal bleeding. MUSCULOSKELETAL: No musculoskeletal pain; no joint swelling. NEUROLOGICAL: Awake, alert, oriented to time, place and person. No headache. No neck pain. No syncope. No seizures. No dizziness. PSYCHIATRIC: Not anxious. No depression. No suicidal thoughts. No homicidal thoughts. SKIN: No rash. No lesions. No wounds. ENDOCRINE: No unexplained weight loss. No weight gain. HEMATOLOGIC/LYMPHATIC: No anemia. No purpura. No petechiae. No prolonged or excessive bleeding. No palpable lymph nodes. PHYSICAL EXAMINATION: GENERAL: The patient is awake, alert and oriented, lying in bed in no distress. VITAL SIGNS: Temperature 98.5 F, Pulse 65, Respiratory Rate 18, BP 165/83, Pulse Ox 95% HEENT: Head normocephalic, atraumatic. Eyes: Extraocular muscles are intact. Pupils are equal, round and reactive to light and accommodation. Ears: No lesions. Nose appeared normal. Throat: No exudate or erythema. NECK: Supple. No JVD, no carotid bruit. No lymphadenopathy or thyromegaly. LUNGS: Diminished breath sounds. Clear to auscultation. Percussion note normal. Chest symmetrical. HEART: Irregular heart rate. S1, S2, no S3. No murmurs. No cyanosis or clubbing. No ascites. Pulses: Dorsalis pedis and posterior tibial pulses +1 to +2 both sides. ABDOMEN: Soft. Non-tender. Bowel sounds active. No CVA tenderness. No mass felt. EXTREMITIES: No edema. Full range of motion of all extremities, equal. NEUROLOGIC: No focal deficit. Cranial nerves II through XII are grossly intact. No headache, no double vision or headache. SKIN: Not dry. Intact. Turgor-normal. LYMPHATIC: No palpable lymph nodes/no lymphedema. MUSCULOSKELETAL: Normal joints with no swelling. Muscle tone is normal. LAB REVIEW: 12/18/18 04:35 12/18/18 04:35 12/18/18 04:35: Sodium 138.7, Potassium 4.23, Chloride 107.8 H, Carbon Dioxide 28.4, Anion Gap 6.73, BUN 8.7, Creatinine 0.69, Estimated GFR (MDRD) 82.00, BUN/ Creatinine Ratio 12.60, Glucose 91.6, Calcium 8.54, Total Bilirubin 0.26, AST 23.1, ALT 13.1, Alkaline Phosphatase 68.4, Total Protein 6.03 L, Albumin 3.26 L , Globulin 2.77, Albumin/Globulin Ratio 1.17 12/18/18 04:35: WBC 4.11 L, RBC 3.77 L, Hgb 11.2 L, Hct 35.4 L, MCV 93.9, MCH 29.7, MCHC 31.6 L, RDW Coeff of Pricila 13.3, Plt Count 137 L, Immature Gran % (Auto ) 0.2, Neut % (Auto) 57.2, Lymph % (Auto) 28.5, Emery % (Auto) 6.8, Eos % (Auto) 6.3, Baso % (Auto) 1.0, Immature Gran # (Auto) 0.0, Neut # (Auto) 2.4, Lymph # ( Auto) 1.2, Emery # (Auto) 0.3 L, Eos # (Auto) 0.3, Baso # (Auto) 0.0 ASSESSMENT: Please see below. 1. UTI seems to be under control 2. Atrial fibrillation under control. The patient needs to be Xarelto just 15mg one a day PLAN: 1. Discharge home 2. Macrobid 100mg BID for 5 days 3. Lisiniopril 20mg daily 4. Medications reviewed and discussed. Plan and coordination of the patient's care discussed in the presence of Nuclear Criticality Safety Engineer and nurse. SCRIBED BY: Mario GARLAND scribed while in presence of service performed by Dr. Velasco/Patricia Serrano APRN on 12/18/18 ([id number])
[2018-12-18] MEDS ORDERED: ZESTRIL PO STA ×2 (10:04)
--- NOTE | 2018-12-18 10:16 | PN ---
DATE OF SERVICE: 12/16/18 SUBJECTIVE: 78-year-old white female hospitalized with acute urinary tract infection. The patient is doing well. She is afebrile, doing a lot better. The patient had some vaginal bleeding which seems to have stopped. The patient is on Xarelto now with her atrial fibrillation. The patient wants to go home. The patient's daughter is in the room. REVIEW OF SYSTEMS: CONSTITUTIONAL: No night sweats. No fatigue, malaise, lethargy. No fever or chills. HEENT: Eyes: No visual changes. No eye pain. No eye discharge. ENT: No runny nose. No epistaxis. No sinus pain. No sore throat. No odynophagia. No congestion. RESPIRATORY: No cough, no congestion. No hemoptysis. No shortness of breath. CARDIOVASCULAR: No angina symptoms. No CHF symptoms. No atypical chest pain for CAD. No palpitations. No PND. No orthopnea. GASTROINTESTINAL: No abdominal pain. No nausea or vomiting. No diarrhea or constipation. No hematemesis. No hematochezia. GENITOURINARY: No urgency. No frequency. No dysuria. No hematuria. No obstructive symptoms. No discharge. No pain. No significant abnormal bleeding. MUSCULOSKELETAL: No musculoskeletal pain; no joint swelling. NEUROLOGICAL: No headache. No neck pain. No syncope. No seizures. No dizziness. PSYCHIATRIC: Not anxious. No depression. No suicidal thoughts. No homicidal thoughts. SKIN: No rash. No lesions. No wounds. ENDOCRINE: No unexplained weight loss. No weight gain. HEMATOLOGIC/LYMPHATIC: No anemia. No purpura. No petechiae. No prolonged or excessive bleeding. No palpable lymph nodes. PHYSICAL EXAMINATION: GENERAL: She seems to be oriented to time, place and person. V/S: Temperature 98, pulse 67, respiratory rate 20, BP 120/60, pulse ox 96% on room air. HEENT: Head normocephalic, atraumatic. Eyes: Extraocular muscles are intact. Pupils are equal, round and reactive to light and accommodation. Ears: No lesions. Nose appeared normal. Throat: No exudate or erythema. NECK: Supple. No JVD, no carotid bruit. No lymphadenopathy or thyromegaly. LUNGS: Decreased breath sounds. Clear to auscultation. Percussion note normal. Chest symmetrical. HEART: S1, S2, no S3. Grade I/ systolic murmur. No cyanosis or clubbing. No ascites. Pulses: Dorsalis pedis and posterior tibial pulses +1 to +2 bilaterally. ABDOMEN: Soft. Nontender. Bowel sounds active. No CVA tenderness. No mass felt. EXTREMITIES: No edema. Full range of motion of all extremities, equal. NEUROLOGIC: No focal deficit. Cranial nerves II through XII are grossly intact. No headache, no double vision or headache. SKIN: Not dry. Intact. Turgor - normal. LYMPHATIC: No palpable lymph nodes/no lymphedema. MUSCULOSKELETAL: Normal joints with no swelling. Muscle tone is normal. LABS: Hemoglobin 10.4, hematocrit 32, WBC 3,700 with normal differential. Creatinine 0.6, BUN 9, potassium 3.9. ASSESSMENT: 1. URINARY TRACT INFECTION 2. DEHYDRATION 3. VAGINAL BLEEDING ALL THE ABOVE SEEM TO BE UNDER CONTROL PLAN: 1. Continue all the medication. 2. Continue IV fluids. 3. The patient is on Rocephin and needs to be continued. 4. Xarelto is to be continued. 5. The patient's hemoglobin/hematocrit stable, will need to watch for active GI bleed which she doesn't seem to have at the present time. CONDITION: Stable. TIME SPENT: More than 30 minutes. Plan and coordination of the patient's care discussed in the presence of nurse. ANDREW
--- NOTE | 2018-12-18 10:25 | PN ---
DATE OF SERVICE: 12/15/18 SUBJECTIVE: The patient was seen and examined with the nurse practitioner. The patient has UTI which seems to be resolving. No symptoms. The patient has no bleeding. Will start Xarelto. TIME SPENT: More than 30 minutes. Plan and coordination of the patient's care discussed in the presence of nurse. ANDREW
--- NOTE | 2018-12-18 10:43 | PN ---
DATE OF SERVICE: 12/17/18 SUBJECTIVE: 78-year-old white female hospitalized with acute urinary tract infection. The patient's condition has improved, practically no vaginal bleeding. The patient may have irritation. The patient was checked by ER physician, was noted to have atrophic vaginitis. The patient's appetite has improved. REVIEW OF SYSTEMS: CONSTITUTIONAL: No night sweats. No fatigue, malaise, lethargy. No fever or chills. HEENT: Eyes: No visual changes. No eye pain. No eye discharge. ENT: No runny nose. No epistaxis. No sinus pain. No sore throat. No odynophagia. No congestion. RESPIRATORY: No cough, no congestion. No hemoptysis. No shortness of breath. CARDIOVASCULAR: No angina symptoms. No CHF symptoms. No atypical chest pain for CAD. No palpitations. No PND. No orthopnea. GASTROINTESTINAL: No abdominal pain. No nausea or vomiting. No diarrhea or constipation. No hematemesis. No hematochezia. GENITOURINARY: No urgency. No frequency. No dysuria. No hematuria. No obstructive symptoms. No discharge. No pain. No significant abnormal bleeding. MUSCULOSKELETAL: No musculoskeletal pain; no joint swelling. NEUROLOGICAL: No headache. No neck pain. No syncope. No seizures. No dizziness. PSYCHIATRIC: Not anxious. No depression. No suicidal thoughts. No homicidal thoughts. SKIN: No rash. No lesions. No wounds. ENDOCRINE: No unexplained weight loss. No weight gain. HEMATOLOGIC/LYMPHATIC: No anemia. No purpura. No petechiae. No prolonged or excessive bleeding. No palpable lymph nodes. PHYSICAL EXAMINATION: V/S: Temperature 98, pulse 66, respiratory rate 14, blood pressure 122/80, pulse ox 98%. HEENT: Head normocephalic, atraumatic. Eyes: Extraocular muscles are intact. Pupils are equal, round and reactive to light and accommodation. Ears: No lesions. Nose appeared normal. Throat: No exudate or erythema. NECK: Supple. No JVD, no carotid bruit. No lymphadenopathy or thyromegaly. LUNGS: Clear to auscultation. Percussion note normal. Chest symmetrical. HEART: S1, S2, no S3. No murmurs. No cyanosis or clubbing. No ascites. Pulses: Dorsalis pedis and posterior tibial pulses +1 to +2 bilaterally. ABDOMEN: Soft. Nontender. Bowel sounds active. No CVA tenderness. No mass felt. EXTREMITIES: No edema. Full range of motion of all extremities, equal. NEUROLOGIC: No focal deficit. Cranial nerves II through XII are grossly intact. No headache, no double vision or headache. SKIN: Not dry. Intact. Turgor - normal. LYMPHATIC: No palpable lymph nodes/no lymphedema. MUSCULOSKELETAL: Normal joints with no swelling. Muscle tone is normal. LABS: Hemoglobin 11.1, hematocrit 35, WBC 4,000, normal differential. Creatinine 0.6, BUN 6, potassium 4.2. ASSESSMENT: 1. UTI seems to be under control. 2. Atrial fibrillation under control. The patient needs to be on Xarelto just 15 mg one a day. 3. D/C IV fluids. 4. Rocephin to be given IM. 5. Lotrisome cream to the vulva. 6. Diflucan 150 mg one tablet to be given. CONDITION: Stable. TIME SPENT: More than 30 minutes. Plan and coordination of the patient's care discussed in the presence of nurse. ANDREW
[2018-12-18 11:47] VITALS: BP 118/58
--- NOTE | 2018-12-18 12:16 | CM.DICTOOL ---
ADMISSION: 12/14/18 10:13 DISCHARGE: 2018 DATE OF SERVICE: 12/18/18 FINAL DIAGNOSIS UTI - E COLI A FIB, CONTROLLED - XARELTO DAILY VAGINAL BLEEDING, RESOLVED CHF ANGINA ANEMIA HYPERTENSION CAD COPD DYSLIPIDEMIA GERD OSTEOARTHRITIS DEPRESSION CHOLECYSTECTOMY APPENDECTOMY HYSTERECTOMY CAROTID ENDARTERECTOMY ANGIOPLASTY CATARACT EXTRACTION RIGHT SHOULDER SURGERY RIGHT KNEE REPLACEMENT, 2012 ECHO 09/06: BORDERLINE LVH W/ ENLARGED LAC BORDERLINE LVC, CALCIFIC AORTIC VALVE MILD AORTIC STENOSIS, HYPOKINETIC SEPTUM LVEF 42% LAST VITALS Temp Pulse Resp BP Pulse Ox 98.5 F 62 16 118/58 95 12/18/18 05:06 12/18/18 11:45 12/18/18 11:45 12/18/18 11:45 12/18/18 11:45 TAKE THESE MEDICATIONS AT HOME Acetaminophen (Tylenol) 650 mg PO Q6HR PRN PRN Reason: Pain Last Admin: 12/17/18 08:05 Dose: 500 mg Albuterol Sulfate (Proair Hfa) 1 puff IH Q4HR PRN PRN Reason: dyspnea or wheezing Atorvastatin Calcium (Lipitor) 80 mg PO DAILY [facility] Last Admin: 12/18/18 08:41 Dose: 80 mg Calcium/Vitamin D (Calcium 500 + Vit D 200 Mg Tablet) 1 each PO BID [facility] Last Admin: 12/18/18 08:44 Dose: 1 each Clonazepam (Klonopin) 0.5 mg PO BEDTIME [facility] Last Admin: 12/17/18 20:54 Dose: 0.5 mg Clotrimazole (Lotrisone 45 Gm) 1 applic TP APPLY TO VULVA BID WHILE SYMPTOMS PERSIST Last Admin: 12/17/18 20:55 Dose: 1 applic Escitalopram Oxalate (Lexapro) 20 mg PO DAILY [facility] Last Admin: 12/18/18 08:43 Dose: 20 mg Gabapentin (Neurontin) 1,800 mg PO BID [facility] Last Admin: 12/18/18 08:43 Dose: 1,800 mg Isosorbide Mononitrate (Imdur) 30 mg PO BID [facility] Last Admin: 12/18/18 08:45 Dose: 30 mg Lisinopril (Zestril) 20 mg PO DAILY [facility] DOSE INCREASED FROM 5 MG DAILY Last Admin: 12/18/18 08:46 Dose: 20 mg Macrobid 100 mg PO BID for FIVE DAYS LAST DAY: December 22 Last Admin: N/A Metoprolol Tartrate (Lopressor) 12.5 mg PO BID [facility] DOSE DECREASED FROM 25 MG BID Last Admin: 12/18/18 08:45 Dose: 12.5 mg Nitroglycerin (Nitrostat) 0.4 mg SL Q5MIN PRN PRN Reason: Chest Pain Omeprazole (Prilosec) 20 mg PO QDAC [facility] Last Admin: 12/18/18 05:45 Dose: 20 mg Oxycodone/Acetaminophen (Percocet 5-325) 1 tab PO BID PRN PRN Reason: Pain Last Admin: 12/18/18 08:47 Dose: 1 tab Rivaroxaban (Xarelto) 15 mg PO DAILYWM [facility] Last Admin: 12/18/18 08:35 Dose: 15 mg ALLERGIES Iodinated Contrast Media [Iodinated Contrast Media - IV Dye] Adverse Reaction ( Verified 12/14/18 06:56) pregabalin [From Lyrica] Adverse Reaction (Verified 12/14/18 06:56) Iodinated Contrast Media - IV Dye Adverse Reaction (Uncoded 07/15/13 17:54) pregabalin Adverse Reaction (Uncoded 07/15/13 17:54) DISCONTINUED MEDICATIONS NONE NEW PRESCRIPTIONS: MACROBID 100 MG ONE TABLET BY MOUTH TWICE A DAY FOR FIVE DAYS MEDICATION CHANGES INCREASE LISINOPRIL TO 20 MG PO DAILY DECREASE LOPRESSOR TO 12.5 MG PO BID SMOKING: NOT APPLICABLE DISEASE SPECIFIC EDUCATION: UTI - E COLI A FIB XARELTO ONCE DAILY MEDICATIONS FOLLOW UP LAB REVIEW: 12/18/18 04:35 12/18/18 04:35 12/18/18 04:35: Sodium 138.7, Potassium 4.23, Chloride 107.8 H, Carbon Dioxide 28.4, Anion Gap 6.73, BUN 8.7, Creatinine 0.69, Estimated GFR (MDRD) 82.00, BUN/ Creatinine Ratio 12.60, Glucose 91.6, Calcium 8.54, Total Bilirubin 0.26, AST 23.1, ALT 13.1, Alkaline Phosphatase 68.4, Total Protein 6.03 L, Albumin 3.26 L , Globulin 2.77, Albumin/Globulin Ratio 1.17 12/18/18 04:35: WBC 4.11 L, RBC 3.77 L, Hgb 11.2 L, Hct 35.4 L, MCV 93.9, MCH 29.7, MCHC 31.6 L, RDW Coeff of Pricila 13.3, Plt Count 137 L, Immature Gran % (Auto ) 0.2, Neut % (Auto) 57.2, Lymph % (Auto) 28.5, [place] % (Auto) 6.8, Eos % (Auto) 6.3, Baso % (Auto) 1.0, Immature Gran # (Auto) 0.0, Neut # (Auto) 2.4, Lymph # ( Auto) 1.2, [place] # (Auto) 0.3 L, Eos # (Auto) 0.3, Baso # (Auto) 0.0 PLAN: DISCHARGE HOME TODAY 2018 DIET: RESUME TOLERATED ACTIVITY: RESUME TOLERATED, PLENTY OF REST USE WALKER FOR ADDED SAFETY A FOLLOW UP APPOINTMENT HAS BEEN SCHEDULED WITH DR. HERNANDEZ/PATRICIA BEVERLY APRN ON TuesdayDecember AT 915 AM. PLEASE CALL [phone] IF UNABLE TO KEEP APPOINTMENT. CODE STATUS: FULL CODE MRS. GUADALUPE IS ALERT, ORIENTED X3. SHE AND HER DAUGHTERS; TRAM AND KEVIN, ARE AGREEABLE WITH DISCHARGE HOME TODAY. SHE IS INDEPENDENT WITH ADL'S AND AMBULATES WITH THE ASSISTANCE OF A ROLLING WALKER. MRS. GUADALUPE IS ABLE TO FEED HERSELF, HER APPETITE IS EXCELLENT WITH MEAL INTAKE 100%. SHE IS CONTINENT OF HER BOWELs AND BLADDER. SHE IS NO LONGER REPORTING ANY HEMATURIA, SHE DENIES BURNING WITH URINATION. REPORTS URINARY FREQUENCY AND URGENCY WHICH ARE CHRONIC IN NATURE. HYDRATION STATUS IS ADEQUATE. SKIN IS INTACT. Tyler Hernandez M.D. Patricia Beverly APRN
[2018-12-18] MEDS: LOTRISONE 45 GM TP SCH (15:41)
--- NOTE | 2018-12-27 11:34 | DS ---
DATE OF SERVICE: 12/18/18 FINAL DIAGNOSIS: 1. UTI - E COLI 2. A FIB, CONTROLLED - XARELTO DAILY 3. VAGINAL BLEEDING, RESOLVED 4. CHF 5. ANGINA 6. ANEMIA 7. HYPERTENSION 8. CAD 9. COPD 10.DYSLIPIDEMIA 11.GERD 12.OSTEOARTHRITIS 13.DEPRESSION 14.CHOLECYSTECTOMY 15.APPENDECTOMY 16.HYSTERECTOMY 17.CAROTID ENDARTERECTOMY 18.ANGIOPLASTY 19.CATARACT EXTRACTION 20.RIGHT SHOULDER SURGERY 21.RIGHT KNEE REPLACEMENT, 2012.ECHO 09/06: BORDERLINE LVH W/ ENLARGED LAC BORDERLINE LVC, CALCIFIC AORTIC VALVE MILD AORTIC STENOSIS, HYPOKINETIC SEPTUM LVEF 42% LAST VITALS: Temp Pulse Resp BP Pulse Ox 98.5 F 62 16 118/58 95 12/18/18 05:06 12/18/18 11:45 12/18/18 11:45 12/18/18 11:45 12/18/18 11:45 DISCHARGE INSTRUCTION: DISCHARGE HOME TODAY 2018. A FOLLOW UP APPOINTMENT HAS BEEN SCHEDULED WITH DR. VELASCO/OTTO BEVERLY APRN ON TuesdayDecember AT 915 AM. PLEASE CALL [phone] IF UNABLE TO KEEP APPOINTMENT. CODE STATUS: FULL CODE. TAKE THESE MEDICATIONS AT HOME: Acetaminophen (Tylenol) 650 mg PO Q6HR PRN Albuterol Sulfate (Proair Hfa) 1 puff IH Q4HR PRN Atorvastatin Calcium (Lipitor) 80 mg PO DAILY [facility] Calcium/Vitamin D (Calcium 500 + Vit D 200 Mg Tablet) 1 each PO BID [facility] Clonazepam (Klonopin) 0.5 mg PO BEDTIME [facility] Clotrimazole (Lotrisone 45 Gm) 1 applic TP APPLY TO VULVA BID WHILE SYMPTOMS PERSIST Escitalopram Oxalate (Lexapro) 20 mg PO DAILY [facility] Gabapentin (Neurontin) 1,800 mg PO BID [facility] Isosorbide Mononitrate (Imdur) 30 mg PO BID [facility] Lisinopril (Zestril) 20 mg PO DAILY [facility] DOSE INCREASED FROM 5 MG DAILY Macrobid 100 mg PO BID for FIVE DAYS LAST DAY: December 22 Metoprolol Tartrate (Lopressor) 12.5 mg PO BID [facility] DOSE DECREASED FROM 25 MG BID Nitroglycerin (Nitrostat) 0.4 mg SL Q5MIN PRN Omeprazole (Prilosec) 20 mg PO QDAC [facility] Oxycodone/Acetaminophen (Percocet 5-325) 1 tab PO BID PRN Rivaroxaban (Xarelto) 15 mg PO DAILYWM [facility] ALLERGIES: Iodinated Contrast Media [Iodinated Contrast Media - IV Dye] Adverse Reaction (Verified 12/14/18 06:56) pregabalin [From Lyrica] Adverse Reaction (Verified 12/14/18 06:56) Iodinated Contrast Media - IV Dye Adverse Reaction (Uncoded 07/15/13 17:54) pregabalin Adverse Reaction (Uncoded 07/15/13 17:54) DISCONTINUED MEDICATIONS: NONE NEW PRESCRIPTIONS: MACROBID 100 MG ONE TABLET BY MOUTH TWICE A DAY FOR FIVE DAYS MEDICATION CHANGES: INCREASE LISINOPRIL TO 20 MG PO DAILY DECREASE LOPRESSOR TO 12.5 MG PO BID SMOKING: NOT APPLICABLE DISEASE SPECIFIC EDUCATION: UTI - E COLI A FIB XARELTO ONCE DAILY MEDICATIONS FOLLOW UP DIET: RESUME TOLERATED ACTIVITY: RESUME TOLERATED, PLENTY OF REST USE WALKER FOR ADDED SAFETY HOSPITAL COURSE: This is a white female who presented to the emergency room with lower abdominal pain and bleeding. Vaginal bleeding has resolved. We held her Xarelto for two days. She does not require a transfusion. Hgb has remained stable. Urine was abnormal. She also had gross amount of blood in her urine. Culture was positive for e-coli. She was initially placed on IV Rocephin as she did have low grade fever along with lower abdominal pain and worsening back pain. As we have treated the urinary tract infection both the lower abdominal pain and back pain have improved. She does have chronic back pain for which she takes pain medication but this has been controlled. We will resume her Xarelto which we did after two days and hgb has remained stable. She is to go home on 15mg PO daily. Again, the vaginal bleeding has resolved. For the past 24 hours she has been up and about walking around in her room. She states that she is feeling much better. Appetite has improved. She has been eating well. We will discharge her on Macrobid 100mg BID for the next 5 days as she had 4 days of the Rocephin. WBC has improved. All labs are stable. She was having some elevated blood pressure and we increased her Lisinopril to 20mg daily. Also having some Bradycardia likely due to Lopressor so we decreased the Lopressor to 12.5 BID and then she will be on Lopressor 20mg daily. We discharged her in stable condition. We will followup with her this week in the office. TIME SPENT: More than 60 minutes. ANDREW
--- NOTE | 2018-12-29 14:44 | PN ---
DATE OF SERVICE: 12/15/18 SUBJECTIVE: The patient is feeling much better this morning. No fever. She still has slight lower abdominal pain. Urine culture is pending. She has been afebrile. Vaginal bleeding has improved, is faint pink instead of bright red. REVIEW OF SYSTEMS: CONSTITUTIONAL: No night sweats. No fatigue, malaise, lethargy. No fever or chills. HEENT: Eyes: No visual changes. No eye pain. No eye discharge. ENT: No runny nose. No epistaxis. No sinus pain. No sore throat. No odynophagia. No congestion. RESPIRATORY: No cough, no congestion. No hemoptysis. No shortness of breath. CARDIOVASCULAR: No angina symptoms. No CHF symptoms. No atypical chest pain for CAD. No palpitations. No PND. No orthopnea. GASTROINTESTINAL: No abdominal pain. No nausea or vomiting. No diarrhea or constipation. No hematemesis. No hematochezia. GENITOURINARY: No urgency. No frequency. No dysuria. No hematuria. No obstructive symptoms. No discharge. No pain. No significant abnormal bleeding. MUSCULOSKELETAL: Positive for lower abdominal pain. Generalized weakness. NEUROLOGICAL: No headache. No neck pain. No syncope. No seizures. No dizziness. PSYCHIATRIC: Not anxious. No depression. No suicidal thoughts. No homicidal thoughts. SKIN: No rash. No lesions. No wounds. ENDOCRINE: No unexplained weight loss. No weight gain. HEMATOLOGIC/LYMPHATIC: No anemia. No purpura. No petechiae. No prolonged or excessive bleeding. No palpable lymph nodes. PHYSICAL EXAMINATION: VITAL SIGNS: Temperature 98.6, pulse 64, respiratory rate 18, BP 129/68, 02 sat 93. HEENT: Head normocephalic, atraumatic. Eyes: Extraocular muscles are intact. Pupils are equal, round and reactive to light and accommodation. Ears: No lesions. Nose appeared normal. Throat: No exudate or erythema. NECK: Supple. No JVD, no carotid bruit. No lymphadenopathy or thyromegaly. LUNGS: Diminished breath sounds. Clear to auscultation. Percussion note normal. Chest symmetrical. HEART: S1, S2, no S3. No murmurs. No cyanosis or clubbing. No ascites. Pulses: Dorsalis pedis and posterior tibial pulses +1 to +2 bilaterally. ABDOMEN: Soft. Diffuse lower quadrant tenderness which is mild, improved from yesterday. Bowel sounds active. No CVA tenderness. No mass felt. EXTREMITIES: No edema. Full range of motion of all extremities, equal. NEUROLOGIC: No focal deficit. Cranial nerves II through XII are grossly intact. No headache, no double vision or headache. SKIN: Not dry. Intact. Turgor - normal. LYMPHATIC: No palpable lymph nodes/no lymphedema. MUSCULOSKELETAL: Normal joints with no swelling. Muscle tone is normal. LABS: WBC 5.40, hemoglobin 11.0, platelets 120, hematocrit 34.6. Sodium 138, chloride 106.2, BUN 12.6, glucose 116.2, K+ 3.42, c02 28.8, creatinine 0.73. ASSESSMENT: 1. URINARY TRACT INFECTION, URINE CULTURE PENDING. 2. VAGINAL BLEEDING. 3. ATRIAL FIBRILLATION, HAD BEEN ON XARELTO. 4. HYPOKALEMIA. PLAN: 1. Potassium 40 mEq today. 2. D/C IV fluids. 3. Okay to restart Xarelto 15 mg p.o. daily. 4. Continue Rocephin 1 gm IV daily. TIME SPENT: More than 30 minutes. Plan and coordination of the patient's care discussed in the presence of nurse. ANDREW
--- NOTE | 2019-01-10 10:37 | PN ---
12/14/18: Level 5 12/15/18: Intermediate 12/16/18: Intermediate 12/17/18: Intermediate 12/18/18: D as in discharge MTDD
--- NOTE | 2019-01-10 10:37 | PN ---
DATE OF SERVICE: 12/18/18 SUBJECTIVE: The patient was seen and examined with the Nurse Practitioner. The patient has no vaginal bleeding or any bleeding. She is going to be on Xarelto 15mg a day. Continues to be in atrial fibrillation. Her appetite has improved. She is afebrile. She is going to be discharged on antibiotics. CONDITION: Stable. TIME SPENT: More than 30 minutes. Plan and coordination of the patient's care discussed in the presence of nurse. ANDREW
== END 2018-12-18 13:15 | disposition home or self-care (01) | DRG 690 ==
LOC: ED 06:50 → MEDSURG B 10:13
PROVIDERS: ADMIT Internal Medicine; ATTEND Internal Medicine

== ENCOUNTER 2019-11-11 11:03 | Inpatient (IN) ==
[2019-11-11] MEDS ORDERED: MORPHINE 2 MG/ML SYRINGE IVP STA ×2 (11:15→12:19)
[2019-11-11 11:23] LABS: BASOPHILS % (AUTO) 0.4 % (0.0-3.0); EOSINOPHILS # (AUTO) 0.2 K/ul (0.0-0.7); EOSINOPHILS % (AUTO) 3.2 % (0.0-7.0); HEMATOCRIT 36.7 % (37.0-47.0); IMMATURE GRANULOCYTE % (AUTO) 0.2 % (0.0-5.0); LYMPHOCYTES % (AUTO) 20.6 (10.0-50.0); MEAN CORPUSCULAR HEMOGLOBIN 30.2 pg (27.0-31.0); MEAN CORPUSCULAR HGB CONC 32.7 (31.8-35.4); MEAN CORPUSCULAR VOLUME 92.2 fl (81.0-99.0); MONOCYTES # (AUTO) 0.4 K/uL (0.4-2.0); MONOCYTES % (AUTO) 7.9 (0-10); NEUTROPHILS # (AUTO) 3.2 K/ul (2.0-6.9); NEUTROPHILS % (AUTO) 67.7 % (42.2-75.2); PLATELET COUNT 154 10^3/uL (140-440); RDW COEFFICIENT OF VARIATION 13.7 % (11.6-14.8); RED BLOOD COUNT 3.98 10^6/ul (4.20-5.40); WHITE BLOOD COUNT 4.67 K/ul (4.6-10.2)
--- NOTE | 2019-11-11 11:31 | ED.PDOC ---
General ED Provider: Dr. DAPHNE IRIZARRY MD Chief Complaint: Chest Pain Stated Complaint: chest pain Time Seen by Physician: 11:05 Mode of Arrival: Walk-In Information Source: Patient Primary Care Provider: JAGJIT VELASCO Nursing and Triage Documentation Reviewed and Agree: Yes Does patient meet sepsis criteria?: No System Inflammatory Response Syndrome: Not Applicable Sepsis Protocol: For patient's 13 years and over: Temp is 96.8 and below OR 101 and greater Pulse >90 BPM Resp >20/minute Acutely Altered Mental Status Are patient's symptoms suggestive of a new infection, such as: -Pneumonia -Skin, Soft Tissue -Endocarditis -UTI -Bone, Joint Infection -Implantable Device -Acute Abdominal Infection -Wound Infection -Meningitis -Blood Stream Catheter Infection -Unknown Cardiovascular Complaint Exam Chest Pain Complaint/Exam Onset: Sudden Duration: 1hr Symptoms Are: Still present Timing: Constant Length of Chest Pain Episodes: 1hr Initial Severity: Moderate Current Severity: Moderate Location: Reports Midsternal Pain Radiates: Reports None Character: Reports Tightness and Sharp Aggravating: Reports None Alleviating: Reports None and Nitro (took 3 ntg at home) Related History: Reports Similar episode AMI/ACS Risk Factors: Reports Nitroglycerine use Prior Care for this Complaint: Yes Recent Stress Test: No Recent Echo/LV Function: No JVD Present: No Subcutaneous Emphysema Present: No Diminshed Breath Sounds: No Reproducible Chest Wall Pain: Yes Bilateral Pulses Present: No Unequal Pulses Noted: No Review of Systems Review Of Systems Constitutional: Reports No symptoms All Other Systems: Reviewed and Negative [facility] Medical History Acute arthritis Anesthesia complication Atherosclerosis of coronary artery Chronic GERD Chronic obstructive pulmonary disease Elevated cholesterol Heart disease History of COPD History of hypertension History of seasonal allergies History of sinus problem Family History SISTER Malignant neoplasm of lung, Onset Age: 57 Abuse, drug or alcohol BROTHER Malignant neoplasm of lung, Onset Age: 37 Mother Hyperthyroidism, Onset Age: 83 FATHER Abuse, drug or alcohol Social History Smoking and tobacco status: Never smoker Alcohol intake: never Substance use type: does not use Housing: house Current occupational status: retired Pets and animals: Yes History of recent travel: No Seatbelt use: always Water heater temperature set < 120 degrees: Yes Working smoke detector in home: Yes Fire extinguisher in home: Yes Carbon monoxide detector in home: Yes Firearms in home: No Female Reproductive History Menstrual Hx Hysterectomy: Yes Hx Tubal Ligation: No Physical Exam Physical Exam Appearance: Reports Well-appearing Ill-appearing: None Pain Distress: None Eyes: Reports HUSSAIN and EOMI ENT: Reports Ears normal, Nose normal and Oropharynx normal Neck: Supple Respiratory: Reports Airway patent, Breath sounds clear and Breath sounds equal Cardiovascular: Reports RRR, Pulses normal, No rub, No murmur and Other (chest wall tender to palpation) GI/: Reports Soft, Nontender, No masses and Bowel sounds normal Musculoskeletal: Reports Normal strength, ROM intact, No edema and No calf tenderness Skin: Reports Warm, Dry and Normal color Neurological: Reports Sensation intact, Motor intact, Reflexes intact, Alert and Oriented Psychiatric: Reports Affect appropriate Interpretation Radiology Interpretation Radiology Interpretation By: Radiologist Radiology Results: Negative Exam Interpreted: CXR EKG Interpretation Time of EKG #1: 11:20 Rate: Normal Rhythm: Other (atrial fibillation) Ectopy: None [place]: [place] ST Segment: Normal Physician Notification Case Discussed Physician Notified: velasco Time of Notification: 12:14 Admit/Transition Orders Entered by ED Provider: Yes Admit To: Inpatient Critical Care Note Critical Care Note Total Time (mins): 0 Course Course Hematology/Chemistry: 11/11/19 11:00 11/11/19 11:00 Orders, Labs, Meds: Lab Review 11/11/19 11/11/19 11:00 11:00 WBC 4.67 RBC 3.98 L Hgb 12.0 Hct 36.7 L MCV 92.2 MCH 30.2 MCHC 32.7 RDW Coeff of Pricila 13.7 Plt Count 154 Immature Gran % (Auto) 0.2 Neut % (Auto) 67.7 Lymph % (Auto) 20.6 [place] % (Auto) 7.9 Eos % (Auto) 3.2 Baso % (Auto) 0.4 Neut # (Auto) 3.2 Lymph # (Auto) 1.0 [place] # (Auto) 0.4 Eos # (Auto) 0.2 Baso # (Auto) 0.0 Immature Gran # (Auto) 0.0 Sodium 137.1 Potassium 4.77 Chloride 99.3 Carbon Dioxide 33.6 H Anion Gap 8.97 BUN 16.7 Creatinine 0.62 Estimated GFR (MDRD) 92.00 BUN/Creatinine Ratio 26.93 Glucose 86.9 Calcium 9.01 Total Bilirubin 0.37 AST 30.8 ALT 13.8 Alkaline Phosphatase 64.0 Troponin I < 0.012 Total Protein 6.67 Albumin 3.66 Globulin 3.01 Albumin/Globulin Ratio 1.21 Orders Category Date Time Status ADMIT PATIENT INPATIENT .TO MEDSURG (MONITORED BED) ADMISSION 11/11/19 12:06 Active EKG-(ED ONLY) Stat CARDIO 11/11/19 11:14 Completed EKG-(IP & OP ONLY) DAILY CARDIO 11/12/19 06:00 Ordered EKG-(IP & OP ONLY) DAILY CARDIO 11/13/19 06:00 Ordered ACTIVITY .BR with BRP CARE 11/11/19 12:06 Active INTAKE & OUTPUT Q8HR CARE 11/11/19 12:06 Active TELEMETRY MONITORING TELE CARE 11/11/19 12:06 Active VITAL SIGNS Q8HR CARE 11/11/19 12:06 Active CARDIAC DIET DIETARY 11/11/19 Dinner Ordered CBC W/ AUTO DIFF DAILY@0600 LAB 11/12/19 06:00 Ordered CBC W/ AUTO DIFF DAILY@0600 LAB 11/13/19 06:00 Ordered CBC W/ AUTO DIFF Stat LAB 11/11/19 11:00 Completed COMPREHENSIVE METABOLIC PANEL DAILY@0600 LAB 11/12/19 06:00 Ordered COMPREHENSIVE METABOLIC PANEL DAILY@0600 LAB 11/13/19 06:00 Ordered COMPREHENSIVE METABOLIC PANEL Stat LAB 11/11/19 11:00 Completed TROPONIN I Q8H LAB 11/11/19 18:15 Ordered TROPONIN I Q8H LAB 11/12/19 02:15 Ordered TROPONIN I Stat LAB 11/11/19 11:00 Completed Morphine Sulfate [Morphine 2 mg/ml Syringe] MEDS 11/11/19 11:15 Discontinued 2 mg IVP ONCE STA Nitroglycerin [Nitrostat] MEDS 11/11/19 11:14 Active 0.4 mg SL Q5MIN X 3 DOSES PRN RESUSCITATION STATUS Routine OTHERS 11/11/19 12:06 Ordered CHEST, 1V AP ONLY Stat RADS 11/11/19 11:14 Completed Medications Generic Name Dose Route Start Last Admin Trade Name Freq PRN Reason Stop Dose Admin Nitroglycerin 0.4 mg 11/11/19 11:14 Nitrostat SL Q5MIN X 3 DOSES PRN Chest Pain Discontinued Medications Generic Name Dose Route Start Last Admin Trade Name Kaycee PRN Reason Stop Dose Admin Morphine Sulfate 2 mg 11/11/19 11:15 11/11/19 11:26 Morphine 2 Mg/Ml Syringe IVP 11/11/19 11:16 2 mg ONCE STA Administration Morphine Sulfate 2 mg 11/11/19 12:19 11/11/19 12:28 Morphine 2 Mg/Ml Syringe IVP 11/11/19 12:20 2 mg ONCE STA Administration Ondansetron HCl 4 mg 11/11/19 12:19 11/11/19 12:28 Zofran 4 Mg/2 Ml IVP 11/11/19 12:20 4 mg ONCE STA Administration Vital Signs: Temp Pulse Resp BP Pulse Ox 11/11/19 11:03 98.2 F 58 L 17 129/63 95 YEMI Risk Score Age >/= 65: Yes >/= 3 CAD Risk Factors: Yes Known CAD (Stenosis >/= 50%): Yes ASA Use in Past 7 Days: Yes Severe Angina (>/= 2 episodes in 24 hours): No EKG ST Changes >/= 0.5mm: No Postive Cardiac Marker: No YEMI Total Score: 4 YEMI Risk Score: Risk Score Odds of by 30D 0 0.1 (0.1-0.2) 1 0.3 (0.2-0.3) 2 0.4 (0.3-0.5) 3 0.7 (0.6-0.9) 4 1.2 (1.0-1.5) 5 2.2 (1.9-2.6) 6 3.0 (2.5-3.6) 7 4.8 (3.8-6.1) Discharge Plan Discharge Patient Disposition: ADMITTED INPATIENT Discharge Problem: Angina pectoris, Chest pain ED Provider: DAPHNE IRIZARRY Condition: Good Discharge Date/Time: 11/11/19 12:40
[2019-11-11 11:36] LABS: ALANINE AMINOTRANSFERASE 13.8 U/L (0-35); ALBUMIN 3.66 g/dL (3.5-5.0); ASPARTATE AMINO TRANSFERASE 30.8 U/L (14-36); BILIRUBIN,TOTAL 0.37 mg/dL (0.2-1.3); BLOOD UREA NITROGEN 16.7 mg/dL (7-17); CALCIUM 9.01 mg/dL (8.4-10.2); CARBON DIOXIDE 33.6 mmol/L (22-30.0); CHLORIDE 99.3 mmol/L (98-107); CREATININE 0.62 mg/dL (0.60-1.30); GLUCOSE 86.9 mg/dL (74-106); POTASSIUM 4.77 mmol/L (3.5-5.1); SODIUM 137.1 mmol/L (134.5-145); TOTAL PROTEIN 6.67 g/dL (6.3-8.2)
[2019-11-11 11:47] LABS: TROPONIN I < 0.012 ng/ml (0.0000-0.120)
--- NOTE | 2019-11-11 11:55 | DI ---
EXAM: Chest, single view COMPARISON: Chest radiograph 12/14/2018. CT chest 01/08/2019. HISTORY: Chest pain. FINDINGS: There is mild cardiomegaly which is unchanged. Scattered vascular calcifications of the t horacic aorta. No overt pulmonary edema. Calcified mediastinal lymph nodes and calcified granulomas . Emphysematous changes of the lungs. No new regions of focal airspace consolidation. No pleural e ffusion or pneumothorax. IMPRESSION: 1. No acute cardiopulmonary disease. 2. Emphysema. Old granulomatous disease. 3. Mild cardiomegaly. Atherosclerotic vascular disease.
[2019-11-11] MEDS ORDERED: ZOFRAN 4 MG/2 ML IVP STA (12:19)
[2019-11-11 12:58] VITALS: BMI 25.9
[2019-11-11] MEDS ORDERED: VENTOLIN HFA (PER PUFF-WITH SPACER) IH PRN (14:26)
[2019-11-11] MEDS ORDERED: NON-FORMULARY MEDICATION (Acetaminophen [Tylenol] 650 MG) PO PRN (14:26)
[2019-11-11] MEDS ORDERED: NITROSTAT SL PRN (14:26)
[2019-11-11] MEDS ORDERED: LEXAPRO PO SCH (14:30)
[2019-11-11] MEDS ORDERED: PERCOCET 5-325 PO SCH ×2 (14:30→21:00)
[2019-11-11] MEDS: XARELTO PO SCH (14:46)
[2019-11-11] MEDS: ZESTRIL PO SCH (14:47)
[2019-11-11] MEDS: NITROSTAT SL PRN ×2 (20:10→20:18)
[2019-11-11] MEDS ORDERED: MORPHINE 2 MG/ML SYRINGE IVP PRN (20:31)
[2019-11-11] MEDS ORDERED: GI COCKTAIL PO STA (20:32)
[2019-11-11] MEDS: ZOFRAN 4 MG/2 ML IVP PRN (20:40)
[2019-11-11] MEDS ORDERED: FERROUS SULFATE PO SCH (21:00)
[2019-11-11] MEDS ORDERED: MACROBID PO SCH (21:00)
[2019-11-11] MEDS ORDERED: IMDUR PO SCH ×2 (21:00)
[2019-11-11] MEDS ORDERED: LOTRISONE 45 GM TP SCH (21:00)
[2019-11-11] MEDS: NEURONTIN PO SCH (22:01)
[2019-11-11] MEDS: KLONOPIN PO SCH (22:02)
[2019-11-11] MEDS: CALCIUM 500 + VIT D 5 MCG (200 IU) TABLET PO SCH (22:02)
[2019-11-11] MEDS: PROTONIX PO SCH (22:02)
[2019-11-11] MEDS: IMDUR PO SCH (22:02)
[2019-11-11] MEDS: LOPRESSOR PO SCH (22:04)
[2019-11-12 02:34] LABS: BASOPHILS % (AUTO) 0.4 % (0.0-3.0); EOSINOPHILS # (AUTO) 0.1 K/ul (0.0-0.7); EOSINOPHILS % (AUTO) 2.7 % (0.0-7.0); IMMATURE GRANULOCYTE % (AUTO) 0.2 % (0.0-5.0); LYMPHOCYTES % (AUTO) 20.2 (10.0-50.0); MEAN CORPUSCULAR HEMOGLOBIN 29.7 pg (27.0-31.0); MEAN CORPUSCULAR HGB CONC 31.6 (31.8-35.4); MEAN CORPUSCULAR VOLUME 94.1 fl (81.0-99.0); MONOCYTES # (AUTO) 0.4 K/uL (0.4-2.0); MONOCYTES % (AUTO) 7.2 (0-10); NEUTROPHILS # (AUTO) 3.5 K/ul (2.0-6.9); NEUTROPHILS % (AUTO) 69.3 % (42.2-75.2); PLATELET COUNT 139 10^3/uL (140-440); RDW COEFFICIENT OF VARIATION 13.6 % (11.6-14.8); RED BLOOD COUNT 4.04 10^6/ul (4.20-5.40); WHITE BLOOD COUNT 5.11 K/ul (4.6-10.2)
[2019-11-12 02:43] LABS: ALANINE AMINOTRANSFERASE 13.1 U/L (0-35); ALBUMIN 3.47 g/dL (3.5-5.0); ALKALINE PHOSPHATASE 61.7 U/L (53-141); ASPARTATE AMINO TRANSFERASE 27.5 U/L (14-36); BILIRUBIN,TOTAL 0.37 mg/dL (0.2-1.3); BLOOD UREA NITROGEN 15.1 mg/dL (7-17); CALCIUM 9.23 mg/dL (8.4-10.2); CARBON DIOXIDE 35.4 mmol/L (22-30.0); CHLORIDE 96.8 mmol/L (98-107); CREATININE 0.69 mg/dL (0.60-1.30); GLUCOSE 96.4 mg/dL (74-106); POTASSIUM 4.87 mmol/L (3.5-5.1); SODIUM 135.4 mmol/L (134.5-145); TOTAL PROTEIN 6.34 g/dL (6.3-8.2)
[2019-11-12 02:55] LABS: TROPONIN I < 0.012 ng/ml (0.0000-0.120)
[2019-11-12] MEDS: ZOFRAN 4 MG/2 ML IVP PRN (05:03)
[2019-11-12 06:33] LABS: ABG PCO2 50.1 mmHg (35-45); ABG PH 7.359 (7.35-7.45)
[2019-11-12 06:34] LABS: ABG BASE EXCESS 3 (-2.0-2.0); ABG HCO3 28.2 (22.0-26.0); ABG TCO2 30 (22.0-28.0)
[2019-11-12] MEDS ORDERED: SOLU-MEDROL 125 MG IVP STA (06:49)
[2019-11-12] MEDS ORDERED: ROCEPHIN 1 GM/50 ML D5W 1 GM/50 ML BAG IV STA (06:49)
--- NOTE | 2019-11-12 08:35 | PCM.PROG ---
Attending Provider: ATTENDING PROVIDER: Dr. JAGJIT VELASCO This patient is seen with Patricia Serrano, Nurse Practitioner. DATE OF SERVICE: 11/12/19 SUBJECTIVE: This 79 year old /WHITE F was hospitalized 11/11/19. The patient is resting comfortably. She improved after GI cocktail. She has multiple episodes of chest pain throughout the night. Cardiac enzymes are normal. Chest pain is likely non-cardiac. Did have fever through the night and none since. Now on Venturi mask due to hypoxemia with saturation running 93%. REVIEW OF SYSTEMS: CONSTITUTIONAL: No night sweats. No fatigue, malaise, lethargy. Fever. Weakness. HEENT: Eyes: No visual changes. No eye pain. No eye discharge. ENT: No runny nose. No epistaxis. No sinus pain. No odynophagia. No congestion. RESPIRATORY: No cough, no congestion. No hemoptysis. Shortness of breath. CARDIOVASCULAR: No angina symptoms. No CHF symptoms. No atypical chest pain for CAD. No palpitations. No orthopnea.. GASTROINTESTINAL: No abdominal pain. No nausea or vomiting. No diarrhea or constipation. No hematemesis. No hematochezia. GENITOURINARY: No urgency. No frequency. No dysuria. No hematuria. No obstructive symptoms. No discharge. No pain. No significant abnormal bleeding. MUSCULOSKELETAL: No musculoskeletal pain; no joint swelling. NEUROLOGICAL: Awake, alert, oriented to time, place and person. No headache. No neck pain. No syncope. No seizures. No dizziness. PSYCHIATRIC: Not anxious. No depression. No suicidal thoughts. No homicidal thoughts. SKIN: No rash. No lesions. No wounds. ENDOCRINE: No unexplained weight loss. No weight gain. HEMATOLOGIC/LYMPHATIC: No anemia. No purpura. No petechiae. No prolonged or excessive bleeding. No palpable lymph nodes. PHYSICAL EXAMINATION: GENERAL: The patient is awake, alert and oriented, lying in bed in no distress. VITAL SIGNS: Temperature 97.7 F, Pulse 103, Respiratory Rate 26, BP 139/72, Pulse Ox 93% HEENT: Head normocephalic, atraumatic. Eyes: Extraocular muscles are intact. Pupils are equal, round and reactive to light and accommodation. Ears: No lesions. Nose appeared normal. Throat: No exudate or erythema. NECK: Supple. No JVD, no carotid bruit. No lymphadenopathy or thyromegaly. LUNGS: Diminished breath sounds. Clear to auscultation. Percussion note normal. Chest symmetrical. HEART: Irregular heart rate. S1, S2, no S3. No murmurs. No cyanosis or clubbing. No ascites. Pulses: Dorsalis pedis and posterior tibial pulses +1 to +2 both sides. ABDOMEN: Soft. Non-tender. Bowel sounds active. No CVA tenderness. No mass felt. EXTREMITIES: No edema. Full range of motion of all extremities, equal. NEUROLOGIC: No focal deficit. Cranial nerves II through XII are grossly intact. No headache, no double vision or headache. SKIN: Not dry. Intact. Turgor-normal. LYMPHATIC: No palpable lymph nodes/no lymphedema. MUSCULOSKELETAL: Normal joints with no swelling. Muscle tone is normal. LAB REVIEW: 11/12/19 02:30 11/12/19 02:30 11/12/19 07:10: SARS-CoV-2 RNA (RT-PCR) 11/12/19 06:24: Puncture Site Lrad, O2 Saturation 85.0 L, ABG pH 7.359, ABG pCO2 50.1 H, ABG pO2 54.0 L*, ABG HCO3 28.2 H, ABG Total CO2 30 H, ABG Base Excess 3 H, Chicho Test +, O2 Delivery Device Bnc, Oxygen Liter Flow 2.00, FiO2 % 28.0 11/12/19 02:30: WBC 5.11, RBC 4.04 L, Hgb 12.0, Hct 38.0, MCV 94.1, MCH 29.7, MCHC 31.6 L, RDW Coeff of Pricila 13.6, Plt Count 139 L, Immature Gran % (Auto) 0.2, Neut % (Auto) 69.3, Lymph % (Auto) 20.2, [place] % (Auto) 7.2, Eos % (Auto) 2.7, Baso % (Auto) 0.4, Neut # (Auto) 3.5, Lymph # (Auto) 1.0, [place] # (Auto) 0.4, Eos # (Auto) 0.1, Baso # (Auto) 0.0, Immature Gran # (Auto) 0.0 11/12/19 02:30: Sodium 135.4, Potassium 4.87, Chloride 96.8 L, Carbon Dioxide 35.4 H, Anion Gap 8.07, BUN 15.1, Creatinine 0.69, Estimated GFR (MDRD) 82.00, BUN/Creatinine Ratio 21.88, Glucose 96.4, Calcium 9.23, Total Bilirubin 0.37, AST 27.5, ALT 13.1, Alkaline Phosphatase 61.7, Troponin I < 0.012, Total Protein 6.34, Albumin 3.47 L, Globulin 2.87, Albumin/Globulin Ratio 1.20 11/11/19 18:27: Troponin I < 0.012 11/11/19 11:00: Sodium 137.1, Potassium 4.77, Chloride 99.3, Carbon Dioxide 33.6 H, Anion Gap 8.97, BUN 16.7, Creatinine 0.62, Estimated GFR (MDRD) 92.00, BUN/Creatinine Ratio 26.93, Glucose 86.9, Calcium 9.01, Total Bilirubin 0.37, AST 30.8, ALT 13.8, Alkaline Phosphatase 64.0, Troponin I < 0.012, Total Protein 6.67, Albumin 3.66, Globulin 3.01, Albumin/Globulin Ratio 1.21 11/11/19 11:00: WBC 4.67, RBC 3.98 L, Hgb 12.0, Hct 36.7 L, MCV 92.2, MCH 30.2, MCHC 32.7, RDW Coeff of Pricila 13.7, Plt Count 154, Immature Gran % (Auto) 0.2, Neut % (Auto) 67.7, Lymph % (Auto) 20.6, [place] % (Auto) 7.9, Eos % (Auto) 3.2, Baso % (Auto) 0.4, Neut # (Auto) 3.2, Lymph # (Auto) 1.0, [place] # (Auto) 0.4, Eos # (Auto) 0.2, Baso # (Auto) 0.0, Immature Gran # (Auto) 0.0 ASSESSMENT: Please see below. 1. Shortness of breath 2. Atypical chest pain 3. Atrial fibrillation 4. Fever 5. Vomiting PLAN: 1. U/A 2. Protonix IV 3. [facility] COVID swab Plan and coordination of the patient's care discussed in the presence of Airline Manager and nurse. SCRIBED BY: Mario GARLAND scribed while in presence of service performed by Dr. Velasco/Patricia Serrano APRN on 11/12/19 ([id number])
[2019-11-12 08:37] LABS: ABG BASE EXCESS 4 (-2.0-2.0); ABG HCO3 28.3 (22.0-26.0); ABG PCO2 45.2 mmHg (35-45); ABG PH 7.404 (7.35-7.45); ABG TCO2 30 (22.0-28.0)
[2019-11-12] MEDS ORDERED: ZESTRIL PO SCH (09:00)
[2019-11-12] MEDS ORDERED: LEXAPRO PO SCH (09:00)
[2019-11-12] MEDS: LEXAPRO PO SCH (09:09)
[2019-11-12] MEDS: LIPITOR PO SCH (09:09)
[2019-11-12] MEDS: ZESTRIL PO SCH (09:10)
[2019-11-12] MEDS: LOPRESSOR PO SCH ×2 (09:11→20:17)
[2019-11-12] MEDS: IMDUR PO SCH ×2 (09:11→20:15)
[2019-11-12] MEDS: XARELTO PO SCH (09:12)
[2019-11-12] MEDS: NEURONTIN PO SCH ×2 (09:12→20:15)
[2019-11-12] MEDS: CALCIUM 500 + VIT D 5 MCG (200 IU) TABLET PO SCH ×2 (09:12→20:15)
[2019-11-12] MEDS: PROTONIX IV IVP SCH (09:14)
[2019-11-12] MEDS: PRILOSEC PO SCH (09:15)
[2019-11-12] MEDS: AZACTAM 1 GM in SODIUM CHLORIDE 50 ML IV SCH ×2 (10:38→20:15)
[2019-11-12] MEDS: NYSTOP POWDER TP SCH ×2 (10:38→21:17)
[2019-11-12] MEDS: PROTONIX PO SCH (11:07)
--- NOTE | 2019-11-12 11:28 | HP ---
DATE OF SERVICE: 11/11/19 REASON FOR HOSPITALIZATION/HISTORY OF PRESENT ILLNESS: 79-year-old white female hospitalized through the emergency room with chest pain. The patient had chest tightness this morning, lasted nearly a couple of hours. She took a couple of Nitroglycerin with some relief. The patient's pain was listed as 4 to 6 on a scale of 1 to 10. In the emergency room when I examined the patient, she was not in distress at all. She was sitting up and joking. REVIEW OF SYSTEMS: CONSTITUTIONAL: No night sweats. No fatigue, malaise, lethargy. No fever or chills. HEENT: Eyes: No visual changes. No eye pain. No eye discharge. ENT: No runny nose. No epistaxis. No sinus pain. No sore throat. No odynophagia. No congestion. RESPIRATORY: No cough, no congestion. No hemoptysis. No shortness of breath. CARDIOVASCULAR: Chest pain as described which started this morning. No angina symptoms. No CHF symptoms. No palpitations. No PND. No orthopnea. GASTROINTESTINAL: No abdominal pain. No nausea or vomiting. No diarrhea or constipation. No hematemesis. No hematochezia. GENITOURINARY: No urgency. No frequency. No dysuria. No hematuria. No obstructive symptoms. No discharge. No pain. No significant abnormal bleeding. MUSCULOSKELETAL: No musculoskeletal pain; no joint swelling. NEUROLOGICAL: No headache. No neck pain. No syncope. No seizures. No dizziness. PSYCHIATRIC: Not anxious. No depression. No suicidal thoughts. No homicidal thoughts. SKIN: No rash. No lesions. No wounds. ENDOCRINE: No unexplained weight loss. No weight gain. HEMATOLOGIC/LYMPHATIC: No anemia. No purpura. No petechiae. No prolonged or excessive bleeding. No palpable lymph nodes. PERSONAL/FAMILY/SOCIAL HISTORY: The patient is , lives with the . Nonsmoker. No alcohol abuse. She tries to do all activities of daily living. MEDICATIONS: Calcium Carbonate Nitroglycerin Omeprazole Albuterol Klonopin Gabapentin Atorvastatin Isosorbide Oxycodone Acetaminophen Lotrisone Lisinopril Metoprolol Nitrofurantoin Xarelto Lexapro Ferrous Sulfate Isosorbide Mononitrate ALLERGIES: IODINATED CONTRAST MEDIA, PREGABLIN PAST MEDICAL/SURGICAL HISTORY: History of severe coronary artery disease, end-stage Depression Hypertension Dyslipidemia Osteoarthritis Recurrent urinary tract infection Atrial fibrillation Anemia PHYSICAL EXAMINATION: GENERAL: The patient is oriented to time, place and person. VITAL SIGNS: Temperature 98.3, pulse 60, respiratory rate 16, blood pressure 123/63, pulse ox 95% on room air. HEENT: Head normocephalic, atraumatic. Eyes: Extraocular muscles are intact. Pupils are equal, round and reactive to light and accommodation. Ears: No lesions. Nose appeared normal. Throat: No exudate or erythema. NECK: Supple. No JVD, no carotid bruit. No lymphadenopathy or thyromegaly. LUNGS: Decreased breath sounds but clear to auscultation. Percussion note normal. Chest symmetrical. HEART: PMI not palpable on auscultation. S1, S2, no S3. No murmurs. No cyanosis or clubbing. No ascites. Pulses: Dorsalis pedis and posterior tibial pulses +1 bilaterally. ABDOMEN: Soft. No ascites. Nontender. Bowel sounds active. No CVA tenderness. No mass felt. EXTREMITIES: No edema. Full range of motion of all extremities, equal. NEUROLOGIC: No focal deficit. Cranial nerves II through XII are grossly intact. No headache, no double vision or headache. SKIN: No rash. Intact. Turgor - normal. LYMPHATIC: No palpable lymph nodes/no lymphedema. MUSCULOSKELETAL: Normal joints with no swelling. Muscle tone is normal. LABS: Hemoglobin 12, hematocrit 36, WBC 4,600, normal differential. Creatinine 0.6, BUN 16, potassium 4.7, GFR 92 cc/min, troponin negative. CK-MB negative. EKG - atrial fibrillation, no acute changes. Nonspecific ST-T wave change. ASSESSMENT: 1. Angina, again stable. The patient has exertional chest discomfort for a number of years. 2. Hypertension. 3. Dyslipidemia. 4. Depression. 5. Atrial fibrillation. 6. Anemia. PLAN: 1. Telemetry with serial cardiac markers, EKGs. 2. Continue all the medications as before. No change in the medication for now. 3. The patient is going to be given Morphine Sulfate 2 mg q.2 to 3 hourly and Zofran 4 mg IV to be given for nausea. GI cocktail will be given, Protonix 40 mg twice a day. CONDITION: Stable. TIME SPENT: More than 70 minutes. Plan and coordination of the patient's care discussed in the presence of nurse. , ANDREW
[2019-11-12] MEDS ORDERED: LASIX IVP STA (11:55)
[2019-11-12 13:34] LABS: BILIRUBIN,URINE Negative (NEGATIVE); CLARITY,URINE Clear (CLEAR); COLOR,URINE Yellow (YELLOW); GLUCOSE, URINE (UA) Negative (NEGATIVE); KETONES,URINE Negative (NEGATIVE); LEUKOCYTE ESTERASE ,URINE Negative (NEGATIVE); NITRITE,URINE Negative (NEGATIVE); PROTEIN,URINE Negative (NEGATIVE); URINE, BLOOD Negative (NEGATIVE); UROBILINOGEN,URINE 0.2 (0.2)
--- NOTE | 2019-11-12 15:25 | US ---
EXAM: Bilateral lower extremity venous Doppler duplex HISTORY: Concern for DVT with leg swelling and hypoxia. COMPARISON: Venous Doppler 04/02/2016 TECHNIQUE: Sonographic and Doppler evaluation of the bilateral lower extremity vessels from the comm on femoral through the anterior tibial veins were obtained. Color Doppler and wave spectral evaluati on were provided. Augmentation and compression techniques were also performed. FINDINGS: There is spontaneous Doppler flow seen in the bilateral lower extremity veins from the com mon femoral through the anterior tibial veins. There is normal compression and augmentation througho ut the lower extremity veins. Sonographic appearance of the soft tissues are unremarkable. IMPRESSION: No lower extremity thrombus
--- NOTE | 2019-11-12 15:49 | CT ---
EXAM: CT chest without contrast HISTORY: Desaturation, hypoxia COMPARISON: None TECHNIQUE: CT chest performed without intravenous contrast. Coronal and sagittal reformatted images obtained. FINDINGS: Thoracic inlet unremarkable. Heart moderately enlarged. Small pericardial effusion. Aor ta normal in caliber. Extensive atherosclerosis coronary calcifications. Small hiatal hernia. Medi astinal lymph nodes measure up to 1.4 cm in the precarinal region and 1.1 cm in the subcarinal region . Calcified lymph nodes, consistent with old granulomatous disease. Patient status post cholecystec jovana. Colonic diverticulosis. Right renal cysts. Parapelvic cyst suggested on the left. No acute abnormalities of the bones. Degenerative change in the spine. Central airway patent. Moderate emph ysema. No pleural effusion or pneumothorax. Extensive consolidation with air bronchograms in the ri ght lower lobe and to a lesser extent in the right upper lobe and right middle lobe, with areas of as sociated nodularity. Small cystic change within the cavitation, favored to relate to underlying emph ysematous change with small area of cavitation not excluded. IMPRESSION: 1. Extensive consolidation in the right lung, greatest in the right lower lobe with associated areas of nodularity. Findings most consistent with pneumonia. CT chest follow-up recommended in 6 - 8 we eks given nodularity. Small cystic change within the consolidation is favored to relate to underlyin g emphysematous change with small area of cavitation not excluded. 2. Mediastinal lymphadenopathy, nonspecific. Recommend attention on follow-up 3. Cardiomegaly. Small pericardial effusion. 4. Emphysema. 5. Coronary calcifications. Atherosclerosis.
[2019-11-12] MEDS ORDERED: PROAIR HFA (SINGLE PATIENT USE) IH SCH (16:30)
[2019-11-12] MEDS ORDERED: VANCOMYCIN 1 GM in SODIUM CHLORIDE 250 ML IV STA (16:59)
[2019-11-12] MEDS: SOLU-MEDROL 125 MG IVP SCH (20:15)
[2019-11-12] MEDS: KLONOPIN PO SCH (20:15)
[2019-11-12] MEDS: VENTOLIN HFA (PER PUFF-WITH SPACER) IH SCH (20:19)
[2019-11-13] MEDS: VENTOLIN HFA (PER PUFF-WITH SPACER) IH SCH ×3 (05:10→19:37)
[2019-11-13 05:29] LABS: HEMATOCRIT 36.4 % (37.0-47.0); HEMOGLOBIN 11.6 g/dl (12.0-16.0); MEAN CORPUSCULAR HEMOGLOBIN 30.1 pg (27.0-31.0); MEAN CORPUSCULAR HGB CONC 31.9 (31.8-35.4); MEAN CORPUSCULAR VOLUME 94.3 fl (81.0-99.0); PLATELET COUNT 132 10^3/uL (140-440); RDW COEFFICIENT OF VARIATION 13.6 % (11.6-14.8); RED BLOOD COUNT 3.86 10^6/ul (4.20-5.40); WHITE BLOOD COUNT 9.41 K/ul (4.6-10.2)
[2019-11-13] MEDS: PRILOSEC PO SCH (05:32)
[2019-11-13] MEDS: PROTONIX IV IVP SCH (05:32)
[2019-11-13 05:41] LABS: ALANINE AMINOTRANSFERASE 14.9 U/L (0-35); ALBUMIN 3.29 g/dL (3.5-5.0); ALKALINE PHOSPHATASE 52.4 U/L (53-141); ANISOCYTOSIS NOT PRESENT (NOT PRESENT); ASPARTATE AMINO TRANSFERASE 26.5 U/L (14-36); BILIRUBIN,TOTAL 0.29 mg/dL (0.2-1.3); BLOOD UREA NITROGEN 30.4 mg/dL (7-17); CALCIUM 8.67 mg/dL (8.4-10.2); CARBON DIOXIDE 32.2 mmol/L (22-30.0); CHLORIDE 97.2 mmol/L (98-107); CREATININE 1.23 mg/dL (0.60-1.30); GLUCOSE 189.9 mg/dL (74-106); POTASSIUM 4.52 mmol/L (3.5-5.1); SODIUM 134.2 mmol/L (134.5-145); TOTAL PROTEIN 6.14 g/dL (6.3-8.2)
[2019-11-13] MEDS: AZACTAM 1 GM in SODIUM CHLORIDE 50 ML IV SCH ×2 (08:39→20:47)
[2019-11-13] MEDS: LIPITOR PO SCH (08:40)
[2019-11-13] MEDS: XARELTO PO SCH (08:40)
[2019-11-13] MEDS: NEURONTIN PO SCH ×2 (08:41→20:52)
[2019-11-13] MEDS: CALCIUM 500 + VIT D 5 MCG (200 IU) TABLET PO SCH ×2 (08:41→20:47)
[2019-11-13] MEDS: LEXAPRO PO SCH (08:41)
[2019-11-13] MEDS: NYSTOP POWDER TP SCH ×2 (08:42→21:04)
[2019-11-13] MEDS: SOLU-MEDROL 125 MG IVP SCH ×2 (08:42→22:29)
[2019-11-13] MEDS: IMDUR PO SCH ×2 (08:42→20:49)
--- NOTE | 2019-11-13 08:58 | PCM.PROG ---
Attending Provider: ATTENDING PROVIDER: Dr. JAGJIT VELASCO This patient is seen with Patricia Serrano, Nurse Practitioner. DATE OF SERVICE: 11/13/19 SUBJECTIVE: This 79 year old /WHITE F was hospitalized 11/11/19. The patient is resting comfortably. She is not eating much. She is down to 4 liters of nasal cannula. She is alert and oriented. No vomiting through the night. No fever. Venous scan was negative. Chest CT showed consolidation on right lobe. REVIEW OF SYSTEMS: CONSTITUTIONAL: No night sweats. No fatigue, malaise, lethargy. No fever or chills. Weakness. HEENT: Eyes: No visual changes. No eye pain. No eye discharge. ENT: No runny nose. No epistaxis. No sinus pain. No odynophagia. No congestion. RESPIRATORY: No cough, no congestion. No hemoptysis. Shortness of breath. CARDIOVASCULAR: No angina symptoms. No CHF symptoms. No atypical chest pain for CAD. No palpitations. No orthopnea.. GASTROINTESTINAL: No abdominal pain. No nausea or vomiting. No diarrhea or constipation. No hematemesis. No hematochezia. GENITOURINARY: No urgency. No frequency. No dysuria. No hematuria. No obstructive symptoms. No discharge. No pain. No significant abnormal bleeding. MUSCULOSKELETAL: No musculoskeletal pain; no joint swelling. NEUROLOGICAL: Awake, alert, oriented to time, place and person. No headache. No neck pain. No syncope. No seizures. No dizziness. PSYCHIATRIC: Not anxious. No depression. No suicidal thoughts. No homicidal thoughts. SKIN: No rash. No lesions. No wounds. ENDOCRINE: No unexplained weight loss. No weight gain. HEMATOLOGIC/LYMPHATIC: No anemia. No purpura. No petechiae. No prolonged or excessive bleeding. No palpable lymph nodes. PHYSICAL EXAMINATION: GENERAL: The patient is awake, alert and oriented, lying in bed in no distress. VITAL SIGNS: Temperature 97.4 F, Pulse 69, Respiratory Rate 18, BP 100/48, Pulse Ox 95% HEENT: Head normocephalic, atraumatic. Eyes: Extraocular muscles are intact. Pupils are equal, round and reactive to light and accommodation. Ears: No lesions. Nose appeared normal. Throat: No exudate or erythema. NECK: Supple. No JVD, no carotid bruit. No lymphadenopathy or thyromegaly. LUNGS: Diminished breath sounds. Clear to auscultation. Percussion note normal. Chest symmetrical. HEART: S1, S2, no S3. No murmurs. No cyanosis or clubbing. No ascites. Pulses: Dorsalis pedis and posterior tibial pulses +1 to +2 both sides. ABDOMEN: Soft. Non-tender. Bowel sounds active. No CVA tenderness. No mass felt. EXTREMITIES: No edema. Full range of motion of all extremities, equal. NEUROLOGIC: No focal deficit. Cranial nerves II through XII are grossly intact. No headache, no double vision or headache. SKIN: Not dry. Intact. Turgor-normal. LYMPHATIC: No palpable lymph nodes/no lymphedema. MUSCULOSKELETAL: Normal joints with no swelling. Muscle tone is normal. LAB REVIEW: 11/13/19 05:18 11/13/19 05:18 11/13/19 05:18: Sodium 134.2 L, Potassium 4.52, Chloride 97.2 L, Carbon Dioxide 32.2 H, Anion Gap 9.32, BUN 30.4 H, Creatinine 1.23 D, Estimated GFR (MDRD) 42.00, BUN/Creatinine Ratio 24.71, Glucose 189.9 H, Calcium 8.67, Total Bilirubin 0.29, AST 26.5, ALT 14.9, Alkaline Phosphatase 52.4 L, Total Protein 6.14 L, Albumin 3.29 L, Globulin 2.85, Albumin/Globulin Ratio 1.15 11/13/19 05:18: WBC 9.41, RBC 3.86 L, Hgb 11.6 L, Hct 36.4 L, MCV 94.3, MCH 30.1, MCHC 31.9, RDW Coeff of Pricila 13.6, Plt Count 132 L, Neutrophils % (Manual) 93.0 H, Lymphocytes % (Manual) 6.0 L, Monocytes % (Manual) 1.0, Anisocytosis Not present 11/12/19 13:10: Urine Color Yellow, Urine Clarity Clear, Urine pH 5.0, Ur Specific [place] 1.015, Urine Protein Negative, Urine Glucose (UA) Negative, Urine Ketones Negative, Urine Blood Negative, Urine Nitrite Negative, Urine Bilirubin Negative, Urine Urobilinogen 0.2, Ur Leukocyte Esterase Negative 11/12/19 08:06: Puncture Site Lrad, O2 Saturation 97.0, ABG pH 7.404, ABG pCO2 4 5.2 H, ABG pO2 91.0, ABG HCO3 28.3 H, ABG Total CO2 30 H, ABG Base Excess 4 H, Chicho Test +, O2 Delivery Device Vm, FiO2 % 50.0 ASSESSMENT: Please see below. 1. Shortness of breath 2. Right lower pneumonia questionable aspiration syndrome 3. Atrial fibrillation 4. Hypotension PLAN: 1. Lopressor and Lisinopril 2. Half Imdur 3. Continue Rocephine 1 gram daily Plan and coordination of the patient's care discussed in the presence of Enrollment Management Manager and nurse. SCRIBED BY: ANDREA AC [employer] Driver scribed while in presence of service performed by Dr. Velasco/Patricia Serrano APRN on 11/13/19 ([id number])
[2019-11-13] MEDS: ROCEPHIN 1 GM/50 ML D5W 1 GM/50 ML BAG IV SCH (09:30)
[2019-11-13] MEDS: PERCOCET 5-325 PO PRN (11:23)
[2019-11-13] MEDS ORDERED: VANCOMYCIN 1 GM in SODIUM CHLORIDE 250 ML IV STA (13:28)
[2019-11-13] MEDS: NITROSTAT SL PRN (13:35)
[2019-11-13] MEDS: TYLENOL PO PRN (15:08)
[2019-11-13] MEDS: SODIUM CHLORIDE 1,000 ML IV SCH (15:17)
[2019-11-13] MEDS: KLONOPIN PO SCH (20:50)
[2019-11-14 05:32] LABS: HEMATOCRIT 33.4 % (37.0-47.0); HEMOGLOBIN 11.1 g/dl (12.0-16.0); MEAN CORPUSCULAR HEMOGLOBIN 30.4 pg (27.0-31.0); MEAN CORPUSCULAR HGB CONC 33.2 (31.8-35.4); MEAN CORPUSCULAR VOLUME 91.5 fl (81.0-99.0); RDW COEFFICIENT OF VARIATION 13.2 % (11.6-14.8); RED BLOOD COUNT 3.65 10^6/ul (4.20-5.40); WHITE BLOOD COUNT 10.27 K/ul (4.6-10.2)
[2019-11-14 05:38] LABS: ALBUMIN 3.37 g/dL (3.5-5.0); ALKALINE PHOSPHATASE 56.6 U/L (53-141); ASPARTATE AMINO TRANSFERASE 26.3 U/L (14-36); BILIRUBIN,TOTAL 0.23 mg/dL (0.2-1.3); BLOOD UREA NITROGEN 32.7 mg/dL (7-17); CALCIUM 8.42 mg/dL (8.4-10.2); CARBON DIOXIDE 28.6 mmol/L (22-30.0); CHLORIDE 93.6 mmol/L (98-107); CREATININE 0.87 mg/dL (0.60-1.30); POTASSIUM 4.95 mmol/L (3.5-5.1); SODIUM 128.3 mmol/L (134.5-145); TOTAL PROTEIN 6.28 g/dL (6.3-8.2)
[2019-11-14] MEDS: PROTONIX IV IVP SCH (05:48)
[2019-11-14 05:50] LABS: ANISOCYTOSIS NOT PRESENT (NOT PRESENT)
[2019-11-14 05:52] LABS: PLATELET COUNT 129 10^3/uL (140-440)
[2019-11-14] MEDS: VENTOLIN HFA (PER PUFF-WITH SPACER) IH SCH ×3 (05:53→19:14)
[2019-11-14] MEDS: LEXAPRO PO SCH (08:18)
[2019-11-14] MEDS: AZACTAM 1 GM in SODIUM CHLORIDE 50 ML IV SCH ×2 (08:18→21:06)
[2019-11-14] MEDS: LIPITOR PO SCH (08:18)
[2019-11-14] MEDS: IMDUR PO SCH ×2 (08:19→21:03)
[2019-11-14] MEDS: XARELTO PO SCH (08:19)
[2019-11-14] MEDS: CALCIUM 500 + VIT D 5 MCG (200 IU) TABLET PO SCH ×2 (08:19→20:59)
[2019-11-14] MEDS: NEURONTIN PO SCH ×2 (08:19→20:59)
[2019-11-14] MEDS: NYSTOP POWDER TP SCH ×2 (08:25→21:04)
[2019-11-14] MEDS: SOLU-MEDROL 125 MG IVP SCH ×2 (08:53→22:40)
[2019-11-14] MEDS: LOPRESSOR PO SCH ×2 (09:02→21:03)
[2019-11-14] MEDS: ZESTRIL PO SCH (09:02)
[2019-11-14] MEDS: ROCEPHIN 1 GM/50 ML D5W 1 GM/50 ML BAG IV SCH (09:23)
--- NOTE | 2019-11-14 10:59 | PN ---
DATE OF SERVICE: 11/12/2019 SUBJECTIVE: The patient was seen and examined with the Nurse Practitioner. The patient has been transferred to special care because fever of 102 this morning. She was hypoxic with oxygen saturation of 85%. She was given Venturi mask 32% with saturation more than 92%. The patient's condition has been stabilized. Her pulse rate is a lot better. She is talking normally. She is in for fever could be pneumonitis. COVID swab will be done for possibility and because she is incontinent of urine so it could be from urinary tract infection. In any case I had a meeting with the daughters and the daughter's don't want the patient to have respiratory but the patient had change of mind in the emergency room and wanted full code. Nursing Practitioner, Patricia Serrano also went this afternoon and talked to the patient and the patient understood it very well that she wanted a full code. The patient in any case whatever wishes we will carry out. After I explained to both daughters; Lili and Brooklynn the patient's condition is very critical considering her multiple medical problems mainly severe coronary artery disease. She is being treated medically because she is not a surgical candidate and has defused coronary artery disease. The patient has already been started on Rocephin and Azactam. Considering possibility of septemia from UTI. Later on the Vancomycin 1 gram was added after CT scan of the chest revealed that had consolidation throughout all lobes of right side. It is to be noted that the patient's saturation is more than 90% on 4 liters. Not in any distress. Pulse rate 60-70 per minute with atrial fibrillation. No ST-T wave changes. No symptoms of CHF or coronary insufficiency. The patient is also given inhalers and IV steroids. CONDITION: Stable for now but the patient is critical PROGNOSIS: Not good. TOTAL TIME SPENT: More than 60 minutes, Extensive Plan and coordination of the patient's care discussed in the presence of nurse. ANDREW
[2019-11-14] MEDS ORDERED: VANCOMYCIN 1 GM in SODIUM CHLORIDE 250 ML IV SCH (12:30)
[2019-11-14] MEDS: SODIUM CHLORIDE 1,000 ML IV SCH (13:46)
[2019-11-14] MEDS: KLONOPIN PO SCH (21:00)
[2019-11-15] MEDS: VENTOLIN HFA (PER PUFF-WITH SPACER) IH SCH ×3 (05:21→19:25)
[2019-11-15 05:25] LABS: HEMATOCRIT 34.9 % (37.0-47.0); HEMOGLOBIN 11.5 g/dl (12.0-16.0); MEAN CORPUSCULAR HEMOGLOBIN 29.9 pg (27.0-31.0); MEAN CORPUSCULAR VOLUME 90.9 fl (81.0-99.0); PLATELET COUNT 151 10^3/uL (140-440); RDW COEFFICIENT OF VARIATION 13.2 % (11.6-14.8); RED BLOOD COUNT 3.84 10^6/ul (4.20-5.40); WHITE BLOOD COUNT 8.57 K/ul (4.6-10.2)
[2019-11-15 05:28] LABS: ALANINE AMINOTRANSFERASE 27.4 U/L (0-35); ALBUMIN 3.45 g/dL (3.5-5.0); ALKALINE PHOSPHATASE 58.3 U/L (53-141); ASPARTATE AMINO TRANSFERASE 44.1 U/L (14-36); BILIRUBIN,TOTAL 0.24 mg/dL (0.2-1.3); BLOOD UREA NITROGEN 28.5 mg/dL (7-17); CALCIUM 8.78 mg/dL (8.4-10.2); CARBON DIOXIDE 28.6 mmol/L (22-30.0); CHLORIDE 95.2 mmol/L (98-107); CREATININE 0.66 mg/dL (0.60-1.30); GLUCOSE 128.4 mg/dL (74-106); POTASSIUM 5.03 mmol/L (3.5-5.1); SODIUM 128.7 mmol/L (134.5-145); TOTAL PROTEIN 6.46 g/dL (6.3-8.2)
[2019-11-15] MEDS: PROTONIX IV IVP SCH (05:38)
[2019-11-15 05:45] LABS: ANISOCYTOSIS 1+ (NOT PRESENT); HYPOCHROMASIA 2+ (NOT PRESENT)
[2019-11-15] MEDS ORDERED: ALBUTEROL 0.083% NEB NEB PRN (08:21)
--- NOTE | 2019-11-15 08:56 | PCM.PROG ---
Attending Provider: ATTENDING PROVIDER: Dr. JAGJIT VELASCO This patient is seen with Patricia Serrano, Nurse Practitioner. DATE OF SERVICE: 11/15/19 SUBJECTIVE: This 79 year old /WHITE F was hospitalized 11/11/19. The patient is resting comfortably. Still coughing with some brown sputum. Mild shortness of breath but continues to improve. Eating well. REVIEW OF SYSTEMS: CONSTITUTIONAL: No night sweats. No fatigue, malaise, lethargy. No fever or chills. Weakness. HEENT: Eyes: No visual changes. No eye pain. No eye discharge. ENT: No runny nose. No epistaxis. No sinus pain. No odynophagia. No congestion. RESPIRATORY: No cough, no congestion. No hemoptysis. Shortness of breath. CARDIOVASCULAR: No angina symptoms. No CHF symptoms. No atypical chest pain for CAD. No palpitations. No orthopnea.. GASTROINTESTINAL: No abdominal pain. No nausea or vomiting. No diarrhea or constipation. No hematemesis. No hematochezia. GENITOURINARY: No urgency. No frequency. No dysuria. No hematuria. No obstructive symptoms. No discharge. No pain. No significant abnormal bleeding. MUSCULOSKELETAL: No musculoskeletal pain; no joint swelling. NEUROLOGICAL: Awake, alert, oriented to time, place and person. No headache. No neck pain. No syncope. No seizures. No dizziness. PSYCHIATRIC: Not anxious. No depression. No suicidal thoughts. No homicidal thoughts. SKIN: No rash. No lesions. No wounds. ENDOCRINE: No unexplained weight loss. No weight gain. HEMATOLOGIC/LYMPHATIC: No anemia. No purpura. No petechiae. No prolonged or excessive bleeding. No palpable lymph nodes. PHYSICAL EXAMINATION: GENERAL: The patient is awake, alert and oriented, lying in bed in no distress. VITAL SIGNS: Temperature 98.4 F, Pulse 85, Respiratory Rate 18, BP 122/73, P ulse Ox 97% HEENT: Head normocephalic, atraumatic. Eyes: Extraocular muscles are intact. Pupils are equal, round and reactive to light and accommodation. Ears: No lesions. Nose appeared normal. Throat: No exudate or erythema. NECK: Supple. No JVD, no carotid bruit. No lymphadenopathy or thyromegaly. LUNGS: Diminished breath sounds. Clear to auscultation. Percussion note normal. Chest symmetrical. HEART: Irregular heart rate. S1, S2, no S3. No murmurs. No cyanosis or clubbing. No ascites. Pulses: Dorsalis pedis and posterior tibial pulses +1 to +2 both sides. ABDOMEN: Soft. Non-tender. Bowel sounds active. No CVA tenderness. No mass felt. EXTREMITIES: No edema. Full range of motion of all extremities, equal. NEUROLOGIC: No focal deficit. Cranial nerves II through XII are grossly intact. No headache, no double vision or headache. SKIN: Not dry. Intact. Turgor-normal. LYMPHATIC: No palpable lymph nodes/no lymphedema. MUSCULOSKELETAL: Normal joints with no swelling. Muscle tone is normal. LAB REVIEW: 11/15/19 04:50 11/15/19 04:50 11/15/19 04:50: Sodium 128.7 L, Potassium 5.03, Chloride 95.2 L, Carbon Dioxide 28.6, Anion Gap 9.93, BUN 28.5 H, Creatinine 0.66, Estimated GFR (MDRD) 86.00, BUN/Creatinine Ratio 43.18, Glucose 128.4 H, Calcium 8.78, Total Bilirubin 0.24, AST 44.1 H, ALT 27.4, Alkaline Phosphatase 58.3, Total Protein 6.46, Albumin 3.45 L, Globulin 3.01, Albumin/Globulin Ratio 1.14 11/15/19 04:50: WBC 8.57, RBC 3.84 L, Hgb 11.5 L, Hct 34.9 L, MCV 90.9, MCH 29.9, MCHC 33.0, RDW Coeff of Pricila 13.2, Plt Count 151, Neutrophils % (Manual) 94.0 H, Band Neutrophils % 2.0, Lymphocytes % (Manual) 3.0 L, Monocytes % (Manual) 1.0, Hypochromasia 2+, Anisocytosis 1+ ASSESSMENT: Please see below. 1. Right sided pneumonia likely aspiration 2. Shortness of breath improving 3. Hyponatremia 4. Dehydration resolved 5. Atrial fibrillation right side PLAN: 1. Discontinue IV fluids 2. Chest x-ray 3. Wean from O2 4. Discontinue inhalers 5. Albuterol NEBS TID Plan and coordination of the patient's care discussed in the presence of Road Supervisor and nurse. SCRIBED BY: ANDREA AC, [employer] scribed while in presence of service performed by Dr. Velasco/Patricia Serrano APRN on 11/15/19 ([id number])
[2019-11-15] MEDS ORDERED: AZACTAM 1 GM in SODIUM CHLORIDE 50 ML IV SCH (09:00)
[2019-11-15] MEDS: ROCEPHIN 1 GM/50 ML D5W 1 GM/50 ML BAG IV SCH (09:30)
[2019-11-15] MEDS: LIPITOR PO SCH (09:37)
[2019-11-15] MEDS: ZESTRIL PO SCH (09:38)
[2019-11-15] MEDS: LOPRESSOR PO SCH ×2 (09:38→20:59)
[2019-11-15] MEDS: LEXAPRO PO SCH (09:38)
[2019-11-15] MEDS: CALCIUM 500 + VIT D 5 MCG (200 IU) TABLET PO SCH ×2 (09:39→20:59)
[2019-11-15] MEDS: XARELTO PO SCH (09:39)
[2019-11-15] MEDS: PREDNISONE PO SCH ×2 (09:40→17:18)
[2019-11-15] MEDS: ZITHROMAX PO SCH (09:40)
[2019-11-15] MEDS: NEURONTIN PO SCH ×2 (09:40→20:59)
[2019-11-15] MEDS: IMDUR PO SCH ×2 (09:40→20:59)
[2019-11-15] MEDS: NYSTOP POWDER TP SCH ×2 (09:41→21:00)
[2019-11-15] MEDS: UNASYN 3 GM in SODIUM CHLORIDE 100 ML IV SCH ×3 (10:56→17:51)
--- NOTE | 2019-11-15 14:28 | ECHO2D ---
Date of Exam: 11/14/2019 Ordering Physician: DR. JAGJIT VELASCO Room #: SCU1 Reason for Echo: SOB, ATRIAL FIBRILLATION M-Mode Normal Adult Results LV Dimensions Normal Adult Results AoV Opening excursions >1.6 1.4 LVEDD-base- 3.5-5.8 5.5 Ao root dimensions 2.0-3.7 3.1 LVESD-base- 3.1-4.6 L. Atrium dimensions 1.9-3.8 6.0 Post. Wall thickness 0.8-1.1 1.1 IV septum (thickness) 0.7-1.2 1.2 Post. Wall excursion 0.72-1.3 NORMAL Septal motion NORMAL Systolic motion R. 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 BORDERLINE LEFT VENTRICULAR HYPERTROPHY 2. DILATED LEFT ATRIAL CAVITY 3. HYPOKINETIC SEPTAL WALL WITH EJECTION FRACTION 42% 4. 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
--- NOTE | 2019-11-15 15:47 | DI ---
EXAM: Chest two views HISTORY: Pneumonia COMPARISON: 11/11/2019 TECHNIQUE: Two views of the chest were performed FINDINGS: Stable cardiomegaly. Normal mediastinal contour, which is accentuated by rotation. Hyper expanded lungs. Patchy ground-glass opacities in the right mid and lower lung are new since prior ex am. Remaining lungs are clear. Blunted right costophrenic angle. No pneumothorax. Similar finding s of old granulomatous disease. No acute osseous abnormality. IMPRESSION: 1. Patchy ground-glass opacities in the right mid and lower lung suspicious for pneumonia/pneumoniti s. 2. Chronic obstructive pulmonary disease/emphysema.
[2019-11-15] MEDS: PERCOCET 5-325 PO PRN (15:53)
[2019-11-15] MEDS: KLONOPIN PO SCH (21:00)
[2019-11-16] MEDS: UNASYN 3 GM in SODIUM CHLORIDE 100 ML IV SCH ×3 (04:18→12:17)
[2019-11-16] MEDS: VENTOLIN HFA (PER PUFF-WITH SPACER) IH SCH ×2 (04:50→14:00)
[2019-11-16 05:22] LABS: HEMATOCRIT 35.5 % (37.0-47.0); HEMOGLOBIN 11.8 g/dl (12.0-16.0); MEAN CORPUSCULAR HEMOGLOBIN 30.2 pg (27.0-31.0); MEAN CORPUSCULAR HGB CONC 33.2 (31.8-35.4); MEAN CORPUSCULAR VOLUME 90.8 fl (81.0-99.0); PLATELET COUNT 147 10^3/uL (140-440); RDW COEFFICIENT OF VARIATION 13.4 % (11.6-14.8); RED BLOOD COUNT 3.91 10^6/ul (4.20-5.40); WHITE BLOOD COUNT 8.75 K/ul (4.6-10.2)
[2019-11-16 05:33] LABS: ALANINE AMINOTRANSFERASE 30.7 U/L (0-35); ALBUMIN 3.19 g/dL (3.5-5.0); ALKALINE PHOSPHATASE 52.2 U/L (53-141); ASPARTATE AMINO TRANSFERASE 40.6 U/L (14-36); BILIRUBIN,TOTAL 0.33 mg/dL (0.2-1.3); BLOOD UREA NITROGEN 26.6 mg/dL (7-17); CALCIUM 8.99 mg/dL (8.4-10.2); CARBON DIOXIDE 29.2 mmol/L (22-30.0); CHLORIDE 98.1 mmol/L (98-107); CREATININE 0.63 mg/dL (0.60-1.30); GLUCOSE 109.6 mg/dL (74-106); POTASSIUM 4.65 mmol/L (3.5-5.1)
[2019-11-16 05:40] LABS: ANISOCYTOSIS NOT PRESENT (NOT PRESENT)
[2019-11-16 05:57] VITALS: BP 126/70; TEMP 97.8
[2019-11-16] MEDS: PROTONIX IV IVP SCH (06:44)
[2019-11-16] MEDS: LIPITOR PO SCH (08:11)
[2019-11-16] MEDS: LOPRESSOR PO SCH (08:11)
[2019-11-16] MEDS: NEURONTIN PO SCH (08:11)
[2019-11-16] MEDS: LEXAPRO PO SCH (08:11)
[2019-11-16] MEDS: PREDNISONE PO SCH (08:12)
[2019-11-16] MEDS: CALCIUM 500 + VIT D 5 MCG (200 IU) TABLET PO SCH (08:12)
[2019-11-16] MEDS: IMDUR PO SCH (08:12)
[2019-11-16] MEDS: ZITHROMAX PO SCH (08:12)
[2019-11-16] MEDS: ZESTRIL PO SCH (08:12)
[2019-11-16] MEDS: XARELTO PO SCH (08:12)
[2019-11-16] MEDS: NYSTOP POWDER TP SCH (08:14)
[2019-11-16 09:33] LABS: ABG BASE EXCESS -1 (-2.0-2.0); ABG HCO3 24.1 (22.0-26.0); ABG PCO2 39.9 mmHg (35-45); ABG TCO2 25 (22.0-28.0)
--- NOTE | 2019-11-16 10:03 | PN ---
DATE OF SERVICE: 11/14/19 SUBJECTIVE: 79-year-old white female hospitalized with chest pain and angina type symptoms. The patient developed aspiration pneumonia on the right side after she had vomited at least two nights ago. The patient's condition has steadily improved. Her oxygen saturation on 2L is 98%. The patient had an echocardiogram done which showed the same findings as two years ago with ejection fraction 40 to 45% with borderline LV cavity and markedly enlarged LA cavity, borderline LVH. The patient's daughters are in the room and explained the findings. REVIEW OF SYSTEMS: CONSTITUTIONAL: Weakness. No night sweats. No fatigue, malaise, lethargy. No fever or chills. HEENT: Eyes: No visual changes. No eye pain. No eye discharge. ENT: No runny nose. No epistaxis. No sinus pain. No sore throat. No odynophagia. No congestion. RESPIRATORY: Mild cough, no congestion. No hemoptysis. No shortness of breath. CARDIOVASCULAR: No angina symptoms. No CHF symptoms. The patient had chest pain earlier but none at the present time. No palpitations. No PND. No orthopnea. GASTROINTESTINAL: No abdominal pain. No nausea or vomiting. No diarrhea or constipation. No hematemesis. No hematochezia. GENITOURINARY: No urgency. No frequency. No dysuria. No hematuria. No obstructive symptoms. No discharge. No pain. No significant abnormal bleeding. MUSCULOSKELETAL: No musculoskeletal pain; no joint swelling. NEUROLOGICAL: No headache. No neck pain. No syncope. No seizures. No dizziness. PSYCHIATRIC: Not anxious. No depression. No suicidal thoughts. No homicidal thoughts. SKIN: No rash. No lesions. No wounds. ENDOCRINE: No unexplained weight loss. No weight gain. HEMATOLOGIC/LYMPHATIC: No anemia. No purpura. No petechiae. No prolonged or excessive bleeding. No palpable lymph nodes. PHYSICAL EXAMINATION: GENERAL: The patient is oriented to time, place and person. VITAL SIGNS: Temperature 98.3, pulse 78, respiratory rate 18, blood pressure 134/76, pulse ox 97% with 2L. HEENT: Head normocephalic, atraumatic. Eyes: Extraocular muscles are intact. Pupils are equal, round and reactive to light and accommodation. Ears: No lesions. Nose appeared normal. Throat: No exudate or erythema. NECK: Supple. No JVD, no carotid bruit. No lymphadenopathy or thyromegaly. LUNGS: Decreased breath sounds on the right side with mild wheeze but good air entry. Percussion note normal. Chest symmetrical. HEART: S1, S2, no S3. No murmurs. No cyanosis or clubbing. No ascites. Pulses: Dorsalis pedis and posterior tibial pulses +1 to +2 bilaterally. ABDOMEN: Soft. Nontender. Bowel sounds active. No CVA tenderness. No mass felt. EXTREMITIES: No edema. Full range of motion of all extremities, equal. NEUROLOGIC: No focal deficit. Cranial nerves II through XII are grossly intact. No headache, no double vision or headache. SKIN: Not dry. Intact. Turgor - normal. LYMPHATIC: No palpable lymph nodes/no lymphedema. MUSCULOSKELETAL: Normal joints with no swelling. Muscle tone is normal. LABS: Hemoglobin 11.1, hematocrit 33, WBC 10,000, normal differential. Creatinine 0.8, BUN 32, potassium 4.9. ASSESSMENT: 1. Angina with increasing frequency with history of coronary artery disease. 2. Chest pain could be esophageal spasm, noncardiac chest pain is a possibility as the patient has no ST wave change or change in the troponin, echo findiings or EKGs. 3. Aspiration pneumonia right-sided which seems to have done well with steroids and antibiotic, Vancomycin which has been given 1 gm q.24. Condition is stable. The patient is going to be continued on Rocephin and Azactam. TIME SPENT: More than 30 minutes. Plan and coordination of the patient's care discussed in the presence of nurse. ANDREW
[2019-11-16] MEDS: TYLENOL PO PRN (10:22)
--- NOTE | 2019-11-16 11:27 | PN ---
DATE OF SERVICE: 11/15/19 SUBJECTIVE: The patient was seen and examined with the nurse practitioner. The patient's condition is improving. The patient is coughing up blackish colored spit. She is going to be put on nebs treatment. Her cardiovascular and respiratory status is stable. Respiratory status improving. TIME SPENT: More than 30 minutes. Plan and coordination of the patient's care discussed in the presence of nurse. ANDREW
--- NOTE | 2019-11-16 13:19 | PN ---
DATE OF SERVICE: 11/16/19 SUBJECTIVE: 79-year-old white female hospitalized with chest pain. The patient developed pneumonia which was aspiration on the right side after she had vomited. Her condition has improved remarkably. Oxygen saturation on room air is 97%. She is talking, up and about. Daughter is in the room. REVIEW OF SYSTEMS: CONSTITUTIONAL: No night sweats. No fatigue, malaise, lethargy. No fever or chills. HEENT: Eyes: No visual changes. No eye pain. No eye discharge. ENT: No runny nose. No epistaxis. No sinus pain. No sore throat. No odynophagia. No congestion. RESPIRATORY: No cough, no congestion. No hemoptysis. No shortness of breath. CARDIOVASCULAR: No angina symptoms. No CHF symptoms. No atypical chest pain for CAD. No palpitations. No PND. No orthopnea. GASTROINTESTINAL: No abdominal pain. No nausea or vomiting. No diarrhea or constipation. No hematemesis. No hematochezia. GENITOURINARY: No urgency. No frequency. No dysuria. No hematuria. No obstructive symptoms. No discharge. No pain. No significant abnormal bleeding. MUSCULOSKELETAL: No musculoskeletal pain; no joint swelling. NEUROLOGICAL: No headache. No neck pain. No syncope. No seizures. No dizziness. PSYCHIATRIC: Not anxious. No depression. No suicidal thoughts. No homicidal thoughts. SKIN: No rash. No lesions. No wounds. ENDOCRINE: No unexplained weight loss. No weight gain. HEMATOLOGIC/LYMPHATIC: No anemia. No purpura. No petechiae. No prolonged or excessive bleeding. No palpable lymph nodes. PHYSICAL EXAMINATION: VITAL SIGNS: Temperature 97.8, pulse 67, respiratory rate 20, BP 126/70, pulse ox 96%. HEENT: Head normocephalic, atraumatic. Eyes: Extraocular muscles are intact. Pupils are equal, round and reactive to light and accommodation. Ears: No lesions. Nose appeared normal. Throat: No exudate or erythema. NECK: Supple. No JVD, no carotid bruit. No lymphadenopathy or thyromegaly. LUNGS: Decreased breath sounds but clear to auscultation. Percussion note normal. Chest symmetrical. HEART: S1, S2, no S3. No murmurs. No cyanosis or clubbing. No ascites. Pulses: Dorsalis pedis and posterior tibial pulses +1 to +2 bilaterally. ABDOMEN: Soft. Nontender. Bowel sounds active. No CVA tenderness. No mass felt. EXTREMITIES: No edema. Full range of motion of all extremities, equal. NEUROLOGIC: No focal deficit. Cranial nerves II through XII are grossly intact. No headache, no double vision or headache. SKIN: Not dry. Intact. Turgor - normal. LYMPHATIC: No palpable lymph nodes/no lymphedema. MUSCULOSKELETAL: Normal joints with no swelling. Muscle tone is normal. ASSESSMENT: 1. Clinically right pneumonia seems to have resolved. 2. Chest pain is under control. 3. Cardiovascular status under control with no angina. PLAN: 1. Will discharge the home on Ampicillin and Zithromax. CONDITION: Stable. TIME SPENT: More than 30 minutes. Plan and coordination of the patient's care discussed in the presence of nurse. ANDREW
--- NOTE | 2019-11-16 13:28 | PN ---
BILLING 11/11/19 ADMISSION DAY LEVEL 5 11/12/19 EXTENSIVE 11/13/19 EXTENSIVE 11/14/19 INTERMEDIATE 11/15/19 INTERMEDIATE 11/16/19 DISCHARGE MTDD
--- NOTE | 2019-11-16 13:31 | CM.DICTOOL ---
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 LAST VITALS Temp Pulse Resp BP Pulse Ox 97.8 F 67 20 126/70 95 11/16/19 05:55 11/16/19 05:55 11/16/19 05:55 11/16/19 05:55 11/16/19 09:58 TAKE THESE MEDICATIONS AT HOME Acetaminophen (Tylenol) 650 mg PO Q6H PRN PRN Reason: Pain Last Admin: 11/16/19 10:22 Dose: 650 mg Documented by: Albuterol Sulfate (Ventolin Hfa (Per Puff-With Spacer)) 2 puff IH Q4H PRN Last Admin: 11/16/19 04:50 Dose: 2 puff Documented by: Atorvastatin Calcium (Lipitor) 80 mg PO DAILY [facility] Last Admin: 11/16/19 08:11 Dose: 80 mg Documented by: Azithromycin (Zithromax) 250 mg PO DAILY [facility] FOR 5 DAYS (new) Stop: 11/17/19 10:00 Last Admin: 11/16/19 08:12 Dose: 500 mg Documented by: Calcium/Vitamin D (Calcium 500 + Vit D 200 Mg Tablet) 1 each PO BID [facility] Last Admin: 11/16/19 08:12 Dose: 1 each Documented by: Clonazepam (Klonopin) 0.5 mg PO BEDTIME [facility] Last Admin: 11/15/19 21:00 Dose: 0.5 mg Documented by: Escitalopram Oxalate (Lexapro) 20 mg PO DAILY [facility] Last Admin: 11/16/19 08:11 Dose: 20 mg Documented by: Gabapentin (Neurontin) 1,800 mg PO BID [facility] Last Admin: 11/16/19 08:11 Dose: 1,800 mg Documented by: AUGMENTIN 875 MG PO BID FOR 7 DAYS (new) Isosorbide Mononitrate (Imdur) 30 mg PO BID [facility] Last Admin: 11/16/19 08:12 Dose: 30 mg Documented by: Lisinopril (Zestril) 20 mg PO DAILY [facility] Last Admin: 11/16/19 08:12 Dose: 20 mg Documented by: Metoprolol Tartrate (Lopressor) 12.5 mg PO BID [facility] Last Admin: 11/16/19 08:11 Dose: 12.5 mg Documented by: Nitroglycerin (Nitrostat) 0.4 mg SL Q5MIN X 3 DOSES PRN PRN Reason: Chest Pain Last Admin: 11/13/19 13:35 Dose: 0.4 mg Documented by: Oxycodone/Acetaminophen (Percocet 5-325) 1 tab PO Q12H PRN PRN Reason: MODERATE PAIN Last Admin: 11/15/19 15:53 Dose: 1 tab Documented by: Omeprazole 20 mg PO DAILY Last Admin: Documented by: [facility]) [facility] ([facility] Last Admin: 11/16/19 08:12 Dose: 10 mg Documented by: Rivaroxaban (Xarelto) 15 mg PO DAILY [facility] Last Admin: 11/16/19 08:12 Dose: 15 mg Documented by: ALLERGIES Iodinated Contrast Media [Iodinated Contrast Media - IV Dye] Adverse Reaction (Verified 11/11/19 11:14) morphine Adverse Reaction (Verified 11/12/19 07:39) pregabalin [From Lyrica] Adverse Reaction (Verified 11/11/19 11:14) Iodinated Contrast Media - IV Dye Adverse Reaction (Uncoded 11/11/19 11:14) pregabalin Adverse Reaction (Uncoded 11/11/19 11:14) DISCONTINUED MEDICATIONS none NEW PRESCRIPTIONS: AZITHROMYCIN 250 MG DAILY FOR 5 DAYS PREDNISONE 10 MG BID FOR 5 DAYS TAKE WITH FOOD AUGMENTIN 875 MG BID FOR 7 DAYS [facility]: NOT APPLICABLE DISEASE SPECIFIC EDUCATION: USE OF OXYGEN NEEDED WITH ACTIVITY OR PRN SHORTNESS OF AIR PRESCRIPTIONS USE OF STEROIDS AND RISK OF GI IRRITATION, BONE DEMINERALIZATION APPOINTMENT LAB REVIEW: 11/16/19 05:10 11/16/19 05:10 11/16/19 08:15: Puncture Site Rrad, O2 Saturation 95.0, ABG pH 7.390, ABG pCO2 39.9, ABG pO2 74.0 L, ABG HCO3 24.1, ABG Total CO2 25, ABG Base Excess -1, Chicho Test +, FiO2 % 21.0 11/16/19 05:10: Sodium 131.0 L, Potassium 4.65, Chloride 98.1, Carbon Dioxide 29.2, Anion Gap 8.35, BUN 26.6 H, Creatinine 0.63, Estimated GFR (MDRD) 91.00, BUN/Creatinine Ratio 42.22, Glucose 109.6 H, Calcium 8.99, Total Bilirubin 0.33, AST 40.6 H, ALT 30.7, Alkaline Phosphatase 52.2 L, Total Protein 6.00 L, Albumin 3.19 L, Globulin 2.81, Albumin/Globulin Ratio 1.13 11/16/19 05:10: WBC 8.75, RBC 3.91 L, Hgb 11.8 L, Hct 35.5 L, MCV 90.8, MCH 30.2, MCHC 33.2, RDW Coeff of Pricila 13.4, Plt Count 147, Neutrophils % (Manual) 92.0 H, Lymphocytes % (Manual) 5.0 L, Monocytes % (Manual) 3.0, Anisocytosis Not present PLAN: DISCHARGE HOME DIET: RESUME TOLERATED ACTIVITY: RESUME TOLERATED USE WALKER NEEDED FOR ADDED STABILITY USE OXYGEN AT 2 LITERS NEEDED FOR SHORTNESS OF AIR WITH EXERTION, CHEST DISCOMFORT USE ALBUTEROL INHALER AT LEAST 2-3 TIMES DAILY UNTIL YOU SEE DR. VELASCO IN THE OF [facility] AN APPOINTMENT IS SCHEDULED WITH DR. VELASCO/ANNA BAEZ APRN/ OTTO BEVERLY APRN ON October AT 2 PM CODE STATUS: FULL CODE MRS. GUADALUPE IS ALERT AND ORIENTED X 4. SHE REPORTS SHE IS FORGETFUL AT TIMES. SHE IS PLEASANT AND COOPERATIVE. MRS. GUADALUPE LIVES AT HOME WITH HER SPOUSE. HER ADULT DAUGHTER, TRAM LIVES WITH THEM TO ASSIST IN THEIR CARE. MRS. GUADALUPE IS INDEPENDENT WITH MOST ADL'S, BUT REQUIRES ASSISTANCE WITH BATHING. SHE IS AMBULATORY TO THE BATHROOM AND IN THE ROOM WITH USE OF THE ROLLING WALKER/ROLLATOR AND ASSIST OF ONE STAFF MEMBER. MRS. GUADALUPE IS CONTINENT OF BOWEL AND BLADDER. MEAL INTAKES ARE GOOD AT 50-100%. HYDRATION STATUS HAS IMPROVED. SKIN IS INTACT. MRS. GUADALUPE DEMONSTRATED THE NEED FOR HOME OXYGEN, ESPECIALLY WITH EXERTIONAL ACTIVITY. THE OXYGEN WAS ARRANGED THRU [facility] IN [place], [place] AT HER REQUEST. THE OXYGEN HAS BEEN DELIVERED TO HER HOME TODAY. SHE WILL DISCHARGE WITH PORTABLE OXYGEN AT 2 LITERS. JAGJIT VELASCO MD
--- NOTE | 2019-11-19 09:46 | DS ---
DATE OF SERVICE: 11/16/19 FINAL DIAGNOSIS: 1. CHEST PAIN, LIKELY ANGINA 2. PNEUMONIA, RLL LIKELY ASPIRATION 3. ATRIAL FIBRILLATION (ON XARELTO) 4. HYPOTENSION, RESOLVED 5. HYPONATREMIA, IMPROVING HISTORY: 6. CHF 7. ANGINA 8. ANEMIA 9. HYPERTENSION 10. CAD 11. COPD 12. DYSLIPIDEMIA 13. GERD 14. POLYARTHRITIS 15. DEPRESSION (ON LEXAPRO) SURGERIES: 16. CHOLECYSTECTOMY 17. APPENDECTOMY 18. HYSTERECTOMY 19. CATARACT EXTRACTION 20. RIGHT SHOULDER SURGERY 21. 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 DISCHARGE HOME. 2. USE OXYGEN AT 2 LITERS NEEDED FOR SHORTNESS OF AIR WITH EXERTION, CHEST DISCOMFORT. 3. USE ALBUTEROL INHALER AT LEAST 2-3 TIMES DAILY UNTIL YOU SEE DR. VELASCO IN THE OFFICE. 4. AN APPOINTMENT IS SCHEDULED WITH DR. VELASCO/ANNA BAEZ APRN/ OTTO BEVERLY APRN ON October AT 2 PM. MEDICATIONS AT DISCHARGE: Acetaminophen (Tylenol) 650 mg PO Q6H PRN PRN Reason: Pain Last Admin: 11/16/19 10:22 Dose: 650 mg Documented by: Albuterol Sulfate (Ventolin Hfa (Per Puff-With Spacer)) 2 puff IH Q4H PRN Last Admin: 11/16/19 04:50 Dose: 2 puff Documented by: Atorvastatin Calcium (Lipitor) 80 mg PO DAILY [facility] Last Admin: 11/16/19 08:11 Dose: 80 mg Documented by: Azithromycin (Zithromax) 250 mg PO DAILY [facility] FOR 5 DAYS (new) Stop: 11/17/19 10:00 Last Admin: 11/16/19 08:12 Dose: 500 mg Documented by: Calcium/Vitamin D (Calcium 500 + Vit D 200 Mg Tablet) 1 each PO BID [facility] Last Admin: 11/16/19 08:12 Dose: 1 each Documented by: Clonazepam (Klonopin) 0.5 mg PO BEDTIME [facility] Last Admin: 11/15/19 21:00 Dose: 0.5 mg Documented by: Escitalopram Oxalate (Lexapro) 20 mg PO DAILY [facility] Last Admin: 11/16/19 08:11 Dose: 20 mg Documented by: Gabapentin (Neurontin) 1,800 mg PO BID [facility] Last Admin: 11/16/19 08:11 Dose: 1,800 mg Documented by: AUGMENTIN 875 MG PO BID FOR 7 DAYS (new) Isosorbide Mononitrate (Imdur) 30 mg PO BID [facility] Last Admin: 11/16/19 08:12 Dose: 30 mg Documented by: Lisinopril (Zestril) 20 mg PO DAILY [facility] Last Admin: 11/16/19 08:12 Dose: 20 mg Documented by: Metoprolol Tartrate (Lopressor) 12.5 mg PO BID [facility] Last Admin: 11/16/19 08:11 Dose: 12.5 mg Documented by: Nitroglycerin (Nitrostat) 0.4 mg SL Q5MIN X 3 DOSES PRN PRN Reason: Chest Pain Last Admin: 11/13/19 13:35 Dose: 0.4 mg Documented by: Oxycodone/Acetaminophen (Percocet 5-325) 1 tab PO Q12H PRN PRN Reason: MODERATE PAIN Last Admin: 11/15/19 15:53 Dose: 1 tab Documented by: Omeprazole 20 mg PO DAILY Last Admin: Documented by: Prednisone (Prednisone) 10 mg PO [facility]IDWM [facility] (new) Last Admin: 11/16/19 08:12 Dose: 10 mg Documented by: Rivaroxaban (Xarelto) 15 mg PO DAILY [facility] Last Admin: 11/16/19 08:12 Dose: 15 mg Documented by: NEW PRESCRIPTIONS: AZITHROMYCIN 250 MG DAILY FOR 5 DAYS PREDNISONE 10 MG BID FOR 5 DAYS TAKE WITH FOOD AUGMENTIN 875 MG BID FOR 7 DAYS PRESCRIPTIONS CALLED TO [facility] DISCONTINUED MEDICATIONS: None DIET INSTRUCTIONS: RESUME TOLERATED ACTIVITY: RESUME TOLERATED. USE WALKER NEEDED FOR ADDED STABILITY. SMOKING: NOT APPLICABLE DISEASE SPECIFIC EDUCATION: USE OF OXYGEN NEEDED WITH ACTIVITY OR PRN SHORTNESS OF AIR PRESCRIPTIONS USE OF STEROIDS AND RISK OF GI IRRITATION, BONE DEMINERALIZATION APPOINTMENT LAB REVIEW: 11/16/19 08:15: Puncture Site Rrad, O2 Saturation 95.0, ABG pH 7.390, ABG pCO2 39.9, ABG pO2 74.0 L, ABG HCO3 24.1, ABG Total CO2 25, ABG Base Excess -1, Chicho Test +, FiO2 % 21.0 11/16/19 05:10: Sodium 131.0 L, Potassium 4.65, Chloride 98.1, Carbon Dioxide 29.2, Anion Gap 8.35, BUN 26.6 H, Creatinine 0.63, Estimated GFR (MDRD) 91.00, BUN/Creatinine Ratio 42.22, Glucose 109.6 H, Calcium 8.99, Total Bilirubin 0.33, AST 40.6 H, ALT 30.7, Alkaline Phosphatase 52.2 L, Total Protein 6.00 L, Albumin 3.19 L, Globulin 2.81, Albumin/Globulin Ratio 1.13 11/16/19 05:10: WBC 8.75, RBC 3.91 L, Hgb 11.8 L, Hct 35.5 L, MCV 90.8, MCH 30.2, MCHC 33.2, RDW Coeff of Pricila 13.4, Plt Count 147, Neutrophils % (Manual) 92.0 H, Lymphocytes % (Manual) 5.0 L, Monocytes % (Manual) 3.0, Anisocytosis Not present HOSPITAL COURSE: The patient was hospitalized after having chest pain. The patient's chest pain was equivocal. I examined her in the emergency room at the time, given that the chest pain lasting 15 to 20 minutes with some shortness of breath. The patient did not have any change in the troponin level or CK-MB. EKG didn't show any acute changes. It shows atrial fibrillation, nonspecific ST-T wave changes throughout the stay in the hospital. The patient on the third day of hospital stay had vomiting. Just after that she developed spiked fever and had aspiration pneumonitis involving the right lung. She was treated with Rocephin and Azactam. Later on Vancomycin was given intermittently. This patient's condition has improved to the point where she is up and about and her oxygen saturation is more than 97% on room air. They are eager to take her home because of the patient's improved condition and she would do better at home because of her routine. Since family members reliable, she is going to be discharged home on Augmentin 875 twice a day along with Zithromax. The patient's cardiovascular status remained stable throughout the stay in the hospital. CONDITION AT TIME OF DISCHARGE: Stable. TIME SPENT: More than 60 minutes. MTDD
--- NOTE | 2019-11-19 09:52 | PN ---
BILLING 11/11/19 ADMISSION DAY LEVEL 5 11/12/19 INTERMEDIATE 11/13/19 EXTENSIVE 11/14/19 EXTENSIVE 11/15/19 INTERMEDIATE 11/16/19 DISCHARGE MTDD
== END 2019-11-16 14:00 | disposition home or self-care (01) | DRG 311 ==
LOC: ED 11:03 → MEDSURG B 12:13 → SCU 11-12 07:10 → MEDSURG B 11-13 16:50
PROVIDERS: ADMIT Internal Medicine; ATTEND Internal Medicine

== ENCOUNTER 2021-08-06 04:36 | Inpatient (IN) ==
--- NOTE | 2021-08-06 04:58 | ED.PDOC ---
General <JENNIFER ELDRIDGE MD - Last Filed: 08/17/21 20:51> ED Provider: Dr. JENNIFER ELDRIDGE Chief Complaint: Nausea/Vomiting Stated Complaint: N,V,D for a day, no fever, PC, nor SOA - PCP Dr. Hernandez Time Seen by Provider: 08/06/21 04:58 Mode of Arrival: Ambulance Information Source: Patient, Family and EMT Exam Limitations: No limitations Primary Care Provider: JAGJIT HERNANDEZ Nursing and Triage Documentation Reviewed and Agree: Yes Does patient meet sepsis criteria?: No System Inflammatory Response Syndrome: Not Applicable Sepsis Protocol: For patient's 13 years and over: Temp is 96.8 and below OR 101 and greater Pulse >90 BPM Resp >20/minute Acutely Altered Mental Status Are patient's symptoms suggestive of a new infection, such as: -Pneumonia -Skin, Soft Tissue -Endocarditis -UTI -Bone, Joint Infection -Implantable Device -Acute Abdominal Infection -Wound Infection -Meningitis -Blood Stream Catheter Infection -Unknown GI Complaint Exam <JENNIFER ELDRIDGE MD - Last Filed: 08/17/21 20:51> Vomiting/Diarrhea Complaint/Exam Onset/Duration: one d Symptoms Are: Still present Initial Severity: Moderate Current Severity: Moderate Character of Vomiting: Reports Non-bilious Character of Diarrhea: Reports Watery Aggravating: Reports Food Alleviating: Reports None Associated Signs and Symptoms: Denies Dizziness, Light-headedness, Melena, Hematemesis, Fever, Abdominal pain or Cramping Related History: Reports Similar episode Review of Systems <JENNIFER ELDRIDGE MD - Last Filed: 08/17/21 20:51> Review Of Systems Constitutional: Reports Malaise and Weakness Eyes: Reports No symptoms Ears, Nose, Mouth, Throat: Reports No symptoms Respiratory: Reports No symptoms Cardiac: Reports No symptoms GI: Reports Poor appetite, Poor fluid intake and Vomiting : Reports No symptoms Musculoskeletal: Reports No symptoms Skin: Reports No symptoms Neurological: Reports No symptoms Endocrine: Reports No symptoms Hematologic/Lymphatic: Reports No symptoms All Other Systems: Reviewed and Negative PFSH <JENNIFER ELDRIDGE MD - Last Filed: 08/17/21 20:51> Medical History Acute arthritis Anesthesia complication Atherosclerosis of coronary artery Chronic GERD Chronic obstructive pulmonary disease Elevated cholesterol Heart disease History of COPD History of hypertension History of seasonal allergies History of sinus problem Family History SISTER Lung cancer, Onset Age: 57 Abuse, drug or alcohol BROTHER Lung cancer, Onset Age: 37 Mother Hyperthyroidism, Onset Age: 83 FATHER Abuse, drug or alcohol Social History Smoking and tobacco status: Never smoker Alcohol intake: never Substance use type: does not use Housing: house Current occupational status: retired Pets and animals: Yes History of recent travel: No Seatbelt use: always Water heater temperature set < 120 degrees: Yes Working smoke detector in home: Yes Fire extinguisher in home: Yes Carbon monoxide detector in home: Yes Firearms in home: No Surgical History H/O knee surgery H/O tubal ligation History of appendectomy History of cholecystectomy History of joint surgery Status post hysterectomy Female Reproductive History Menstrual Hx Hysterectomy: Yes Hx Tubal Ligation: No Physical Exam <JENNIFER ELDRIDGE MD - Last Filed: 08/17/21 20:51> Physical Exam Appearance: Reports Ill-appearing Ill-appearing: Mild Pain Distress: Mild ENT: Reports Oropharynx normal Neck: Supple Cardiovascular: Reports RRR and Pulses normal GI/: Reports Soft and Tender (cramps) Musculoskeletal: Reports Normal strength and ROM intact Skin: Reports Warm and Dry Neurological: Reports Sensation intact, Motor intact and Alert Psychiatric: Reports Affect appropriate and Mood appropriate <GLENN BENITEZ MD - Last Filed: 08/06/21 09:01> Physical Exam Eyes: Reports Conjunctiva clear Respiratory: Reports Airway patent Interpretation <JENNIFER ELDRIDGE MD - Last Filed: 08/17/21 20:51> EKG Interpretation Time of EKG #1: 05:28 Rate: Normal Rhythm: Other (a-fib) Ectopy: None [place]: [place] ST Segment: Normal Interpretation: a-fib vr 69 <GLENN BENITEZ MD - Last Filed: 08/06/21 09:01> Radiology Interpretation Radiology Interpretation By: Radiologist Exam Interpreted: CT Scan Xray Comments: nap Radiology Interpretation By: Radiologist Exam Interpreted: CXR Xray Comments: nap <GLENN BENITEZ MD - Last Filed: 08/06/21 09:01> Critical Care Note Total Critical Care Time (mins): 0 Course <JENNIFER ELDRIDGE MD - Last Filed: 08/17/21 20:51> Course Hematology/Chemistry: 08/11/21 05:30 08/11/21 05:30 Orders, Labs, Meds: Lab Review 08/06/21 08/06/21 08/06/21 05:09 05:09 05:20 WBC 6.10 RBC 3.96 L Hgb 11.6 L Hct 36.4 L MCV 91.9 MCH 29.3 MCHC 31.9 RDW Coeff of Pricila 15.4 H Plt Count 168 Immature Gran % (Auto) 0.3 Neut % (Auto) 82.5 H Lymph % (Auto) 11.0 Trigg % (Auto) 4.1 Eos % (Auto) 1.3 Baso % (Auto) 0.8 Neut # (Auto) 5.0 Lymph # (Auto) 0.7 Trigg # (Auto) 0.3 L Eos # (Auto) 0.1 Baso # (Auto) 0.1 Immature Gran # (Auto) 0.0 PT INR Sodium 136.3 Potassium 4.82 Chloride 99.9 Carbon Dioxide 33.5 H Anion Gap 7.72 BUN 19.4 H Creatinine 1.04 Estimated GFR (MDRD) 51.00 BUN/Creatinine Ratio 18.65 Glucose 126.7 H Calcium 8.58 Magnesium Total Bilirubin 0.36 AST 24.5 ALT 12.1 Alkaline Phosphatase 169.9 H Troponin I 0.014 Total Protein 6.25 L Albumin 3.42 L Globulin 2.83 Albumin/Globulin Ratio 1.20 Urine Color Yellow Urine Clarity Clear Urine pH 6.0 Ur Specific [place] 1.015 Urine Protein Trace H Urine Glucose (UA) Negative Urine Ketones Negative Urine Blood Trace-intact H Urine Nitrite Positive H Urine Bilirubin Negative Urine Urobilinogen 0.2 Ur Leukocyte Esterase 2+ H Urine Microscopic RBC 5-10 Urine Microscopic WBC Tntc Ur Squamous Epith Cells 2-5 Urine Bacteria 4+ Urine Mucus 1+ Adenovirus (PCR) B. pertussis DNA (PCR) B.parapertussis DNA PCR C. pneumoniae DNA (PCR) Coronavirus OC43 (PCR) Coronavirus HKU1 (PCR) Coronavirus 229E (PCR) Coronavirus NL63 (PCR) Human Metapneumovir PCR Influenza Type A (PCR) Influenza B (RT-PCR) M. pneumoniae (PCR) Parainfluenza 1 (PCR) Parainfluenza 2 (PCR) Parainfluenza 3 (PCR) Parainfluenza 4 (PCR) RSV (PCR) Entero/Rhino (PCR) SARS-CoV-2 (PCR) 08/06/21 08/06/21 08/06/21 07:20 08:40 08:40 WBC 5.59 RBC 4.06 L Hgb 11.7 L Hct 37.2 MCV 91.6 MCH 28.8 MCHC 31.5 L RDW Coeff of Pricila 15.3 H Plt Count 179 Immature Gran % (Auto) 0.4 Neut % (Auto) 85.4 H Lymph % (Auto) 11.3 Trigg % (Auto) 2.0 Eos % (Auto) 0.4 Baso % (Auto) 0.5 Neut # (Auto) 4.8 Lymph # (Auto) 0.6 Trigg # (Auto) 0.1 L Eos # (Auto) 0.0 Baso # (Auto) 0.0 Immature Gran # (Auto) 0.0 PT 17.7 H INR 1.75 Sodium Potassium Chloride Carbon Dioxide Anion Gap BUN Creatinine Estimated GFR (MDRD) BUN/Creatinine Ratio Glucose Calcium Magnesium Total Bilirubin AST ALT Alkaline Phosphatase Troponin I Total Protein Albumin Globulin Albumin/Globulin Ratio Urine Color Urine Clarity Urine pH Ur Specific [place] Urine Protein Urine Glucose (UA) Urine Ketones Urine Blood Urine Nitrite Urine Bilirubin Urine Urobilinogen Ur Leukocyte Esterase Urine Microscopic RBC Urine Microscopic WBC Ur Squamous Epith Cells Urine Bacteria Urine Mucus Adenovirus (PCR) Not detected B. pertussis DNA (PCR) Not detected B.parapertussis DNA PCR Not detected C. pneumoniae DNA (PCR) Not detected Coronavirus OC43 (PCR) Not detected Coronavirus HKU1 (PCR) Not detected Coronavirus 229E (PCR) Not detected Coronavirus NL63 (PCR) Not detected Human Metapneumovir PCR Not detected Influenza Type A (PCR) Not detected Influenza B (RT-PCR) Not detected M. pneumoniae (PCR) Not detected Parainfluenza 1 (PCR) Not detected Parainfluenza 2 (PCR) Not detected Parainfluenza 3 (PCR) Not detected Parainfluenza 4 (PCR) Not detected RSV (PCR) Not detected Entero/Rhino (PCR) Not detected SARS-CoV-2 (PCR) Not detected 0508/06/21 08/06/21 08:40 08:40 09:00 WBC RBC Hgb Hct MCV MCH MCHC RDW Coeff of Pricila Plt Count Immature Gran % (Auto) Neut % (Auto) Lymph % (Auto) [place] % (Auto) Eos % (Auto) Baso % (Auto) Neut # (Auto) Lymph # (Auto) Trigg # (Auto) Eos # (Auto) Baso # (Auto) Immature Gran # (Auto) PT INR Sodium 135.0 Potassium 4.65 Chloride 99.5 Carbon Dioxide 31.7 H Anion Gap 8.45 BUN 18.2 H Creatinine 0.91 Estimated GFR (MDRD) 59.00 BUN/Creatinine Ratio 20.00 Glucose 129.9 H Calcium 8.52 Magnesium 1.80 Total Bilirubin 0.47 AST 23.9 ALT 13.3 Alkaline Phosphatase 173.6 H Troponin I < 0.012 Total Protein 6.37 Albumin 3.46 L Globulin 2.91 Albumin/Globulin Ratio 1.18 Urine Color Urine Clarity Urine pH Ur Specific [place] Urine Protein Urine Glucose (UA) Urine Ketones Urine Blood Urine Nitrite Urine Bilirubin Urine Urobilinogen Ur Leukocyte Esterase Urine Microscopic RBC Urine Microscopic WBC Ur Squamous Epith Cells Urine Bacteria Urine Mucus Adenovirus (PCR) B. pertussis DNA (PCR) B.parapertussis DNA PCR C. pneumoniae DNA (PCR) Coronavirus OC43 (PCR) Coronavirus HKU1 (PCR) Coronavirus 229E (PCR) Coronavirus NL63 (PCR) Human Metapneumovir PCR Influenza Type A (PCR) Influenza B (RT-PCR) M. pneumoniae (PCR) Parainfluenza 1 (PCR) Parainfluenza 2 (PCR) Parainfluenza 3 (PCR) Parainfluenza 4 (PCR) RSV (PCR) Entero/Rhino (PCR) SARS-CoV-2 (PCR) Orders Category Date Time Status ADMIT PATIENT INPATIENT .TO MEDSURG (MONITORED BED) ADMISSION 08/06/21 08:49 Completed EKG-(ED ONLY) Stat CARDIO 08/06/21 05:09 Completed EKG-(IP & OP ONLY) DAILY CARDIO 08/07/21 06:00 Completed EKG-(IP & OP ONLY) DAILY CARDIO 08/08/21 06:00 Completed OXYGEN Routine CARDIO 08/06/21 08:50 Completed ACTIVITY .BR with BRP CARE 08/06/21 08:49 Completed INTAKE & OUTPUT Q8HR CARE 08/06/21 08:49 Completed IP: INSERT SALINE LOCK ONCE CARE 08/06/21 08:49 Completed TELEMETRY MONITORING TELE CARE 08/06/21 08:49 Completed TELEMETRY MONITORING TELE CARE 08/06/21 08:57 Completed VITAL SIGNS Q8HR CARE 08/06/21 08:49 Completed VTE PREVENTION .RYLAN and SCD On AM/Off PM CARE 08/06/21 08:49 Completed CARDIAC DIET DIETARY 08/06/21 Lunch Completed ED CATHETER INSERTION AND CARE .ONCE EMERGENCY 08/06/21 05:09 Completed CBC W/ AUTO DIFF DAILY@0600 LAB 08/07/21 05:26 Completed CBC W/ AUTO DIFF DAILY@0600 LAB 08/08/21 06:01 Completed CBC W/ AUTO DIFF Stat LAB 08/06/21 05:09 Completed CBC W/ AUTO DIFF Stat LAB 08/06/21 08:40 Completed CMP [COMPREHENSIVE METABOLIC PANEL] Stat LAB 08/06/21 05:09 Completed COMPREHENSIVE METABOLIC PANEL DAILY@0600 LAB 08/07/21 05:26 Completed COMPREHENSIVE METABOLIC PANEL DAILY@0600 LAB 08/08/21 06:01 Completed COMPREHENSIVE METABOLIC PANEL Stat LAB 08/06/21 08:40 Completed PT WITH INR Stat LAB 08/06/21 08:40 Completed RESPIRATORY PANEL 2.1 (PCR) Stat LAB 08/06/21 07:20 Completed TROPONIN I Q8H LAB 08/06/21 08:40 Completed TROPONIN I Q8H LAB 08/06/21 15:00 Completed TROPONIN I Q8H LAB 08/06/21 17:01 Completed TROPONIN I Q8H LAB 08/06/21 22:55 Completed TROPONIN I Stat LAB 08/06/21 05:09 Completed URINALYSIS C & S IF INDICATED Stat LAB 08/06/21 05:20 Completed URINE CULTURE Stat LAB 08/06/21 05:20 Completed 0.9 % Sodium Chloride [Saline Flush] MEDS 08/06/21 13:00 Discontinued 1 syr IVF Q8HR Acetaminophen [Tylenol] MEDS 08/06/21 08:49 Discontinued 650 mg PO Q4-6H PRN Atorvastatin Calcium [Lipitor] MEDS 08/06/21 09:00 Discontinued 80 mg PO DAILY Atropine Sulfate Inj [Atropine Sulfate Pfs] MEDS 08/06/21 08:57 Discontinued 0.5 mg IVP ONCE PRN Ceftriaxone/D5w 1 gm Premix [Rocephin 1 gm/50 ml D5w] MEDS 08/06/21 09:30 Discontinued 1 gm in 50 ml IV DAILY Clonazepam [Klonopin] MEDS 08/06/21 21:00 Discontinued 0.5 mg PO BEDTIME Escitalopram Oxalate [Lexapro] MEDS 08/06/21 09:00 Discontinued 20 mg PO DAILY Isosorbide Mononitrate [Imdur] MEDS 08/06/21 09:00 Discontinued 30 mg PO BID Lidocaine (Uro-Jet) [Uro-Jet] MEDS 08/06/21 05:09 Discontinued 10 ml MUCOUSMEMB ONCE STA Lisinopril [Zestril] MEDS 08/06/21 09:00 Discontinued 20 mg PO DAILY Nitroglycerin [Nitrostat] MEDS 08/06/21 08:54 Discontinued 0.4 mg SL Q5MIN PRN Omeprazole [Prilosec] MEDS 08/07/21 06:30 Discontinued 20 mg PO QDAC Ondansetron HCl/Pf [Zofran 4 mg/2 ml] MEDS 08/06/21 08:44 Discontinued 4 mg IVP ONCE ONE Oxycodone-Acetaminophen 5-325 [Percocet 5-325] MEDS 08/06/21 08:54 Discontinued 1 tab PO BID PRN Ringers Lactated Solution [Lactated Ringers] 1,000 ml MEDS 08/06/21 05:09 Discontinued IV BOLUS Rivaroxaban [Xarelto] MEDS 08/06/21 17:00 Discontinued 15 mg PO QPM Sodium Chloride 0.9% [Sodium Chloride] 1,000 ml MEDS 08/06/21 09:00 Discontinu ed IV 75 mls/hr RESUSCITATION STATUS Routine OTHERS 08/06/21 08:49 Completed CHEST, 1V AP ONLY Stat RADS 08/06/21 05:[address] ABDOMEN/PELVIS WO CONTRAST Stat RADS 08/06/21 05:09 Completed Medications Discontinued Medications Generic Name Dose Route Start Last Admin Trade Name Freq PRN Reason Stop Dose Admin Acetaminophen 650 mg 08/06/21 08:49 08/10/21 20:27 Acetaminophen 325 Mg Tablet PO 650 mg Q4-6H PRN Administration Mild Pain Atorvastatin Calcium 80 mg 08/06/21 09:00 08/11/21 09:00 Atorvastatin Calcium 20 Mg Tablet PO 80 mg DAILY KELY Administration Atropine Sulfate 0.5 mg 08/06/21 08:57 Atropine Sulfate Inj 1 Mg/10 Ml Disp.Syrin IVP ONCE PRN Symptomatic Bradycardia Calamine/Phenol 1 applic 08/09/21 10:38 08/09/21 20:07 Menthol/Zinc Oxide 113 Gm Ointment TP 1 applic PRN PRN Administration skin breakdown prevention Calcium/Vitamin D 1 each 08/06/21 21:00 08/11/21 09:00 Calcium Carbonate/Vitamin D3 500 Mg/5 Mcg(200iu) 1 Each Tablet PO 1 each BID KELY Administration Cefdinir 300 mg 08/08/21 21:00 08/11/21 09:00 Cefdinir 300 Mg Capsule PO 08/12/21 22:00 300 mg Q12HR KELY Administration Clonazepam 0.5 mg 08/06/21 21:00 08/10/21 20:26 Clonazepam 0.5 Mg Tablet PO 0.5 mg BEDTIME KELY Administration Escitalopram Oxalate 20 mg 08/06/21 09:00 08/11/21 09:00 Escitalopram Oxalate 10 Mg Tablet PO 20 mg DAILY KELY Administration Fish Oil 2,000 mg 08/06/21 21:00 08/11/21 09:00 [place]-3/Dha/Epa/Fish Oil 1,000 Mg Capsule PO 2,000 mg BID KELY Administration Gabapentin 600 mg 08/06/21 15:00 08/11/21 09:00 Gabapentin 300 Mg Capsule PO 600 mg TID KELY Administration Lactated Ringer's 1,000 mls @ 1,000 mls/hr 08/06/21 05:09 08/06/21 05:31 Lactated Ringers IV 08/06/21 06:08 1,000 mls/hr BOLUS STA Administration Sodium Chloride 1,000 mls @ 75 mls/hr 08/06/21 09:00 08/08/21 07:57 Sodium Chloride IV 75 mls/hr .[id number] KELY Administration CEFTRIAXONE/D5W 1 GM PREMIX 1 gm in 50 mls @ 75 mls/hr 08/06/21 09:30 08/08 08:41 Rocephin 1 Gm/50 Ml D5w IV 08/09/21 09:29 75 mls/hr DAILY KELY Administration Isosorbide Mononitrate 30 mg 08/06/21 09:00 08/11/21 09:00 Isosorbide Mononitrate 30 Mg Tab.Er.24h PO 30 mg BID KELY Administration Lidocaine HCl 10 ml 08/06/21 05:09 08/06/21 05:22 Lidocaine 10 Ml Jel.Pf.Oumou (Urojet) MUCOUSMEMB 08/06/21 05:10 Not Given ONCE STA Lisinopril 20 mg 08/06/21 09:00 08/11/21 09:00 Lisinopril 10 Mg Tablet PO 20 mg DAILY KELY Administration Metoprolol Tartrate 12.5 mg 08/06/21 10:30 08/11/21 09:01 Metoprolol Tartrate 25 Mg Tablet PO 12.5 mg BID KELY Administration Nitroglycerin 0.4 mg 08/06/21 08:54 Nitroglycerin 0.4 Mg Tab.Subl SL Q5MIN PRN Chest Pain Omeprazole 20 mg 08/07/21 06:30 08/11/21 05:40 Omeprazole 20 Mg Capsule.Dr PO 20 mg QDAC KELY Administration Ondansetron HCl 4 mg 08/06/21 08:44 08/06/21 08:48 Ondansetron Hcl/Pf 4 Mg/2 Ml Sdv IVP 08/06/21 08:45 4 mg ONCE ONE Administration Ondansetron HCl 4 mg 08/06/21 13:21 08/06/21 13:33 Ondansetron Hcl/Pf 4 Mg/2 Ml Sdv IVP 08/06/21 13:22 4 mg ONCE ONE Administration Ondansetron HCl 4 mg 08/09/21 14:24 08/09/21 14:55 Ondansetron Hcl 4 Mg Tab.Rapdis PO 08/09/21 14:25 4 mg ONCE ONE Administration Oxycodone/Acetaminophen 1 tab 08/06/21 08:54 08/11/21 08:02 Oxycodone/Acetaminophen 5/325 Mg Tablet PO 1 tab BID PRN Administration Pain Rivaroxaban 15 mg 08/06/21 17:00 08/10/21 17:29 Rivaroxaban 10 Mg Tablet PO 15 mg QPM KELY Administration Sodium Chloride 1 syr 08/06/21 13:00 08/11/21 05:40 0.9% Sodium Chloride 10 Ml Disp.Syrin IVF 1 syr Q8HR KELY Administration Vital Signs: Temp Pulse Resp BP Pulse Ox 08/06/21 04:52 97.8 F 73 18 116/67 94 L <GLENN BENITEZ MD - Last Filed: 08/06/21 09:01> Course Orders, Labs, Meds: Lab Review 08/06/21 08/06/21 08/06/21 05:09 05:09 05:20 WBC 6.10 RBC 3.96 L Hgb 11.6 L Hct 36.4 L MCV 91.9 MCH 29.3 MCHC 31.9 RDW Coeff of Pricila 15.4 H Plt Count 168 Immature Gran % (Auto) 0.3 Neut % (Auto) 82.5 H Lymph % (Auto) 11.0 [place] % (Auto) 4.1 Eos % (Auto) 1.3 Baso % (Auto) 0.8 Neut # (Auto) 5.0 Lymph # (Auto) 0.7 [place]igg # (Auto) 0.3 L Eos # (Auto) 0.1 Baso # (Auto) 0.1 Immature Gran # (Auto) 0.0 PT INR Sodium 136.3 Potassium 4.82 Chloride 99.9 Carbon Dioxide 33.5 H Anion Gap 7.72 BUN 19.4 H Creatinine 1.04 Estimated GFR (MDRD) 51.00 BUN/Creatinine Ratio 18.65 Glucose 126.7 H Calcium 8.58 Magnesium Total Bilirubin 0.36 AST 24.5 ALT 12.1 Alkaline Phosphatase 169.9 H Troponin I 0.014 Total Protein 6.25 L Albumin 3.42 L Globulin 2.83 Albumin/Globulin Ratio 1.20 Urine Color Yellow Urine Clarity Clear Urine pH 6.0 Ur Specific [place] 1.015 Urine Protein Trace H Urine Glucose (UA) Negative Urine Ketones Negative Urine Blood Trace-intact H Urine Nitrite Positive H Urine Bilirubin Negative Urine Urobilinogen 0.2 Ur Leukocyte Esterase 2+ H Urine Microscopic RBC 5-10 Urine Microscopic WBC Tntc Ur Squamous Epith Cells 2-5 Urine Bacteria 4+ Urine Mucus 1+ Adenovirus (PCR) B. pertussis DNA (PCR) B.parapertussis DNA PCR C. pneumoniae DNA (PCR) Coronavirus OC43 (PCR) Coronavirus HKU1 (PCR) Coronavirus 229E (PCR) Coronavirus NL63 (PCR) Human Metapneumovir PCR Influenza Type A (PCR) Influenza B (RT-PCR) M. pneumoniae (PCR) Parainfluenza 1 (PCR) Parainfluenza 2 (PCR) Parainfluenza 3 (PCR) Parainfluenza 4 (PCR) RSV (PCR) Entero/Rhino (PCR) SARS-CoV-2 (PCR) 08/06/21 08/06/21 08/06/21 07:20 08:40 08:40 WBC 5.59 RBC 4.06 L Hgb 11.7 L Hct 37.2 MCV 91.6 MCH 28.8 MCHC 31.5 L RDW Coeff of Pricila 15.3 H Plt Count 179 Immature Gran % (Auto) 0.4 Neut % (Auto) 85.4 H Lymph % (Auto) 11.3 [place] % (Auto) 2.0 Eos % (Auto) 0.4 Baso % (Auto) 0.5 Neut # (Auto) 4.8 Lymph # (Auto) 0.6 [place] # (Auto) 0.1 L Eos # (Auto) 0.0 Baso # (Auto) 0.0 Immature Gran # (Auto) 0.0 PT 17.7 H INR 1.75 Sodium Potassium Chloride Carbon Dioxide Anion Gap BUN Creatinine Estimated GFR (MDRD) BUN/Creatinine Ratio Glucose Calcium Magnesium Total Bilirubin AST ALT Alkaline Phosphatase Troponin I Total Protein Albumin Globulin Albumin/Globulin Ratio Urine Color Urine Clarity Urine pH Ur Specific [place] Urine Protein Urine Glucose (UA) Urine Ketones Urine Blood Urine Nitrite Urine Bilirubin Urine Urobilinogen Ur Leukocyte Esterase Urine Microscopic RBC Urine Microscopic WBC Ur Squamous Epith Cells Urine Bacteria Urine Mucus Adenovirus (PCR) Not detected B. pertussis DNA (PCR) Not detected B.parapertussis DNA PCR Not detected C. pneumoniae DNA (PCR) Not detected Coronavirus OC43 (PCR) Not detected Coronavirus HKU1 (PCR) Not detected Coronavirus 229E (PCR) Not detected Coronavirus NL63 (PCR) Not detected Human Metapneumovir PCR Not detected Influenza Type A (PCR) Not detected Influenza B (RT-PCR) Not detected M. pneumoniae (PCR) Not detected Parainfluenza 1 (PCR) Not detected Parainfluenza 2 (PCR) Not detected Parainfluenza 3 (PCR) Not detected Parainfluenza 4 (PCR) Not detected RSV (PCR) Not detected Entero/Rhino (PCR) Not detected SARS-CoV-2 (PCR) Not detected 08/06/21 08/06/21 08/06/21 08:40 08:40 09:00 WBC RBC Hgb Hct MCV MCH MCHC RDW Coeff of Pricila Plt Count Immature Gran % (Auto) Neut % (Auto) Lymph % (Auto) [place] % (Auto) Eos % (Auto) Baso % (Auto) Neut # (Auto) Lymph # (Auto) [place] # (Auto) Eos # (Auto) Baso # (Auto) Immature Gran # (Auto) PT INR Sodium 135.0 Potassium 4.65 Chloride 99.5 Carbon Dioxide 31.7 H Anion Gap 8.45 BUN 18.2 H Creatinine 0.91 Estimated GFR (MDRD) 59.00 BUN/Creatinine Ratio 20.00 Glucose 129.9 H Calcium 8.52 Magnesium 1.80 Total Bilirubin 0.47 AST 23.9 ALT 13.3 Alkaline Phosphatase 173.6 H Troponin I < 0.012 Total Protein 6.37 Albumin 3.46 L Globulin 2.91 Albumin/Globulin Ratio 1.18 Urine Color Urine Clarity Urine pH Ur Specific [place] Urine Protein Urine Glucose (UA) Urine Ketones Urine Blood Urine Nitrite Urine Bilirubin Urine Urobilinogen Ur Leukocyte Esterase Urine Microscopic RBC Urine Microscopic WBC Ur Squamous Epith Cells Urine Bacteria Urine Mucus Adenovirus (PCR) B. pertussis DNA (PCR) B.parapertussis DNA PCR C. pneumoniae DNA (PCR) Coronavirus OC43 (PCR) Coronavirus HKU1 (PCR) Coronavirus 229E (PCR) Coronavirus NL63 (PCR) Human Metapneumovir PCR Influenza Type A (PCR) Influenza B (RT-PCR) M. pneumoniae (PCR) Parainfluenza 1 (PCR) Parainfluenza 2 (PCR) Parainfluenza 3 (PCR) Parainfluenza 4 (PCR) RSV (PCR) Entero/Rhino (PCR) SARS-CoV-2 (PCR) Orders Category Date Time Status ADMIT PATIENT INPATIENT .TO MEDSURG (MONITORED BED) ADMISSION 08/06/21 08:49 Completed EKG-(ED ONLY) Stat CARDIO 08/06/21 05:09 Completed EKG-(IP & OP ONLY) DAILY CARDIO 08/07/21 06:00 Completed EKG-(IP & OP ONLY) DAILY CARDIO 08/08/21 06:00 Completed OXYGEN Routine CARDIO 08/06/21 08:50 Completed ACTIVITY .BR with BRP CARE 08/06/21 08:49 Completed INTAKE & OUTPUT Q8HR CARE 08/06/21 08:49 Completed IP: INSERT SALINE LOCK ONCE CARE 08/06/21 08:49 Completed TELEMETRY MONITORING TELE CARE 08/06/21 08:49 Completed TELEMETRY MONITORING TELE CARE 08/06/21 08:57 Completed VITAL SIGNS Q8HR CARE 08/06/21 08:49 Completed VTE PREVENTION .RYLAN and SCD On AM/Off PM CARE 08/06/21 08:49 Completed CARDIAC DIET DIETARY 08/06/21 Lunch Completed ED CATHETER INSERTION AND CARE .ONCE EMERGENCY 08/06/21 05:09 Completed CBC W/ AUTO DIFF DAILY@0600 LAB 08/07/21 05:26 Completed CBC W/ AUTO DIFF DAILY@0600 LAB 08/08/21 06:01 Completed CBC W/ AUTO DIFF Stat LAB 08/06/21 05:09 Completed CBC W/ AUTO DIFF Stat LAB 08/06/21 08:40 Completed CMP [COMPREHENSIVE METABOLIC PANEL] Stat LAB 08/06/21 05:09 Completed COMPREHENSIVE METABOLIC PANEL DAILY@0600 LAB 08/07/21 05:26 Completed COMPREHENSIVE METABOLIC PANEL DAILY@0600 LAB 08/08/21 06:01 Completed COMPREHENSIVE METABOLIC PANEL Stat LAB 08/06/21 08:40 Completed PT WITH INR Stat LAB 08/06/21 08:40 Completed RESPIRATORY PANEL 2.1 (PCR) Stat LAB 08/06/21 07:20 Completed TROPONIN I Q8H LAB 08/06/21 08:40 Completed TROPONIN I Q8H LAB 08/06/21 15:00 Completed TROPONIN I Q8H LAB 08/06/21 17:01 Completed TROPONIN I Q8H LAB 08/06/21 22:55 Completed TROPONIN I Stat LAB 08/06/21 05:09 Completed URINALYSIS C & S IF INDICATED Stat LAB 08/06/21 05:20 Completed URINE CULTURE Stat LAB 08/06/21 05:20 Completed 0.9 % Sodium Chloride [Saline Flush] MEDS 08/06/21 13:00 Discontinued 1 syr IVF Q8HR Acetaminophen [Tylenol] MEDS 08/06/21 08:49 Discontinued 650 mg PO Q4-6H PRN Atorvastatin Calcium [Lipitor] MEDS 08/06/21 09:00 Discontinued 80 mg PO DAILY Atropine Sulfate Inj [Atropine Sulfate Pfs] MEDS 08/06/21 08:57 Discontinued 0.5 mg IVP ONCE PRN Ceftriaxone/D5w 1 gm Premix [Rocephin 1 gm/50 ml D5w] MEDS 08/06/21 09:30 Discontinued 1 gm in 50 ml IV DAILY Clonazepam [Klonopin] MEDS 08/06/21 21:00 Discontinued 0.5 mg PO BEDTIME Escitalopram Oxalate [Lexapro] MEDS 08/06/21 09:00 Discontinued 20 mg PO DAILY Isosorbide Mononitrate [Imdur] MEDS 08/06/21 09:00 Discontinued 30 mg PO BID Lidocaine (Uro-Jet) [Uro-Jet] MEDS 08/06/21 05:09 Discontinued 10 ml MUCOUSMEMB ONCE STA Lisinopril [Zestril] MEDS 08/06/21 09:00 Discontinued 20 mg PO DAILY Nitroglycerin [Nitrostat] MEDS 08/06/21 08:54 Discontinued 0.4 mg SL Q5MIN PRN Omeprazole [Prilosec] MEDS 08/07/21 06:30 Discontinued 20 mg PO QDAC Ondansetron HCl/Pf [Zofran 4 mg/2 ml] MEDS 08/06/21 08:44 Discontinued 4 mg IVP ONCE ONE Oxycodone-Acetaminophen 5-325 [Percocet 5-325] MEDS 08/06/21 08:54 Discontinued 1 tab PO BID PRN Ringers Lactated Solution [Lactated Ringers] 1,000 ml MEDS 08/06/21 05:09 Discontinued IV BOLUS Rivaroxaban [Xarelto] MEDS 08/06/21 17:00 Discontinued 15 mg PO QPM Sodium Chloride 0.9% [Sodium Chloride] 1,000 ml MEDS 08/06/21 09:00 Discontinued IV 75 mls/hr RESUSCITATION STATUS Routine OTHERS 08/06/21 08:49 Completed CHEST, 1V AP ONLY Stat RADS 08/06/21 05:[address] ABDOMEN/PELVIS WO CONTRAST Stat RADS 08/06/21 05:09 Completed Medications Discontinued Medications Generic Name Dose Route Start Last Admin Trade Name Freq PRN Reason Stop Dose Admin Acetaminophen 650 mg 08/06/21 08:49 08/10/21 20:27 Acetaminophen 325 Mg Tablet PO 650 mg Q4-6H PRN Administration Mild Pain Atorvastatin Calcium 80 mg 08/06/21 09:00 08/11/21 09:00 Atorvastatin Calcium 20 Mg Tablet PO 80 mg DAILY KELY Administration Atropine Sulfate 0.5 mg 08/06/21 08:57 Atropine Sulfate Inj 1 Mg/10 Ml Disp.Syrin IVP ONCE PRN Symptomatic Bradycardia Calamine/Phenol 1 applic 08/09/21 10:38 08/09/21 20:07 Menthol/Zinc Oxide 113 Gm Ointment TP 1 applic PRN PRN Administration skin breakdown prevention Calcium/Vitamin D 1 each 08/06/21 21:00 08/11/21 09:00 Calcium Carbonate/Vitamin D3 500 Mg/5 Mcg(200iu) 1 Each Tablet PO 1 each BID KELY Administration Cefdinir 300 mg 08/08/21 21:00 08/11/21 09:00 Cefdinir 300 Mg Capsule PO 08/12/21 22:00 300 mg Q12HR KELY Administration Clonazepam 0.5 mg 08/06/21 21:00 08/10/21 20:26 Clonazepam 0.5 Mg Tablet PO 0.5 mg BEDTIME KELY Administration Escitalopram Oxalate 20 mg 08/06/21 09:00 08/11/21 09:00 Escitalopram Oxalate 10 Mg Tablet PO 20 mg DAILY KELY Administration Fish Oil 2,000 mg 08/06/21 21:00 08/11/21 09:00 [place]-3/Dha/Epa/Fish Oil 1,000 Mg Capsule PO 2,000 mg BID KELY Administration Gabapentin 600 mg 08/06/21 15:00 08/11/21 09:00 Gabapentin 300 Mg Capsule PO 600 mg TID KELY Administration Lactated Ringer's 1,000 mls @ 1,000 mls/hr 08/06/21 05:09 08/06/21 05:31 Lactated Ringers IV 08/06/21 06:08 1,000 mls/hr BOLUS STA Administration Sodium Chloride 1,000 mls @ 75 mls/hr 08/06/21 09:00 08/08/21 07:57 Sodium Chloride IV 75 mls/hr .[id number] KELY Administration CEFTRIAXONE/D5W 1 GM PREMIX 1 gm in 50 mls @ 75 mls/hr 08/06/21 09:30 08/08/21 08:41 Rocephin 1 Gm/50 Ml D5w IV 08/09/21 09:29 75 mls/hr DAILY KELY Administration Isosorbide Mononitrate 30 mg 08/06/21 09:00 08/11/21 09:00 Isosorbide Mononitrate 30 Mg Tab.Er.24h PO 30 mg BID KELY Administration Lidocaine HCl 10 ml 08/06/21 05:09 08/06/21 05:22 Lidocaine 10 Ml Jel.Pf.Oumou (Urojet) MUCOUSMEMB 08/06/21 05:10 Not Given ONCE STA Lisinopril 20 mg 08/06/21 09:00 08/11/21 09:00 Lisinopril 10 Mg Tablet PO 20 mg DAILY KELY Administration Metoprolol Tartrate 12.5 mg 08/06/21 10:30 08/11/21 09:01 Metoprolol Tartrate 25 Mg Tablet PO 12.5 mg BID KELY Administration Nitroglycerin 0.4 mg 08/06/21 08:54 Nitroglycerin 0.4 Mg Tab.Subl SL Q5MIN PRN Chest Pain Omeprazole 20 mg 08/07/21 06:30 08/11/21 05:40 Omeprazole 20 Mg Capsule.Dr PO 20 mg QDAC KELY Administration Ondansetron HCl 4 mg 08/06/21 08:44 08/06/21 08:48 Ondansetron Hcl/Pf 4 Mg/2 Ml Sdv IVP 08/06/21 08:45 4 mg ONCE ONE Administration Ondansetron HCl 4 mg 08/06/21 13:21 08/06/21 13:33 Ondansetron Hcl/Pf 4 Mg/2 Ml Sdv IVP 08/06/21 13:22 4 mg ONCE ONE Administration Ondansetron HCl 4 mg 08/09/21 14:24 08/09/21 14:55 Ondansetron Hcl 4 Mg Tab.Rapdis PO 08/09/21 14:25 4 mg ONCE ONE Administration Oxycodone/Acetaminophen 1 tab 08/06/21 08:54 08/11/21 08:02 Oxycodone/Acetaminophen 5/325 Mg Tablet PO 1 tab BID PRN Administration Pain Rivaroxaban 15 mg 08/06/21 17:00 08/10/21 17:29 Rivaroxaban 10 Mg Tablet PO 15 mg QPM KELY Administration Sodium Chloride 1 syr 08/06/21 13:00 08/11/21 05:40 0.9% Sodium Chloride 10 Ml Disp.Syrin IVF 1 syr Q8HR KELY Administration Vital Signs: Temp Pulse Resp BP Pulse Ox 08/06/21 04:52 97.8 F 73 18 116/67 94 L Discharge Plan Discharge Patient Disposition: ADMITTED INPATIENT Discharge Problem: Weak, Gastroenteritis, Acute UTI ED Provider: GLENN BENITEZ Condition: Stable <EJNNIFER ELDRIDGE MD - Last Filed: 08/17/21 20:51> Physician Progress Note: [Turn over to Dr. Benitez 0700.] <GLENN BENITEZ MD - Last Filed: 08/06/21 09:01> Physician Progress Note: [Turn over to Dr. Benitez 0700.] Care assumed from Dr Eldridge, treatment and admit d/w Dr Hernandez
[2021-08-06] MEDS ORDERED: URO-JET MUCOUSMEMB STA (05:09)
[2021-08-06] MEDS ORDERED: LACTATED RINGERS 1,000 ML IV STA (05:09)
[2021-08-06 05:24] LABS: BASOPHILS # (AUTO) 0.1 K/uL (0-0.2); BASOPHILS % (AUTO) 0.8 % (0.0-3.0); EOSINOPHILS # (AUTO) 0.1 K/ul (0.0-0.7); EOSINOPHILS % (AUTO) 1.3 % (0.0-7.0); HEMATOCRIT 36.4 % (37.0-47.0); HEMOGLOBIN 11.6 g/dl (12.0-16.0); IMMATURE GRANULOCYTE % (AUTO) 0.3 % (0.0-5.0); LYMPHOCYTES # (AUTO) 0.7 K/uL (0.60-3.4); MEAN CORPUSCULAR HEMOGLOBIN 29.3 pg (27.0-31.0); MEAN CORPUSCULAR HGB CONC 31.9 (31.8-35.4); MEAN CORPUSCULAR VOLUME 91.9 fl (81.0-99.0); MONOCYTES # (AUTO) 0.3 K/uL (0.4-2.0); MONOCYTES % (AUTO) 4.1 (0-10); NEUTROPHILS % (AUTO) 82.5 % (42.2-75.2); PLATELET COUNT 168 10^3/uL (140-440); RDW COEFFICIENT OF VARIATION 15.4 % (11.6-14.8); RED BLOOD COUNT 3.96 10^6/ul (4.20-5.40)
[2021-08-06 05:36] LABS: ALANINE AMINOTRANSFERASE 12.1 U/L (0-35); ALBUMIN 3.42 g/dL (3.5-5.0); ALKALINE PHOSPHATASE 169.9 U/L (53-141); ASPARTATE AMINO TRANSFERASE 24.5 U/L (14-36); BILIRUBIN,TOTAL 0.36 mg/dL (0.2-1.3); BLOOD UREA NITROGEN 19.4 mg/dL (7-17); CALCIUM 8.58 mg/dL (8.4-10.2); CARBON DIOXIDE 33.5 mmol/L (22-30.0); CHLORIDE 99.9 mmol/L (98-107); CREATININE 1.04 mg/dL (0.60-1.30); GLUCOSE 126.7 mg/dL (74-106); POTASSIUM 4.82 mmol/L (3.5-5.1); SODIUM 136.3 mmol/L (134.5-145); TOTAL PROTEIN 6.25 g/dL (6.3-8.2)
[2021-08-06 05:48] LABS: TROPONIN I 0.014 ng/ml (0.0000-0.120)
[2021-08-06 06:05] LABS: BILIRUBIN,URINE Negative (NEGATIVE); CLARITY,URINE Clear (CLEAR); COLOR,URINE Yellow (YELLOW); GLUCOSE, URINE (UA) Negative (NEGATIVE); KETONES,URINE Negative (NEGATIVE); LEUKOCYTE ESTERASE ,URINE 2+ (NEGATIVE); NITRITE,URINE Positive (NEGATIVE); PROTEIN,URINE Trace (NEGATIVE); URINE, BLOOD Trace-intact (NEGATIVE); UROBILINOGEN,URINE 0.2 (0.2)
[2021-08-06 06:12] LABS: BACTERIA,URINE 4+ (NOT PRESENT); MUCUS,URINE 1+ (NOT PRESENT); URINE WBC, MICROSCOPIC TNTC (0-2)
--- NOTE | 2021-08-06 07:17 | CT ---
EXAM: CT abdomen pelvis without contrast HISTORY: Vomiting COMPARISON: CT pelvis 01/08/[address] abdomen pelvis 12/14/2018 TECHNIQUE: Serial axial images of the abdomen pelvis were performed from the lung bases through the inferior pelvis without contrast. These were viewed in multiple planes. FINDINGS: The lung bases demonstrate some atelectasis. Evaluation is limited due to lack of contrast. There is a small hiatal hernia. The liver is unremar kable. Gallbladder has been resected. The adrenal glands are unremarkable. There are multiple exop hytic low attenuation right renal lesion suggestive of cyst. The left kidney is unremarkable. The s pleen demonstrates calcified granulomas. Pancreas is normal. The stomach is unremarkable. The small bowel in the abdomen pelvis is unremarkable. The colon demon strates diverticulosis without diverticulitis. There is no free air, free fluid or lymphadenopathy. Urinary bladder is decompressed with a Penn catheter in place. Pelvic soft tissues are unremarkabl e. There is moderate atherosclerotic disease. The osseous structures demonstrate degenerative disea se throughout the spine. IMPRESSION: 1. No acute intra-abdominal or pelvic process to account for patient's symptoms. 2. Small hiatal hernia. 3. Multiple renal cysts. 4. Diverticulosis without diverticulitis. 5. Sequela of old granulomatous disease. All CT scans are performed using dose optimization techniques as appropriate to the performed exam an d include at least one of the following: Automated exposure control, adjustment of the mA and/or kV according t o size, and the use of iterative reconstruction technique.
--- NOTE | 2021-08-06 07:23 | DI ---
EXAM: Single frontal view of the chest HISTORY: Vomiting. COMPARISON: Chest x-ray 01/23/2021 FINDINGS: Cardiomediastinal silhouette is unchanged. There are left hilar calcified lymph nodes. Th ere is no pneumothorax or effusion. There is no consolidation, nodule or mass. There is questionabl e fracture of the left proximal humerus. The remaining osseous structures are unremarkable. IMPRESSION: 1. No acute cardiopulmonary process or consolidation. 2. Sequela of old granulomatous disease. 3. Fracture of the proximal left humerus. This is present since 06/19/2021
[2021-08-06 07:34] LABS: BORDETELLA PARAPERTUSSIS (PCR) NOT DETECTED (NOT DETECT); BORDETELLA PERTUSSIS (PCR) NOT DETECTED (NOT DETECT); CHLAMYDIA PNEUMONIAE (PCR) NOT DETECTED (NOT DETECT); CORONAVIRUS 229E (PCR) NOT DETECTED (NOT DETECT); CORONAVIRUS HKU1 (PCR) NOT DETECTED (NOT DETECT); CORONAVIRUS NL63 (PCR) NOT DETECTED (NOT DETECT); CORONAVIRUS OC43 (PCR) NOT DETECTED (NOT DETECT); HUMAN METAPNEUMOVIRUS (PCR) NOT DETECTED (NOT DETECT); HUMAN RHINOVIRUS/ENTEROV (PCR) NOT DETECTED (NOT DETECT); INFLUENZA B (PCR) NOT DETECTED (NOT DETECT); MYCOPLASMA PNEUMONIAE (PCR) NOT DETECTED (NOT DETECT); PARAINFLUENZA VIRUS 1 (PCR) NOT DETECTED (NOT DETECT); PARAINFLUENZA VIRUS 2 (PCR) NOT DETECTED (NOT DETECT); PARAINFLUENZA VIRUS 3 (PCR) NOT DETECTED (NOT DETECT); PARAINFLUENZA VIRUS 4 (PCR) NOT DETECTED (NOT DETECT); RESPIRATORY SYNCYTIAL V (PCR) NOT DETECTED (NOT DETECT); SARS_COV_2 (PCR) NOT DETECTED (NOT DETECT)
[2021-08-06 08:25] LABS: ADENOVIRUS (PCR) NOT DETECTED (NOT DETECT)
[2021-08-06] MEDS ORDERED: ZOFRAN 4 MG/2 ML IVP ONE ×2 (08:44→13:21)
[2021-08-06] MEDS ORDERED: NITROSTAT SL PRN (08:54)
[2021-08-06] MEDS ORDERED: ATROPINE SULFATE PFS IVP PRN (08:57)
[2021-08-06 09:00] LABS: PROTHROMBIN TIME 17.7 SEC (9.3-11.0)
[2021-08-06] MEDS ORDERED: NEURONTIN PO SCH (09:00)
[2021-08-06] MEDS ORDERED: LOPRESSOR PO SCH (09:00)
[2021-08-06] MEDS ORDERED: NON-FORMULARY MEDICATION (Calcium Carbonate-Vitamin D3 1 EACH tablet) PO SCH (09:00)
[2021-08-06] MEDS ORDERED: NON-FORMULARY MEDICATION (Omega-3 Fatty Acids-Vitamin E 1,000 mg Capsule) PO SCH (09:00)
[2021-08-06 09:06] LABS: BASOPHILS % (AUTO) 0.5 % (0.0-3.0); EOSINOPHILS % (AUTO) 0.4 % (0.0-7.0); HEMATOCRIT 37.2 % (37.0-47.0); HEMOGLOBIN 11.7 g/dl (12.0-16.0); IMMATURE GRANULOCYTE % (AUTO) 0.4 % (0.0-5.0); LYMPHOCYTES # (AUTO) 0.6 K/uL (0.60-3.4); LYMPHOCYTES % (AUTO) 11.3 (10.0-50.0); MEAN CORPUSCULAR HEMOGLOBIN 28.8 pg (27.0-31.0); MEAN CORPUSCULAR HGB CONC 31.5 (31.8-35.4); MEAN CORPUSCULAR VOLUME 91.6 fl (81.0-99.0); MONOCYTES # (AUTO) 0.1 K/uL (0.4-2.0); NEUTROPHILS # (AUTO) 4.8 K/ul (2.0-6.9); NEUTROPHILS % (AUTO) 85.4 % (42.2-75.2); PLATELET COUNT 179 10^3/uL (140-440); RDW COEFFICIENT OF VARIATION 15.3 % (11.6-14.8); RED BLOOD COUNT 4.06 10^6/ul (4.20-5.40); WHITE BLOOD COUNT 5.59 K/ul (4.6-10.2)
[2021-08-06 09:15] LABS: ALANINE AMINOTRANSFERASE 13.3 U/L (0-35); ALBUMIN 3.46 g/dL (3.5-5.0); ALKALINE PHOSPHATASE 173.6 U/L (53-141); ASPARTATE AMINO TRANSFERASE 23.9 U/L (14-36); BILIRUBIN,TOTAL 0.47 mg/dL (0.2-1.3); BLOOD UREA NITROGEN 18.2 mg/dL (7-17); CALCIUM 8.52 mg/dL (8.4-10.2); CARBON DIOXIDE 31.7 mmol/L (22-30.0); CHLORIDE 99.5 mmol/L (98-107); CREATININE 0.91 mg/dL (0.60-1.30); GLUCOSE 129.9 mg/dL (74-106); POTASSIUM 4.65 mmol/L (3.5-5.1); TOTAL PROTEIN 6.37 g/dL (6.3-8.2)
[2021-08-06 09:43] VITALS: BMI 24.8
[2021-08-06] MEDS: ROCEPHIN 1 GM/50 ML D5W 1 GM/50 ML BAG IV SCH (10:36)
[2021-08-06] MEDS: SODIUM CHLORIDE 1,000 ML IV SCH (10:36)
[2021-08-06] MEDS: LOPRESSOR PO SCH ×2 (10:47→20:35)
[2021-08-06] MEDS: LIPITOR PO SCH (10:48)
[2021-08-06] MEDS: ZESTRIL PO SCH (10:48)
[2021-08-06] MEDS: LEXAPRO PO SCH (10:48)
[2021-08-06] MEDS: IMDUR PO SCH ×2 (10:48→20:34)
[2021-08-06] MEDS: PERCOCET 5-325 PO PRN (11:44)
--- NOTE | 2021-08-06 13:26 | CT ---
EXAM: CT head without contrast. HISTORY: Slurred speech. Altered mental status. Fall. COMPARISON: 12/11/2019. TECHNIQUE: Multiple axial images of the brain were obtained from the skull base through the vertex w ithout intravenous contrast. Multiplanar reformats were provided. FINDINGS: There is no intracranial hemorrhage or extraaxial collection. The rhodes-white differentiat ion is maintained without evidence for acute large vascular territory infarction. There are areas of periventricular and subcortical white matter low attenuation. The cortical sulci and cerebral ventr icles are symmetrically enlarged. The basal cisterns are well visualized. There is no hydrocephalus , mass effect, or midline shift. Atherosclerotic calcifications present. The paranasal sinuses and mastoid air cells are clear. The calvarium is intact. Since the prior study, there has been no sign ificant interval change. IMPRESSION: 1. No acute intracranial abnormality. 2. Chronic small vessel ischemic changes and atrophy. All CT scans are performed using dose optimization techniques as appropriate to the performed exam an d include at least one of the following: Automated exposure control, adjustment of the mA and/or kV according t o size, and the use of iterative reconstruction technique.
[2021-08-06] MEDS: NEURONTIN PO SCH ×2 (15:55→20:34)
[2021-08-06] MEDS: XARELTO PO SCH (16:00)
[2021-08-06] MEDS: OMEGA-3 FISH OIL PO SCH (20:35)
[2021-08-06] MEDS: KLONOPIN PO SCH (20:35)
[2021-08-06] MEDS: CALCIUM 500 + VIT D 5 MCG (200 IU) TABLET PO SCH (20:35)
[2021-08-07] MEDS: SODIUM CHLORIDE 1,000 ML IV SCH ×2 (01:20→16:09)
[2021-08-07] MEDS: PRILOSEC PO SCH (05:47)
[2021-08-07 05:50] LABS: BASOPHILS % (AUTO) 0.6 % (0.0-3.0); EOSINOPHILS # (AUTO) 0.1 K/ul (0.0-0.7); EOSINOPHILS % (AUTO) 0.8 % (0.0-7.0); HEMATOCRIT 34.3 % (37.0-47.0); HEMOGLOBIN 10.9 g/dl (12.0-16.0); IMMATURE GRANULOCYTE % (AUTO) 0.3 % (0.0-5.0); LYMPHOCYTES # (AUTO) 0.7 K/uL (0.60-3.4); LYMPHOCYTES % (AUTO) 11.5 (10.0-50.0); MEAN CORPUSCULAR HEMOGLOBIN 29.4 pg (27.0-31.0); MEAN CORPUSCULAR HGB CONC 31.8 (31.8-35.4); MEAN CORPUSCULAR VOLUME 92.5 fl (81.0-99.0); MONOCYTES # (AUTO) 0.3 K/uL (0.4-2.0); NEUTROPHILS # (AUTO) 5.1 K/ul (2.0-6.9); NEUTROPHILS % (AUTO) 81.8 % (42.2-75.2); PLATELET COUNT 144 10^3/uL (140-440); RDW COEFFICIENT OF VARIATION 15.7 % (11.6-14.8); RED BLOOD COUNT 3.71 10^6/ul (4.20-5.40)
[2021-08-07 06:07] LABS: ALANINE AMINOTRANSFERASE 10.5 U/L (0-35); ALBUMIN 2.82 g/dL (3.5-5.0); ALKALINE PHOSPHATASE 136.6 U/L (53-141); ASPARTATE AMINO TRANSFERASE 21.1 U/L (14-36); BILIRUBIN,TOTAL 0.43 mg/dL (0.2-1.3); BLOOD UREA NITROGEN 16.1 mg/dL (7-17); CALCIUM 8.43 mg/dL (8.4-10.2); CARBON DIOXIDE 30.9 mmol/L (22-30.0); CHLORIDE 102.5 mmol/L (98-107); CREATININE 0.93 mg/dL (0.60-1.30); GLUCOSE 94.3 mg/dL (74-106); POTASSIUM 4.26 mmol/L (3.5-5.1); SODIUM 133.6 mmol/L (134.5-145); TOTAL PROTEIN 5.44 g/dL (6.3-8.2)
--- NOTE | 2021-08-07 09:38 | PCM.PROG ---
Attending Provider: ATTENDING PROVIDER: Dr. JAGJIT VELASCO DATE OF SERVICE: 08/07/21 SUBJECTIVE: This 81 year old /WHITE F was hospitalized with acute gastroenteritis type of symptoms with UTI. Condition has improved. Appetite has improved. No nausea or vomiting. No fever and no chills. REVIEW OF SYSTEMS: CONSTITUTIONAL: No night sweats. No fatigue, malaise, lethargy. No fever or chills. HEENT: Eyes: No visual changes. No eye pain. No eye discharge. ENT: No runny nose. No epistaxis. No sinus pain. No odynophagia. No congestion. RESPIRATORY: No cough, no congestion. No hemoptysis. No shortness of breath. CARDIOVASCULAR: No angina symptoms. No CHF symptoms. No atypical chest pain for CAD. No palpitations. No orthopnea.. GASTROINTESTINAL: No abdominal pain. No nausea or vomiting. No diarrhea or constipation. No hematemesis. No hematochezia. GENITOURINARY: No urgency. No frequency. No dysuria. No hematuria. No obstructive symptoms. No discharge. No pain. No significant abnormal bleeding. MUSCULOSKELETAL: No musculoskeletal pain; no joint swelling. NEUROLOGICAL: Awake, alert, oriented to time, place and person. No headache. No neck pain. No syncope. No seizures. No dizziness. PSYCHIATRIC: Not anxious. No depression. No suicidal thoughts. No homicidal thoughts. SKIN: No rash. No lesions. No wounds. ENDOCRINE: No unexplained weight loss. No weight gain. HEMATOLOGIC/LYMPHATIC: No anemia. No purpura. No petechiae. No prolonged or excessive bleeding. No palpable lymph nodes. PHYSICAL EXAMINATION: GENERAL: The patient is awake, alert and oriented, lying in bed in no distress. VITAL SIGNS: Temperature 98.0 F, Pulse 73, Respiratory Rate 16, BP 148/71, Pulse Ox 96% HEENT: Head normocephalic, atraumatic. Eyes: Extraocular muscles are intact. Pupils are equal, round and reactive to light and accommodation. Ears: No lesions. Nose appeared normal. Throat: No exudate or erythema. NECK: Supple. No JVD, no carotid bruit. No lymphadenopathy or thyromegaly. LUNGS: Clear to auscultation. Percussion note normal. Chest symmetrical. HEART: S1, S2, no S3. No murmurs. No cyanosis or clubbing. No ascites. Pul ses: Dorsalis pedis and posterior tibial pulses +1 to +2 both sides. ABDOMEN: Soft. Non-tender. Bowel sounds active. No CVA tenderness. No mass felt. EXTREMITIES: No edema. Full range of motion of all extremities, equal. No jerking of extremities noted. NEUROLOGIC: No focal deficit. Cranial nerves II through XII are grossly intact. No headache, no double vision or headache. SKIN: Warm and dry. Intact. Turgor-a lot better. LYMPHATIC: No palpable lymph nodes/no lymphedema. MUSCULOSKELETAL: Normal joints with no swelling. Muscle tone is normal. LAB REVIEW: 08/07/21 05:26 08/07/21 05:26 08/07/21 05:26: Sodium 133.6 L, Potassium 4.26, Chloride 102.5, Carbon Dioxide 30.9 H, Anion Gap 4.46, BUN 16.1, Creatinine 0.93, Estimated GFR (MDRD) 58.00, BUN/Creatinine Ratio 17.31, Glucose 94.3, Calcium 8.43, Total Bilirubin 0.43, AST 21.1, ALT 10.5, Alkaline Phosphatase 136.6 D, Total Protein 5.44 L, Albumin 2.82 L, Globulin 2.62, Albumin/Globulin Ratio 1.07 08/07/21 05:26: WBC 6.20, RBC 3.71 L, Hgb 10.9 L, Hct 34.3 L, MCV 92.5, MCH 29.4, MCHC 31.8, RDW Coeff of Pricila 15.7 H, Plt Count 144, Immature Gran % (Auto) 0.3, Neut % (Auto) 81.8 H, Lymph % (Auto) 11.5, [place] % (Auto) 5.0, Eos % (Auto) 0.8, Baso % (Auto) 0.6, Neut # (Auto) 5.1, Lymph # (Auto) 0.7, [place] # (Auto) 0.3 L, Eos # (Auto) 0.1, Baso # (Auto) 0.0, Immature Gran # (Auto) 0.0 08/06/21 22:55: Troponin I 0.014 08/06/21 17:01: Troponin I 0.012 08/06/21 15:00: Troponin I 0.013 08/06/21 09:00: Magnesium 1.80 08/06/21 08:40: Troponin I < 0.012 08/06/21 08:40: Sodium 135.0, Potassium 4.65, Chloride 99.5, Carbon Dioxide 31.7 H, Anion Gap 8.45, BUN 18.2 H, Creatinine 0.91, Estimated GFR (MDRD) 59.00, BUN/Creatinine Ratio 20.00, Glucose 129.9 H, Calcium 8.52, Total Bilirubin 0.47, AST 23.9, ALT 13.3, Alkaline Phosphatase 173.6 H, Total Protein 6.37, Albumin 3.46 L, Globulin 2.91, Albumin/Globulin Ratio 1.18 08/06/21 08:40: WBC 5.59, RBC 4.06 L, Hgb 11.7 L, Hct 37.2, MCV 91.6, MCH 28.8, MCHC 31.5 L, RDW Coeff of Pricila 15.3 H, Plt Count 179, Immature Gran % (Auto) 0.4, Neut % (Auto) 85.4 H, Lymph % (Auto) 11.3, [place] % (Auto) 2.0, Eos % (Auto) 0.4, Baso % (Auto) 0.5, Neut # (Auto) 4.8, Lymph # (Auto) 0.6, [place] # (Auto) 0.1 L, Eos # (Auto) 0.0, Baso # (Auto) 0.0, Immature Gran # (Auto) 0.0 08/06/21 08:40: PT 17.7 H, INR 1.75 ASSESSMENT: Please see below. 1. UTI seems to be under control, on Rocephin. E-coli grew from urine culture 2. Acute gastroenteritis type symptoms, resolved. PLAN: 1. Continue antibiotics 2. IV fluids Plan and coordination of the patient's care discussed in the presence of Clerk Carrier and nurse. CONDITION: Stable SCRIBED BY: Mario GARLAND scribed while in presence of service performed by Dr. JAGJIT VELASCO on 08/07/21 ([id number])
[2021-08-07] MEDS: LIPITOR PO SCH (09:39)
[2021-08-07] MEDS: ROCEPHIN 1 GM/50 ML D5W 1 GM/50 ML BAG IV SCH (09:39)
[2021-08-07] MEDS: NEURONTIN PO SCH ×3 (09:39→21:29)
[2021-08-07] MEDS: IMDUR PO SCH ×2 (09:40→21:29)
[2021-08-07] MEDS: LOPRESSOR PO SCH ×2 (09:40→21:33)
[2021-08-07] MEDS: LEXAPRO PO SCH (09:40)
[2021-08-07] MEDS: OMEGA-3 FISH OIL PO SCH ×2 (09:40→21:28)
[2021-08-07] MEDS: CALCIUM 500 + VIT D 5 MCG (200 IU) TABLET PO SCH ×2 (09:40→21:28)
[2021-08-07] MEDS: ZESTRIL PO SCH (09:41)
[2021-08-07] MEDS: PERCOCET 5-325 PO PRN ×2 (15:31→21:28)
[2021-08-07] MEDS: XARELTO PO SCH (16:47)
[2021-08-07] MEDS: KLONOPIN PO SCH (21:29)
[2021-08-08] MEDS: PRILOSEC PO SCH (05:36)
[2021-08-08 06:09] LABS: BASOPHILS % (AUTO) 0.5 % (0.0-3.0); EOSINOPHILS # (AUTO) 0.1 K/ul (0.0-0.7); EOSINOPHILS % (AUTO) 2.3 % (0.0-7.0); HEMATOCRIT 34.3 % (37.0-47.0); HEMOGLOBIN 10.8 g/dl (12.0-16.0); IMMATURE GRANULOCYTE % (AUTO) 0.4 % (0.0-5.0); LYMPHOCYTES # (AUTO) 0.6 K/uL (0.60-3.4); LYMPHOCYTES % (AUTO) 10.9 (10.0-50.0); MEAN CORPUSCULAR HEMOGLOBIN 29.2 pg (27.0-31.0); MEAN CORPUSCULAR HGB CONC 31.5 (31.8-35.4); MEAN CORPUSCULAR VOLUME 92.7 fl (81.0-99.0); MONOCYTES # (AUTO) 0.3 K/uL (0.4-2.0); MONOCYTES % (AUTO) 5.5 (0-10); NEUTROPHILS # (AUTO) 4.5 K/ul (2.0-6.9); NEUTROPHILS % (AUTO) 80.4 % (42.2-75.2); PLATELET COUNT 124 10^3/uL (140-440); RDW COEFFICIENT OF VARIATION 15.9 % (11.6-14.8); WHITE BLOOD COUNT 5.62 K/ul (4.6-10.2)
[2021-08-08 06:27] LABS: ALANINE AMINOTRANSFERASE 9.5 U/L (0-35); ALBUMIN 2.69 g/dL (3.5-5.0); ALKALINE PHOSPHATASE 128.7 U/L (53-141); ASPARTATE AMINO TRANSFERASE 20.8 U/L (14-36); BILIRUBIN,TOTAL 0.34 mg/dL (0.2-1.3); BLOOD UREA NITROGEN 13.5 mg/dL (7-17); CALCIUM 8.35 mg/dL (8.4-10.2); CARBON DIOXIDE 30.1 mmol/L (22-30.0); CHLORIDE 104.8 mmol/L (98-107); CREATININE 0.8 mg/dL (0.60-1.30); GLUCOSE 97.8 mg/dL (74-106); POTASSIUM 4.38 mmol/L (3.5-5.1); SODIUM 137.5 mmol/L (134.5-145); TOTAL PROTEIN 5.22 g/dL (6.3-8.2)
[2021-08-08] MEDS: SODIUM CHLORIDE 1,000 ML IV SCH (07:57)
[2021-08-08] MEDS: OMEGA-3 FISH OIL PO SCH ×2 (08:41→21:14)
[2021-08-08] MEDS: ROCEPHIN 1 GM/50 ML D5W 1 GM/50 ML BAG IV SCH (08:41)
[2021-08-08] MEDS: IMDUR PO SCH ×2 (08:42→21:14)
[2021-08-08] MEDS: LOPRESSOR PO SCH ×2 (08:42→21:13)
[2021-08-08] MEDS: NEURONTIN PO SCH ×3 (08:42→21:14)
[2021-08-08] MEDS: LEXAPRO PO SCH (08:42)
[2021-08-08] MEDS: LIPITOR PO SCH (08:42)
[2021-08-08] MEDS: CALCIUM 500 + VIT D 5 MCG (200 IU) TABLET PO SCH ×2 (08:42→21:13)
[2021-08-08] MEDS: ZESTRIL PO SCH (08:42)
[2021-08-08] MEDS: PERCOCET 5-325 PO PRN (08:52)
[2021-08-08] MEDS: XARELTO PO SCH (16:25)
[2021-08-08] MEDS: TYLENOL PO PRN (16:25)
[2021-08-08] MEDS: OMNICEF PO SCH (21:14)
[2021-08-08] MEDS: KLONOPIN PO SCH (21:14)
[2021-08-09 05:23] LABS: BASOPHILS % (AUTO) 0.6 % (0.0-3.0); EOSINOPHILS # (AUTO) 0.2 K/ul (0.0-0.7); EOSINOPHILS % (AUTO) 3.4 % (0.0-7.0); HEMATOCRIT 31.7 % (37.0-47.0); IMMATURE GRANULOCYTE % (AUTO) 0.2 % (0.0-5.0); LYMPHOCYTES # (AUTO) 0.8 K/uL (0.60-3.4); LYMPHOCYTES % (AUTO) 14.6 (10.0-50.0); MEAN CORPUSCULAR HEMOGLOBIN 29.4 pg (27.0-31.0); MEAN CORPUSCULAR HGB CONC 31.5 (31.8-35.4); MEAN CORPUSCULAR VOLUME 93.2 fl (81.0-99.0); MONOCYTES # (AUTO) 0.4 K/uL (0.4-2.0); MONOCYTES % (AUTO) 6.8 (0-10); NEUTROPHILS # (AUTO) 3.9 K/ul (2.0-6.9); NEUTROPHILS % (AUTO) 74.4 % (42.2-75.2); PLATELET COUNT 126 10^3/uL (140-440); RDW COEFFICIENT OF VARIATION 15.6 % (11.6-14.8); WHITE BLOOD COUNT 5.28 K/ul (4.6-10.2)
[2021-08-09 05:36] LABS: ALANINE AMINOTRANSFERASE 9.2 U/L (0-35); ALBUMIN 2.69 g/dL (3.5-5.0); ALKALINE PHOSPHATASE 112.3 U/L (53-141); ASPARTATE AMINO TRANSFERASE 19.4 U/L (14-36); BILIRUBIN,TOTAL 0.32 mg/dL (0.2-1.3); CALCIUM 8.29 mg/dL (8.4-10.2); CARBON DIOXIDE 30.7 mmol/L (22-30.0); CHLORIDE 104.7 mmol/L (98-107); CREATININE 0.68 mg/dL (0.60-1.30); GLUCOSE 95.5 mg/dL (74-106); POTASSIUM 4.53 mmol/L (3.5-5.1); SODIUM 136.6 mmol/L (134.5-145); TOTAL PROTEIN 5.28 g/dL (6.3-8.2)
[2021-08-09] MEDS: PRILOSEC PO SCH (05:55)
[2021-08-09] MEDS: PERCOCET 5-325 PO PRN ×2 (07:15→20:07)
[2021-08-09] MEDS: NEURONTIN PO SCH ×3 (08:38→20:07)
[2021-08-09] MEDS: OMEGA-3 FISH OIL PO SCH ×2 (08:38→20:06)
[2021-08-09] MEDS: IMDUR PO SCH ×2 (08:38→20:06)
[2021-08-09] MEDS: LOPRESSOR PO SCH ×2 (08:38→20:06)
[2021-08-09] MEDS: CALCIUM 500 + VIT D 5 MCG (200 IU) TABLET PO SCH ×2 (08:38→20:07)
[2021-08-09] MEDS: LEXAPRO PO SCH (08:38)
[2021-08-09] MEDS: OMNICEF PO SCH ×2 (08:38→20:06)
[2021-08-09] MEDS: ZESTRIL PO SCH (08:39)
[2021-08-09] MEDS: LIPITOR PO SCH (08:39)
[2021-08-09] MEDS ORDERED: ZOFRAN ODT PO ONE (14:24)
[2021-08-09] MEDS: CALMOSEPTINE OINTMENT TP PRN ×2 (15:12→20:07)
[2021-08-09] MEDS: XARELTO PO SCH (17:13)
[2021-08-09] MEDS: KLONOPIN PO SCH (20:07)
[2021-08-10] MEDS: PRILOSEC PO SCH (06:01)
[2021-08-10] MEDS: TYLENOL PO PRN ×2 (06:20→20:27)
[2021-08-10 06:54] LABS: BASOPHILS # (AUTO) 0.1 K/uL (0-0.2); BASOPHILS % (AUTO) 0.8 % (0.0-3.0); EOSINOPHILS # (AUTO) 0.3 K/ul (0.0-0.7); EOSINOPHILS % (AUTO) 4.8 % (0.0-7.0); HEMATOCRIT 32.1 % (37.0-47.0); HEMOGLOBIN 10.1 g/dl (12.0-16.0); IMMATURE GRANULOCYTE % (AUTO) 0.3 % (0.0-5.0); LYMPHOCYTES # (AUTO) 0.8 K/uL (0.60-3.4); LYMPHOCYTES % (AUTO) 12.8 (10.0-50.0); MEAN CORPUSCULAR HEMOGLOBIN 29.6 pg (27.0-31.0); MEAN CORPUSCULAR HGB CONC 31.5 (31.8-35.4); MEAN CORPUSCULAR VOLUME 94.1 fl (81.0-99.0); MONOCYTES # (AUTO) 0.4 K/uL (0.4-2.0); MONOCYTES % (AUTO) 6.3 (0-10); NEUTROPHILS # (AUTO) 4.7 K/ul (2.0-6.9); PLATELET COUNT 143 10^3/uL (140-440); RDW COEFFICIENT OF VARIATION 15.5 % (11.6-14.8); RED BLOOD COUNT 3.41 10^6/ul (4.20-5.40); WHITE BLOOD COUNT 6.31 K/ul (4.6-10.2)
[2021-08-10 07:07] LABS: ALANINE AMINOTRANSFERASE 9.9 U/L (0-35); ALBUMIN 2.94 g/dL (3.5-5.0); ALKALINE PHOSPHATASE 107.9 U/L (53-141); ASPARTATE AMINO TRANSFERASE 19.7 U/L (14-36); BILIRUBIN,TOTAL 0.23 mg/dL (0.2-1.3); BLOOD UREA NITROGEN 11.3 mg/dL (7-17); CALCIUM 8.49 mg/dL (8.4-10.2); CARBON DIOXIDE 33.5 mmol/L (22-30.0); CHLORIDE 103.4 mmol/L (98-107); CREATININE 0.73 mg/dL (0.60-1.30); GLUCOSE 97.5 mg/dL (74-106); POTASSIUM 4.34 mmol/L (3.5-5.1); SODIUM 137.4 mmol/L (134.5-145); TOTAL PROTEIN 5.65 g/dL (6.3-8.2)
[2021-08-10] MEDS: LEXAPRO PO SCH (09:44)
[2021-08-10] MEDS: OMEGA-3 FISH OIL PO SCH ×2 (09:44→20:24)
[2021-08-10] MEDS: OMNICEF PO SCH ×2 (09:44→20:24)
[2021-08-10] MEDS: IMDUR PO SCH ×2 (09:44→20:26)
[2021-08-10] MEDS: ZESTRIL PO SCH (09:44)
[2021-08-10] MEDS: LIPITOR PO SCH (09:45)
[2021-08-10] MEDS: LOPRESSOR PO SCH ×2 (09:45→20:24)
[2021-08-10] MEDS: CALCIUM 500 + VIT D 5 MCG (200 IU) TABLET PO SCH ×2 (09:45→20:24)
[2021-08-10] MEDS: NEURONTIN PO SCH ×3 (09:45→20:24)
--- NOTE | 2021-08-10 10:57 | PCM.PROG ---
Attending Provider: ATTENDING PROVIDER: Dr. JAGJIT VELASCO This patient is seen with Patricia Serrano, Nurse Practitioner. DATE OF SERVICE: 08/10/21 SUBJECTIVE: This 81 year old /WHITE F was hospitalized 08/06/21. The patient is afebrile and doing well. I believe the patient would benefit from swing bed. We will have PT/OT to evaluate today. REVIEW OF SYSTEMS: CONSTITUTIONAL: No night sweats. No fatigue, malaise, lethargy. No fever or chills. Weakness. HEENT: Eyes: No visual changes. No eye pain. No eye discharge. ENT: No runny nose. No epistaxis. No sinus pain. No odynophagia. No congestion. RESPIRATORY: No cough, no congestion. No hemoptysis. No shortness of breath. CARDIOVASCULAR: No angina symptoms. No CHF symptoms. No atypical chest pain for CAD. No palpitations. No orthopnea.. GASTROINTESTINAL: No abdominal pain. No nausea or vomiting. No diarrhea or const ipation. No hematemesis. No hematochezia. GENITOURINARY: No urgency. No frequency. No dysuria. No hematuria. No obstructive symptoms. No discharge. No pain. No significant abnormal bleeding. MUSCULOSKELETAL: No musculoskeletal pain; no joint swelling. NEUROLOGICAL: Awake, alert, oriented to time, place and person. No headache. No neck pain. No syncope. No seizures. No dizziness. PSYCHIATRIC: Not anxious. No depression. No suicidal thoughts. No homicidal thoughts. SKIN: No rash. No lesions. No wounds. ENDOCRINE: No unexplained weight loss. No weight gain. HEMATOLOGIC/LYMPHATIC: No anemia. No purpura. No petechiae. No prolonged or excessive bleeding. No palpable lymph nodes. PHYSICAL EXAMINATION: GENERAL: The patient is awake, alert and oriented, sitting in bed in no distress. VITAL SIGNS: Temperature 97.8 F, Pulse 57, Respiratory Rate 18, BP 108/55, Pulse Ox 95% HEENT: Head normocephalic, atraumatic. Eyes: Extraocular muscles are intact. Pupils are equal, round and reactive to light and accommodation. Ears: No lesions. Nose appeared normal. Throat: No exudate or erythema. NECK: Supple. No JVD, no carotid bruit. No lymphadenopathy or thyromegaly. LUNGS: Diminished breath sounds. Clear to auscultation. Percussion note normal. Chest symmetrical. HEART: S1, S2, no S3. No murmurs. Irregular heart rate. No cyanosis or clubbing. No ascites. Pulses: Dorsalis pedis and posterior tibial pulses +1 to +2 both sides. ABDOMEN: Soft. Non-tender. Bowel sounds active. No CVA tenderness. No mass felt. EXTREMITIES: No edema. Full range of motion of all extremities, equal. NEUROLOGIC: No focal deficit. Cranial nerves II through XII are grossly intact. No headache. No double vision. SKIN: Not dry. Intact. Turgor-normal. LYMPHATIC: No palpable lymph nodes/no lymphedema. MUSCULOSKELETAL: Normal joints with no swelling. Muscle tone is normal. LAB REVIEW: 08/10/21 05:45 08/10/21 05:45 08/10/21 05:45: Sodium 137.4, Potassium 4.34, Chloride 103.4, Carbon Dioxide 33.5 H, Anion Gap 4.84, BUN 11.3, Creatinine 0.73, Estimated GFR (MDRD) 76.00, BUN/Creatinine Ratio 15.47, Glucose 97.5, Calcium 8.49, Total Bilirubin 0.23, AST 19.7, ALT 9.9, Alkaline Phosphatase 107.9, Total Protein 5.65 L, Albumin 2.94 L, Globulin 2.71, Albumin/Globulin Ratio 1.08 08/10/21 05:45: WBC 6.31, RBC 3.41 L, Hgb 10.1 L, Hct 32.1 L, MCV 94.1, MCH 29.6, MCHC 31.5 L, RDW Coeff of Pricila 15.5 H, Plt Count 143, Immature Gran % (Auto) 0.3, Neut % (Auto) 75.0, Lymph % (Auto) 12.8, [place] % (Auto) 6.3, Eos % (Auto) 4.8, Baso % (Auto) 0.8, Neut # (Auto) 4.7, Lymph # (Auto) 0.8, [place] # (Auto) 0.4, Eos # (Auto) 0.3, Baso # (Auto) 0.1, Immature Gran # (Auto) 0.0 ASSESSMENT: Please see below. 1. UTI positive e-coli 2. Generalized weakness 3. Atrial fibrillation PLAN: 1. PT/OT to evaluate and treat. Possible swing bed admission 2. Continue antibiotics. Plan and coordination of the patient's care discussed in the presence of Department Specialist and nurse. SCRIBED BY: Mario GARLAND scribed while in presence of service performed by Dr. Velasco/Patricia Serrano APRN on 08/10/21 ([id number])
--- NOTE | 2021-08-10 11:45 | RS.PTINEVL ---
Subjective - Patient information Date of Evaluation: 08/10/21 Date of Arrival on Unit: 08/06/21 Admitted From:: Home Diagnosis: UTI, AFIB Usual Living Arrangement: with daughter Home Environment: House, Ramp Medical History: Hypertension, COPD, CHF, Angina, Arthritis Medical History Comments:: GERD, diverticulitis, fx of shld, closed head injury, Falls, back and neck pain Surgical History: Knee Replacement, Cholecystectomy, Hysterectomy Surgical History Comments:: appey Medications: see chart Subjective Information/ Patient Comments:: pt states she is ready to walk. She reports that she is hoping to go to swing bed. - Level of function Prior to this admission, the patient could do the following:: Partially Dependent Ambulation Abilities prior to this admission: prior to illness pt reports she walked in the home on her own. Current Level of Function: Partially Dependent Current Equipment Used at Home: oxygen Interventions - Objective Patient Orientation: Person, Place, Situation Current Interventions: Telemetry Observation: pt reports she has sore on her bottom. B feet with fallen arches and ER. pt catches her foot on walker and requires multiple verbal cues for gait technique. Range of Motion - ROM Right Upper Extremity AROM: Moderate limitation (shld ROM limited) Left Upper Extremity AROM: Moderate limitation (Shld ROM limited) Right Lower Extremity AROM: WFL's Left Lower Extremity AROM: WFL's Muscle Strength - Muscle Strength Right Upper Extremity Strength: Mild Weakness (shld flex 3-/5, elbow flex/ext 4/5) Left Upper Extremity Strength: Mild Weakness (shld flex 3-/5, elbow flex/ext 4/5) Right Lower Extremity Strength: Mild Weakness (hip flex 4-/5, knee flex/ext 4/5, ankle DF/PF 4/5) Left Lower Extremity Strength: Mild Weakness (hip flex 4-/5, knee flex/ext 4/5, ankle DF/PF 4/5) Sensation - Sensation Right Upper Extremity Sensation: Intact/Normal Left Upper Extremity Sensation: Intact/Normal Right Lower Extremity Sensation: Impaired (pt reports she has neuropathy BLE) Left Lower Extremity Sensation: Impaired Palpation Palpation Findings: None/Normal Balance - Sitting Balance and Reactions Static Sitting Balance: Fair Dynamic Sitting Balance: Poor - Standing Balance and Reactions Static Standing Balance: Poor Dynamic Standing Balance: Poor Standing Equilibrium Reactions: Delayed Left, Delayed Right Standing Protective Reactions: Delayed Left, Delayed Right Functional Mobility - Bed Mobility Rolling R/L: CGA Supine to Sit: CGA - Transfers Sit to Stand: CGA Stand to Sit: CGA - Safety Awareness Safety Awareness: Fair STEFANI INDEX SCORE: n/a Ambulation - Ambulation Assistive Device Used: Rolling Walker Orthotic/Prosthetic Device: No Distance: 120ft Assistance needed with Ambulation: Min Assist, 1 person assist Gait Deviations: Wide Based gait, Forward posture, Short stride, Deviates from path Ambulation Comments: pt amb with BLE ER and catches foot on rwx. pt requires repeated verbal cues to keep feet and body inside the walker. Factors Affecting Ambulation: Decreased Balance, Weakness, Decreased Coordination, Decreased ROM, Decreased Safety, Limited Endurance Treatment time - Time with patient Length of Evaluation: 21 Total treatment time: 26 Patient Education - Education Patient Education: Activity Modification, Education of Plan of Care Teaching Recipient: Patient Teaching Methods: Discussion, Demonstration Comments: discussion regarding POC Assessment - Assessment Problem List:: Decreased level of function, Requires training/education, Decreased safety/Risk of falls, Weakness, Cognitive status limits abilities (pt is impulsive and requires repeated cues at times.) Rehab Potential: Good Further Therapy Indicated?: Yes Candidate for Swing Bed for Therapy Services?: Feel pt may be a good candidate for swing bed for therapy. Evaluation Complexity: HISTORY: Medium, EXAM OF BODY SYSTEMS: Medium, CLINICAL PRESENTATION: Medium, CLINICAL DECISION MAKING: Medium Patient's Goal(s): get stronger so I can do more for myself at home. Short Term Goals GOAL #1: pt independent rolling in bed Goal to be met by: 08/12/21 GOAL #2: Transfer sup to/from sit SBA Goal to be met by: 08/12/21 GOAL #3: Transfer sit to/from stand CGA Goal to be met by: 08/12/21 GOAL #4: pt amb with rwx 140ft with CGA with improved gait sequencing Goal to be met by: 08/12/21 GOAL #5: Improve BLE strength 4 to 4+/5 Goal to be met by: 08/12/21 Senior Living Goals GOAL #1: Transfer sup to/from sit to/from stand SBA Goal to be met by: 08/17/21 GOAL #2: pt amb with rwx functional household distances with no LOB with supervision Goal to be met by: 08/17/21 GOAL #3: pt able to reach away and across midline without LOB Goal to be met by: 08/17/21 Plan Plan of Care: Therapeutic EX, Therapeutic Activity Other:: gait training Frequency of Treatment: 1-2 X day, as tolerated Duration of Treatment: 1 Week Anticipated Discharge Destination: possible swing bed Treatment Diagnosis (ICD 10 Codes): difficulty walking R 26.2. balance impaired R 26.81. weakness M62.81. fallsR 29.73 Has the Physician been added for Co-signature?: Yes
--- NOTE | 2021-08-10 13:28 | RS.OTINEVL ---
Subjective - Patient information Date of Evaluation: 08/10/21 Date of Arrival on Unit: 08/06/21 Admitted From:: Home Diagnosis: Gastroenteritis, UTI, Weakness PRECAUTIONS: Fall risk, impulsive Usual Living Arrangement: With Others Living Arrangement Comments: Daughter lives with her. Home Environment: House, Ramp Medical History: Hypertension, COPD, CHF, Angina, Arthritis Medical History Comments:: GERD, diverticulitis, fx of shld, closed head injury, Falls, back and neck pain LATEX ALLERGY?: No Surgical History: Knee Replacement, Cholecystectomy, Hysterectomy Surgical History Comments:: appey Medications: see chart Subjective Information/ Patient Comments:: Pt reports she has fallen often at home. - Level of function Prior to this admission, the patient could do the following:: Partially Dependent Ambulation Abilities prior to this admission: Pt's daughter helps her with cooking, cleaning, laundry, and driving. Pt reports she has falls often. Current Level of Function: Partially Dependent Current Equipment Used at Home: oxygen Pain Assessment - Pain Pain Score: 7 Side: right Pain Location Body Site: Shoulder Pain Aggravating Factors: ADL's Pain Alleviating Factors: Medication, Position Change Interventions - Objective Patient Orientation: Person, Place, Situation Current Interventions: IV's, Oxygen, Telemetry Observation: Pt has limited BUE shoulder flexion to 90 deg. Pt is anxious an impulsive. Pt requires verbal cues for complete ADLS. Interventions - ROM Right Upper Extremity AROM: Slight limitation Left Upper Extremity AROM: Slight limitation - Strength Right Upper Extremity Strength: Mild Weakness Left Upper Extremity Strength: Mild Weakness - Sensation Right Upper Extremity Sensation: Intact/Normal Left Upper Extremity Sensation: Intact/Normal Balance - Standing Balance Static Standing Balance: Poor Dynamic Standing Balance: Poor ADL Skills - Self Feeding Self Feeding: Independent - Grooming Grooming: Min Assist, 1 person assist - Bathing Bathing UE: CGA Bathing LE: CGA Bathing Set-up: Shower Comments:: Pt uses a shower chair. - Dressing Dressing UE: Independent Dressing LE: Mod Assist, 1 person assist - Toilet Management Toilet Hygiene: Min Assist, 1 person assist Toilet Clothing Management: Min Assist, 1 person assist Functional Mobility - Transfers Sit to Stand: [facility] Stand to Sit: [facility] Stand Pivot Transfers: CGA (Pt requires verbal cues) - Ambulation Weight Bearing Status: FWB Assistive Device Used: Rolling Walker Assistance needed with Ambulation: CGA, 1 person assist - Safety Awareness Safety Awareness: Fair STEFANI INDEX SCORE: . Additional Treatment Performed - Additional units charged ADL: 15 - Time with patient Length of Evaluation: 18 Total treatment time: 33 Activities Do you enjoy playing games?: Yes Would you be interested in leaving your room for activities?: Yes Would you enjoy group activities?: Yes Do you have difficulty with your vision?: Yes Patient Interests:: Watching Television Patient Education Patient Education: Home Exercise Program, Home Safety, Education of Plan of Care Teaching Recipient: Patient Teaching Methods: Discussion Assessment Problem List:: Decreased level of function, Decreased safety/Risk of falls, Weakness, Pain limits previous level of function Rehab Potential: Good Further Therapy Indicated?: Yes Candidate for Swing Bed for Therapy Services?: yes Evaluation Complexity: HISTORY: Medium, EXAM OF BODY SYSTEMS: Medium, CLINICAL DECISION MAKING: Medium Patient's Goal(s): To get stronger and go home. Short Term Goals - Goals GOAL 1: Pt to tolerate standing activity for 10 minutes. Goal to be met by: 08/13/21 GOAL 2: Pt to increase BUE strength to 4/5. Goal to be met by: 08/13/21 GOAL 3: Pt to complete sink level ADLS at SUPERVISION. Goal to be met by: 08/13/21 Box Office Manager Goals GOAL 1: Pt to increase (I) of ADLS to SUP. Goal to be met by: 08/17/21 GOAL 2: Pt to increase BUE strength to 4+/5. Goal to be met by: 08/17/21 GOAL 3: To increase standing activity to 15 minutes. Goal to be met by: 08/17/21 Plan Plan of Care: Therapeutic EX, Therapeutic Activity, Self-Care/Home Management Frequency of Treatment: 1-2 X day, as tolerated Duration of Treatment: 2 Weeks Anticipated Discharge Destination: Home Treatment Diagnosis (ICD 10 Codes): Weakness M62.81, Need for assistance with personal care Z74.1, Shoulder pain M25.511 Has the Physician been added for Co-signature?: Yes
--- NOTE | 2021-08-10 14:48 | PN ---
DATE OF SERVICE: 08/09/21 SUBJECTIVE: 81 year old white female hospitalized with gastroenteritis and UTI. The patient's condition has improved. Her appetite has improved. REVIEW OF SYSTEMS: CONSTITUTIONAL: No night sweats. No fatigue, malaise, lethargy. No fever or chills. HEENT: Eyes: No visual changes. No eye pain. No eye discharge. ENT: No runny nose. No epistaxis. No sinus pain. No sore throat. No odynophagia. No congestion. RESPIRATORY: No cough, no congestion. No hemoptysis. No shortness of breath. CARDIOVASCULAR: No angina symptoms. No CHF symptoms. No atypical chest pain for CAD. No palpitations. No PND. No orthopnea. GASTROINTESTINAL: No abdominal pain. No nausea or vomiting. No diarrhea or constipation. No hematemesis. No hematochezia. GENITOURINARY: No urgency. No frequency. No dysuria. No hematuria. No obstructive symptoms. No discharge. No pain. No significant abnormal bleeding. MUSCULOSKELETAL: No musculoskeletal pain; no joint swelling. NEUROLOGICAL: No headache. No neck pain. No syncope. No seizures. No dizziness. PSYCHIATRIC: Not anxious. No depression. No suicidal thoughts. No homicidal thoughts. SKIN: No rash. No lesions. No wounds. ENDOCRINE: No unexplained weight loss. No weight gain. HEMATOLOGIC/LYMPHATIC: No anemia. No purpura. No petechiae. No prolonged or excessive bleeding. No palpable lymph nodes. PHYSICAL EXAMINATION: VITAL SIGNS: Temperature 97.8, pulse 60, respiratory rate 18, blood pressure 140/70 and pulse ox 98%. HEENT: Head normocephalic, atraumatic. Eyes: Extraocular muscles are intact. Pupils are equal, round and reactive to light and accommodation. Ears: No lesions. Nose appeared normal. Throat: No exudate or erythema. NECK: Supple. No JVD, no carotid bruit. No lymphadenopathy or thyromegaly. LUNGS: Decreased breath sounds but clear to auscultation. Percussion note normal. Chest symmetrical. HEART: S1, S2, no S3. No murmurs. No cyanosis or clubbing. No ascites. Pulses: Dorsalis pedis and posterior tibial pulses +1 to +2 bilaterally. ABDOMEN: Soft. Nontender. Bowel sounds active. No CVA tenderness. No mass felt. EXTREMITIES: No edema. Full range of motion of all extremities, equal. NEUROLOGIC: No focal deficit. Cranial nerves II through XII are grossly intact. No headache. No double vision. SKIN: Not dry. Intact. Turgor - normal. LYMPHATIC: No palpable lymph nodes/no lymphedema. MUSCULOSKELETAL: Normal joints with no swelling. Muscle tone is normal. LABS: Hgb 10, hct 31, WBC 5,200 normal differential, creatinine 0.6, BUN 13, potassium 4.5. ASSESSMENT: 1. Acute gastroenteritis 2. UTI, under control PLAN: 1. Continue Omnicef 2. Continue to encourage the patient to eat. 3. Up and about CONDITION: Stable. TIME SPENT: More than 30 minutes. Plan and coordination of the patient's care discussed in the presence of nurse. ANDREW
[2021-08-10] MEDS: PERCOCET 5-325 PO PRN (14:51)
[2021-08-10] MEDS: XARELTO PO SCH (17:29)
[2021-08-10] MEDS: KLONOPIN PO SCH (20:26)
[2021-08-11 05:24] VITALS: BP 144/75; TEMP 98.1
[2021-08-11] MEDS: PRILOSEC PO SCH (05:40)
[2021-08-11 05:45] LABS: BASOPHILS # (AUTO) 0.1 K/uL (0-0.2); BASOPHILS % (AUTO) 0.8 % (0.0-3.0); EOSINOPHILS # (AUTO) 0.4 K/ul (0.0-0.7); EOSINOPHILS % (AUTO) 5.7 % (0.0-7.0); HEMATOCRIT 34.9 % (37.0-47.0); HEMOGLOBIN 10.9 g/dl (12.0-16.0); IMMATURE GRANULOCYTE % (AUTO) 0.3 % (0.0-5.0); LYMPHOCYTES # (AUTO) 0.9 K/uL (0.60-3.4); LYMPHOCYTES % (AUTO) 13.9 (10.0-50.0); MEAN CORPUSCULAR HEMOGLOBIN 29.1 pg (27.0-31.0); MEAN CORPUSCULAR HGB CONC 31.2 (31.8-35.4); MEAN CORPUSCULAR VOLUME 93.3 fl (81.0-99.0); MONOCYTES # (AUTO) 0.3 K/uL (0.4-2.0); NEUTROPHILS # (AUTO) 4.9 K/ul (2.0-6.9); NEUTROPHILS % (AUTO) 74.3 % (42.2-75.2); PLATELET COUNT 150 10^3/uL (140-440); RDW COEFFICIENT OF VARIATION 15.3 % (11.6-14.8); RED BLOOD COUNT 3.74 10^6/ul (4.20-5.40); WHITE BLOOD COUNT 6.64 K/ul (4.6-10.2)
[2021-08-11 06:01] LABS: ALANINE AMINOTRANSFERASE 10.3 U/L (0-35); ALBUMIN 3.31 g/dL (3.5-5.0); ALKALINE PHOSPHATASE 129.1 U/L (53-141); ASPARTATE AMINO TRANSFERASE 23.2 U/L (14-36); BILIRUBIN,TOTAL 0.32 mg/dL (0.2-1.3); BLOOD UREA NITROGEN 13.4 mg/dL (7-17); CALCIUM 8.81 mg/dL (8.4-10.2); CARBON DIOXIDE 33.7 mmol/L (22-30.0); CHLORIDE 102.9 mmol/L (98-107); CREATININE 0.67 mg/dL (0.60-1.30); GLUCOSE 83.9 mg/dL (74-106); POTASSIUM 4.89 mmol/L (3.5-5.1); SODIUM 138.8 mmol/L (134.5-145); TOTAL PROTEIN 6.15 g/dL (6.3-8.2)
[2021-08-11] MEDS: PERCOCET 5-325 PO PRN (08:02)
[2021-08-11] MEDS: ZESTRIL PO SCH (09:00)
[2021-08-11] MEDS: OMEGA-3 FISH OIL PO SCH (09:00)
[2021-08-11] MEDS: NEURONTIN PO SCH (09:00)
[2021-08-11] MEDS: CALCIUM 500 + VIT D 5 MCG (200 IU) TABLET PO SCH (09:00)
[2021-08-11] MEDS: LEXAPRO PO SCH (09:00)
[2021-08-11] MEDS: LIPITOR PO SCH (09:00)
[2021-08-11] MEDS: OMNICEF PO SCH (09:00)
[2021-08-11] MEDS: IMDUR PO SCH (09:00)
[2021-08-11] MEDS: LOPRESSOR PO SCH (09:01)
--- NOTE | 2021-08-11 13:20 | PN ---
DATE OF SERVICE: 08/06/21 SUBJECTIVE: The patient was seen and examined this morning after she was hospitalized from the emergency room with gastroenteritis type of symptoms with nausea and vomiting. She seems to have UTI with abnormal U/A. Also she has been having jerking motion of upper extremities and unable speak fluently, usually does. Daughter is in the room. We will do a Magnesium level and CT scan of head without contrast. REVIEW OF SYSTEMS: CONSTITUTIONAL: No night sweats. No fatigue, malaise, lethargy. No fever or chills. HEENT: Eyes: No visual changes. No eye pain. No eye discharge. ENT: No runny nose. No epistaxis. No sinus pain. No sore throat. No odynophagia. No congestion. RESPIRATORY: No cough, no congestion. No hemoptysis. No shortness of breath. CARDIOVASCULAR: No angina symptoms. No CHF symptoms. No atypical chest pain for CAD. No palpitations. No PND. No orthopnea. GASTROINTESTINAL: No abdominal pain. No nausea or vomiting. No diarrhea or constipation. No hematemesis. No hematochezia. GENITOURINARY: No urgency. No frequency. No dysuria. No hematuria. No obstructive symptoms. No discharge. No pain. No significant abnormal bleeding. MUSCULOSKELETAL: No musculoskeletal pain; no joint swelling. NEUROLOGICAL: No headache. No neck pain. No syncope. No seizures. No dizziness. PSYCHIATRIC: Not anxious. No depression. No suicidal thoughts. No homicidal thoughts. SKIN: No rash. No lesions. No wounds. ENDOCRINE: No unexplained weight loss. No weight gain. HEMATOLOGIC/LYMPHATIC: No anemia. No purpura. No petechiae. No prolonged or excessive bleeding. No palpable lymph nodes. PHYSICAL EXAMINATION: HEENT: Head normocephalic, atraumatic. Eyes: Extraocular muscles are intact. Pupils are equal, round and reactive to light and accommodation. Ears: No lesions. Nose appeared normal. Throat: No exudate or erythema. NECK: Supple. No JVD, no carotid bruit. No lymphadenopathy or thyromegaly. LUNGS: Decreased breath sounds but clear to auscultation. Percussion note normal. Chest symmetrical. HEART: S1, S2, no S3. No murmurs. No cyanosis or clubbing. No ascites. Pulses: Dorsalis pedis and posterior tibial pulses +1 to +2 bilaterally. ABDOMEN: Soft. Nontender. Bowel sounds active. No CVA tenderness. No mass felt. EXTREMITIES: No edema. Full range of motion of all extremities, equal. NEUROLOGIC: No focal deficit. Cranial nerves II through XII are grossly intact. No headache. No double vision. SKIN: Dry. Intact. Turgor - normal. Mucus membrane dry. LYMPHATIC: No palpable lymph nodes/no lymphedema. MUSCULOSKELETAL: Normal joints with no swelling. Muscle tone is normal. ASSESSMENT: 1. Acute gastroenteritis 2. Dehydration 3. Urinary tract infection PLAN: 1. Given antibiotics, steroids 2. Magnesium level 3. CT scan of the head 4. Fluids 5. Watch for fluid overload. TIME SPENT: More than 30 minutes. Plan and coordination of the patient's care discussed in the presence of nurse. ANDREW
--- NOTE | 2021-08-11 13:25 | PN ---
DATE OF SERVICE: 08/08/21 SUBJECTIVE: 81 year old white female hospitalized with acute gastroenteritis, UTI with e- coli. The patient's condition has improved. She is feeling a lot better. She is not having any jerking movement and her speech is clear. Her appetite is much better. She has practically ate everything that she had on her plate today. The patient is up and about with help now. She was weak when she was admitted and unable to get up on her own. REVIEW OF SYSTEMS: CONSTITUTIONAL: No night sweats. No fatigue, malaise, lethargy. No fever or chills. HEENT: Eyes: No visual changes. No eye pain. No eye discharge. ENT: No runny nose. No epistaxis. No sinus pain. No sore throat. No odynophagia. No congestion. RESPIRATORY: No cough, no congestion. No hemoptysis. No shortness of breath. CARDIOVASCULAR: No angina symptoms. No CHF symptoms. No atypical chest pain for CAD. No palpitations. No PND. No orthopnea. GASTROINTESTINAL: No abdominal pain. No nausea or vomiting. No diarrhea or constipation. No hematemesis. No hematochezia. GENITOURINARY: No urgency. No frequency. No dysuria. No hematuria. No obstructive symptoms. No discharge. No pain. No significant abnormal bleeding. MUSCULOSKELETAL: No musculoskeletal pain; no joint swelling. NEUROLOGICAL: No headache. No neck pain. No syncope. No seizures. No dizziness. PSYCHIATRIC: Not anxious. No depression. No suicidal thoughts. No homicidal thoughts. SKIN: No rash. No lesions. No wounds. ENDOCRINE: No unexplained weight loss. No weight gain. HEMATOLOGIC/LYMPHATIC: No anemia. No purpura. No petechiae. No prolonged or excessive bleeding. No palpable lymph nodes. PHYSICAL EXAMINATION: VITAL SIGNS: Temperature 97.6, pulse 67, respiratory rate 18, blood pressure 130/70 and pulse ox 93%. HEENT: Head normocephalic, atraumatic. Eyes: Extraocular muscles are intact. Pupils are equal, round and reactive to light and accommodation. Ears: No lesions. Nose appeared normal. Throat: No exudate or erythema. NECK: Supple. No JVD, no carotid bruit. No lymphadenopathy or thyromegaly. LUNGS:Decreased breath sounds but clear to auscultation. Percussion note normal. Chest symmetrical. HEART: S1, S2, no S3. No murmurs. No cyanosis or clubbing. No ascites. Pulses: Dorsalis pedis and posterior tibial pulses +1 to +2 bilaterally. ABDOMEN: Soft. Nontender. Bowel sounds active. No CVA tenderness. No mass felt. EXTREMITIES: No edema. Full range of motion of all extremities, equal. NEUROLOGIC: No focal deficit. Cranial nerves II through XII are grossly intact. No headache. No double vision. SKIN: Not dry. Intact. Turgor - normal. LYMPHATIC: No palpable lymph nodes/no lymphedema. MUSCULOSKELETAL: Normal joints with no swelling. Muscle tone is normal. LABS: Hgb 10.8, hct 34,W BC 5,600 normal differential, creatinine 0.8, BUN 13, potassium 4.3 ASSESSMENT: 1. Dehydration, seems to have resolved 2. Acute gastroenteritis, resolved 3. UTI under control PLAN: 1. Discontinue Penn catheter. 2. Discontinue IV fluids 3. Up and about with help 4. Continue antibiotics CONDITION: Stable TIME SPENT: More than 30 minutes. Plan and coordination of the patient's care discussed in the presence of nurse. ANDREW
--- NOTE | 2021-08-19 09:22 | PN ---
DATE OF SERVICE: 08/10/21 SUBJECTIVE: The patient was seen and examined with the Nurse Practitioner. The patient's condition seems to have improved. No fever. No chills. UTI seems to be under control. No gastroenteritis. Appetite has improved. Getting the strength back. The patient is going to be on swing bed for physical therapy. TIME SPENT: More than 30 minutes. Plan and coordination of the patient's care discussed in the presence of nurse. ANDREW
--- NOTE | 2021-08-27 13:43 | PN ---
DATE OF SERVICE: 08/11/21 SUBJECTIVE: 81 year old white female hospitalized with acute gastroenteritis, UTI and weakness. The patient's condition has improved. She is feeling a lot better. REVIEW OF SYSTEMS: CONSTITUTIONAL: No night sweats. No fatigue, malaise, lethargy. No fever or chills. HEENT: Eyes: No visual changes. No eye pain. No eye discharge. ENT: No runny nose. No epistaxis. No sinus pain. No sore throat. No odynophagia. No congestion. RESPIRATORY: No cough, no congestion. No hemoptysis. No shortness of breath. CARDIOVASCULAR: No angina symptoms. No CHF symptoms. No atypical chest pain for CAD. No palpitations. No PND. No orthopnea. GASTROINTESTINAL: No abdominal pain. No nausea or vomiting. No diarrhea or constipation. No hematemesis. No hematochezia. GENITOURINARY: No urgency. No frequency. No dysuria. No hematuria. No obstructive symptoms. No discharge. No pain. No significant abnormal bleeding. MUSCULOSKELETAL: No musculoskeletal pain; no joint swelling. NEUROLOGICAL: No headache. No neck pain. No syncope. No seizures. No dizziness. PSYCHIATRIC: Not anxious. No depression. No suicidal thoughts. No homicidal thoughts. SKIN: No rash. No lesions. No wounds. ENDOCRINE: No unexplained weight loss. No weight gain. HEMATOLOGIC/LYMPHATIC: No anemia. No purpura. No petechiae. No prolonged or excessive bleeding. No palpable lymph nodes. PHYSICAL EXAMINATION: VITAL SIGNS: Temperature 98.1, pulse 65, respiratory rate 16, blood pressures 144/75 and pulse ox 94%. HEENT: Head normocephalic, atraumatic. Eyes: Extraocular muscles are intact. Pupils are equal, round and reactive to light and accommodation. Ears: No lesions. Nose appeared normal. Throat: No exudate or erythema. NECK: Supple. No JVD, no carotid bruit. No lymphadenopathy or thyromegaly. LUNGS: Decreased breath sounds but clear to auscultation. Percussion note normal. Chest symmetrical. HEART: S1, S2, no S3. No murmurs. No cyanosis or clubbing. No ascites. Pulses: Dorsalis pedis and posterior tibial pulses +1 to +2 bilaterally. ABDOMEN: Soft. Nontender. Bowel sounds active. No CVA tenderness. No mass felt. EXTREMITIES: No edema. Full range of motion of all extremities, equal. NEUROLOGIC: No focal deficit. Cranial nerves II through XII are grossly intact. No headache. No double vision. SKIN: Not dry. Intact. Turgor - normal. LYMPHATIC: No palpable lymph nodes/no lymphedema. MUSCULOSKELETAL: Normal joints with no swelling. Muscle tone is normal. LABS: Hgb 10.9, hct 34, WBC 6,600 normal differential, creatinine 0.6, BUN 13, potassium 4.8. ASSESSMENT: 1. UTI resolved 2. Gastroenteritis, resolved. Appetite improved and gaining strength PLAN: 1. The patient likely to be discharged to the swing bed tomorrow. CONDITION: Stable. TIME SPENT: More than 30 minutes. Plan and coordination of the patient's care discussed in the presence of nurse. ANDREW
--- NOTE | 2021-08-27 13:47 | PN ---
08/06/21: Level 5 08/07/21: Intermediate 08/08/21: Intermediate 08/09/21: Intermediate 08/10/21: Intermediate 08/11/21: D as in discharge from regular admission MTDD
--- NOTE | 2021-09-16 09:27 | HP ---
DATE OF SERVICE: 08/06/21 REASON FOR HOSPITALIZATION/HISTORY OF PRESENT ILLNESS: 81 year old white female who lives at home. She has had nausea, vomiting and diarrhea for a day. No fever. She had had a recent dysuria. PAST MEDICAL HISTORY: Atrial fibrillation on Xarelto Systolic CHF Stable Angina Coronary artery disease Chronic anemia Hypertension COPD Dyslipidemia GERD Polyarthritis Depression on Lexapro Recurrent falls Generalized weakness Mitral valve prolapse Borderline LVH Dilated left atrial cavity Calcific aortic valve with mild aortic stenosis PAST SURGICAL HISTORY: Cholecystectomy Appendectomy Hysterectomy Bilateral cataract extraction Right shoulder surgery Right total knee replacement in 2012 Last echo was in 11/07 REVIEW OF SYSTEMS: CONSTITUTIONAL: No night sweats. No fatigue, malaise, lethargy. No fever or chills. HEENT: Eyes: No visual changes. No eye pain. No eye discharge. ENT: No runny nose. No epistaxis. No sinus pain. No sore throat. No odynophagia. No ear pain. No congestion. RESPIRATORY: No cough, no congestion. No hemoptysis. No shortness of breath. CARDIOVASCULAR: No angina symptoms. No CHF symptoms. No atypical chest pain for CAD. No palpitations. No PND. No orthopnea. GASTROINTESTINAL: No abdominal pain. No nausea or vomiting. No diarrhea or constipation. No hematemesis. No hematochezia. GENITOURINARY: No urgency. No frequency. No dysuria. No hematuria. No obstructive symptoms. No discharge. No pain. No significant abnormal bleeding. MUSCULOSKELETAL: No musculoskeletal pain. No joint swelling. No arthritis. NEUROLOGICAL: No headache. No neck pain. No syncope. No seizures. No dizziness. PSYCHIATRIC: Not anxious. No depression. No suicidal thoughts. No homicidal thoughts. SKIN: No rash. No lesions. No wounds. ENDOCRINE: No unexplained weight loss. No weight gain. HEMATOLOGIC/LYMPHATIC: No anemia. No purpura. No petechiae. No prolonged or excessive bleeding. No palpable lymph nodes. PERSONAL/FAMILY/SOCIAL HISTORY: She is . She lives at home with her daughter. Nonsmoker. No alcohol or illicit drug use. MEDICATIONS: Omeprazole 20mg PO QDAC Nitrostat 0.4mg SUBLINGUAL Q 5 minutes PRN Calcium carbonate 1 tablet PO BID Gabapentin 600mg PO TID Klonopin 0.5mg PO bedtime Lipitor 80mg PO daily Isosorbide mononitrate 30mg PO BID Lisinopril 20mg PO Q day Xarelto 15mg PO daily Fish oil 1000mg two capsules PO BID Oxycodone-Acetaminophen 5-325mg PO BID PRN Tylenol 650mg PO Q 6 hours PRN Lexapro 20mg PO daily Metoprolol Tartrate 12.5mg PO daily ALLERGIES: Iodinated contrast media Pregabalin PHYSICAL EXAMINATION: HEENT: Head normocephalic, atraumatic. Eyes: Extraocular muscles are intact. Pupils are equal, round and reactive to light and accommodation. Ears: No lesions. Nose appeared normal. Throat: No exudate or erythema. NECK: Supple. No JVD, no carotid bruit. No lymphadenopathy or thyromegaly. LUNGS: Clear to auscultation. Percussion note normal. Chest symmetrical. HEART: S1, S2, no S3. No murmur. Irregular heart rate. No cyanosis or clubbing. No ascites. Pulses: Dorsalis pedis and posterior tibial pulses +1 to +2 bilaterally. ABDOMEN: Soft. Nontender. Bowel sounds active. No CVA tenderness. No mass felt. EXTREMITIES: Trace leg edema. Full range of motion of all extremities, equal. NEUROLOGIC: No focal deficit. Cranial nerves II through XII are grossly intact. No headache, no double vision or headache. SKIN: Not dry. Intact. Turgor - normal. Pale. Dry mucus membranes. LYMPHATIC: No palpable lymph nodes/no lymphedema. MUSCULOSKELETAL: Normal joints with no swelling. Muscle tone is normal. LABS: WBC 6.6, hgb 10.9, hct 34.9, plt count 150, sodium 138, potassium 4.8, BUN 13, creatinine 0.67, glucose 83, Alkaline phosphatase 169, troponin 0.014, urine is trace protein, trace blood, positive nitrate, 2+ leuks, 4+ bacteria. Respiratory panel is negative. Troponin negative. CT of the abdomen and pelvis shows no acute process, small hiatal hernia, multiple benign renal cysts. Chest x-ray was also normal. No acute process. ASSESSMENT: 1. Dehydration 2. Acute gastritis 3. UTI culture pending 4. Atrial fibrillation 5. Anemia 6. Generalized weakness PLAN: 1. We will admit 2. Routine telemetry orders 3. CBC and CMP daily 4. Continue home medications 5. Urine for culture 6. Blood cultures times two 7. Rocephin 1 gram IV daily 8. Zosyn IV to be dosed by pharmacy 9. Normal saline IV at 75cc an hour 10.Continue home medications 11.Regular diet 12.Oxygen at 1-2 liters as needed 13.Zofran 4mg IV Q 6 hours PRN 14.Tylenol for fever 15. Will follow closely TIME SPENT: More than 70 minutes. MTDD
--- NOTE | 2021-09-16 09:41 | DS ---
DATE OF SERVICE: 08/11/21 FINAL DIAGNOSIS: 1. UTI positive e-coli 2. Generalized weakness 3. Atrial fibrillation 4. Chronic anemia DISCHARGE INSTRUCTIONS: Discharge to swing bed. MEDICATIONS AT DISCHARGE: Omeprazole 20mg PO QDAC Nitrostat 0.4mg SUBLINGUAL Q 5 minutes PRN Calcium carbonate 1 tablet PO BID Gabapentin 600mg PO TID Klonopin 0.5mg PO bedtime Lipitor 80mg PO daily Isosorbide mononitrate 30mg PO BID Lisinopril 20mg PO Q day Xarelto 15mg PO daily Fish oil 1000mg two capsules PO BID Oxycodone-Acetaminophen 5-325mg PO BID PRN Tylenol 650mg PO Q 6 hours PRN Lexapro 20mg PO daily Metoprolol Tartrate 12.5mg PO daily NEW PRESCRIPTIONS: Omnicef 300mg PO BID DIET INSTRUCTIONS: Regular ACTIVITY: PT/OT LABS: Hgb 10.1, hct 32.1, plt count 143, WBC 6.3, BUN 11, creatinine 0.73, sodium 137, potassium 4.3. HOSPITAL COURSE: 81 year old white female who presented to the emergency room with nausea, vomiting, extreme weakness and hypotension. She was found to have abnormal U/A indicative of UTI likely causing the acute gastritis found to be dehydrated. She was admitted and placed on IV fluids along with Rocephin and Zosyn IV for treatment of UTI. Urine culture was completed which was positive for e-coli and negative for ESBL, was sensitive to Rocephin so she was continued on IV Rocephin 1 gram daily. Her nausea and vomiting improved within 48 hours. This was controlled with Zofran IV. She has long history of atrial fibrillation, rate was controlled since she has been admitted. Long history of chronic anemia. She has been on Xarelto and tolerates that well. She has had some last generalized weakness needing complete and total assistance with getting up to use the bathroom. We do feel that she would benefit from swing bed for physical and occupational therapy. Therapy is also in agreement that she would benefit from swing bed as she has been living at home and was prior pretty much independent. We will discharge her from acute. Continue on Omnicef 300mg PO BID and then admit to swing for continuation of PT/OT. TIME SPENT: More than 60 minutes. MTDD
== END 2021-08-11 10:45 | disposition swing bed (61) | DRG 392 ==
LOC: ED 04:36 → MEDSURG A 09:05
PROVIDERS: ADMIT Internal Medicine; ATTEND Internal Medicine
DX: R26.2 Difficulty in walking, not elsewhere classified; M62.81 Muscle weakness (generalized); N39.0 Urinary tract infection, site not specified; Z51.81 Encounter for therapeutic drug level monitoring; I95.9 Hypotension, unspecified; I48.91 Unspecified atrial fibrillation; Z79.01 Long term (current) use of anticoagulants; B96.20 Unspecified Escherichia coli [E. coli] as the cause of diseases classified elsewhere; Z20.822 Contact with and (suspected) exposure to COVID-19; D64.9 Anemia, unspecified; E86.0 Dehydration; K52.9 Noninfective gastroenteritis and colitis, unspecified; Z79.899 Other long term (current) drug therapy

== ENCOUNTER 2022-09-28 09:52 | Inpatient (IN) ==
[2022-09-28 10:24] VITALS: BMI 24.7
[2022-09-28] MEDS ORDERED: TYLENOL PO PRN (10:33)
[2022-09-28] MEDS ORDERED: NITROSTAT SL PRN ×2 (10:33→10:46)
[2022-09-28] MEDS ORDERED: ATROPINE SULFATE PFS IVP PRN (10:33)
[2022-09-28] MEDS ORDERED: KAYEXALATE SUSP PO ONE (10:37)
[2022-09-28] MEDS ORDERED: PERCOCET 7.5-325 PO PRN (10:46)
[2022-09-28] MEDS ORDERED: NON-FORMULARY MEDICATION (Acetaminophen [Tylenol] 325 mg Capsule) PO PRN (10:46)
[2022-09-28 10:48] LABS: BASOPHILS % (AUTO) 0.4 % (0.0-3.0); EOSINOPHILS # (AUTO) 0.1 K/ul (0.0-0.7); EOSINOPHILS % (AUTO) 0.9 % (0.0-7.0); HEMATOCRIT 31.5 % (37.0-47.0); HEMOGLOBIN 9.8 g/dl (12.0-16.0); IMMATURE GRANULOCYTE % (AUTO) 0.6 % (0.0-5.0); LYMPHOCYTES # (AUTO) 0.6 K/uL (0.60-3.4); LYMPHOCYTES % (AUTO) 9.3 (10.0-50.0); MEAN CORPUSCULAR HEMOGLOBIN 30.5 pg (27.0-31.0); MEAN CORPUSCULAR HGB CONC 31.1 (31.8-35.4); MEAN CORPUSCULAR VOLUME 98.1 fl (81.0-99.0); MONOCYTES # (AUTO) 0.2 K/uL (0.4-2.0); MONOCYTES % (AUTO) 2.6 (0-10); NEUTROPHILS % (AUTO) 86.2 % (42.2-75.2); PLATELET COUNT 147 10^3/uL (140-440); RDW COEFFICIENT OF VARIATION 13.1 % (11.6-14.8); RED BLOOD COUNT 3.21 10^6/ul (4.20-5.40)
[2022-09-28 10:59] LABS: ALANINE AMINOTRANSFERASE 30.9 U/L (0-35); ALBUMIN 3.41 g/dL (3.5-5.0); ALKALINE PHOSPHATASE 101.2 U/L (53-141); ASPARTATE AMINO TRANSFERASE 28.9 U/L (14-36); BILIRUBIN,TOTAL 0.31 mg/dL (0.2-1.3); BLOOD UREA NITROGEN 52.6 mg/dL (7-17); CALCIUM 8.39 mg/dL (8.4-10.2); CARBON DIOXIDE 36.9 mmol/L (22-30.0); CHLORIDE 99.3 mmol/L (98-107); CREATININE 1.31 mg/dL (0.60-1.30); GLUCOSE 107.8 mg/dL (74-106); POTASSIUM 5.95 mmol/L (3.5-5.1); SODIUM 135.6 mmol/L (134.5-145); TOTAL PROTEIN 6.3 g/dL (6.3-8.2)
[2022-09-28] MEDS: SODIUM CHLORIDE 1,000 ML IV SCH ×2 (11:07→22:53)
[2022-09-28] MEDS: ASPIRIN CHEWABLE PO SCH ×2 (11:19→11:36)
[2022-09-28] MEDS: ZOFRAN ODT PO SCH (11:19)
[2022-09-28] MEDS: IMDUR PO SCH ×2 (11:19→20:29)
[2022-09-28] MEDS: LOPRESSOR PO SCH ×2 (11:20→20:30)
[2022-09-28] MEDS: PRILOSEC PO SCH (11:21)
[2022-09-28] MEDS: XARELTO PO SCH (11:22)
[2022-09-28] MEDS: LEXAPRO PO SCH (11:22)
[2022-09-28] MEDS: NEURONTIN PO SCH ×2 (11:25→20:29)
[2022-09-28] MEDS: LIPITOR PO SCH (11:25)
[2022-09-28] MEDS ORDERED: MORPHINE 2 MG/ML SYRINGE IVP PRN (14:23)
--- NOTE | 2022-09-28 14:36 | DI ---
EXAM: CHEST RADIOGRAPH TECHNIQUE: Two views. Frontal and lateral. HISTORY: No shortness of breath COMPARISON: 04/16/2022 FINDINGS: Dense calcified lymph nodes in the left hilum indicative of chronic granulomatous disease. No stable mild cardiomegaly. No focal infiltrate, effusion, or pneumothorax is identified. Cholecy stectomy clips right upper quadrant. Benign stable calcified granuloma left lung base. IMPRESSION: 1. No acute findings. No active disease. Sequelae of chronic granulomatous disease. Cardiomegaly.
--- NOTE | 2022-09-28 14:56 | CT ---
EXAMINATION: HEAD CT WITHOUT CONTRAST HISTORY: Fall. TECHNIQUE: Noncontrast CT of the brain was performed with images acquired from skull base to vertex. Contrast Dose: None CT Dose Reduction Techniques Performed: Yes COMPARISON: CT head 08/15/2021 FINDINGS: Topogram demonstrates no significant abnormality. Intraparenchymal hemorrhage: None. Parenchyma: Normal rhodes-white differentiation. No mass effect or midline shift. Extra-axial spaces and Basal cisterns: Normal. Chronic: Moderate periventricular white matter hypodensities which are nonspecific, however likely du e to chronic microvascular ischemia. Mild to moderate cortical volume loss. Atherosclerotic calcifi cation of the bilateral carotid siphons and intracranial vertebral arteries. Ventricles: Normal size and morphology for age. Paranasal sinuses and mastoid air cells: Mucosal fluid and blood products in the left maxillary sinus which partially imaged nondisplaced fractures of the anterior and lateral lucio of the left maxillar y sinus. Mastoid air cells are clear. Orbits: Bilateral artificial lens replacements. Sella/Skull Base: Normal. Other: Scalp and visualized soft tissues are normal. Calvarium is normal. IMPRESSION: Partially imaged left maxillary sinus fractures with blood products within the sinus. Follow-up CT o f the face could be performed for further evaluation. No acute intracranial abnormality. All CT scans are performed using dose optimization techniques as appropriate to the performed exam an d include at least one of the following: Automated exposure control, adjustment of the mA and/or kV according t o size, and the use of iterative reconstruction technique.
--- NOTE | 2022-09-28 14:58 | DI ---
EXAM: FACIAL BONE RADIOGRAPHS HISTORY: Fall TECHNIQUE: AP, lateral, and Vega views of the facial bones. COMPARISON: CT head 09/28/2022 FINDINGS: There is layering fluid within the left maxillary sinus. Linear lucency within the left lateral maxi llary sinus wall. No definite soft tissue swelling. Surgical clips in the right upper neck, likely due to prior carotid endarterectomy. Severe atherosclerotic calcification of the left internal carot id artery/carotid bulb. IMPRESSION: Findings suggestive of a nondisplaced left maxillary sinus fracture with layering blood products with in the sinus. Follow-up CT could be performed for further evaluation.
[2022-09-28 19:54] LABS: BILIRUBIN,URINE Negative (NEGATIVE); CLARITY,URINE Clear (CLEAR); COLOR,URINE Yellow (YELLOW); GLUCOSE, URINE (UA) Negative (NEGATIVE); KETONES,URINE Negative (NEGATIVE); LEUKOCYTE ESTERASE ,URINE 1+ (NEGATIVE); NITRITE,URINE Negative (NEGATIVE); PH,URINE 5.5 (5-9); PROTEIN,URINE Negative (NEGATIVE); URINE, BLOOD Trace-intact (NEGATIVE)
[2022-09-28] MEDS: KLONOPIN PO SCH (20:30)
[2022-09-28 20:32] LABS: BACTERIA,URINE 2+ (NOT PRESENT); SQUAMOUS EPITHELIAL CELL,UR 0-2 (0-5)
[2022-09-28] MEDS ORDERED: NON-FORMULARY MEDICATION (Triamcinolone Acetonide 0.1 % ointment) TP SCH (21:00)
[2022-09-28] MEDS ORDERED: NON-FORMULARY MEDICATION (Triamcinolone Acetonide 1 APPLIC) TP SCH (21:00)
[2022-09-29 05:26] LABS: BASOPHILS # (AUTO) 0.1 K/uL (0-0.2); BASOPHILS % (AUTO) 0.7 % (0.0-3.0); EOSINOPHILS # (AUTO) 0.2 K/ul (0.0-0.7); EOSINOPHILS % (AUTO) 2.2 % (0.0-7.0); HEMATOCRIT 26.6 % (37.0-47.0); HEMOGLOBIN 8.7 g/dl (12.0-16.0); IMMATURE GRANULOCYTE % (AUTO) 0.2 % (0.0-5.0); LYMPHOCYTES # (AUTO) 2.8 K/uL (0.60-3.4); LYMPHOCYTES % (AUTO) 26.2 (10.0-50.0); MEAN CORPUSCULAR HEMOGLOBIN 31.9 pg (27.0-31.0); MEAN CORPUSCULAR HGB CONC 32.7 (31.8-35.4); MEAN CORPUSCULAR VOLUME 97.4 fl (81.0-99.0); MONOCYTES # (AUTO) 0.9 K/uL (0.4-2.0); MONOCYTES % (AUTO) 8.1 (0-10); NEUTROPHILS # (AUTO) 6.7 K/ul (2.0-6.9); NEUTROPHILS % (AUTO) 62.6 % (42.2-75.2); PLATELET COUNT 318 10^3/uL (140-440); RDW COEFFICIENT OF VARIATION 11.9 % (11.6-14.8); RED BLOOD COUNT 2.73 10^6/ul (4.20-5.40); WHITE BLOOD COUNT 10.69 K/ul (4.6-10.2)
[2022-09-29 05:42] LABS: ALANINE AMINOTRANSFERASE 8.5 U/L (0-35); ALBUMIN 3.23 g/dL (3.5-5.0); ALKALINE PHOSPHATASE 95.9 U/L (53-141); ASPARTATE AMINO TRANSFERASE 22.6 U/L (14-36); BILIRUBIN,TOTAL 0.38 mg/dL (0.2-1.3); BLOOD UREA NITROGEN 15.9 mg/dL (7-17); CALCIUM 8.48 mg/dL (8.4-10.2); CARBON DIOXIDE 30.1 mmol/L (22-30.0); CREATININE 0.89 mg/dL (0.60-1.30); GLUCOSE 169.2 mg/dL (74-106); POTASSIUM 4.39 mmol/L (3.5-5.1); SODIUM 137.5 mmol/L (134.5-145); TOTAL PROTEIN 6.25 g/dL (6.3-8.2)
[2022-09-29] MEDS: PRILOSEC PO SCH (06:02)
[2022-09-29] MEDS: LOPRESSOR PO SCH ×2 (08:54→20:22)
[2022-09-29] MEDS: ASPIRIN CHEWABLE PO SCH (08:54)
[2022-09-29] MEDS: NEURONTIN PO SCH ×2 (08:55→20:21)
[2022-09-29] MEDS: ZOFRAN ODT PO SCH (08:55)
[2022-09-29] MEDS: IMDUR PO SCH ×2 (08:55→20:24)
[2022-09-29] MEDS: LEXAPRO PO SCH (08:55)
[2022-09-29] MEDS: XARELTO PO SCH (08:55)
[2022-09-29] MEDS: LIPITOR PO SCH (08:56)
[2022-09-29] MEDS ORDERED: KENALOG 0.1% TP SCH (09:00)
--- NOTE | 2022-09-29 10:51 | HP ---
DATE OF SERVICE: 09/28/22 REASON FOR HOSPITALIZATION/HISTORY OF PRESENT ILLNESS: Pale, dry mucus membranes. Had 25gram Kayexalate for Potassium 5.65, repeat still 5.28. Weak renal failure. No signs of symptoms of CHF/CAD/COVID. PAST MEDICAL HISTORY/PAST SURGICAL HISTORY: Chronic anemia Recurrent falls History of nasal bone fracture Atrial fibrillation- Xarelto Stable angina Coronary artery disease ROMAINE Hypertension Restless leg syndrome Depression Hyperglycemia COPD Right shoulder osteoarthritis Right hip Osteoarthritis History of cardiac cath 2011 Right total knee replacement 2011 Cardiac arrest 2011, post OP History of rectal bleed History of Right CEA REVIEW OF SYSTEMS: CONSTITUTIONAL: No fever, Fatigue. HEENT: No sinus drainage, no sore throat. RESPIRATORY: No cough, no congestion. CARDIOVASCULAR: No atypical chest pain for coronary artery disease. No angina, CHF symptoms, palpitations or shortness of breath. GASTROINTESTINAL: No melena or abdominal pain. No GERD. GENITOURINARY: No hematuria, no prostatism, no polyuria. CREATIVE WRITING TEACHER: No blackout, no dizziness, no headache, no double vision. GAIT: Unsteady. MUSCULOSKELETAL: No osteoarthritis pain, no joint swelling. ENDOCRINE: No weight loss, no weight gain. SKIN: Not dry, no rash. PSYCHIATRIC: Not anxious, no depression, no suicidal thoughts, no homicidal thoughts. SOCIAL HISTORY: Marital Status:. Alcohol Usage: No. Tobacco Usage: No. MEDICATIONS: Nitrostat 0.4mg SUB PRN Tylenol 650mg PO Q 6 hours PRN Gabapentin 600mg PO BID Aspirin 81mg PO daily Triamcinolone Clonazepam 0.5mg PO bedtime Escitalopram oxalate 20mg PO daily Omeprazole 20mg PO Isosorbide mononitrate 30mg PO BID Atorvastatin 80mg PO daily Lisinopril 20mg PO Metoprolol 12.5mg PO BID Xarelto 15mg PO Sodium polystyrene 25gram Ondansetron 4mg PO Q day Oxycodone-acetaminophen 7.5-325mg PO BID PRN ALLERGIES: Iodinated contrast Pregabalin PHYSICAL EXAMINATION: V/S: Pulse 52, blood pressure 105/58, temperature 97.7, oxygen saturation 94%. GENERAL APPEARANCE: Oriented times three. Pallor. HEENT: Normal. Dry. Mucus membrane. NECK: No JVP, no bruits. RESPIRATORY: Decreased breath sounds. CARDIOVASCULAR: Irregular. S1, S2, no S3, no murmur. No cyanosis, clubbing. No ascites. GI/ABDOMEN: No tenderness. Bowel sounds are active. EXTREMITIES: edema, pulses +1, equal. CREATIVE WRITING TEACHER: Deep tendon reflexes, sensory, motor and gait all normal. RECTAL: Shiben 06/08/PELVIC: complete hysterectomy. Mammogram 11/03 refuses repeat. ASSESSMENT: 1. Renal Azotemia 2. Hyperkalemia 3. Hypotension 4. Chronic anemia 5. Recurrent falls 6. History of nasal bone fracture 7. Atrial fibrillation- Xarelto 8. Stable angina 9. Coronary artery disease 10.ROMAINE 11.Hypertension 12.Restless leg syndrome 13. Depression 14. Hyperglycemia 15. COPD 16. Right shoulder osteoarthritis 17. Right hip Osteoarthritis 18. History of cardiac cath 2011 19. Right total knee replacement 2011 20. Cardiac arrest 2011, post OP 21. History of rectal bleed 22. History of Right CEA PLAN: 1. Routine telemetry orders- No cardiac enzymes 2. CBC and CMP now and daily 3. 25gram Kayexalate Po times one 4. Normal saline IV at 75ccf an hour times two liters 5. Continue home medications-see list 6. U/A 7. Chest x-ray 8. Regular diet 9. O2 at 1-2 liters nasal canula PRN 10.Fall precautions. TIME SPENT: More than 75 minutes. MTDD
--- NOTE | 2022-09-29 13:44 | PN ---
DATE OF SERVICE: 09/28/22 SUBJECTIVE: The patient was hospitalized after finding her BNP normal with elevated kidney function with GFR of 30 with abnormal Potassium. Other questioning the patient had fallen and had periorbital left swelling. She was further evaluated with CT scan of the head which was negative but facial showed that she had left axillary fracture with some hematoma inside. The patient's vision is normal. She is oriented to time, place and person. Cardiovascular status is stable. Her skin is dry, mucous membrane is dry. She is going to receive slow IV fluids along with monitoring of CBC and CMP. The patient's daughter in the room. Discussed the case in detail. CONDITION: Stable for now. TIME SPENT: More than 35 minutes. Plan and coordination of the patient's care discussed in the presence of nurse. ANDREW
[2022-09-29] MEDS: KLONOPIN PO SCH (20:21)
[2022-09-30 05:13] LABS: BASOPHILS % (AUTO) 0.4 % (0.0-3.0); EOSINOPHILS # (AUTO) 0.1 K/ul (0.0-0.7); HEMATOCRIT 29.5 % (37.0-47.0); HEMOGLOBIN 9.1 g/dl (12.0-16.0); IMMATURE GRANULOCYTE % (AUTO) 0.2 % (0.0-5.0); LYMPHOCYTES # (AUTO) 0.5 K/uL (0.60-3.4); LYMPHOCYTES % (AUTO) 9.4 (10.0-50.0); MEAN CORPUSCULAR HEMOGLOBIN 30.8 pg (27.0-31.0); MEAN CORPUSCULAR HGB CONC 30.8 (31.8-35.4); MONOCYTES # (AUTO) 0.3 K/uL (0.4-2.0); MONOCYTES % (AUTO) 6.1 (0-10); NEUTROPHILS # (AUTO) 4.5 K/ul (2.0-6.9); NEUTROPHILS % (AUTO) 81.9 % (42.2-75.2); PLATELET COUNT 125 10^3/uL (140-440); RDW COEFFICIENT OF VARIATION 13.2 % (11.6-14.8); RED BLOOD COUNT 2.95 10^6/ul (4.20-5.40); WHITE BLOOD COUNT 5.45 K/ul (4.6-10.2)
[2022-09-30 05:25] LABS: ALANINE AMINOTRANSFERASE 110.8 U/L (0-35); ALBUMIN 3.08 g/dL (3.5-5.0); ALKALINE PHOSPHATASE 195.3 U/L (53-141); ASPARTATE AMINO TRANSFERASE 122.6 U/L (14-36); BILIRUBIN,TOTAL 0.51 mg/dL (0.2-1.3); BLOOD UREA NITROGEN 38.5 mg/dL (7-17); CALCIUM 7.66 mg/dL (8.4-10.2); CARBON DIOXIDE 34.6 mmol/L (22-30.0); CHLORIDE 101.3 mmol/L (98-107); CREATININE 0.92 mg/dL (0.60-1.30); POTASSIUM 4.28 mmol/L (3.5-5.1); SODIUM 136.7 mmol/L (134.5-145); TOTAL PROTEIN 5.71 g/dL (6.3-8.2)
[2022-09-30] MEDS: PRILOSEC PO SCH (05:30)
[2022-09-30] MEDS ORDERED: ROCEPHIN 1 GM VIAL IM ONE (08:14)
[2022-09-30] MEDS ORDERED: LIDOCAINE 1% 5 ML SDV IM ONE (08:16)
[2022-09-30] MEDS ORDERED: LASIX IVP ONE (08:22)
[2022-09-30] MEDS ORDERED: ROCEPHIN 1 GM/50 ML D5W 1 GM/50 ML BAG IV ONE (08:47)
[2022-09-30 09:05] LABS: ALANINE AMINOTRANSFERASE 108.8 U/L (0-35); ALBUMIN 3.21 g/dL (3.5-5.0); ALKALINE PHOSPHATASE 204.4 U/L (53-141); ASPARTATE AMINO TRANSFERASE 113.9 U/L (14-36); BILIRUBIN,TOTAL 0.49 mg/dL (0.2-1.3); BLOOD UREA NITROGEN 34.6 mg/dL (7-17); CALCIUM 7.9 mg/dL (8.4-10.2); CARBON DIOXIDE 36.1 mmol/L (22-30.0); CREATININE 0.89 mg/dL (0.60-1.30); GLUCOSE 109.7 mg/dL (74-106); POTASSIUM 4.36 mmol/L (3.5-5.1); SODIUM 137.7 mmol/L (134.5-145); TOTAL PROTEIN 6.07 g/dL (6.3-8.2)
--- NOTE | 2022-09-30 09:49 | PCM.PROG ---
Attending Provider: ATTENDING PROVIDER: Dr. JAGJIT VELASCO MD This patient is seen with Patricia Serrano, Nurse Practitioner. DATE OF SERVICE: 09/30/22 SUBJECTIVE: This 82 year old /WHITE F was hospitalized 09/28/22. The patient is wanting to go home today. Potassium is better. Renal function has improved. Urine is abnormal appears she has a UTI but culture is not completed yet. Liver enzymes are elevated unsure if in error we will repeat CMP. REVIEW OF SYSTEMS: CONSTITUTIONAL: No night sweats. No fatigue, malaise, lethargy. No fever or chills. Weakness. HEENT: Eyes: No visual changes. No eye pain. No eye discharge. ENT: No runny nose. No epistaxis. No sinus pain. No odynophagia. No congestion. RESPIRATORY: No cough, no congestion. No hemoptysis. Shortness of breath. CARDIOVASCULAR: No angina symptoms. No CHF symptoms. No atypical chest pain for CAD. No palpitations. No orthopnea.. GASTROINTESTINAL: No abdominal pain. No nausea or vomiting. No diarrhea or constipation. No hematemesis. No hematochezia. GENITOURINARY: No urgency. No frequency. No dysuria. No hematuria. No obstructive symptoms. No discharge. No pain. No significant abnormal bleeding. MUSCULOSKELETAL: No musculoskeletal pain; no joint swelling. NEUROLOGICAL: Awake, alert, oriented to time, place and person. No headache. No neck pain. No syncope. No seizures. No dizziness. PSYCHIATRIC: Not anxious. No depression. No suicidal thoughts. No homicidal thoughts. SKIN: No rash. No lesions. No wounds. ENDOCRINE: No unexplained weight loss. No weight gain. HEMATOLOGIC/LYMPHATIC: No anemia. No purpura. No petechiae. No prolonged or excessive bleeding. No palpable lymph nodes. PHYSICAL EXAMINATION: GENERAL: The patient is awake, alert and oriented, lying in bed in no distress. VITAL SIGNS: Temperature 96.2 F, Pulse 56, Respiratory Rate 18, BP 112/63, Pulse Ox 99% HEENT: Head normocephalic, atraumatic. Eyes: Extraocular muscles are intact. Pupils are equal, round and reactive to light and accommodation. Ears: No lesions. Nose appeared normal. Throat: No exudate or erythema. NECK: Supple. No JVD, no carotid bruit. No lymphadenopathy or thyromegaly. LUNGS: Diminsihed breath sounds. Clear to auscultation. Percussion note normal. Chest symmetrical. HEART: S1, S2, no S3. No murmurs. No cyanosis or clubbing. No ascites. Pulses: Dorsalis pedis and posterior tibial pulses +1 to +2 both sides. ABDOMEN: Soft. Non-tender. Bowel sounds active. No CVA tenderness. No mass felt. EXTREMITIES: No leg edema. Full range of motion of all extremities, equal. NEUROLOGIC: No focal deficit. Cranial nerves II through XII are grossly intact. No headache. No double vision. SKIN: Not dry. Intact. Turgor-normal. LYMPHATIC: No palpable lymph nodes/no lymphedema. MUSCULOSKELETAL: Normal joints with no swelling. Muscle tone is normal. LAB REVIEW: 09/30/22 05:05 09/30/22 05:05 09/30/22 05:05: WBC 5.45 D, RBC 2.95 L, Hgb 9.1 L, Hct 29.5 L, MCV 100.0 H, MCH 30.8, MCHC 30.8 L, RDW Coeff of Pricila 13.2, Plt Count 125 L D, Immature Gran % (Auto) 0.2, Neut % (Auto) 81.9 H, Lymph % (Auto) 9.4 L, [place] % (Auto) 6.1, Eos % (Auto) 2.0, Baso % (Auto) 0.4, Neut # (Auto) 4.5, Lymph # (Auto) 0.5 L, [place] # (Auto) 0.3 L, Eos # (Auto) 0.1, Baso # (Auto) 0.0, Immature Gran # (Auto) 0.0, Sodium 136.7, Potassium 4.28, Chloride 101.3, Carbon Dioxide 34.6 H, Anion Gap 5.08, BUN 38.5 H, Creatinine 0.92, Estimated GFR (MDRD) 58.00, BUN/Creatinine Ratio 41.84, Glucose 110.0 H D, Calcium 7.66 L, Total Bilirubin 0.51, AST 122.6 H D, ALT 110.8 H D, Alkaline Phosphatase 195.3 H D, Total Protein 5.71 L, Albumin 3.08 L, Globulin 2.63, Albumin/Globulin Ratio 1.17 ASSESSMENT: Please see below. 1. Hyperkalemia, resolved 2. Renal azotemia, improved 3. Shortness of breath 4. UTI 5. Elevated liver enzymes PLAN: 1. Anticipate possible discharge. 2. 20mg Lasix IV for possible fluid overload 3. 1 gram Rocephin IM today 4. Hepatitis panel 5. Hold Lisinopril and Lipitor 6. Go home on Omnicef 300mg BID for 7 days 7. Followup in the office next week Plan and coordination of the patient's care discussed in the presence of Grease Packer and nurse. SCRIBED BY: Mario GARLAND scribed while in presence of service performed by Patricia Serrano APRN on 09/30/22 ([id number])
[2022-09-30] MEDS: XARELTO PO SCH (10:10)
[2022-09-30] MEDS: NEURONTIN PO SCH (10:10)
[2022-09-30] MEDS: LOPRESSOR PO SCH (10:11)
[2022-09-30] MEDS: ZOFRAN ODT PO SCH (10:11)
[2022-09-30] MEDS: LEXAPRO PO SCH (10:11)
[2022-09-30] MEDS: IMDUR PO SCH (10:12)
[2022-09-30 14:09] VITALS: BP 120/66; PULSE 59; RESP 18; TEMP 97
[2022-10-01 10:31] LABS: HBsAgSCREEN Negative (Negative); HCV ANTIBODY Non Reactive (Non Reactive); HEP A AB, IgM Negative (Negative); HEP B CORE Ab, IgM Negative (Negative)
--- NOTE | 2022-10-07 13:16 | PN ---
DATE OF SERVICE: 09/29/22 SUBJECTIVE: 82 year old white female hospitalized with hyperkalemia and renal azotemia. Patient's condition has improved. She is feeling a lot better and eating better. REVIEW OF SYSTEMS: CONSTITUTIONAL: No night sweats. No fatigue, malaise, lethargy. No fever or chills. HEENT: Eyes: No visual changes. No eye pain. No eye discharge. ENT: No runny nose. No epistaxis. No sinus pain. No sore throat. No odynophagia. No congestion. RESPIRATORY: No cough, no congestion. No hemoptysis. No shortness of breath. CARDIOVASCULAR: No angina symptoms. No CHF symptoms. No atypical chest pain for CAD. No palpitations. No PND. No orthopnea. GASTROINTESTINAL: No abdominal pain. No nausea or vomiting. No diarrhea or constipation. No hematemesis. No hematochezia. GENITOURINARY: No urgency. No frequency. No dysuria. No hematuria. No obstructive symptoms. No discharge. No pain. No significant abnormal bleeding. MUSCULOSKELETAL: No musculoskeletal pain; no joint swelling. NEUROLOGICAL: No headache. No neck pain. No syncope. No seizures. No dizziness. PSYCHIATRIC: Not anxious. No depression. No suicidal thoughts. No homicidal thoughts. SKIN: No rash. No lesions. No wounds. ENDOCRINE: No unexplained weight loss. No weight gain. HEMATOLOGIC/LYMPHATIC: No anemia. No purpura. No petechiae. No prolonged or excessive bleeding. No palpable lymph nodes. PHYSICAL EXAMINATION: GENERAL: The patient is , lying/sitting in bed in no distress. VITAL SIGNS: HEENT: Head normocephalic, atraumatic. Eyes: Extraocular muscles are intact. Pupils are equal, round and reactive to light and accommodation. Ears: No lesions. Nose appeared normal. Throat: No exudate or erythema. NECK: Supple. No JVD, no carotid bruit. No lymphadenopathy or thyromegaly. LUNGS: Clear. HEART: S1, S2, no S3. ABDOMEN: Soft. EXTREMITIES: No edema. Full range of motion of all extremities, equal. NEUROLOGIC: No focal deficit. Cranial nerves II through XII are grossly intact. No headache. No double vision. SKIN: Skin turgor is a lot better. LYMPHATIC: No palpable lymph nodes/no lymphedema. MUSCULOSKELETAL: Normal joints with no swelling. Muscle tone is normal. LABS: Hemoglobin 8.7, hematocrit 26, WBC 10,000, normal differential, creatinine 0.8, BUN 15, potassium 4.3, AST/ALT normal. ASSESSMENT: Renal azotemia seems to have resolved. Potassium is normal. Hydration status has improved. Condition: A lot better TIME SPENT: More than 35 minutes. Plan and coordination of the patient's care discussed in the presence of nurse. ANDREW
== END 2022-09-30 15:30 | disposition home or self-care (01) | DRG 683 ==
LOC: MEDSURG B 09:52
PROVIDERS: ADMIT Internal Medicine; ATTEND Internal Medicine

== ENCOUNTER 2022-10-15 17:18 | Observation (INO) ==
[2022-10-15] MEDS ORDERED: ASPIRIN CHEWABLE PO ONE (17:37)
[2022-10-15] MEDS ORDERED: MORPHINE 2 MG/ML SYRINGE IVP ONE (17:37)
--- NOTE | 2022-10-15 17:48 | DI ---
EXAM: FRONTAL VIEW OF THE CHEST. HISTORY: Chest pain. COMPARISON: Chest radiograph 09/28/2022. FINDINGS: Atherosclerotic calcifications of the aorta. Normal heart size. No acute consolidation. Multiple scattered calcified granulomas. No visible pleural effusion or pneumothorax. No acute osseous abnormality. Diffuse osseous demineralization. Levoconvex lumbar scoliosis. Modera te Degenerative changes of the left shoulder. IMPRESSION: No acute process. Atherosclerosis.
[2022-10-15 18:00] LABS: BASOPHILS % (AUTO) 0.5 % (0.0-3.0); EOSINOPHILS # (AUTO) 0.1 K/ul (0.0-0.7); EOSINOPHILS % (AUTO) 1.2 % (0.0-7.0); HEMATOCRIT 33.7 % (37.0-47.0); HEMOGLOBIN 10.1 g/dl (12.0-16.0); IMMATURE GRANULOCYTE % (AUTO) 0.5 % (0.0-5.0); LYMPHOCYTES # (AUTO) 0.5 K/uL (0.60-3.4); LYMPHOCYTES % (AUTO) 7.5 (10.0-50.0); MEAN CORPUSCULAR HEMOGLOBIN 29.6 pg (27.0-31.0); MEAN CORPUSCULAR VOLUME 98.8 fl (81.0-99.0); MONOCYTES # (AUTO) 0.5 K/uL (0.4-2.0); MONOCYTES % (AUTO) 7.4 (0-10); NEUTROPHILS # (AUTO) 5.4 K/ul (2.0-6.9); NEUTROPHILS % (AUTO) 82.9 % (42.2-75.2); PLATELET COUNT 169 10^3/uL (140-440); RDW COEFFICIENT OF VARIATION 14.4 % (11.6-14.8); RED BLOOD COUNT 3.41 10^6/ul (4.20-5.40)
[2022-10-15 19:02] LABS: ALBUMIN 3.7 g/dL (3.5-5.0); CREATININE 1.1 mg/dL (0.60-1.30); POTASSIUM 4.4 mmol/L (3.5-5.1); TOTAL PROTEIN 7.2 g/dL (6.3-8.2)
--- NOTE | 2022-10-15 21:23 | ED.PDOC ---
General ED Provider: Dr. ALEXIA LUNA MD Chief Complaint: Chest Pain Stated Complaint: Pt is a 82YOF with CAD, a-fib (Eliquis) who presents to ER from home accompanied by her daughter (Senia) c/o chest pain. Follows with Cardiology (Dr. Maria Ines Velasco). Reports onset was earlier this morning and has been gradually worsening. Described pain as sharp, reproducible localized at L, ICS-4. Took NTG x3 at home and pain did not improve so decided to present to nearest ER. No other complaints at this time. Time Seen by Provider: 10/15/22 17:20 Information Source: Patient Primary Care Provider: JAGJIT VELASCO MD Nursing and Triage Documentation Reviewed and Agree: Yes Review of Systems Review Of Systems Constitutional: Reports No symptoms Cardiac: Reports Chest pain All Other Systems: Reviewed and Negative [facility] Medical History (Updated 10/15/22 @ 20:47 by ALEXIA LUNA MD) Acute UTI (urinary tract infection) N39.0 - URINARY TRACT INFECTION, SITE NOT SPECIFIED (ICD-10) Anesthesia complication T41.45XA - Adverse effect of unspecified anesthetic, initial encounter (ICD- 10) Atherosclerosis of coronary artery I25.10 - Atherosclerotic heart disease of [place] coronary artery without angina pectoris (ICD-10) Diverticulitis K57.92 - DVTRCLI OF INTEST, PART UNSP, W/O PERF OR ABSCESS W/O BLEED (ICD- 10) Gastroenteritis K52.9 - Noninfective gastroenteritis and colitis, unspecified (ICD-10) History of seasonal allergies Z88.9 - Allergy status to unspecified drugs, medicaments and biological substances status (ICD-10) Nasal bone fracture S02.2XXA - Fracture of nasal bones, initial encounter for closed fracture (ICD-10) Vaginal bleeding, abnormal N93.9 - ABNORMAL UTERINE AND VAGINAL BLEEDING, UNSPECIFIED (ICD-10) Family History SISTER Lung cancer, Onset Age: 57 Abuse, drug or alcohol BROTHER Lung cancer, Onset Age: 37 Mother Hyperthyroidism, Onset Age: 83 FATHER Abuse, drug or alcohol Social History Smoking and tobacco status: Never smoker Alcohol intake: never Substance use type: does not use Housing: house Current occupational status: retired Pets and animals: Yes History of recent travel: No Seatbelt use: always Water heater temperature set < 120 degrees: Yes Working smoke detector in home: Yes Fire extinguisher in home: Yes Carbon monoxide detector in home: Yes Firearms in home: No Surgical History H/O knee surgery Z98.890 - Other specified postprocedural states (ICD-10) H/O tubal ligation Z98.51 - Tubal ligation status (ICD-10) History of appendectomy Z90.49 - Other specified postprocedural states (ICD-10) History of cholecystectomy Z90.49 - Other specified postprocedural states (ICD-10) History of joint surgery Z98.890 - Other specified postprocedural states (ICD-10) History of left heart catheterization Z98.890 - Other specified postprocedural states (ICD-10) History of total right knee replacement (TKR) Z96.651 - Presence of right artificial knee joint (ICD-10) Status post hysterectomy Z90.710 - Acquired absence of both cervix and uterus (ICD-10) Female Reproductive History Menstrual Hx Hysterectomy: Yes Hx Tubal Ligation: No Physical Exam Physical Exam Appearance: Reports Well-appearing, No pain distress and Well-nourished Ill-appearing: None Pain Distress: None Eyes: Reports HUSSAIN, EOMI and Conjunctiva clear ENT: Reports Ears normal, Nose normal and Oropharynx normal Neck: Supple Respiratory: Reports Airway patent, Breath sounds clear, Breath sounds equal and Respirations nonlabored Cardiovascular: Reports Pulses normal, No rub, No murmur and Irregular rhythm GI/: Reports Soft, Nontender, No masses, Bowel sounds normal and No Organomegaly Musculoskeletal: Reports Normal strength, ROM intact, No edema and No calf tenderness Skin: Reports Warm, Dry and Normal color Neurological: Reports Sensation intact, Motor intact, Reflexes intact, Cranial nerves intact, Alert and Oriented Psychiatric: Reports Affect appropriate and Mood appropriate Interpretation EKG Interpretation EKG Interpretation By: ED Physician Time of EKG #1: 16:29 Rate: Normal Rhythm: Other (a-fib) Ectopy: None Pierce: NL ST Segment: Normal Interpretation: rate-controlled atrial fibrillation. EKG Comparison: No significant changes EKG Interpretation By: ED Physician Radiology Interpretation Radiology Interpretation By: ED Physician Radiology Results: No acute changes Exam Interpreted: CXR Physician Notification Case Discussed Physician Notified: Dr. Corky Velasco Time of Notification: 20:52 Comments: Spoke with pt's PCP (Dr. Corky Velasco) regarding pt status and current workup and management. Recommended pt be admitted for chest pain. Requests CT a/p. Confirmed DNR status with pt and daughter at bedside. Admit To: Observation Critical Care Note Critical Care Note Total Critical Care Time (mins): 60 Course Course 10/15/22 17:15 10/15/22 17:15 Orders, Labs, Meds: Lab Review 10/15/22 17:15 WBC 6.50 RBC 3.41 L Hgb 10.1 L Hct 33.7 L MCV 98.8 MCH 29.6 MCHC 30.0 L RDW Coeff of Pricila 14.4 Plt Count 169 Immature Gran % (Auto) 0.5 Neut % (Auto) 82.9 H Lymph % (Auto) 7.5 L [place] % (Auto) 7.4 Eos % (Auto) 1.2 Baso % (Auto) 0.5 Neut # (Auto) 5.4 Lymph # (Auto) 0.5 L [place] # (Auto) 0.5 Eos # (Auto) 0.1 Baso # (Auto) 0.0 Immature Gran # (Auto) 0.0 Sodium 140.0 Potassium 4.40 Chloride 101.0 Carbon Dioxide 30.0 Anion Gap 13.40 BUN 24.0 H Creatinine 1.10 Estimated GFR (MDRD) 47.00 BUN/Creatinine Ratio 21.81 Glucose 120.0 H Calcium 9.00 Magnesium 2.10 Total Bilirubin 2.00 H AST 485.0 H ALT 190.0 H Alkaline Phosphatase 390.0 H Total Creatine Kinase Pending Troponin I Pending Total Protein 7.20 Albumin 3.70 Globulin 3.50 Albumin/Globulin Ratio 1.05 Orders Category Date Time Status PLACE PATIENT OBSERVATION .TO MEDSURG (MONITORED BED ADMISSION 10/15/22 21:39 Active ) EKG-(IP & OP ONLY) DAILY CARDIO 10/16/22 06:00 Ordered EKG-(IP & OP ONLY) DAILY CARDIO 10/17/22 06:00 Ordered OXYGEN Routine CARDIO 10/15/22 21:41 Ordered ACTIVITY .Up ad Sachi CARE 10/15/22 21:39 Active INTAKE & OUTPUT Q8HR CARE 10/15/22 21:39 Active IP: INSERT SALINE LOCK ONCE CARE 10/15/22 21:39 Active TELEMETRY MONITORING TELE CARE 10/15/22 21:39 Active VITAL SIGNS Q4HR CARE 10/15/22 21:40 Active VITAL SIGNS Q8HR CARE 10/15/22 21:39 Active CARDIAC DIET DIETARY 10/15/22 Lunch Ordered ED APPLY O2 .ONCE EMERGENCY 10/15/22 17:21 Active ED SNOW RANGER APPLIED .ONCE EMERGENCY 10/15/22 17:21 Active CBC W/ AUTO DIFF DAILY@0600 LAB 10/16/22 06:00 Ordered CBC W/ AUTO DIFF DAILY@0600 LAB 10/17/22 06:00 Ordered CBC W/ AUTO DIFF Stat LAB 10/15/22 17:15 Completed COMPREHENSIVE METABOLIC PANEL DAILY@0600 LAB 10/16/22 06:00 Ordered COMPREHENSIVE METABOLIC PANEL DAILY@0600 LAB 10/17/22 06:00 Ordered COMPREHENSIVE METABOLIC PANEL Stat LAB 10/15/22 17:15 Results CREATINE KINASE Stat LAB 10/15/22 17:15 Results MAGNESIUM Stat LAB 10/15/22 17:15 Completed NT-PROBNP(ED) Stat LAB 10/15/22 17:15 Received TROPONIN I Q8H LAB 10/16/22 03:45 Ordered TROPONIN I Q8H LAB 10/16/22 11:45 Ordered TROPONIN I Stat LAB 10/15/22 17:15 Results Aspirin [Aspirin Chewable] Meds 10/15/22 17:37 Discontinued 324 mg PO ONCE ONE Morphine Sulfate [Morphine 2 mg/ml Syringe] Meds 10/15/22 17:37 Discontinued 2 mg IVP ONCE ONE Morphine Sulfate [Morphine 2 mg/ml Syringe] Meds 10/15/22 21:45 Ordered 2 mg IVP Q10MIN PRN Pantoprazole Sodium [Protonix IV] Meds 10/15/22 21:24 Discontinued 40 mg IVP ONCE STA RESUSCITATION STATUS Routine OTHERS 10/15/22 21:39 Ordered CHEST, 1V AP ONLY Stat RADS 10/15/22 17:[address] ABDOMEN/PELVIS WO CONTRAST Stat RADS 10/15/22 20:49 Taken Medications Generic Name Dose Route Start Last Admin Trade Name Freq PRN Reason Stop Dose Admin Morphine Sulfate 2 mg 10/15/22 21:45 Morphine Sulfate 2 Mg/Ml Syringe IVP Q10MIN PRN Chest Pain Discontinued Medications Generic Name Dose Route Start Last Admin Trade Name Kaycee PRN Reason Stop Dose Admin Aspirin 324 mg 10/15/22 17:37 10/15/22 17:42 Aspirin 81 Mg Tab.Chew PO 10/15/22 17:38 324 mg ONCE ONE Administration Morphine Sulfate 2 mg 10/15/22 17:37 10/15/22 17:42 Morphine Sulfate 2 Mg/Ml Syringe IVP 10/15/22 17:38 2 mg ONCE ONE Administration Pantoprazole Sodium 40 mg 10/15/22 21:24 10/15/22 21:55 Pantoprazole Sodium 40 Mg Vial IVP 10/15/22 21:25 40 mg ONCE STA Administration Vital Signs: Temp Pulse Resp BP Pulse Ox 10/15/22 18:20 62 18 151/72 H 98 10/15/22 17:19 97.8 F 61 18 156/80 H 99 YEMI Risk Score Age >/= 65: Yes >/= 3 CAD Risk Factors: Yes Known CAD (Stenosis >/= 50%): Yes ASA Use in Past 7 Days: Yes Severe Angina (>/= 2 episodes in 24 hours): No EKG ST Changes >/= 0.5mm: No Postive Cardiac Marker: No YEMI Total Score: 4 YEMI Risk Score: Risk Score Odds of by 30D 0 0.1 (0.1-0.2) 1 0.3 (0.2-0.3) 2 0.4 (0.3-0.5) 3 0.7 (0.6-0.9) 4 1.2 (1.0-1.5) 5 2.2 (1.9-2.6) 6 3.0 (2.5-3.6) 7 4.8 (3.8-6.1) Discharge Plan Discharge Patient Disposition: ADMITTED INPATIENT Discharge Problem: Chest pain Did you review [place] [employer]ODUCT [employer]SFER [employer]ER for ALL controlled substances?: Not Applicable ED Provider: ALEXIA LUNA Physician Progress Note: []
[2022-10-15] MEDS ORDERED: PROTONIX IV IVP STA (21:24)
[2022-10-15] MEDS ORDERED: MORPHINE 2 MG/ML SYRINGE IVP PRN (21:45)
--- NOTE | 2022-10-15 22:22 | CT ---
EXAM: CT SCAN ABDOMEN, WITH WITHOUT CONTRAST HISTORY: Upper abdominal pain COMPARISON: CT scan abdomen pelvis 04/16/2022 FINDINGS: Helically acquired axial images were obtained through the abdomen pelvis without contrast utilizing 2.5-mm collimation. Sagittal and coronal reconstructions were imaged and reviewed.. Heart is enlarged with coronary ASVD. There are calcified lymph nodes are seen in the subcarinal and left hilar region. There are benign granulomatous changes at the left lung base . There is right basila r atelectasis. There is a hiatal hernia. There has been prior cholecystectomy. There is intrahepatic biliary ductal dilatation. The common b ile duct measures 1.6 cm. Debris/calculi is seen within the distal common bile duct The pancreas and spleen are unremarkable. Dense atherosclerotic changes are seen involving the aorta without and wit h simple cysts are seen within the bilateral kidneys. Diverticulosis minus. Prior hysterectomy. Th e bladder small volumed limiting evaluation. There is trace amount free fluid in the dependent pelvi s. There is colonic fecal stasis. The appendix was not visualized.. Bone windows reveals no lytic or blastic lesions. IMPRESSION: Cardiomegaly with coronary ASVD. Basilar atelectasis. Hiatal hernia. Intrahepatic biliary ductal dilatation with increasing common bile duct.. Debris/calculus within the distal common bile duct. Extensive diverticulosis without diverticulitis. Prior hysterectomy. All CT scans are performed using dose optimization techniques as appropriate to the performed exam an d include at least one of the following: Automated exposure control, adjustment of the mA and/or kV according t o size, and the use of iterative reconstruction technique.
[2022-10-15] MEDS ORDERED: PERCOCET 7.5-325 PO PRN (23:43)
[2022-10-15 23:58] VITALS: BMI 25.2
[2022-10-16] MEDS ORDERED: TYLENOL PO PRN (00:23)
[2022-10-16] MEDS: IMDUR PO SCH ×3 (00:35→20:35)
[2022-10-16] MEDS: KLONOPIN PO SCH ×2 (00:37→20:35)
[2022-10-16] MEDS: LOPRESSOR PO SCH ×3 (00:38→20:35)
[2022-10-16] MEDS: XARELTO PO SCH ×2 (00:46→17:03)
[2022-10-16 03:57] LABS: BASOPHILS % (AUTO) 0.1 % (0.0-3.0); EOSINOPHILS % (AUTO) 0.1 % (0.0-7.0); HEMATOCRIT 30.9 % (37.0-47.0); HEMOGLOBIN 9.4 g/dl (12.0-16.0); IMMATURE GRANULOCYTE % (AUTO) 0.3 % (0.0-5.0); LYMPHOCYTES # (AUTO) 0.3 K/uL (0.60-3.4); LYMPHOCYTES % (AUTO) 3.5 (10.0-50.0); MEAN CORPUSCULAR HEMOGLOBIN 29.7 pg (27.0-31.0); MEAN CORPUSCULAR HGB CONC 30.4 (31.8-35.4); MEAN CORPUSCULAR VOLUME 97.8 fl (81.0-99.0); MONOCYTES # (AUTO) 0.6 K/uL (0.4-2.0); MONOCYTES % (AUTO) 6.8 (0-10); NEUTROPHILS # (AUTO) 7.8 K/ul (2.0-6.9); NEUTROPHILS % (AUTO) 89.2 % (42.2-75.2); PLATELET COUNT 145 10^3/uL (140-440); RED BLOOD COUNT 3.16 10^6/ul (4.20-5.40)
[2022-10-16 04:07] LABS: TROPONIN I (ISTAT) 0.04 ng/ml (0.00-0.08)
[2022-10-16 04:08] LABS: ALANINE AMINOTRANSFERASE 182.4 U/L (0-35); ALBUMIN 3.08 g/dL (3.5-5.0); ALKALINE PHOSPHATASE 317.2 U/L (53-141); ASPARTATE AMINO TRANSFERASE 345.3 U/L (14-36); BILIRUBIN,TOTAL 3.15 mg/dL (0.2-1.3); BLOOD UREA NITROGEN 21.9 mg/dL (7-17); CALCIUM 8.3 mg/dL (8.4-10.2); CARBON DIOXIDE 32.8 mmol/L (22-30.0); CHLORIDE 99.7 mmol/L (98-107); CREATININE 0.95 mg/dL (0.60-1.30); GLUCOSE 94.6 mg/dL (74-106); POTASSIUM 4.78 mmol/L (3.5-5.1); SODIUM 136.1 mmol/L (134.5-145); TOTAL PROTEIN 6.01 g/dL (6.3-8.2)
[2022-10-16] MEDS: PRILOSEC PO SCH (05:46)
[2022-10-16 06:30] LABS: BILIRUBIN,URINE 1+ (NEGATIVE); CLARITY,URINE Clear (CLEAR); COLOR,URINE Dark (YELLOW); GLUCOSE, URINE (UA) Negative (NEGATIVE); KETONES,URINE Negative (NEGATIVE); LEUKOCYTE ESTERASE ,URINE Negative (NEGATIVE); NITRITE,URINE Negative (NEGATIVE); PROTEIN,URINE 1+ (NEGATIVE); URINE, BLOOD Trace-intact (NEGATIVE)
[2022-10-16 06:32] LABS: URIC ACID 4.8 mg/dL (2.5-6.2)
[2022-10-16 06:34] LABS: BACTERIA,URINE TRACE (NOT PRESENT); URINE WBC, MICROSCOPIC 0-2 (0-2)
[2022-10-16] MEDS ORDERED: NITROSTAT SL PRN (07:29)
[2022-10-16] MEDS ORDERED: KENALOG 0.1% TP PRN (08:13)
[2022-10-16] MEDS ORDERED: ZOFRAN ODT PO PRN (08:14)
[2022-10-16] MEDS: LEXAPRO PO SCH (08:16)
[2022-10-16] MEDS: NEURONTIN PO SCH ×2 (08:16→20:36)
[2022-10-16] MEDS ORDERED: KENALOG 0.1% TP SCH ×2 (09:00)
[2022-10-16] MEDS ORDERED: NON-FORMULARY MEDICATION (Triamcinolone Acetonide 0.1 % ointment) TP SCH (09:00)
[2022-10-16] MEDS ORDERED: ZOFRAN ODT PO SCH (09:00)
[2022-10-17 05:05] LABS: BASOPHILS % (AUTO) 0.5 % (0.0-3.0); EOSINOPHILS # (AUTO) 0.1 K/ul (0.0-0.7); EOSINOPHILS % (AUTO) 2.7 % (0.0-7.0); HEMATOCRIT 31.3 % (37.0-47.0); HEMOGLOBIN 9.5 g/dl (12.0-16.0); IMMATURE GRANULOCYTE % (AUTO) 0.2 % (0.0-5.0); LYMPHOCYTES # (AUTO) 0.4 K/uL (0.60-3.4); LYMPHOCYTES % (AUTO) 9.9 (10.0-50.0); MEAN CORPUSCULAR HEMOGLOBIN 29.6 pg (27.0-31.0); MEAN CORPUSCULAR HGB CONC 30.4 (31.8-35.4); MEAN CORPUSCULAR VOLUME 97.5 fl (81.0-99.0); MONOCYTES # (AUTO) 0.3 K/uL (0.4-2.0); MONOCYTES % (AUTO) 6.1 (0-10); NEUTROPHILS # (AUTO) 3.6 K/ul (2.0-6.9); NEUTROPHILS % (AUTO) 80.6 % (42.2-75.2); PLATELET COUNT 122 10^3/uL (140-440); RED BLOOD COUNT 3.21 10^6/ul (4.20-5.40); WHITE BLOOD COUNT 4.44 K/ul (4.6-10.2)
[2022-10-17 05:30] LABS: ALANINE AMINOTRANSFERASE 138.1 U/L (0-35); ALBUMIN 2.9 g/dL (3.5-5.0); ALKALINE PHOSPHATASE 290.3 U/L (53-141); ASPARTATE AMINO TRANSFERASE 173.9 U/L (14-36); BILIRUBIN,TOTAL 1.89 mg/dL (0.2-1.3); BLOOD UREA NITROGEN 24.2 mg/dL (7-17); CALCIUM 8.23 mg/dL (8.4-10.2); CARBON DIOXIDE 32.5 mmol/L (22-30.0); CHLORIDE 99.2 mmol/L (98-107); CREATININE 1.11 mg/dL (0.60-1.30); POTASSIUM 4.19 mmol/L (3.5-5.1); SODIUM 134.1 mmol/L (134.5-145); TOTAL PROTEIN 5.94 g/dL (6.3-8.2)
[2022-10-17] MEDS: PRILOSEC PO SCH (05:42)
[2022-10-17] MEDS: NEURONTIN PO SCH ×2 (08:42→20:30)
[2022-10-17] MEDS: LEXAPRO PO SCH (08:42)
[2022-10-17] MEDS: IMDUR PO SCH ×2 (08:42→20:30)
[2022-10-17] MEDS: LOPRESSOR PO SCH ×2 (08:43→20:29)
[2022-10-17] MEDS: XARELTO PO SCH (16:10)
[2022-10-17] MEDS: KLONOPIN PO SCH (20:29)
[2022-10-18 05:00] LABS: BASOPHILS % (AUTO) 0.4 % (0.0-3.0); EOSINOPHILS # (AUTO) 0.1 K/ul (0.0-0.7); EOSINOPHILS % (AUTO) 2.7 % (0.0-7.0); HEMATOCRIT 32.5 % (37.0-47.0); HEMOGLOBIN 9.7 g/dl (12.0-16.0); IMMATURE GRANULOCYTE % (AUTO) 0.2 % (0.0-5.0); LYMPHOCYTES # (AUTO) 0.6 K/uL (0.60-3.4); LYMPHOCYTES % (AUTO) 12.1 (10.0-50.0); MEAN CORPUSCULAR HGB CONC 29.8 (31.8-35.4); MEAN CORPUSCULAR VOLUME 97.3 fl (81.0-99.0); MONOCYTES # (AUTO) 0.4 K/uL (0.4-2.0); MONOCYTES % (AUTO) 6.9 (0-10); NEUTROPHILS % (AUTO) 77.7 % (42.2-75.2); PLATELET COUNT 138 10^3/uL (140-440); RED BLOOD COUNT 3.34 10^6/ul (4.20-5.40)
[2022-10-18 05:15] LABS: ALANINE AMINOTRANSFERASE 101.6 U/L (0-35); ALBUMIN 3.07 g/dL (3.5-5.0); ALKALINE PHOSPHATASE 272.4 U/L (53-141); ASPARTATE AMINO TRANSFERASE 87.1 U/L (14-36); BILIRUBIN,TOTAL 0.84 mg/dL (0.2-1.3); BLOOD UREA NITROGEN 20.2 mg/dL (7-17); CALCIUM 8.32 mg/dL (8.4-10.2); CARBON DIOXIDE 31.8 mmol/L (22-30.0); CHLORIDE 100.4 mmol/L (98-107); CREATININE 0.8 mg/dL (0.60-1.30); GLUCOSE 102.6 mg/dL (74-106); POTASSIUM 4.26 mmol/L (3.5-5.1); SODIUM 136.4 mmol/L (134.5-145); TOTAL PROTEIN 5.99 g/dL (6.3-8.2)
[2022-10-18] MEDS: PRILOSEC PO SCH (05:54)
--- NOTE | 2022-10-18 08:46 | PCM.PROG ---
Attending Provider: ATTENDING PROVIDER: Dr. JAGJIT VELASCO MD This patient is seen with Patricia Serrano, Nurse Practitioner. DATE OF SERVICE: 10/18/22 SUBJECTIVE: This 82 year old /WHITE F was hospitalized 10/15/22. Liver enzymes slightly improved. Alkaline phosphatase slightly down. Scheduled for full body nuclear scan due to elevated alkaline phosphatase and liver enzymes. Complaining of intermittent headache, arm pain and back pain. SHe has repeated falls. No chest pain. REVIEW OF SYSTEMS: CONSTITUTIONAL: No night sweats. No fatigue, malaise, lethargy. No fever or chills. HEENT: Eyes: No visual changes. No eye pain. No eye discharge. ENT: No runny no se. No epistaxis. No sinus pain. No odynophagia. No congestion. RESPIRATORY: No cough, no congestion. No hemoptysis. No shortness of breath. CARDIOVASCULAR: No angina symptoms. No CHF symptoms. No atypical chest pain for CAD. No palpitations. No orthopnea.. GASTROINTESTINAL: No abdominal pain. No nausea or vomiting. No diarrhea or constipation. No hematemesis. No hematochezia. GENITOURINARY: No urgency. No frequency. No dysuria. No hematuria. No obstructive symptoms. No discharge. No pain. No significant abnormal bleeding. MUSCULOSKELETAL: No musculoskeletal pain; no joint swelling. Generalized pain. NEUROLOGICAL: Awake, alert, oriented to time, place and person. No headache. No neck pain. No syncope. No seizures. No dizziness. PSYCHIATRIC: Not anxious. No depression. No suicidal thoughts. No homicidal thoughts. SKIN: No rash. No lesions. No wounds. ENDOCRINE: No unexplained weight loss. No weight gain. HEMATOLOGIC/LYMPHATIC: No anemia. No purpura. No petechiae. No prolonged or exc essive bleeding. No palpable lymph nodes. PHYSICAL EXAMINATION: GENERAL: The patient is awake, alert and oriented, sitting in bed in no distress. VITAL SIGNS: Temperature 98.4 F, Pulse 54, Respiratory Rate 16, BP 117/73, Pulse Ox 96% HEENT: Head normocephalic, atraumatic. Eyes: Extraocular muscles are intact. Pupils are equal, round and reactive to light and accommodation. Ears: No lesions. Nose appeared normal. Throat: No exudate or erythema. NECK: Supple. No JVD, no carotid bruit. No lymphadenopathy or thyromegaly. LUNGS: Diminished breath sounds. Clear to auscultation. Percussion note normal. Chest symmetrical. HEART: S1, S2, no S3. No murmurs. No cyanosis or clubbing. No ascites. Pulses: Dorsalis pedis and posterior tibial pulses +1 to +2 both sides. ABDOMEN: Soft. Non-tender. Bowel sounds active. No CVA tenderness. No mass felt. EXTREMITIES: No edema. Full range of motion of all extremities, equal. NEUROLOGIC: No focal deficit. Cranial nerves II through XII are grossly intact. No headache. No double vision. SKIN: Not dry. Intact. Turgor-normal. LYMPHATIC: No palpable lymph nodes/no lymphedema. MUSCULOSKELETAL: Normal joints with no swelling. Muscle tone is normal. LAB REVIEW: 10/18/22 04:45 10/18/22 04:45 10/18/22 04:45: WBC 5.20, RBC 3.34 L, Hgb 9.7 L, Hct 32.5 L, MCV 97.3, MCH 29.0, MCHC 29.8 L, RDW Coeff of Pricila 14.0, Plt Count 138 L, Immature Gran % (Auto) 0.2, Neut % (Auto) 77.7 H, Lymph % (Auto) 12.1, [place] % (Auto) 6.9, Eos % (Auto) 2.7, Baso % (Auto) 0.4, Neut # (Auto) 4.0, Lymph # (Auto) 0.6, [place] # (Auto) 0.4, Eos # (Auto) 0.1, Baso # (Auto) 0.0, Immature Gran # (Auto) 0.0, Sodium 136.4, Potassium 4.26, Chloride 100.4, Carbon Dioxide 31.8 H, Anion Gap 8.46, BUN 20.2 H, Creatinine 0.80, Estimated GFR (MDRD) 68.00, BUN/Creatinine Ratio 25.25, Glucose 102.6, Calcium 8.32 L, Total Bilirubin 0.84, AST 87.1 H D, ALT 101.6 H D , Alkaline Phosphatase 272.4 H, Total Protein 5.99 L, Albumin 3.07 L, Globulin 2.92, Albumin/Globulin Ratio 1.05 ASSESSMENT: Please see below. 1. Atypical chest pain 2. Elevated liver enzymes 3. Elevated Alkaline phosphatase 4. Chronic anemia 5. Atrial fibrillation PLAN: 1. Unable to get BNP due to lab 2. U/A normal 3. Hepatitis panel was done in September and was normal 4. Will plan for whole body nuclear scan Plan and coordination of the patient's care discussed in the presence of Retail Stock Clerk and nurse. SCRIBED BY: Mario GARLAND scribed while in presence of service performed by Patricia Serrano APRN on 10/18/22 ([id number])
[2022-10-18] MEDS ORDERED: DYAZIDE PO SCH (09:00)
[2022-10-18] MEDS: NEURONTIN PO SCH ×2 (09:31→20:36)
[2022-10-18] MEDS: IMDUR PO SCH ×2 (09:31→20:36)
[2022-10-18] MEDS: LOPRESSOR PO SCH ×2 (09:32→20:35)
[2022-10-18] MEDS: LEXAPRO PO SCH (09:32)
[2022-10-18 09:59] LABS: BILIRUBIN,URINE Negative (NEGATIVE); CLARITY,URINE Clear (CLEAR); COLOR,URINE Yellow (YELLOW); GLUCOSE, URINE (UA) Negative (NEGATIVE); KETONES,URINE Negative (NEGATIVE); LEUKOCYTE ESTERASE ,URINE 1+ (NEGATIVE); NITRITE,URINE Negative (NEGATIVE); PH,URINE 5.5 (5-9); PROTEIN,URINE Trace (NEGATIVE); URINE, BLOOD Trace-intact (NEGATIVE); UROBILINOGEN,URINE 0.2 (0.2)
[2022-10-18 10:11] LABS: BACTERIA,URINE 1+ (NOT PRESENT)
[2022-10-18] MEDS: XARELTO PO SCH (16:41)
[2022-10-18] MEDS: KLONOPIN PO SCH (20:37)
[2022-10-19 04:57] LABS: BASOPHILS % (AUTO) 0.7 % (0.0-3.0); EOSINOPHILS # (AUTO) 0.1 K/ul (0.0-0.7); EOSINOPHILS % (AUTO) 3.1 % (0.0-7.0); HEMATOCRIT 30.3 % (37.0-47.0); HEMOGLOBIN 9.2 g/dl (12.0-16.0); IMMATURE GRANULOCYTE % (AUTO) 0.5 % (0.0-5.0); LYMPHOCYTES # (AUTO) 0.6 K/uL (0.60-3.4); LYMPHOCYTES % (AUTO) 13.7 (10.0-50.0); MEAN CORPUSCULAR HEMOGLOBIN 29.5 pg (27.0-31.0); MEAN CORPUSCULAR HGB CONC 30.4 (31.8-35.4); MEAN CORPUSCULAR VOLUME 97.1 fl (81.0-99.0); MONOCYTES # (AUTO) 0.3 K/uL (0.4-2.0); MONOCYTES % (AUTO) 8.1 (0-10); NEUTROPHILS # (AUTO) 3.1 K/ul (2.0-6.9); NEUTROPHILS % (AUTO) 73.9 % (42.2-75.2); PLATELET COUNT 131 10^3/uL (140-440); RDW COEFFICIENT OF VARIATION 13.7 % (11.6-14.8); RED BLOOD COUNT 3.12 10^6/ul (4.20-5.40); WHITE BLOOD COUNT 4.22 K/ul (4.6-10.2)
[2022-10-19 05:08] VITALS: BP 124/69; PULSE 50; RESP 16; TEMP 97.9
[2022-10-19 05:12] LABS: ALANINE AMINOTRANSFERASE 73.9 U/L (0-35); ALBUMIN 2.9 g/dL (3.5-5.0); ALKALINE PHOSPHATASE 222.3 U/L (53-141); ASPARTATE AMINO TRANSFERASE 55.5 U/L (14-36); BILIRUBIN,TOTAL 0.7 mg/dL (0.2-1.3); BLOOD UREA NITROGEN 19.4 mg/dL (7-17); CALCIUM 8.63 mg/dL (8.4-10.2); CARBON DIOXIDE 36.5 mmol/L (22-30.0); CHLORIDE 101.4 mmol/L (98-107); CREATININE 0.77 mg/dL (0.60-1.30); GLUCOSE 94.8 mg/dL (74-106); POTASSIUM 4.53 mmol/L (3.5-5.1); SODIUM 136.5 mmol/L (134.5-145); TOTAL PROTEIN 5.75 g/dL (6.3-8.2)
[2022-10-19] MEDS: PRILOSEC PO SCH (05:38)
[2022-10-19] MEDS: NEURONTIN PO SCH (09:10)
[2022-10-19] MEDS: LEXAPRO PO SCH (09:10)
[2022-10-19] MEDS: LOPRESSOR PO SCH (09:11)
[2022-10-19] MEDS: IMDUR PO SCH (09:12)
--- NOTE | 2022-10-19 09:38 | HP ---
DATE OF SERVICE: 10/15/22 REASON FOR HOSPITALIZATION/HISTORY OF PRESENT ILLNESS: 82 year old white female came to the emergency room with chest pain. The patient's chest pain was fairly atypical. The patient has 4th intercostal space left sided pain which was more localized. On physical exam was tender to touch. The patient's other positive findings were she had abnormal liver profile. She has a history of abnormal liver profile but that has worsened. The blood tests that were done with Alkaline phosphatase of 390 with ALT 190 and AST of 485. The patient denied of any right upper quadrant pain, no nausea, no vomiting. PAST MEDICAL HISTORY/PAST SURGICAL HISTORY: Coronary artery disease Dyslipidemia Depression Hypertension Atrial fibrillation Osteoarthritis DJD of the spine. REVIEW OF SYSTEMS: CONSTITUTIONAL: No night sweats. No fatigue, malaise, lethargy. No fever or chills. HEENT: Eyes: No visual changes. No eye pain. No eye discharge. ENT: No runny nose. No epistaxis. No sinus pain. No sore throat. No odynophagia. No ear pain. No congestion. RESPIRATORY: No cough, no congestion. No hemoptysis. No shortness of breath. CARDIOVASCULAR: No angina symptoms. No CHF symptoms. Chest pain as described which was fairly atypical for CAD. No palpitations. No PND. No orthopnea. GASTROINTESTINAL: No abdominal pain. No nausea or vomiting. No diarrhea or constipation. No hematemesis. No hematochezia. GENITOURINARY: No urgency. No frequency. No dysuria. No hematuria. No obstructive symptoms. No discharge. No pain. No significant abnormal bleeding. MUSCULOSKELETAL: No musculoskeletal pain. No joint swelling. No arthritis. NEUROLOGICAL: No headache. No neck pain. No syncope. No seizures. No dizziness. PSYCHIATRIC: Not anxious. No depression. No suicidal thoughts. No homicidal thoughts. SKIN: No rash. No lesions. No wounds. ENDOCRINE: No unexplained weight loss. No weight gain. HEMATOLOGIC/LYMPHATIC: No anemia. No purpura. No petechiae. No prolonged or excessive bleeding. No palpable lymph nodes. PERSONAL/FAMILY/SOCIAL HISTORY: The patient is . Nonsmoker. No alcohol abuse. The daughters are taking care of her. MEDICATIONS: ALLERGIES: Iodinated contrast media Panglobulin iodinated contrast PHYSICAL EXAMINATION: GENERAL: The patient is, no distress. She is oriented to time, place and person. VITAL SIGNS: Temperature 98.5, pulse 60, respiratory rate 16, blood pressure 104/60 systolic with pulse ox 94%. HEENT: Head normocephalic, atraumatic. Eyes: Extraocular muscles are intact. Pupils are equal, round and reactive to light and accommodation. Ears: No lesions. Nose appeared normal. Throat: No exudate or erythema. NECK: Supple. No JVD, no carotid bruit. No lymphadenopathy or thyromegaly. LUNGS: Clear to auscultation. Percussion note normal. Chest symmetrical. HEART: S1, S2, no S3. No murmur. No cyanosis or clubbing. No ascites. Pulses: Dorsalis pedis and posterior tibial pulses +1 to +2 bilaterally. ABDOMEN: localized tenderness in the intracostal area 5th intracostal area left side. Soft. Nontender. Bowel sounds active. No CVA tenderness. No mass felt. EXTREMITIES: No edema. Full range of motion of all extremities, equal. NEUROLOGIC: No focal deficit. Cranial nerves II through XII are grossly intact. No headache, no double vision or headache. SKIN: Not dry. Intact. Turgor - normal. LYMPHATIC: No palpable lymph nodes/no lymphedema. MUSCULOSKELETAL: Normal joints with no swelling. Muscle tone is normal. LABS: 47cc per minute AST, ALT 485 respectively, Alkaline phosphatase 390. Hgb 10.1, hct 33, WBC 6,500 with mild shift to the left, creatinine 1.1, BUN 24. ASSESSMENT: 1. Chest pain seems to be noncardiac 2. Coronary artery disease 3. Chronic anemia 4. Hypotension 5. Dyslipidemia 6. Osteoarthritis 7. Atrial fibrillation PLAN: 1. Continue all the medication as before 2. Discontinue Lipitor 3. CT scan of the abdomen 4. Serial CBC and CMP 5. Routine telemetry orders with Cardiac markers 6. Echocardiogram to evaluate LV function 7. The patient is DO NOT INTUBATE CONDITION: Stable Case discussed with the family. TIME SPENT: More than 75 minutes. [facility] MED[facility] CENTERDerek
--- NOTE | 2022-10-19 10:38 | PN ---
DATE OF SERVICE: 10/16/22 SUBJECTIVE: 82 year old white female hospitalized with chest pain which was fairly atypical. Pain was sharp shooting. The patient has localized tenderness from physical exam. REVIEW OF SYSTEMS: CONSTITUTIONAL: No night sweats. No fatigue, malaise, lethargy. No fever or chills. HEENT: Eyes: No visual changes. No eye pain. No eye discharge. ENT: No runny nose. No epistaxis. No sinus pain. No sore throat. No odynophagia. No congestion. RESPIRATORY: No cough, no congestion. No hemoptysis. No shortness of breath. CARDIOVASCULAR: No angina symptoms. No CHF symptoms. No atypical chest pain for CAD. No palpitations. No PND. No orthopnea. GASTROINTESTINAL: No abdominal pain. No nausea or vomiting. No diarrhea or constipation. No hematemesis. No hematochezia. GENITOURINARY: No urgency. No frequency. No dysuria. No hematuria. No obstructive symptoms. No discharge. No pain. No significant abnormal bleeding. MUSCULOSKELETAL: No musculoskeletal pain; no joint swelling. NEUROLOGICAL: No headache. No neck pain. No syncope. No seizures. No dizziness. PSYCHIATRIC: Not anxious. No depression. No suicidal thoughts. No homicidal thoughts. SKIN: No rash. No lesions. No wounds. ENDOCRINE: No unexplained weight loss. No weight gain. HEMATOLOGIC/LYMPHATIC: No anemia. No purpura. No petechiae. No prolonged or excessive bleeding. No palpable lymph nodes. PHYSICAL EXAMINATION: HEENT: Head normocephalic, atraumatic. Eyes: Extraocular muscles are intact. Pupils are equal, round and reactive to light and accommodation. Ears: No lesions. Nose appeared normal. Throat: No exudate or erythema. NECK: Supple. No JVD, no carotid bruit. No lymphadenopathy or thyromegaly. LUNGS: Clear to auscultation. Percussion note normal. Chest symmetrical. HEART: S1, S2, no S3. No murmurs. No cyanosis or clubbing. No ascites. Pulses: Dorsalis pedis and posterior tibial pulses +1 to +2 bilaterally. ABDOMEN: Soft. Nontender. Bowel sounds active. No CVA tenderness. No mass felt. EXTREMITIES: No edema. Full range of motion of all extremities, equal. NEUROLOGIC: No focal deficit. Cranial nerves II through XII are grossly intact. No headache. No double vision. SKIN: Not dry. Intact. Turgor - normal. LYMPHATIC: No palpable lymph nodes/no lymphedema. MUSCULOSKELETAL: Normal joints with no swelling. Muscle tone is normal. LABS: Hgb 9.4, hct 30, WBC 8,800 normal differential, creatinine 0.9, BUN 21, potassium 4.7. ALT, AST and alkaline phosphatase are slightly better. No abdominal pain, no nausea, no vomiting. CT scan of the abdomen was practically negative for any acute findings. ASSESSMENT: 1. Chest pain seems to be fairly atypical. No evidence of acute OR, Ischemia, the patient's EKG times two has shown atrial fibrillation with low voltage. No acute findings noted. Nonspecific ST-T wave changes noted. Cardiac markers negative. PLAN: 1. Continue to monitor liver functions and also monitor telemetry 2. Echo 3. Advised to the patient to eat and drink lots of fluids. TIME SPENT: More than 35 minutes. Plan and coordination of the patient's care discussed in the presence of nurse. ANDREW
--- NOTE | 2022-10-19 11:05 | PN ---
DATE OF SERVICE: 10/17/22 SUBJECTIVE: 82 year old white female hospitalized with chest pain, which was fairly atypical. The patient does not have any pain anymore after initial episode when she had in the emergency room. One of the daughters present in the room. REVIEW OF SYSTEMS: CONSTITUTIONAL: No night sweats. No fatigue, malaise, lethargy. No fever or chills. HEENT: Eyes: No visual changes. No eye pain. No eye discharge. ENT: No runny nose. No epistaxis. No sinus pain. No sore throat. No odynophagia. No congestion. RESPIRATORY: No cough, no congestion. No hemoptysis. No shortness of breath. CARDIOVASCULAR: No angina symptoms. No CHF symptoms. No atypical chest pain for CAD. No palpitations. No PND. No orthopnea. GASTROINTESTINAL: Appetite has improved. No abdominal pain. No nausea or vomiting. No diarrhea or constipation. No hematemesis. No hematochezia. GENITOURINARY: No urgency. No frequency. No dysuria. No hematuria. No obstructive symptoms. No discharge. No pain. No significant abnormal bleeding. MUSCULOSKELETAL: No musculoskeletal pain; no joint swelling. NEUROLOGICAL: No headache. No neck pain. No syncope. No seizures. No dizziness. PSYCHIATRIC: Not anxious. No depression. No suicidal thoughts. No homicidal thoughts. SKIN: No rash. No lesions. No wounds. ENDOCRINE: No unexplained weight loss. No weight gain. HEMATOLOGIC/LYMPHATIC: No anemia. No purpura. No petechiae. No prolonged or excessive bleeding. No palpable lymph nodes. PHYSICAL EXAMINATION: GENERAL: The patient was oriented to time, place and person. VITAL SIGNS: Temperature 98.1, pulse 66, respiratory rate 16 and blood pressure 134/64 and pulse ox 97% on room air. HEENT: Head normocephalic, atraumatic. Eyes: Extraocular muscles are intact. Pupils are equal, round and reactive to light and accommodation. Ears: No lesions. Nose appeared normal. Throat: No exudate or erythema. NECK: Supple. No JVD, no carotid bruit. No lymphadenopathy or thyromegaly. LUNGS: Clear to auscultation. Percussion note normal. Chest symmetrical. HEART: S1, S2, no S3. No murmurs. No cyanosis or clubbing. No ascites. Pulses: Dorsalis pedis and posterior tibial pulses +1 to +2 bilaterally. ABDOMEN: Soft. Nontender. Bowel sounds active. No CVA tenderness. No mass felt. EXTREMITIES: No edema. Full range of motion of all extremities, equal. NEUROLOGIC: No focal deficit. Cranial nerves II through XII are grossly intact. No headache. No double vision. SKIN: Not dry. Intact. Turgor - normal. LYMPHATIC: No palpable lymph nodes/no lymphedema. MUSCULOSKELETAL: Normal joints with no swelling. Muscle tone is normal. LABS: Hgb 9.5, hct 31, WBC 4,400 normal differential, creatinine 1.1, BUN 24, potassium 4.1. AST and ALT better, 173 and 138. Dropped quite a bit from 10/15/22. Alkaline phosphatase from 390 down 290. ASSESSMENT: 1. Chest pain, atypical EKG unchanged. No acute changes. Cardiac markers are negative. 2. Abnormal liver profile seems to be improving. PLAN: 1. With the bone scan to rule out any bone METS with elevation of Alkaline phosphatase the patient has no history of alcohol abuse. Other possibility is liver cirrhosis which didn't show up on CAT scan. 2. Echo in the morning. 3. Discontinue Lipitor as done before. CONDITION: Stable. TIME SPENT: More than 35 minutes. Plan and coordination of the patient's care discussed in the presence of nurse. ANDREW
[2022-10-19 18:02] LABS: TROPONIN I 0.038 ng/ml (0.0000-0.120)
[2022-10-19 23:50] LABS: CREATINE KINASE 36.4 U/L (30-135)
[2022-10-20 00:03] LABS: TROPONIN I 0.013 ng/ml (0.0000-0.120)
--- NOTE | 2022-10-20 09:27 | NM ---
EXAM: WHOLE-BODY BONE SCAN. HISTORY: Elevated alkaline phosphatase. COMPARISON: None of this type. CT 10/07/2022. CT 01/08/2019. PROCEDURE: The patient was injected with 24.3 mCi of 99m technetium MDP intravenously. After an appr opriate interval, whole-body anterior and posterior images were obtained. Additional spot images wer e obtained. FINDINGS: The thoracic and lumbar spine demonstrate age appropriate findings with good correlation w ith recent CT examination demonstrating a levoconvex scoliosis of the lumbar level with associated mu ltilevel degenerative changes in discs and endplates and facet joints. There is focal activity overl loki the left facet at L1. There is a linear group of lesions in the anterolateral left third, fourt h and fifth ribs which based on distribution may represent trauma. There is more subtle activity in the costovertebral junction of the right eleventh rib and in the midportion of the eleventh rib and n ear the costovertebral junction of the right tenth rib which could also be associated with trauma. Th e ribcage is otherwise normal in appearance. The pelvic skeleton is normal in appearance. The centra l pelvis is obscured by bladder activity which limits evaluation. The kidneys and bladder demonstrate normal, physiologic activity. The lower extremeties demonstrate age appropriate activity in the shelia or joints. The patient has a right knee prosthesis which shows normal activity. There are findings c onsistent with degenerative arthritis in the left knee. There is relatively intense activity in the right ankle of undetermined origin. Correlation with history of trauma is suggested. There is more modest activity in the dorsal mid feet bilaterally and left ankle. The upper extremeties demonstrate age appropriate levels of activity in the major joints. There is modest increased activity in the low er cervical spine which may be associated with degenerative change. This would correlate with findin gs on the patient's most recent available CT of the cervical spine. There is modest increased activi ty overlying the paranasal sinuses which may be due to inflammatory disease. The calvarium and face o therwise demonstrate a normal distribution of activity. IMPRESSION: 1. The thoracic and lumbar spine demonstrate findings consistent with degenerative change including a levoconvex scoliosis of the lumbar level with good correlation with available recent CT images. 2. There are several foci of increased activity in the rib cage including the anterolateral left thi rd, fourth and fifth ribs and posterior right eleventh and tenth ribs which could be due to fracture. This might the a cause for the patient's recent report chest pain. 3. There normal findings in the pelvis excluding portions obscured by bladder activity. 4. The patient's right knee prosthesis appears normal there is relatively intense activity in the ri ght ankle which could be due to trauma. Clinical correlation is suggested. 5. There is modest increased activity in the cervical spine which may be associated with the CT demo nstrated degenerative changes. Additional findings are listed in the report.
--- NOTE | 2022-10-21 09:41 | ECHO2D ---
Date of Exam: 10/19/2022 Ordering Physician: DR. JAGJIT VELASCO Room #: 122 Reason for Echo: ATRIAL FIBRILLATION, CHEST PAIN M-Mode Normal Adult Results LV Dimensions Normal Adult Results AoV Opening excursions >1.6 1.4 LVEDD-base- 3.5-5.8 4.9 Ao root dimensions 2.0-3.7 3.0 LVESD-base- 3.1-4.6 L. Atrium dimensions 1.9-3.8 6.1 Post. Wall thickness 0.8-1.1 1.2 IV septum (thickness) 0.7-1.2 1.2 Post. Wall excursion 0.72-1.3 NORMAL Septal motion 0.9 Systolic motion R. Ventricular cavity 1.5-2.0 NORMAL LVEF 60% 52% Paradoxical septal wall motion NORMAL 2-D : CALCIFIC AORTIC VALVE--ENLARGED LEFT ATRIAL SIZE, NO EFFUSION, NO THROMBUS--TRICUSPID VALVE, PULMONARY VALVE AND MITRAL VALVE ARE NORMAL, HYPOKINETIC SEPTAL WALL, LEFT VENTRICLE SIZE NORMAL M-MODE: MV: NORMAL AV: CALCIFIC WITH MILD AORTIC STENOSIS TV: NORMAL PV: NORMAL CHAMBER SIZE: ENLARGED LEFT ATRIAL CAVITY WALL MOTION: HYPOKINETIC SEPTAL WALL PERICARDIUM: NORMAL INTERPRETATION: 1. LEFT VENTRICLE HYPERTROPHY 2. CALCIFIC MILD AORTIC STENOSIS 3. ENLARGED LEFT ATRIAL CAVITY 4. HYPOKINETIC SEPTAL WALL EJECTION FRACTION 52% MTDD
--- NOTE | 2022-10-26 09:32 | PN ---
DATE OF SERVICE: 10/19/22 SUBJECTIVE: The patient was seen and examined today. The patient's condition is stable, she is feeling a lot better. She had a bone scan done, the report is pending. The bone scan was run because of elevated alkaline phosphatase with abnormal liver profile. The patient's chest pain had subsided immediately after her admission, no more chest pain. The patient had an echo done this morning which showed ejection fraction close to 50%, normal LV size, enlarged LA cavity. REVIEW OF SYSTEMS: CONSTITUTIONAL: No night sweats. No fatigue, malaise, lethargy. No fever or chills. HEENT: Eyes: No visual changes. No eye pain. No eye discharge. ENT: No runny nose. No epistaxis. No sinus pain. No sore throat. No odynophagia. No congestion. RESPIRATORY: No cough, no congestion. No hemoptysis. No shortness of breath. CARDIOVASCULAR: No angina symptoms. No CHF symptoms. No atypical chest pain for CAD. No palpitations. No PND. No orthopnea. GASTROINTESTINAL: No abdominal pain. No nausea or vomiting. No diarrhea or constipation. No hematemesis. No hematochezia. GENITOURINARY: No urgency. No frequency. No dysuria. No hematuria. No obstructive symptoms. No discharge. No pain. No significant abnormal bleeding. MUSCULOSKELETAL: No musculoskeletal pain; no joint swelling. NEUROLOGICAL: No headache. No neck pain. No syncope. No seizures. No dizziness. PSYCHIATRIC: Not anxious. No depression. No suicidal thoughts. No homicidal thoughts. SKIN: No rash. No lesions. No wounds. ENDOCRINE: No unexplained weight loss. No weight gain. HEMATOLOGIC/LYMPHATIC: No anemia. No purpura. No petechiae. No prolonged or excessive bleeding. No palpable lymph nodes. PHYSICAL EXAMINATION: HEENT: Head normocephalic, atraumatic. Eyes: Extraocular muscles are intact. Pupils are equal, round and reactive to light and accommodation. Ears: No lesions. Nose appeared normal. Throat: No exudate or erythema. NECK: Supple. No JVD, no carotid bruit. No lymphadenopathy or thyromegaly. LUNGS: Decreased breath sounds but clear to auscultation. Percussion note normal. Chest symmetrical. HEART: S1, S2, no S3. No murmurs. No cyanosis or clubbing. No ascites. Pulses: Dorsalis pedis and posterior tibial pulses +1 to +2 bilaterally. ABDOMEN: Soft. Nontender. Bowel sounds active. No CVA tenderness. No mass felt. EXTREMITIES: No edema. Full range of motion of all extremities, equal. NEUROLOGIC: No focal deficit. Cranial nerves II through XII are grossly intact. No headache. No double vision. SKIN: Not dry. Intact. Turgor - normal. LYMPHATIC: No palpable lymph nodes/no lymphedema. MUSCULOSKELETAL: Normal joints with no swelling. Muscle tone is normal. ASSESSMENT: 1. Chest pain, resolved 2. Abnormal liver profile, elevated alkaline phosphatase PLAN: 1. Bone scan pending 2. Discharge home to be continued on the same medications 3. Discontinue Lipitor 4. The patient will undergo Lipid profile and Alkaline phosphatase etc. as an outpatient. TIME SPENT: More than 35 minutes. Plan and coordination of the patient's care discussed in the presence of nurse. ANDREW
--- NOTE | 2022-10-26 10:27 | DS ---
DATE OF SERVICE: 10/19/22 FINAL DIAGNOSIS: 1. Chest pain, atypical localized intercostal, likely costal chondritis 2. Abnormal liver profile, etiology unknown 3. Coronary artery disease 4. Dyslipidemia 5. History of hypertension 6. Chronic anemia 7. Chronic atrial fibrillation DISCHARGE INSTRUCTIONS: Discharge home. The patient is advised to continue the same medication as before. Discontinue Lipitor. Advised not to take any nonsteroidal antiinflammatory. MEDICATIONS AT DISCHARGE: Nitrostat Tylenol Gabapentin Clonazepam Escitalopram Omeprazole Isosorbide Metoprolol Rivaroxaban Sodium polystyrene Oxycodone-acetaminophen Triamterene-Hydrochlorothiazide Ondansetron Triamcinolone DISCONTINUED MEDICATIONS: Lipitor HOSPITAL COURSE: The patient was hospitalized with atypical chest pain. The patient was ruled out to NC or ischemia. Her cardiac markers and EKG remained unchanged. The patient has atrial fibrillation which is chronic. During the stay in the hospital the patient's liver enzymes were found to be elevated especially SGPT/SGOT and Alkaline phosphatase that were present first two days they dropped a bit. At the time of discharge the patient was feeling a lot better. She was practically asymptomatic from her abnormal liver profile. She underwent bone scan to rule out to rule out any bone METS. CT scan of the abdomen was unremarkable as far as the liver part is concerned. The patient's condition is stable. She is DO NOT INTUBATE. She was advised to discontinue her Lipitor. TIME SPENT: 70 minutes MTDD
--- NOTE | 2022-10-26 10:28 | PN ---
ADMISSION: LEVEL 5 REST OF THEM: INTERMEDIATE FINAL DAY: D IN DISCHARGE MTDD
== END 2022-10-19 13:46 | disposition home or self-care (01) ==
LOC: MEDSURG B 17:18 → ED 17:18 → MEDSURG B 22:34
PROVIDERS: ADMIT Internal Medicine; ATTEND Internal Medicine

== ENCOUNTER 2023-04-15 08:27 | Inpatient (IN) ==
[2023-04-15 09:13] LABS: HEMATOCRIT 34.2 % (37.0-47.0); HEMOGLOBIN 10.5 g/dl (12.0-16.0); MEAN CORPUSCULAR HEMOGLOBIN 28.5 pg (27.0-31.0); MEAN CORPUSCULAR HGB CONC 30.7 (31.8-35.4); MEAN CORPUSCULAR VOLUME 92.9 fl (81.0-99.0); PLATELET COUNT 155 10^3/uL (140-440); RDW COEFFICIENT OF VARIATION 16.4 % (11.6-14.8); RED BLOOD COUNT 3.68 10^6/ul (4.20-5.40); WHITE BLOOD COUNT 6.48 K/ul (4.6-10.2)
--- NOTE | 2023-04-15 09:13 | ED.PDOC ---
General ED Provider: Dr. CHARLES THOMAS DO Chief Complaint: Weakness Stated Complaint: Patient is a 82 yo F here for BL LE weakness for 3+ days Patient arrives afebrile and vitally stable by ems PMH: COPD-2L PRN, CAD, HTN, Afib on xarelto Patient speaking in full senteces, initally hypoxic 70%, 2L on nasal canula 92% She has COPD, prescribed 2L NC PRN No falls or injuries Patient denies chest pressure or chest pain She reports BL LE weakness and not feeling well No chest pain or chest pressure, no rashes or sob No dizziness Patient pleasant to speak with Daughter mikayla she had a broken femur and heart attack last year, recently goot out of acute rehab, daughter wants her back to acute rehab to get stronger, then come home and trial home health, she does not want her to be placed in a SNF, Daughter reprots she has been more confused and not ambulating as well. Daughter reprots she fell 3 months ago, had surgeyr for broekn femur, then nstemi and sent to [facility]. Daughter would like her risperidone refilled Time Seen by Provider: 04/15/23 08:38 Information Source: Patient, Family and EMT Primary Care Provider: JAGJIT HERNANDEZ MD Nursing and Triage Documentation Reviewed and Agree: Yes What is Opioid Naive?: *Opioid Naive implies the patient is not already taking opioids or not chronically receiving opioids on a daily basis. *PRN dosing is not "usually" associated with tolerance. *Patients are at higher risk of over-sedation and aspiration. What is Opioid Tolerant?: *Opioid Tolerance implies less than the expected response to an opioid. *Acquired tolerance is defined by the patient taking 60mg of oral morphine daily (or equianalgesic dose of another opioid) for 1 week or more. *Often associated with chronic pain. *May take more than usual dose to achieve desired pain control. Review of Systems Review Of Systems Constitutional: Reports Weakness; Denies Chills or Fever Eyes: Denies Blindness or Vision change Ears, Nose, Mouth, Throat: Denies Ear pain, Nose pain or Throat pain Respiratory: Reports Shortness of Breath; Denies Cough or Wheezing Cardiac: Denies Chest pain, Palpitations or Syncope GI: Denies Abdominal pain, Constipated or Diarrhea : Denies Burning or Dysuria Musculoskeletal: Denies Back pain or Joint pain Skin: Denies Bruising or Rash Neurological: Denies Anxiety or Depressed Endocrine: Reports No symptoms Hematologic/Lymphatic: Reports No symptoms All Other Systems: Reviewed and Negative [facility] Medical History Acute UTI (urinary tract infection) N39.0 - URINARY TRACT INFECTION, SITE NOT SPECIFIED (ICD-10) Anesthesia complication T41.45XA - Adverse effect of unspecified anesthetic, initial encounter (ICD- 10) Atherosclerosis of coronary artery I25.10 - Atherosclerotic heart disease of [place] coronary artery without angina pectoris (ICD-10) Diverticulitis K57.92 - DVTRCLI OF INTEST, PART UNSP, W/O PERF OR ABSCESS W/O BLEED (ICD- 10) Gastroenteritis K52.9 - Noninfective gastroenteritis and colitis, unspecified (ICD-10) History of seasonal allergies Z88.9 - Allergy status to unspecified drugs, medicaments and biological substances status (ICD-10) Nasal bone fracture S02.2XXA - Fracture of nasal bones, initial encounter for closed fracture (ICD-10) Vaginal bleeding, abnormal N93.9 - ABNORMAL UTERINE AND VAGINAL BLEEDING, UNSPECIFIED (ICD-10) Family History SISTER Lung cancer, Onset Age: 57 Abuse, drug or alcohol BROTHER Lung cancer, Onset Age: 37 Mother Hyperthyroidism, Onset Age: 83 FATHER Abuse, drug or alcohol Social History Smoking and tobacco status: Never smoker Alcohol intake: never Substance use type: does not use Housing: house Current occupational status: retired Pets and animals: Yes History of recent travel: No Seatbelt use: always Water heater temperature set < 120 degrees: Yes Working smoke detector in home: Yes Fire extinguisher in home: Yes Carbon monoxide detector in home: Yes Firearms in home: No Surgical History H/O knee surgery Z98.890 - Other specified postprocedural states (ICD-10) H/O tubal ligation Z98.51 - Tubal ligation status (ICD-10) History of appendectomy Z90.49 - Other specified postprocedural states (ICD-10) History of cholecystectomy Z90.49 - Other specified postprocedural states (ICD-10) History of joint surgery Z98.890 - Other specified postprocedural states (ICD-10) History of left heart catheterization Z98.890 - Other specified postprocedural states (ICD-10) History of total right knee replacement (TKR) Z96.651 - Presence of right artificial knee joint (ICD-10) Status post hysterectomy Z90.710 - Acquired absence of both cervix and uterus (ICD-10) Female Reproductive History Menstrual Hx Hysterectomy: Yes Hx Tubal Ligation: No Physical Exam Physical Exam Appearance: Reports Well-appearing and Well-nourished Ill-appearing: Not Applicable Pain Distress: Not Applicable Eyes: Reports HUSSAIN and EOMI ENT: Reports Ears normal, Nose normal and Other (Uvula midline) Neck: Supple Respiratory: Reports Airway patent and Breath sounds clear; Denies Wheezes Cardiovascular: Reports RRR and Pulses normal GI/: Reports Soft, Nontender and Other (No guarding or peritonitis) Musculoskeletal: Reports Normal strength, ROM intact and Edema (BL 1+ pedal edema) Skin: Reports Warm and Dry Neurological: Reports Sensation intact and Motor intact Psychiatric: Reports Affect appropriate and Mood appropriate Interpretation EKG Interpretation EKG Interpretation By: ED Physician Time of EKG #1: 09:25 Interpretation: afib rate 77 no stemi qt 436ms Course Course 04/15/23 08:57 04/15/23 08:57 Orders, Labs, Meds: Lab Review 04/15/23 04/15/23 08:57 09:06 WBC 6.48 RBC 3.68 L Hgb 10.5 L Hct 34.2 L MCV 92.9 MCH 28.5 MCHC 30.7 L RDW Coeff of Pricila 16.4 H Plt Count 155 Neutrophils % (Manual) 80.0 H Band Neutrophils % 1.0 Lymphocytes % (Manual) 10.0 Monocytes % (Manual) 3.0 Eosinophils % (Manual) 1.0 Reactive Lymphocytes 5.0 Anisocytosis Not present Puncture Site Lbrach Base Excess 5.3 H O2 Saturation 96.9 ABG pH 7.42 ABG pCO2 46.0 H ABG pO2 88.0 ABG HCO3 29.8 H ABG Total CO2 31.2 H [place]o Test N/a Hemoglobin 1.0 Oxyhemoglobin 94.9 L Carboxyhemoglobin 3.2 H Total Hemoglobin 10.4 L O2 Delivery Device Cannula Oxygen Liter Flow 2.00 Sodium 134.7 Potassium 5.35 H Chloride 97.0 L Carbon Dioxide 30.6 H Anion Gap 12.45 BUN 58.0 H Creatinine 2.01 H Estimated GFR (MDRD) 24.00 BUN/Creatinine Ratio 28.85 Glucose 105.9 Lactic Acid 1.90 Calcium 8.19 L Magnesium 1.89 Total Bilirubin 1.15 AST 89.4 H ALT 45.1 H Alkaline Phosphatase 138.9 Ammonia < 8.7 L Total Creatine Kinase 166.4 H CK-MB (CK-2) 7.010 H* CK-MB (CK-2) % 4.2100 Troponin I 1.210 H* NT-Pro-B Natriuret Pep 53459 H Total Protein 6.74 Albumin 3.42 L Globulin 3.32 Albumin/Globulin Ratio 1.03 Acetone, Qual None Orders Category Date Time Status ADMIT PATIENT INPATIENT .TO [facility] (MONITORED BED) ADMISSION 04/15/23 10:43 Active ABG DRAW REQUEST Stat CARDIO 04/15/23 08:39 Completed EKG-(ED ONLY) Stat CARDIO 04/15/23 08:40 Completed NPO REMINDER: IMAGING ONCE CARE 04/15/23 08:40 Active TELEMETRY MONITORING TELE CARE 04/15/23 10:43 Active ABG COOX Stat LAB 04/15/23 09:06 Completed ACETONE, QUALITATIVE Stat LAB 04/15/23 08:57 Completed AMMONIA Stat LAB 04/15/23 08:57 Completed BLOOD CULTURE Stat LAB 04/15/23 10:39 Ordered CBC W/ AUTO DIFF Stat LAB 04/15/23 08:57 Completed COMPREHENSIVE METABOLIC PANEL Stat LAB 04/15/23 08:57 Completed CREATINE KINASE Stat LAB 04/15/23 08:57 Completed LACTIC ACID Stat LAB 04/15/23 08:57 Completed MAGNESIUM Stat LAB 04/15/23 08:57 Completed MANUAL DIFFERENTIAL Stat LAB 04/15/23 08:57 Completed NT-PROBNP(ED) Stat LAB 04/15/23 08:57 Completed TROPONIN I Stat LAB 04/15/23 08:57 Completed UA [URINALYSIS C & S IF INDICATED] Stat LAB 04/15/23 08:45 Uncollected Aspirin [Aspirin Chewable] Meds 04/15/23 10:36 Discontinued 324 mg PO ONCE ONE Azithromycin Inj [Zithromax] 500 mg Meds 04/15/23 10:39 Active 0.9 % Sodium Chloride [Sodium Chloride] 250 ml IV ONCE Ceftriaxone/D5w 1 gm Premix [Rocephin 1 gm/50 ml D5w] Meds 04/15/23 10:39 Active 1 gm in 50 ml IV ONCE Sodium Chloride 0.9% [Sodium Chloride] 1,000 ml Meds 04/15/23 09:[address] CHEST W/O CONTRAST Stat RADS 04/15/23 08:[address] HEAD W/O CONTRAST Stat RADS 04/15/23 08:39 Completed Medications Generic Name Dose Route Start Last Admin Trade Name Freq PRN Reason Stop Dose Admin CEFTRIAXONE/D5W 1 GM PREMIX 1 gm in 50 mls @ 100 mls/hr 04/15/23 10:39 Rocephin 1 Gm/50 Ml D5w IV 04/15/23 11:08 ONCE ONE Azithromycin 500 mg/ Sodium 250 mls @ 250 mls/hr 04/15/23 10:39 Chloride IV 04/15/23 11:38 ONCE ONE Discontinued Medications Generic Name Dose Route Start Last Admin Trade Name Freq PRN Reason Stop Dose Admin Aspirin 324 mg 04/15/23 10:36 Aspirin 81 Mg Tab.Chew PO 04/15/23 10:37 ONCE ONE Sodium Chloride 1,000 mls @ 1,000 mls/hr 04/15/23 09:36 04/15/23 10:03 Sodium Chloride IV 04/15/23 10:35 1,000 mls/hr BOLUS ONE Administration Vital Signs: Temp Pulse Resp BP Pulse Ox 04/15/23 08:40 97.5 F L 86 18 100/65 96 MDM: Patient is a 82 yo F here for BL LE weakness patient arrives afebrile and vitally stable once wearing appropriate 2 L NC Hx from patient and daughter chart review by me Exam reassuring 3+ labs and 3 images reviewed by me When bnp elevated fluids stopped (treating LIU) 500 ns administered total No SOB Aspirin given for elevated troponin Patient daughter and I discussed recent ACS event and possibility of downtrending cardiac enzymes that were also magnified due to LIU VS true occlusive disease Family and Patient decides "I am DNR/DNI, I had a recent cardiac catheterization, please admit me to dr. Hernandez." I consulted Dr. Hernandez he agreed with admission, CT resulted and patient found to have pneumonia, Rocephin and azithro added WDX: Home oxygen non compliance, elevated troponin, elevated BNP, ATN, pneumonia, BL LE weakness, discomfort acute on chronic high complexity DDX: I considered PE, STEMI, shock, but tese are les likely I explained we could not use contrast studies due to allergy and kidney injury, patient accepts risks We discussed risks benefits and alternatives Patirejin again requests admission to treat SKI, Pneumonia and does not want aggressive measures such as heparin, thrombolytics, or transfer for repeat cardiac cath - I agree and respect her autonomy. SDOH: Patient has PCP and family support, will do well with plan Discharge Plan Discharge Patient Disposition: ADMITTED INPATIENT Discharge Problem: Elevated brain natriuretic peptide (BNP) level, ATN (acute tubular necrosis), Elevated troponin, Weakness, Pneumonia Did you review [place] STATISTICIAN for ALL controlled substances?: Not Applicable ED Provider: CHARLES THOMAS Condition: Fair Physician Progress Note: []
[2023-04-15 09:17] LABS: ABG O2 HGB 94.9 % (95-100); ABG PH 7.42 (7.35-7.45); BEecf 5.3 (-2.0-3.0); COHb 3.2 (0.5-1.5); HCO3 29.8 (21-28); TCO2 31.2 (19-24); sO2 96.9 % (94-98); tHb 10.4 g/dl (11.7-17.4)
[2023-04-15 09:19] LABS: ALANINE AMINOTRANSFERASE 45.1 U/L (0-35); ALBUMIN 3.42 g/dL (3.5-5.0); ALKALINE PHOSPHATASE 138.9 U/L (53-141); ASPARTATE AMINO TRANSFERASE 89.4 U/L (14-36); BILIRUBIN,TOTAL 1.15 mg/dL (0.2-1.3); CALCIUM 8.19 mg/dL (8.4-10.2); CARBON DIOXIDE 30.6 mmol/L (22-30.0); CREATINE KINASE 166.4 U/L (30-135); CREATININE 2.01 mg/dL (0.60-1.30); GLUCOSE 105.9 mg/dL (74-106); MAGNESIUM 1.89 mg/dL (1.6-2.3); POTASSIUM 5.35 mmol/L (3.5-5.1); SODIUM 134.7 mmol/L (134.5-145); TOTAL PROTEIN 6.74 g/dL (6.3-8.2)
[2023-04-15 09:25] LABS: ANISOCYTOSIS NOT PRESENT (NOT PRESENT)
[2023-04-15] MEDS: SODIUM CHLORIDE 1,000 ML IV ONE (10:03)
--- NOTE | 2023-04-15 10:07 | CT ---
EXAMINATION: HEAD CT WITHOUT CONTRAST HISTORY: Lower extremity weakness. TECHNIQUE: Noncontrast CT of the brain was performed with images acquired from skull base to vertex. Contrast Dose: None CT Dose Reduction Techniques Performed: Yes COMPARISON: CT head 03/01/2023 FINDINGS: Topogram demonstrates no significant abnormality. Intraparenchymal hemorrhage: None. Parenchyma: Normal rhodes-white differentiation. No mass effect or midline shift. Extra-axial spaces and Basal cisterns: Normal. Chronic: Moderate periventricular white matter hypodensities which are nonspecific, however likely du e to chronic microvascular ischemia. Moderate cortical volume loss. Atherosclerotic calcification o f the bilateral carotid siphons. Ventricles: Concordant with the degree of parenchymal volume loss. Paranasal sinuses and mastoid air cells: Paranasal sinuses are clear. Mastoid air cells are clear. Orbits: Bilateral artificial lens replacements. Sella/Skull Base: Partially empty sella. Other: Scalp and visualized soft tissues are normal. Calvarium is normal. IMPRESSION: No acute intracranial abnormality. Moderate generalized cortical volume loss and moderate chronic microvascular ischemic white matter ch anges. All CT scans are performed using dose optimization techniques as appropriate to the performed exam an d include at least one of the following: Automated exposure control, adjustment of the mA and/or kV according t o size, and the use of iterative reconstruction technique.
[2023-04-15 10:13] LABS: CREATINE KINASE MB 7.01 ng/ml (0.0-2.38); TROPONIN I 1.21 ng/ml (0.0000-0.120)
--- NOTE | 2023-04-15 10:13 | CT ---
EXAM: CT CHEST WITHOUT INTRAVENOUS CONTRAST 04/15/2023. SAGITTAL AND CORONAL REFORMATTED IMAGES OBTA INED HISTORY: Hypoxia COMPARISON: 03/01/2023 FINDINGS: Moderate cardiomegaly. No pericardial effusion. No pathologic appearing mediastinal, hilar or axillary lymphadenopathy. Diffuse pulmonary emphysema. Nonspecific patchy ground-glass infiltrate is present within both lungs . This is most prominent within the upper lobes and is likely infectious/inflammatory. Small right pleural effusion. Bibasilar consolidation, right greater than left. This likely represents atelecta sis and/or pneumonia. Limited views of the upper abdomen shows no acute abnormality. No acute osseous abnormality. IMPRESSION: 1. Bilateral multifocal ground-glass infiltrate most prominent in the upper lobes. This is likely i nfectious/inflammatory. 2. Small right pleural effusion 3. Bibasilar consolidation, right greater than left. This may represent atelectasis and/or pneumoni a. 4. Diffuse pulmonary emphysema. 5. Moderate cardiomegaly 6. Atherosclerotic vascular disease with coronary artery calcifications. All CT scans are performed using dose optimization techniques as appropriate to the performed exam an d include at least one of the following: Automated exposure control, adjustment of the mA and/or kV according t o size, and the use of iterative reconstruction technique.
[2023-04-15] MEDS: ASPIRIN CHEWABLE PO ONE (10:53)
[2023-04-15] MEDS: ROCEPHIN 1 GM/50 ML D5W 1 GM/50 ML BAG IV ONE (10:54)
[2023-04-15 11:25] LABS: SARS COV-2 RNA RAPID NAAT NEGATIVE (NEGATIVE)
[2023-04-15] MEDS: ZITHROMAX 500 MG in SODIUM CHLORIDE 250 ML IV ONE (11:42)
[2023-04-15 13:50] VITALS: BMI 22.4
[2023-04-15 14:36] LABS: BILIRUBIN,URINE 1+ (NEGATIVE); CLARITY,URINE Turbid (CLEAR); COLOR,URINE Yellow (YELLOW); GLUCOSE, URINE (UA) Negative (NEGATIVE); KETONES,URINE Negative (NEGATIVE); LEUKOCYTE ESTERASE ,URINE Trace (NEGATIVE); NITRITE,URINE Negative (NEGATIVE); PH,URINE 5.5 (5-9); PROTEIN,URINE 2+ (NEGATIVE); URINE, BLOOD Trace-intact (NEGATIVE)
[2023-04-15 14:42] LABS: URINE RBC, MICROSCOPIC 0-2 (0-2); URINE WBC, MICROSCOPIC 0-2 (0-2)
[2023-04-15 14:43] LABS: SQUAMOUS EPITHELIAL CELL,UR TNTC (0-5)
[2023-04-15] MEDS ORDERED: ZOFRAN ODT PO PRN (18:18)
[2023-04-15] MEDS ORDERED: NITROSTAT SL PRN (18:18)
[2023-04-15] MEDS ORDERED: ATROPINE SULFATE PFS IVP PRN (18:47)
[2023-04-15] MEDS: DEXTROSE 5%-1/2NS IV SOLUTION 1,000 ML IV SCH (19:26)
[2023-04-15] MEDS: KLONOPIN PO SCH (20:57)
[2023-04-15] MEDS: NEURONTIN PO SCH (20:57)
[2023-04-15] MEDS: PRILOSEC PO SCH (20:57)
[2023-04-15] MEDS: IMDUR PO SCH (20:57)
[2023-04-15] MEDS: XARELTO PO SCH (21:25)
[2023-04-16 05:50] LABS: BASOPHILS % (AUTO) 0.5 % (0.0-3.0); EOSINOPHILS # (AUTO) 0.3 K/ul (0.0-0.7); EOSINOPHILS % (AUTO) 4.1 % (0.0-7.0); HEMATOCRIT 29.9 % (37.0-47.0); HEMOGLOBIN 9.3 g/dl (12.0-16.0); IMMATURE GRANULOCYTE % (AUTO) 0.2 % (0.0-5.0); LYMPHOCYTES # (AUTO) 0.5 K/uL (0.60-3.4); LYMPHOCYTES % (AUTO) 7.4 (10.0-50.0); MEAN CORPUSCULAR HEMOGLOBIN 28.9 pg (27.0-31.0); MEAN CORPUSCULAR HGB CONC 31.1 (31.8-35.4); MEAN CORPUSCULAR VOLUME 92.9 fl (81.0-99.0); MONOCYTES # (AUTO) 0.4 K/uL (0.4-2.0); NEUTROPHILS # (AUTO) 5.2 K/ul (2.0-6.9); NEUTROPHILS % (AUTO) 81.8 % (42.2-75.2); PLATELET COUNT 128 10^3/uL (140-440); RDW COEFFICIENT OF VARIATION 16.4 % (11.6-14.8); RED BLOOD COUNT 3.22 10^6/ul (4.20-5.40); WHITE BLOOD COUNT 6.36 K/ul (4.6-10.2)
[2023-04-16 06:06] LABS: ALANINE AMINOTRANSFERASE 43.4 U/L (0-35); ALBUMIN 2.71 g/dL (3.5-5.0); ALKALINE PHOSPHATASE 116.2 U/L (53-141); ASPARTATE AMINO TRANSFERASE 61.2 U/L (14-36); BILIRUBIN,TOTAL 0.63 mg/dL (0.2-1.3); BLOOD UREA NITROGEN 53.2 mg/dL (7-17); CALCIUM 7.48 mg/dL (8.4-10.2); CARBON DIOXIDE 28.1 mmol/L (22-30.0); CHLORIDE 98.6 mmol/L (98-107); GLUCOSE 104.3 mg/dL (74-106); POTASSIUM 4.12 mmol/L (3.5-5.1); SODIUM 132.8 mmol/L (134.5-145); TOTAL PROTEIN 5.69 g/dL (6.3-8.2)
[2023-04-16 06:20] LABS: CREATININE 1.48 mg/dL (0.60-1.30)
[2023-04-16] MEDS: LEXAPRO PO SCH (09:32)
[2023-04-16] MEDS: LOPRESSOR PO SCH (09:32)
[2023-04-16] MEDS: LIPITOR PO SCH (09:32)
[2023-04-16 13:21] LABS: BILIRUBIN,URINE Negative (NEGATIVE); CLARITY,URINE Clear (CLEAR); COLOR,URINE Yellow (YELLOW); GLUCOSE, URINE (UA) Negative (NEGATIVE); KETONES,URINE Negative (NEGATIVE); LEUKOCYTE ESTERASE ,URINE Negative (NEGATIVE); NITRITE,URINE Negative (NEGATIVE); PH,URINE 5.5 (5-9); PROTEIN,URINE 1+ (NEGATIVE); URINE, BLOOD Negative (NEGATIVE); UROBILINOGEN,URINE 0.2 (0.2)
[2023-04-16] MEDS: ROCEPHIN 1 GM/50 ML D5W 1 GM/50 ML BAG IV SCH (13:59)
[2023-04-17 05:44] LABS: BASOPHILS % (AUTO) 0.3 % (0.0-3.0); EOSINOPHILS # (AUTO) 0.2 K/ul (0.0-0.7); EOSINOPHILS % (AUTO) 3.5 % (0.0-7.0); HEMATOCRIT 32.5 % (37.0-47.0); HEMOGLOBIN 9.9 g/dl (12.0-16.0); IMMATURE GRANULOCYTE % (AUTO) 0.2 % (0.0-5.0); LYMPHOCYTES # (AUTO) 0.7 K/uL (0.60-3.4); LYMPHOCYTES % (AUTO) 11.5 (10.0-50.0); MEAN CORPUSCULAR HEMOGLOBIN 28.2 pg (27.0-31.0); MEAN CORPUSCULAR HGB CONC 30.5 (31.8-35.4); MEAN CORPUSCULAR VOLUME 92.6 fl (81.0-99.0); MONOCYTES # (AUTO) 0.4 K/uL (0.4-2.0); MONOCYTES % (AUTO) 6.5 (0-10); NEUTROPHILS # (AUTO) 4.8 K/ul (2.0-6.9); PLATELET COUNT 159 10^3/uL (140-440); RDW COEFFICIENT OF VARIATION 16.3 % (11.6-14.8); RED BLOOD COUNT 3.51 10^6/ul (4.20-5.40)
[2023-04-17 06:00] LABS: ALANINE AMINOTRANSFERASE 39.2 U/L (0-35); ALBUMIN 2.82 g/dL (3.5-5.0); ALKALINE PHOSPHATASE 104.1 U/L (53-141); ASPARTATE AMINO TRANSFERASE 47.2 U/L (14-36); BILIRUBIN,TOTAL 0.66 mg/dL (0.2-1.3); BLOOD UREA NITROGEN 38.6 mg/dL (7-17); CALCIUM 7.57 mg/dL (8.4-10.2); CREATININE 0.95 mg/dL (0.60-1.30); GLUCOSE 105.7 mg/dL (74-106); POTASSIUM 3.65 mmol/L (3.5-5.1); SODIUM 134.7 mmol/L (134.5-145); TOTAL PROTEIN 5.91 g/dL (6.3-8.2)
[2023-04-18 05:19] LABS: BASOPHILS % (AUTO) 0.3 % (0.0-3.0); EOSINOPHILS # (AUTO) 0.3 K/ul (0.0-0.7); EOSINOPHILS % (AUTO) 4.1 % (0.0-7.0); HEMATOCRIT 29.6 % (37.0-47.0); HEMOGLOBIN 8.9 g/dl (12.0-16.0); IMMATURE GRANULOCYTE % (AUTO) 0.3 % (0.0-5.0); LYMPHOCYTES # (AUTO) 0.8 K/uL (0.60-3.4); LYMPHOCYTES % (AUTO) 11.5 (10.0-50.0); MEAN CORPUSCULAR HGB CONC 30.1 (31.8-35.4); MEAN CORPUSCULAR VOLUME 93.1 fl (81.0-99.0); MONOCYTES # (AUTO) 0.5 K/uL (0.4-2.0); MONOCYTES % (AUTO) 7.8 (0-10); NEUTROPHILS # (AUTO) 5.2 K/ul (2.0-6.9); PLATELET COUNT 154 10^3/uL (140-440); RDW COEFFICIENT OF VARIATION 16.2 % (11.6-14.8); RED BLOOD COUNT 3.18 10^6/ul (4.20-5.40); WHITE BLOOD COUNT 6.81 K/ul (4.6-10.2)
[2023-04-18 05:38] LABS: ALANINE AMINOTRANSFERASE 31.5 U/L (0-35); ALBUMIN 2.52 g/dL (3.5-5.0); ALKALINE PHOSPHATASE 99.5 U/L (53-141); ASPARTATE AMINO TRANSFERASE 35.8 U/L (14-36); BILIRUBIN,TOTAL 0.52 mg/dL (0.2-1.3); BLOOD UREA NITROGEN 28.1 mg/dL (7-17); CALCIUM 7.42 mg/dL (8.4-10.2); CARBON DIOXIDE 31.4 mmol/L (22-30.0); CHLORIDE 104.2 mmol/L (98-107); CREATININE 0.84 mg/dL (0.60-1.30); GLUCOSE 94.8 mg/dL (74-106); SODIUM 136.6 mmol/L (134.5-145); TOTAL PROTEIN 5.41 g/dL (6.3-8.2)
[2023-04-18 05:40] LABS: POTASSIUM 3.91 mmol/L (3.5-5.1)
--- NOTE | 2023-04-18 08:43 | PCM.PROG ---
Attending Provider: ATTENDING PROVIDER: Dr. JAGJIT VELASCO MD This patient is seen with Patricia Serrano, Nurse Practitioner. DATE OF SERVICE: 04/18/23 SUBJECTIVE: This 82 year old /WHITE F was hospitalized 04/15/23. Sitting up using potty chair this morning, still very weak. Shortness of breath with minimal exertion. Report coughing has improved. Renal function seemed to have improved. Urine culture showed mixed growth. REVIEW OF SYSTEMS: CONSTITUTIONAL: No night sweats. Fatigue, lethargy. No fever or chills. Weakness. HEENT: Eyes: No visual changes. No eye pain. No eye discharge. ENT: No runny nose. No epistaxis. No sinus pain. No odynophagia. No congestion. RESPIRATORY: No cough, no congestion. No hemoptysis. Shortness of breath. CARDIOVASCULAR: No angina symptoms. No CHF symptoms. No atypical chest pain for CAD. No palpitations. No orthopnea.. GASTROINTESTINAL: No abdominal pain. No nausea or vomiting. No diarrhea or constipation. No hematemesis. No hematochezia. GENITOURINARY: No urgency. No frequency. No dysuria. No hematuria. No obstructive symptoms. No discharge. No pain. No significant abnormal bleeding. MUSCULOSKELETAL: No musculoskeletal pain; no joint swelling. NEUROLOGICAL: Awake, alert, oriented to time, place and person. No headache. No neck pain. No syncope. No seizures. No dizziness. PSYCHIATRIC: Not anxious. No depression. No suicidal thoughts. No homicidal thoughts. SKIN: No rash. No lesions. No wounds. ENDOCRINE: No unexplained weight loss. No weight gain. HEMATOLOGIC/LYMPHATIC: No anemia. No purpura. No petechiae. No prolonged or excessive bleeding. No palpable lymph nodes. PHYSICAL EXAMINATION: GENERAL: The patient is awake, alert and oriented, sitting in bed in no distress. VITAL SIGNS: Temperature 96.8 F, Pulse 56, Respiratory Rate 18, BP 106/57, Pulse Ox 98% HEENT: Head normocephalic, atraumatic. Eyes: Extraocular muscles are intact. Pupils are equal, round and reactive to light and accommodation. Ears: No lesions. Nose appeared normal. Throat: No exudate or erythema. NECK: Supple. No JVD, no carotid bruit. No lymphadenopathy or thyromegaly. LUNGS:Rakes upper left lobe. Diminished breath sounds. Clear to auscultation. Percussion note normal. Chest symmetrical. HEART: S1, S2, no S3. No murmurs. No cyanosis or clubbing. No ascites. Pulses: Dorsalis pedis and posterior tibial pulses +1 to +2 both sides. ABDOMEN: Soft. Non-tender. Bowel sounds active. No CVA tenderness. No mass felt. EXTREMITIES: No edema. Full range of motion of all extremities, equal. NEUROLOGIC: No focal deficit. Cranial nerves II through XII are grossly intact. No headache. No double vision. SKIN: Not dry. Intact. Turgor-normal. LYMPHATIC: No palpable lymph nodes/no lymphedema. MUSCULOSKELETAL: Normal joints with no swelling. Muscle tone is normal. LAB REVIEW: 04/18/23 05:00 04/18/23 05:00 04/18/23 05:00: WBC 6.81, RBC 3.18 L, Hgb 8.9 L, Hct 29.6 L, MCV 93.1, MCH 28.0, MCHC 30.1 L, RDW Coeff of Pricila 16.2 H, Plt Count 154, Immature Gran % (Auto) 0.3, Neut % (Auto) 76.0 H, Lymph % (Auto) 11.5, [place] % (Auto) 7.8, Eos % (Auto) 4.1, Baso % (Auto) 0.3, Neut # (Auto) 5.2, Lymph # (Auto) 0.8, [place] # (Auto) 0.5, Eos # (Auto) 0.3, Baso # (Auto) 0.0, Immature Gran # (Auto) 0.0, Sodium 136.6, Potassium 3.91, Chloride 104.2, Carbon Dioxide 31.4 H, Anion Gap 4.91, BUN 28.1 H, Creatinine 0.84, Estimated GFR (MDRD) 65.00, BUN/Creatinine Ratio 33.45, Glucose 94.8, Calcium 7.42 L, Total Bilirubin 0.52, AST 35.8, ALT 31.5, Alkaline Phosphatase 99.5, Total Protein 5.41 L, Albumin 2.52 L, Globulin 2.89, Albumin/Globulin Ratio 0.87 ASSESSMENT: Please see below. 1. Bilateral pneumonia 2. Acute tubal necrosis, improved 3. Underline chronic kidney disease 4. Chronic anemia 5. Acute one chronic renal failure 6. Generalized weakness 7. Atrial fibrillation PLAN: 1. DUO NEBS three times a day scheduled 2. Zithromax 500mg PO today and tomorrow. 3. Discussed possible swing bed placement later on this week. Plan and coordination of the patient's care discussed in the presence of Fire Extinguisher Charger and nurse. SCRIBED BY: Mario GARLAND scribed while in presence of service performed by Patricia Serrano APRN on 04/18/23 ([id number])
--- NOTE | 2023-04-18 09:26 | RS.PTINEVL ---
Subjective Patient information Date of Evaluation: 04/18/23 Date of Arrival on Unit: 04/15/23 Admitted From:: Home Diagnosis: pneumonia, kidney disease Usual Living Arrangement: with daughter Living Arrangement Comments: Daughter lives with her. Home Environment: House Medical History: Hypertension, COPD and Arthritis Medical History Comments:: CAD, Afib, [place], fx femur 3 months ago LATEX ALLERGY?: No Surgical History: Knee Replacement (R ), Cholecystectomy and Hysterectomy Surgical History Comments:: appey Medications: see chart Subjective Information/ Patient Comments:: pt [facility]. pt states she can't walk and thinks it has been a few weeks since she has walked but is unsure. States "you will have to ask my daughter." Level of function Abilities prior to this admission: pt is poor historian, will discuss with daughters when they arrive. Current Level of Function: Partially Dependent Current Equipment Used at Home: BSC, Oxygen, RWX Interventions Objective Patient Orientation: Person and Place Current Interventions: IV's, Oxygen and Telemetry Observation: pt with edema BLE Range of Motion ROM Right Upper Extremity AROM: WFL's Left Upper Extremity AROM: WFL's Right Lower Extremity AROM: Slight limitation (decreased knee ext ) Left Lower Extremity AROM: Slight limitation (decreased knee ext ) Muscle Strength Muscle Strength Right Upper Extremity: Mild Weakness (grossly 4/5) Left Upper Extremity: Mild Weakness (grossly 4/5) Right Lower Extremity: Mild Weakness (hip flex 3+/5, knee flex 4-/5, ext 3-/5, ankle DF/PF 4-/5) Left Lower Extremity: Mild Weakness (hip flex 4-/5, knee flex 4/5, ext 4-/5, ankle DF/PF 4/5) Sensation Sensation Right Upper Extremity: Intact/Normal Left Upper Extremity: Intact/Normal Right Lower Extremity: Intact/Normal Left Lower Extremity: Intact/Normal Balance Sitting Balance and Reactions Static Sitting Balance: Fair Dynamic Sitting Balance: Fair (fair-) Standing Balance and Reactions Static Standing Balance: Poor Dynamic Standing Balance: Poor Functional Mobility Bed Mobility Comments:: pt seen sitting up in bedside chair Transfers Sit to Stand: Mod Assist and 2 person assist Stand to Sit: Min Assist and 2 person assist Comments:: pt stood and c/o dizziness, encouraged pt to take deep breaths in through her nose, continued to be dizzy and sat back in chair. pt was dizzy in the chair for a few mins after sitting. pt states she gets dizzy every time she gets up. Notified Ángel BROWN Safety Awareness Safety Awareness: Poor STEFANI INDEX SCORE: n/a Treatment time Units charged ADL: 1 (TA) Time with patient Length of Evaluation: 19 Total treatment time: 28 Patient Education Education Patient Education: Activity Modification and Education of Plan of Care Teaching Recipient: Patient Teaching Methods: Discussion (discussion regarding POC) Assessment Assessment Problem List:: Decreased level of function, Requires training/education, Weakness and Cognitive status limits abilities Rehab Potential: Fair Further Therapy Indicated?: Yes Candidate for Swing Bed for Therapy Services?: Feel pt may benefit from moth exterminator care for rehab vs. swing bed. Evaluation Complexity: HISTORY: Medium, EXAM OF BODY SYSTEMS: Medium, CLINICAL PRESENTATION: Medium and CLINICAL DECISION MAKING: Medium Patient's Goal(s): pt unable to express, advises therapist to talk to her daughter. Short Term Goals GOAL #1: pt independent rolling and scooting in bed. Goal to be met by: 04/21/23 GOAL #2: Transfer sup to/from sit min x 1 Goal to be met by: 04/21/23 GOAL #3: Transfer sit to/from stand min x 2 Goal to be met by: 04/21/23 GOAL #4: pt transfer stand pivot bed to/from chair minx 2 Goal to be met by: 04/21/23 GOAL #5: pt amb 20ft with rwx with min x 2 Goal to be met by: 04/21/23 GOAL #6: Improve BLE strength 4/5 Goal to be met by: 04/21/23 Boss Miner Goals GOAL #1: Transfer sup to/from sit to/from stand min x 1 Goal to be met by: 04/23/23 GOAL #2: pt amb with rwx functional household distances with min x1 Goal to be met by: 04/23/23 GOAL #3: Improve dyn sit balance good- Goal to be met by: 04/23/23 Plan Plan of Care: Therapeutic EX, Neuromuscular Re-Educ and Therapeutic Activity Other:: progress to gait training when able Frequency of Treatment: 1-2 X day, as tolerated Duration of Treatment: 5 days Anticipated Discharge Destination: undetermined Treatment Diagnosis (ICD 10 Codes): impaired balance R 26.81 difficulty walking R 26.2 weakness M62.81 Has the Physician been added for Co-signature?: Yes
[2023-04-18] MEDS: ZITHROMAX PO SCH (09:40)
[2023-04-18] MEDS: DUONEB NEB SCH (13:56)
--- NOTE | 2023-04-18 15:37 | RS.OTINEVL ---
Subjective Patient information Date of Evaluation: 04/18/23 Date of Arrival on Unit: 04/15/23 Admitted From:: Home Diagnosis: Gastroenteritis, weakness, PRECAUTIONS: Fall risk Usual Living Arrangement: with daughter Living Arrangement Comments: Daughter lives with her. Home Environment: House Medical History: Hypertension, COPD and Arthritis Medical History Comments:: CAD, Afib, [place], fx femur 3 months ago LATEX ALLERGY?: No Surgical History: Knee Replacement (R ), Cholecystectomy and Hysterectomy Surgical History Comments:: appey Medications: see chart Subjective Information/ Patient Comments:: "What is the goal here?" Level of function Prior to this admission, the patient could do the following:: Partially Dependent Ambulation Abilities prior to this admission: Pt required min to mod A with ADLS. Current Level of Function: Partially Dependent Current Equipment Used at Home: BSC, Oxygen, RWX Interventions Objective Patient Orientation: Person and Situation Observation: Pt mod A x 2 for sit to stand From recliner. Pt mod A x 2 for transfer to EOB. Pt mod A for sit to supine in bed. Interventions ROM Right Upper Extremity AROM: Slight limitation Left Upper Extremity AROM: Slight limitation Strength Right Upper Extremity: Mild Weakness Left Upper Extremity: Mild Weakness Sensation Right Upper Extremity: Intact/Normal Left Upper Extremity: Intact/Normal Balance Sitting Balance Static Sitting Balance: Good Dynamic Sitting Balance: Good Standing Balance Static Standing Balance: Poor Dynamic Standing Balance: Poor ADL Skills Self Feeding Self Feeding: Min Assist Grooming Grooming: Min Assist Grooming Set-up: Sitting Comments:: in chair Bathing Bathing UE: Min Assist Bathing LE: Mod Assist Bathing Set-up: Bedside Comments:: Pt is too weak to stand and get out of a shower. Not safe at this point. Dressing Dressing UE: Min Assist Dressing LE: Max Assist Toilet Management Toilet Hygiene: Max Assist, 2 person assist, Verbal Cues and Tactile Cues Toilet Clothing Management: Max Assist, 2 person assist, Verbal Cues and Tactile Cues Functional Mobility Bed Mobility Rolling R/L: Min Assist Scooting: Independent Sit to Supine: Mod Assist and 2 person assist Transfers Sit to Stand: Mod Assist, 2 person assist, Verbal Cues and Tactile Cues Stand to Sit: Mod Assist and 2 person assist Stand Pivot Transfers: Mod Assist and 2 person assist Ambulation Weight Bearing Status: FWB Assistive Device Used: Rolling Walker Assistance needed with Ambulation: Not Tested Safety Awareness Safety Awareness: Fair STEFANI INDEX SCORE: . Additional Treatment Performed Time with patient Length of Evaluation: 17 Total treatment time: 17 Activities Do you enjoy playing games?: No Would you be interested in leaving your room for activities?: Yes Would you enjoy group activities?: Yes Do you have difficulty with your vision?: Yes Patient Interests:: Watching Television Patient Education Patient Education: Home Exercise Program and Education of Plan of Care Teaching Recipient: Patient Teaching Methods: Discussion and Demonstration Assessment Problem List:: Decreased level of function, Requires training/education, Decreased safety/Risk of falls and Weakness Rehab Potential: Fair Further Therapy Indicated?: Yes Evaluation Complexity: HISTORY: Medium, EXAM OF BODY SYSTEMS: Medium and CLINICAL DECISION MAKING: Medium Patient's Goal(s): To be able to walk by herself and return home. Short Term Goals Goals GOAL 1: Pt to increase functional transfers to Min A x 1 with RW. Goal to be met by: 08/19/21 GOAL 2: Pt to increase BUE strength 4/5 Goal to be met by: 08/19/21 GOAL 3: Pt to complete dyn. std. bal. to F+. Goal to be met by: 08/19/21 GOAL 4: Pt to be (I) with personal hygiene. Goal to be met by: 08/19/21 Poultry Buyer Goals GOAL 1: Pt to increase functional transfers to Mod-I. Goal to be met by: 04/25/23 GOAL 2: Pt to increase independence of ADLS to Mod-I. Goal to be met by: 04/25/23 GOAL 3: Pt to increase BUE to 4+/5. Goal to be met by: 04/25/23 Plan Plan of Care: Therapeutic EX, Therapeutic Activity and Self-Care/Home Management Frequency of Treatment: 1-2 X day, as tolerated Duration of Treatment: 1 Week Anticipated Discharge Destination: Detention Care Facility Treatment Diagnosis (ICD 10 Codes): Weakness R53.1 Has the Physician been added for Co-signature?: Yes
[2023-04-19 05:12] LABS: BASOPHILS % (AUTO) 0.3 % (0.0-3.0); EOSINOPHILS # (AUTO) 0.2 K/ul (0.0-0.7); EOSINOPHILS % (AUTO) 3.5 % (0.0-7.0); HEMATOCRIT 29.8 % (37.0-47.0); HEMOGLOBIN 8.7 g/dl (12.0-16.0); IMMATURE GRANULOCYTE % (AUTO) 0.3 % (0.0-5.0); LYMPHOCYTES # (AUTO) 0.7 K/uL (0.60-3.4); MEAN CORPUSCULAR HEMOGLOBIN 27.4 pg (27.0-31.0); MEAN CORPUSCULAR HGB CONC 29.2 (31.8-35.4); MEAN CORPUSCULAR VOLUME 93.7 fl (81.0-99.0); MONOCYTES # (AUTO) 0.4 K/uL (0.4-2.0); MONOCYTES % (AUTO) 7.3 (0-10); NEUTROPHILS # (AUTO) 4.4 K/ul (2.0-6.9); NEUTROPHILS % (AUTO) 76.6 % (42.2-75.2); PLATELET COUNT 166 10^3/uL (140-440); RDW COEFFICIENT OF VARIATION 16.3 % (11.6-14.8); RED BLOOD COUNT 3.18 10^6/ul (4.20-5.40); WHITE BLOOD COUNT 5.77 K/ul (4.6-10.2)
[2023-04-19 05:32] LABS: ALANINE AMINOTRANSFERASE 27.9 U/L (0-35); ALBUMIN 2.6 g/dL (3.5-5.0); ALKALINE PHOSPHATASE 93.6 U/L (53-141); ASPARTATE AMINO TRANSFERASE 27.5 U/L (14-36); BILIRUBIN,TOTAL 0.53 mg/dL (0.2-1.3); BLOOD UREA NITROGEN 23.5 mg/dL (7-17); CALCIUM 7.71 mg/dL (8.4-10.2); CARBON DIOXIDE 32.8 mmol/L (22-30.0); CHLORIDE 104.1 mmol/L (98-107); CREATININE 0.76 mg/dL (0.60-1.30); GLUCOSE 85.5 mg/dL (74-106); SODIUM 137.3 mmol/L (134.5-145); TOTAL PROTEIN 5.59 g/dL (6.3-8.2)
[2023-04-19 05:35] LABS: POTASSIUM 4.38 mmol/L (3.5-5.1)
[2023-04-19] MEDS: MIRALAX PO SCH (08:41)
[2023-04-19] MEDS: COLACE PO SCH (08:43)
--- NOTE | 2023-04-19 09:06 | PCM.PROG ---
Attending Provider: ATTENDING PROVIDER: Dr. JAGJIT VELASCO MD This patient is seen with Patricia Serrano, Nurse Practitioner. DATE OF SERVICE: 04/19/23 SUBJECTIVE: This 82 year old /WHITE F was hospitalized 04/15/23. Reports cough has improved. NEB treatment seemed to help. Still requires supplemental O2. Blood cultures are negative. Hgb stable. No fever. Actually eating this morning. REVIEW OF SYSTEMS: CONSTITUTIONAL: No night sweats. No malaise, lethargy. No fever or chills. Weakness. Fatigue. HEENT: Eyes: No visual changes. No eye pain. No eye discharge. ENT: No runny nose. No epistaxis. No sinus pain. No odynophagia. No congestion. RESPIRATORY: No cough, no congestion. No hemoptysis. Shortness of breath. CARDIOVASCULAR: No angina symptoms. No CHF symptoms. No atypical chest pain for CAD. No palpitations. No orthopnea.. GASTROINTESTINAL: No abdominal pain. No nausea or vomiting. No diarrhea or constipation. No hematemesis. No hematochezia. GENITOURINARY: No urgency. No frequency. No dysuria. No hematuria. No obstructive symptoms. No discharge. No pain. No significant abnormal bleeding. MUSCULOSKELETAL: No musculoskeletal pain; no joint swelling. NEUROLOGICAL: Awake, alert, oriented to time, place and person. No headache. No neck pain. No syncope. No seizures. No dizziness. PSYCHIATRIC: Not anxious. No depression. No suicidal thoughts. No homicidal thoughts. SKIN: No rash. No lesions. No wounds. ENDOCRINE: No unexplained weight loss. No weight gain. HEMATOLOGIC/LYMPHATIC: No anemia. No purpura. No petechiae. No prolonged or excessive bleeding. No palpable lymph nodes. PHYSICAL EXAMINATION: GENERAL: The patient is awake, alert and oriented, sitting in bed in no distress. VITAL SIGNS: Temperature 98.0 F, Pulse 80, Respiratory Rate 20, BP 126/65, Pulse Ox 97% HEENT: Head normocephalic, atraumatic. Eyes: Extraocular muscles are intact. Pupils are equal, round and reactive to light and accommodation. Ears: No lesions. Nose appeared normal. Throat: No exudate or erythema. NECK: Supple. No JVD, no carotid bruit. No lymphadenopathy or thyromegaly. LUNGS: Severely diminished breath sounds. Clear to auscultation. Percussion note normal. Chest symmetrical. HEART: Irregular heart rate. S1, S2, no S3. No murmurs. No cyanosis or clubbing. No ascites. Pulses: Dorsalis pedis and posterior tibial pulses +1 to +2 both sides. ABDOMEN: Soft. Non-tender. Bowel sounds active. No CVA tenderness. No mass felt. EXTREMITIES: No edema. Full range of motion of all extremities, equal. NEUROLOGIC: No focal deficit. Cranial nerves II through XII are grossly intact. No headache. No double vision. SKIN: Not dry. Intact. Turgor-normal. LYMPHATIC: No palpable lymph nodes/no lymphedema. MUSCULOSKELETAL: Normal joints with no swelling. Muscle tone is normal. LAB REVIEW: 04/19/23 04:54 04/19/23 04:54 04/19/23 04:54: WBC 5.77, RBC 3.18 L, Hgb 8.7 L, Hct 29.8 L, MCV 93.7, MCH 27.4, MCHC 29.2 L, RDW Coeff of Pricila 16.3 H, Plt Count 166, Immature Gran % (Auto) 0.3, Neut % (Auto) 76.6 H, Lymph % (Auto) 12.0, Bradford % (Auto) 7.3, Eos % (Auto) 3.5, Baso % (Auto) 0.3, Neut # (Auto) 4.4, Lymph # (Auto) 0.7, Bradford # (Auto) 0.4, Eos # (Auto) 0.2, Baso # (Auto) 0.0, Immature Gran # (Auto) 0.0, Sodium 137.3, Potassium 4.38, Chloride 104.1, Carbon Dioxide 32.8 H, Anion Gap 4.78, BUN 23.5 H, Creatinine 0.76, Estimated GFR (MDRD) 73.00, BUN/Creatinine Ratio 30.92, Glucose 85.5, Calcium 7.71 L, Total Bilirubin 0.53, AST 27.5, ALT 27.9, Alkaline Phosphatase 93.6, Total Protein 5.59 L, Albumin 2.60 L, Globulin 2.99, Albumin/Globulin Ratio 0.86 ASSESSMENT: Please see below. 1. Bilateral pneumonia 2. Acute on chronic renal failure-improving 3. CHF 4. CAD 5. Chronic anemia PLAN: 1. Continue IV antibiotics 2. Colace BID 3. Cap full of Miralax daily 4. The patient would benefit from hospital at home due to endstage CHF. She requires supplemental O2 and unable to lay flat. Due to profound weakness the hospital bed would also benefit from positioning. 5. Continue PT/OT 6. Will refer for Home Health for PT/OT Plan and coordination of the patient's care discussed in the presence of Warper Creeler and nurse. SCRIBED BY: Mario GARLAND scribed while in presence of service performed by Patricia Serrano APRN on 04/19/23 ([id number])
[2023-04-19] MEDS: TYLENOL PO PRN (11:23)
[2023-04-19] MEDS: PRILOSEC PO SCH (17:41)
[2023-04-20 05:14] LABS: BASOPHILS % (AUTO) 0.5 % (0.0-3.0); EOSINOPHILS # (AUTO) 0.2 K/ul (0.0-0.7); EOSINOPHILS % (AUTO) 3.7 % (0.0-7.0); HEMATOCRIT 29.8 % (37.0-47.0); IMMATURE GRANULOCYTE % (AUTO) 0.2 % (0.0-5.0); LYMPHOCYTES # (AUTO) 0.6 K/uL (0.60-3.4); LYMPHOCYTES % (AUTO) 10.2 (10.0-50.0); MEAN CORPUSCULAR HEMOGLOBIN 28.1 pg (27.0-31.0); MEAN CORPUSCULAR HGB CONC 30.2 (31.8-35.4); MEAN CORPUSCULAR VOLUME 93.1 fl (81.0-99.0); MONOCYTES # (AUTO) 0.3 K/uL (0.4-2.0); NEUTROPHILS % (AUTO) 80.4 % (42.2-75.2); PLATELET COUNT 172 10^3/uL (140-440); RDW COEFFICIENT OF VARIATION 16.3 % (11.6-14.8); WHITE BLOOD COUNT 6.17 K/ul (4.6-10.2)
[2023-04-20 05:36] LABS: ALANINE AMINOTRANSFERASE 25.9 U/L (0-35); ALBUMIN 2.79 g/dL (3.5-5.0); ALKALINE PHOSPHATASE 100.7 U/L (53-141); ASPARTATE AMINO TRANSFERASE 27.7 U/L (14-36); BILIRUBIN,TOTAL 0.55 mg/dL (0.2-1.3); BLOOD UREA NITROGEN 23.3 mg/dL (7-17); CALCIUM 8.35 mg/dL (8.4-10.2); CARBON DIOXIDE 32.9 mmol/L (22-30.0); CHLORIDE 102.8 mmol/L (98-107); CREATININE 0.74 mg/dL (0.60-1.30); GLUCOSE 94.7 mg/dL (74-106); POTASSIUM 4.31 mmol/L (3.5-5.1); SODIUM 137.3 mmol/L (134.5-145); TOTAL PROTEIN 5.92 g/dL (6.3-8.2)
--- NOTE | 2023-04-20 13:23 | PN ---
DATE OF SERVICE: 04/19/23 SUBJECTIVE: The patient was seen and examined with the Nurse Practitioner. The patient's condition has improved, she looks a lot better. She had a large bowel movement. Her hydration status has improved, kidney functions are basically normal. TIME SPENT: More than 35 minutes. Plan and coordination of the patient's care discussed in the presence of nurse. ANDREW
--- NOTE | 2023-04-20 13:37 | PN ---
DATE OF SERVICE: 04/20/23 SUBJECTIVE: 82 year old white female hospitalized with acute tubular necrosis. Her condition has improved. The patient had pneumonia and possibility of UTI. She was being treated with Rocephin and we will discontinue that. She has been it for last 6 days. We will put her on Omnicef. The patient is afebrile. REVIEW OF SYSTEMS: CONSTITUTIONAL: No night sweats. No fatigue, malaise, lethargy. No fever or chills. HEENT: Eyes: No visual changes. No eye pain. No eye discharge. ENT: No runny nose. No epistaxis. No sinus pain. No sore throat. No odynophagia. No congestion. RESPIRATORY: No cough, no congestion. No hemoptysis. No shortness of breath. CARDIOVASCULAR: No angina symptoms. No CHF symptoms. No atypical chest pain for CAD. No palpitations. No PND. No orthopnea. GASTROINTESTINAL: No abdominal pain. No nausea or vomiting. No diarrhea or constipation. No hematemesis. No hematochezia. GENITOURINARY: No urgency. No frequency. No dysuria. No hematuria. No obstructive symptoms. No discharge. No pain. No significant abnormal bleeding. MUSCULOSKELETAL: No musculoskeletal pain; no joint swelling. NEUROLOGICAL: No headache. No neck pain. No syncope. No seizures. No dizziness. PSYCHIATRIC: Not anxious. No depression. No suicidal thoughts. No homicidal thoughts. SKIN: No rash. No lesions. No wounds. ENDOCRINE: No unexplained weight loss. No weight gain. HEMATOLOGIC/LYMPHATIC: No anemia. No purpura. No petechiae. No prolonged or excessive bleeding. No palpable lymph nodes. PHYSICAL EXAMINATION: GENERAL: The patient is oriented to place and person. VITAL SIGNS: Temperature 97.8, pulse 87, respiratory rate 18, blood pressure 130/70 and pulse of 98% on room. HEENT: Head normocephalic, atraumatic. Eyes: Extraocular muscles are intact. Pupils are equal, round and reactive to light and accommodation. Ears: No lesions. Nose appeared normal. Throat: No exudate or erythema. NECK: Supple. No JVD, no carotid bruit. No lymphadenopathy or thyromegaly. LUNGS: Decreased breath sounds but clear to auscultation. Percussion note normal. Chest symmetrical. HEART: S1, S2, no S3. No murmurs. No cyanosis or clubbing. No ascites. Pulses: Dorsalis pedis and posterior tibial pulses +1 to +2 bilaterally. ABDOMEN: Soft. Nontender. Bowel sounds active. No CVA tenderness. No mass felt. EXTREMITIES: No edema. Full range of motion of all extremities, equal. NEUROLOGIC: No focal deficit. Cranial nerves II through XII are grossly intact. No headache. No double vision. SKIN: Not dry. Intact. Turgor - normal. LYMPHATIC: No palpable lymph nodes/no lymphedema. MUSCULOSKELETAL: Normal joints with no swelling. Muscle tone is normal. LABS: hgb 9, hct 29, WBC 6,000 normal differential, creatinine 0.7m, BUN 23, potassium 4.3. ASSESSMENT: 1. Acute tubular necrosis seems to have resolved 2. Pneumonia, resolving clinically resolved 3. UTI, no symptoms 4. Chronic anemia, stable. PLAN: 1. Discontinue Rocephin 2. Start Omnicef 3. She needs to be up and about 4. Family doesn't want any further testing in a way of marketing development specialist. The patient was seen by Dr. Majano and she doesn't want to go back for any followups. The patient wants DNI. TIME SPENT: More than 35 minutes. Plan and coordination of the patient's care discussed in the presence of nurse. ANDREW
--- NOTE | 2023-04-20 13:42 | PN ---
DATE OF SERVICE: 04/16/23 SUBJECTIVE: 82 year old white female hospitalized with acute tubular necrosis and pneumonia and possibility of UTI. The patient is doing somewhat better. Kidney functions have improved. Creatinine down to 1.4 with BUN of 53. REVIEW OF SYSTEMS: CONSTITUTIONAL: No night sweats. No fatigue, malaise, lethargy. No fever or chills. HEENT: Eyes: No visual changes. No eye pain. No eye discharge. ENT: No runny nose. No epistaxis. No sinus pain. No sore throat. No odynophagia. No congestion. RESPIRATORY: Mild cough, no congestion. No hemoptysis. Mild shortness of breath. CARDIOVASCULAR: No angina symptoms. No CHF symptoms. No atypical chest pain for CAD. No palpitations. No PND. No orthopnea. GASTROINTESTINAL: No abdominal pain. No nausea or vomiting. No diarrhea or constipation. No hematemesis. No hematochezia. GENITOURINARY: No urgency. No frequency. No dysuria. No hematuria. No obstructive symptoms. No discharge. No pain. No significant abnormal bleeding. MUSCULOSKELETAL: No musculoskeletal pain; no joint swelling. NEUROLOGICAL: No headache. No neck pain. No syncope. No seizures. No dizziness. PSYCHIATRIC: Not anxious. No depression. No suicidal thoughts. No homicidal thoughts. SKIN: No rash. No lesions. No wounds. ENDOCRINE: No unexplained weight loss. No weight gain. HEMATOLOGIC/LYMPHATIC: No anemia. No purpura. No petechiae. No prolonged or excessive bleeding. No palpable lymph nodes. PHYSICAL EXAMINATION: GENERAL: The patient is oriented to place and person. VITAL SIGNS: Temperature 97, pulse 88, respiratory rate 16, blood pressure 116/62 and pulse ox 99% on 2 liters. HEENT: Head normocephalic, atraumatic. Eyes: Extraocular muscles are intact. Pupils are equal, round and reactive to light and accommodation. Ears: No lesions. Nose appeared normal. Throat: No exudate or erythema. NECK: Supple. No JVD, no carotid bruit. No lymphadenopathy or thyromegaly. LUNGS: Decreased breath sounds. Clear to auscultation. Percussion note normal. Chest symmetrical. HEART: S1, S2, no S3. No murmurs. No cyanosis or clubbing. No ascites. Pulses: Dorsalis pedis and posterior tibial pulses +1 to +2 bilaterally. ABDOMEN: Soft. Nontender. Bowel sounds active. No CVA tenderness. No mass felt. EXTREMITIES: No edema. Full range of motion of all extremities, equal. NEUROLOGIC: No focal deficit. Cranial nerves II through XII are grossly intact. No headache. No double vision. SKIN: Not dry. Intact. Turgor - normal. LYMPHATIC: No palpable lymph nodes/no lymphedema. MUSCULOSKELETAL: Normal joints with no swelling. Muscle tone is normal. LABS: Hgb 9.3, hct 29, WBC 6,000 normal differential, creatinine 1.4, BUN 53, potassium 4.1. ASSESSMENT: 1. Acute tubular necrosis seems to be resolving. 2. Pneumonia, under treatment 3. Possibility of UTI PLAN: 1. We will continue Rocephin 2. Advised to take oral intake 3. Encouraged the patient to eat 4. Continue rest of the medications 5. The patient has no evidence of acute PA, no symptoms of coronary insufficiency. CONDITION: Improving. TIME SPENT: More than 35 minutes. Plan and coordination of the patient's care discussed in the presence of nurse. ANDREW
--- NOTE | 2023-04-20 13:51 | PN ---
DATE OF SERVICE: 04/17/23 SUBJECTIVE: 82 year old white female hospitalized with dehydration, acute tubular necrosis, pneumonia and urinary tract infection. The patient's condition has improved. REVIEW OF SYSTEMS: CONSTITUTIONAL: No night sweats. No fatigue, malaise, lethargy. No fever or chills. HEENT: Eyes: No visual changes. No eye pain. No eye discharge. ENT: No runny nose. No epistaxis. No sinus pain. No sore throat. No odynophagia. No congestion. RESPIRATORY: No cough, no congestion. No hemoptysis. No shortness of breath. CARDIOVASCULAR: No angina symptoms. No CHF symptoms. No atypical chest pain for CAD. No palpitations. No PND. No orthopnea. GASTROINTESTINAL: No abdominal pain. No nausea or vomiting. No diarrhea or constipation. No hematemesis. No hematochezia. Appetite has improved. GENITOURINARY: No urgency. No frequency. No dysuria. No hematuria. No obstructive symptoms. No discharge. No pain. No significant abnormal bleeding. MUSCULOSKELETAL: No musculoskeletal pain; no joint swelling. NEUROLOGICAL: No headache. No neck pain. No syncope. No seizures. No dizziness. PSYCHIATRIC: Not anxious. No depression. No suicidal thoughts. No homicidal thoughts. SKIN: No rash. No lesions. No wounds. ENDOCRINE: No unexplained weight loss. No weight gain. HEMATOLOGIC/LYMPHATIC: No anemia. No purpura. No petechiae. No prolonged or excessive bleeding. No palpable lymph nodes. PHYSICAL EXAMINATION: GENERAL: The patient is oriented to time, place and person. VITAL SIGNS: Temperature 97, pulse 69, respiratory rate 18, blood pressure 130/60 and pulse ox 98% on room air. HEENT: Head normocephalic, atraumatic. Eyes: Extraocular muscles are intact. Pupils are equal, round and reactive to light and accommodation. Ears: No lesions. Nose appeared normal. Throat: No exudate or erythema. NECK: Supple. No JVD, no carotid bruit. No lymphadenopathy or thyromegaly. LUNGS: Decreased breath sounds but clear to auscultation. Percussion note normal. Chest symmetrical. HEART: S1, S2, no S3. No murmurs. No cyanosis or clubbing. No ascites. Pulses: Dorsalis pedis and posterior tibial pulses +1 to +2 bilaterally. ABDOMEN: Soft. Nontender. Bowel sounds active. No CVA tenderness. No mass felt. EXTREMITIES: No edema. Full range of motion of all extremities, equal. NEUROLOGIC: No focal deficit. Cranial nerves II through XII are grossly intact. No headache. No double vision. SKIN: Not dry. Intact. Turgor - normal. LYMPHATIC: No palpable lymph nodes/no lymphedema. MUSCULOSKELETAL: Normal joints with no swelling. Muscle tone is normal. LABS: Hgb 9.9, hct 32,WBC 6,200 normal differential, creatinine 0.9, BUN 38. The patient has normalization of her kidney functions with practically normal creatinine. ASSESSMENT: 1. Acute tubular necrosis seems to have resolved 2. Pneumonia, Improved 3. UTI, under control 4. Dehydration seems to have resolved PLAN: 1. Continue Rocephin 2. Discontinue IV fluids 3. Encourage the patient to eat. 4. We will put the patient in swing bed if possible for physical therapy. CONDITION: Stable, improving. TIME SPENT: More than 35 minutes. Plan and coordination of the patient's care discussed in the presence of nurse. ANDREW
--- NOTE | 2023-04-20 14:30 | HP ---
DATE OF SERVICE: 04/15/23 REASON FOR HOSPITALIZATION: Weakness, hypoxemia with oxygen saturation of 70%, mild cough, poor appetite. HISTORY OF PRESENT ILLNESS: The patient has history of infarction nearly a month ago. She underwent cardiac catheterization at [facility] and the automation machine operator had recommended to be referred for the bypass which the family declined. PAST MEDICAL HISTORY/PAST SURGICAL HISTORY: History of chronic anemia Recurrent falls Atrial fibrillation on Xarelto, stable Angina History of coronary artery disease Hypertension Restless leg symptoms Depression Chronic lung disease History of cardiac arrest with cardiac cath, 2011 Right total knee replacement 2011 followed by cardiac arrest Cystectomy Tubal ligation Severe DJD of the spine Generalized osteoarthritis Osteoarthritis of hip joints REVIEW OF SYSTEMS: CONSTITUTIONAL: No night sweats. Fatigue and weakness. No fever or chills. HEENT: Eyes: No visual changes. No eye pain. No eye discharge. ENT: No runny nose. No epistaxis. No sinus pain. No sore throat. No odynophagia. No ear pain. No congestion. RESPIRATORY: Mild cough, no congestion. No hemoptysis. Shortness of breath on minimal exertion. CARDIOVASCULAR: No angina symptoms. No CHF symptoms. No atypical chest pain for CAD. No palpitations. No PND. No orthopnea. GASTROINTESTINAL: No abdominal pain. No nausea or vomiting. No diarrhea. No hematemesis. No hematochezia. Poor appetite, no nausea. Mild constipation. GENITOURINARY: No urgency. No frequency. No dysuria. No hematuria. No obstructive symptoms. No discharge. No pain. No significant abnormal bleeding. MUSCULOSKELETAL: No musculoskeletal pain. No joint swelling. No arthritis. Weakness, generalized. NEUROLOGICAL: No headache. No neck pain. No syncope. No seizures. No dizziness. PSYCHIATRIC: Not anxious. No depression. No suicidal thoughts. No homicidal thoughts. SKIN: No rash. No lesions. No wounds. ENDOCRINE: No unexplained weight loss. No weight gain. HEMATOLOGIC/LYMPHATIC: No anemia. No purpura. No petechiae. No prolonged or excessive bleeding. No palpable lymph nodes. PERSONAL/FAMILY/SOCIAL HISTORY: The patient is . Living with the help of daughter. No smoker, no alcohol abuse. Able to walk with the walker but lately hasn't been doing that much. MEDICATIONS: Nitroglycerin Clonazepam Lexapro Oxycodone Gabapentin Isosorbide Dinitrate Omeprazole Xarelto Atorvastatin Metoprolol PHYSICAL EXAMINATION: GENERAL: The patient was examined in the emergency room by me. VITAL SIGNS: Temperature 97.5, pulse 86, Respiratory rate 18, blood pressure 100/65, pulse ox 96% HEENT: Head normocephalic, atraumatic. Eyes: Extraocular muscles are intact. Pupils are equal, round and reactive to light and accommodation. Ears: No lesions. Nose appeared normal. Throat: No exudate or erythema. NECK: Supple. No JVD, no carotid bruit. No lymphadenopathy or thyromegaly. LUNGS: Decreased breath sounds but clear to auscultation. Percussion note normal. Chest symmetrical. HEART: S1, S2, no S3. No murmur. No cyanosis or clubbing. No ascites. Pulses: Dorsalis pedis and posterior tibial pulses +1 to +2 bilaterally. ABDOMEN: Soft. Nontender. Bowel sounds active. No CVA tenderness. No mass felt. EXTREMITIES: No edema. Full range of motion of all extremities, equal. NEUROLOGIC: No focal deficit. Cranial nerves II through XII are grossly intact. No headache, no double vision or headache. SKIN: Not dry. Intact. Turgor - Poor. Somewhat pale. LYMPHATIC: No palpable lymph nodes/no lymphedema. MUSCULOSKELETAL: Normal joints with no swelling. Muscle tone is normal. LABS: Hgb 10.5, HCT 35, WBC 4,600 normal differential. ABGs on 2 liters pO2 88, pCo2 46, pH 7.42 with 96% saturation. creatinine 2, BUN 58, potassium 5.3. CK-MB borderline positive. Troponin borderline positive, Troponin 41,100. CT scan of the chest infiltrate likely pneumonia. ASSESSMENT: 1. Acute tubular necrosis, estimated GFR 24cc per minute 2. Pneumonia 3. Respiratory failure 4. Coronary artery disease with recent [place] 5. History of atrial fibrillation on Xarelto 6. Chronic anemia 7. Depression 8. Chronic lung disease 9. Hypertension 10.Generalized osteoarthritis involving shoulders, hip 11.Right total knee replacement 12.History of cardiac arrest following total knee replacement PLAN: 1. Admit the patient 2. IV antibiotics 3. Fluids 4. Watch for fluid overload 5. Monitor CBC and CMP 6. Telemetry 7. Serial EKGs 8. Troponin 9. The patient's family refuses to go anywhere, she wants to be treated in the hospital at [place]. 10.Note CT of the head was negative for stroke. 11.The patient was given Azithromycin along with Rocephin CONDITION: Stable for now. The patient is DNI. TIME SPENT: More than 75 minutes. MTDD
[2023-04-21 05:25] LABS: BASOPHILS % (AUTO) 0.4 % (0.0-3.0); EOSINOPHILS # (AUTO) 0.3 K/ul (0.0-0.7); EOSINOPHILS % (AUTO) 5.6 % (0.0-7.0); HEMATOCRIT 28.7 % (37.0-47.0); HEMOGLOBIN 8.7 g/dl (12.0-16.0); IMMATURE GRANULOCYTE % (AUTO) 0.4 % (0.0-5.0); LYMPHOCYTES % (AUTO) 17.9 (10.0-50.0); MEAN CORPUSCULAR HEMOGLOBIN 28.2 pg (27.0-31.0); MEAN CORPUSCULAR HGB CONC 30.3 (31.8-35.4); MEAN CORPUSCULAR VOLUME 93.2 fl (81.0-99.0); MONOCYTES # (AUTO) 0.3 K/uL (0.4-2.0); MONOCYTES % (AUTO) 5.8 (0-10); NEUTROPHILS # (AUTO) 3.8 K/ul (2.0-6.9); NEUTROPHILS % (AUTO) 69.9 % (42.2-75.2); PLATELET COUNT 174 10^3/uL (140-440); RDW COEFFICIENT OF VARIATION 16.2 % (11.6-14.8); RED BLOOD COUNT 3.08 10^6/ul (4.20-5.40); WHITE BLOOD COUNT 5.49 K/ul (4.6-10.2)
[2023-04-21 05:47] LABS: ALANINE AMINOTRANSFERASE 22.6 U/L (0-35); ALBUMIN 2.72 g/dL (3.5-5.0); ALKALINE PHOSPHATASE 98.8 U/L (53-141); ASPARTATE AMINO TRANSFERASE 25.9 U/L (14-36); BILIRUBIN,TOTAL 0.47 mg/dL (0.2-1.3); BLOOD UREA NITROGEN 22.4 mg/dL (7-17); CALCIUM 8.43 mg/dL (8.4-10.2); CHLORIDE 102.3 mmol/L (98-107); CREATININE 0.82 mg/dL (0.60-1.30); GLUCOSE 90.8 mg/dL (74-106); POTASSIUM 4.77 mmol/L (3.5-5.1); SODIUM 135.9 mmol/L (134.5-145); TOTAL PROTEIN 5.72 g/dL (6.3-8.2)
[2023-04-21 05:54] VITALS: BP 117/65; PULSE 75; RESP 18; TEMP 97.3
[2023-04-21] MEDS: OMNICEF PO SCH (08:32)
--- NOTE | 2023-04-21 09:01 | PCM.PROG ---
Attending Provider: ATTENDING PROVIDER: Dr. JAGJIT VELASCO MD This patient is seen with Patricia Serrano, Nurse Practitioner. DATE OF SERVICE: 04/21/23 SUBJECTIVE: This 82 year old /WHITE F was hospitalized 04/15/23. HGB is stable. The patient is eating. Has been doing well with therapy. Ready for discharge home today. She would benefit from Home Health for PT/OT, has strong family support. She declined placement at [facility], not eligible for swing bed. REVIEW OF SYSTEMS: CONSTITUTIONAL: No night sweats. Fatigue. No fever or chills. Weakness. HEENT: Eyes: No visual changes. No eye pain. No eye discharge. ENT: No runny nose. No epistaxis. No sinus pain. No odynophagia. No congestion. RESPIRATORY: No cough, no congestion. No hemoptysis. Shortness of breath. CARDIOVASCULAR: No angina symptoms. No CHF symptoms. No atypical chest pain for CAD. No palpitations. No orthopnea.. GASTROINTESTINAL: No abdominal pain. No nausea or vomiting. No diarrhea or constipation. No hematemesis. No hematochezia. GENITOURINARY: No urgency. No frequency. No dysuria. No hematuria. No obstructive symptoms. No discharge. No pain. No significant abnormal bleeding. MUSCULOSKELETAL: No musculoskeletal pain; no joint swelling. NEUROLOGICAL: Awake, alert, oriented to time, place and person. No headache. No neck pain. No syncope. No seizures. No dizziness. PSYCHIATRIC: Not anxious. No depression. No suicidal thoughts. No homicidal thoughts. SKIN: No rash. No lesions. No wounds. ENDOCRINE: No unexplained weight loss. No weight gain. HEMATOLOGIC/LYMPHATIC: No anemia. No purpura. No petechiae. No prolonged or excessive bleeding. No palpable lymph nodes. PHYSICAL EXAMINATION: GENERAL: The patient is awake, alert and oriented, sitting in bed in no distress. VITAL SIGNS: Temperature 97.3 F, Pulse 75, Respiratory Rate 18, BP 117/65, Pulse Ox 96% HEENT: Head normocephalic, atraumatic. Eyes: Extraocular muscles are intact. Pupils are equal, round and reactive to light and accommodation. Ears: No lesions. Nose appeared normal. Throat: No exudate or erythema. NECK: Supple. No JVD, no carotid bruit. No lymphadenopathy or thyromegaly. LUNGS: Diminished breath sounds. Clear to auscultation. Percussion note normal. Chest symmetrical. HEART: Irregular heart rate. S1, S2, no S3. No murmurs. No cyanosis or clubbing. No ascites. Pulses: Dorsalis pedis and posterior tibial pulses +1 to +2 both sides. ABDOMEN: Soft. Non-tender. Bowel sounds active. No CVA tenderness. No mass felt. EXTREMITIES: No edema. Full range of motion of all extremities, equal. NEUROLOGIC: No focal deficit. Cranial nerves II through XII are grossly intact. No headache. No double vision. SKIN: Not dry. Intact. Turgor-normal. LYMPHATIC: No palpable lymph nodes/no lymphedema. MUSCULOSKELETAL: Normal joints with no swelling. Muscle tone is normal. LAB REVIEW: 04/21/23 05:11 04/21/23 05:11 04/21/23 05:11: WBC 5.49, RBC 3.08 L, Hgb 8.7 L, Hct 28.7 L, MCV 93.2, MCH 28.2, MCHC 30.3 L, RDW Coeff of Pricila 16.2 H, Plt Count 174, Immature Gran % (Auto) 0.4, Neut % (Auto) 69.9, Lymph % (Auto) 17.9, Burnett % (Auto) 5.8, Eos % (Auto) 5.6, Baso % (Auto) 0.4, Neut # (Auto) 3.8, Lymph # (Auto) 1.0, Burnett # (Auto) 0.3 L, Eos # (Auto) 0.3, Baso # (Auto) 0.0, Immature Gran # (Auto) 0.0, Sodium 135.9, Potassium 4.77, Chloride 102.3, Carbon Dioxide 33.0 H, Anion Gap 5.37, BUN 22.4 H, Creatinine 0.82, Estimated GFR (MDRD) 66.00, BUN/Creatinine Ratio 27.31, Glucose 90.8, Calcium 8.43, Total Bilirubin 0.47, AST 25.9, ALT 22.6, Alkaline Phosphatase 98.8, Total Protein 5.72 L, Albumin 2.72 L, Globulin 3.00, Albumin/Globulin Ratio 0.90 ASSESSMENT: Please see below. 1. Acute renal failure resolved 2. Bilateral pneumonia 3. Acute tubal necrosis improved 4. Atrial fibrillation on Xarelto 5. Chronic anemia 6. CAD 7. General weakness. PLAN: 1. Discharge home 2. Omnicef 300mg BID for 5 days 3. DUO NEBS twice a day Plan and coordination of the patient's care discussed in the presence of [employer] and nurse. SCRIBED BY: Karina GARLANDist scribed while in presence of service performed by Patricia Serrano APRN on 04/21/23 ([id number])
== END 2023-04-21 11:15 | disposition home health service (06) | DRG 682 ==
LOC: ED 08:27 → MEDSURG B 11:29
PROVIDERS: ADMIT Internal Medicine; ATTEND Internal Medicine
DX: J96.01 Acute respiratory failure with hypoxia; Z79.01 Long term (current) use of anticoagulants; I25.10 Atherosclerotic heart disease of native coronary artery without angina pectoris; N17.0 Acute kidney failure with tubular necrosis; D63.8 Anemia in other chronic diseases classified elsewhere; I11.0 Hypertensive heart disease with heart failure; I48.91 Unspecified atrial fibrillation; R41.82 Altered mental status, unspecified; F32.A Depression, unspecified; Z96.651 Presence of right artificial knee joint; J44.9 Chronic obstructive pulmonary disease, unspecified; J18.9 Pneumonia, unspecified organism